=== PATIENT | female | born 1960 | race Caucasian/White ===

== ENCOUNTER → 2019-04-07 09:20 | Outpatient (BNVA) | payer MEDICARE, MEDICAID, SELFPAY | PROVIDERS: Family Provider Internal Medicine; PCP Internal Medicine; Referring Provider Nurse Practitioner Women's Health; Visit Provider Internal Medicine Rheumatology | DX: M81.0 Age-related osteoporosis without current pathological fracture (principal); Z79.899 Other long term (current) drug therapy; M17.0 Bilateral primary osteoarthritis of knee; M47.816 Spondylosis without myelopathy or radiculopathy, lumbar region; Z87.891 Personal history of nicotine dependence | CPT/HCPCS: 99204 ==

== ENCOUNTER → 2019-04-07 10:34 | Outpatient (BNVA) | payer MEDICARE, MEDICAID, SELFPAY | PROVIDERS: Family Provider Internal Medicine; PCP Internal Medicine; Referring Provider Nurse Practitioner Women's Health; Visit Provider Internal Medicine Rheumatology | DX: M81.0 Age-related osteoporosis without current pathological fracture (principal); Z79.899 Other long term (current) drug therapy; M17.0 Bilateral primary osteoarthritis of knee | CPT/HCPCS: 85025 ==

== ENCOUNTER 2019-04-07 11:05 | Outpatient (CLI) | payer MEDICARE, MEDICAID, SELFPAY ==
--- NOTE | 2019-04-07 11:22 | XR_ITS ---
WS: [id number] LUMBAR SPINE TECHNIQUE: 3 views of the lumbar spine CLINICAL INFORMATION: osteoarthritis COMPARISON: None. FINDINGS: Five pic-lev-yncygww lumbar vertebral bodies. Disc space heights are well preserved. No compression f ractures. Aortic calcification. No spondylolisthesis. Visualized sacroiliac joints are normal. Normal visualized soft tissues. Partia lly visualized bowel gas pattern is normal. XR/XR lumbar spine 2-3V* [id number] IMPRESSION: 1. Mild lumbar curve convex right. 2. No acute compression fractures. 3. Disc space size vertebral body heights relatively well-preserved.
--- NOTE | 2019-04-07 11:22 | XR_ITS ---
WS: [id number] KNEE RIGHT TECHNIQUE: 3 views of the right knee CLINICAL INFORMATION: osteoarthritis of both knees COMPARISON: None. FINDINGS: Normal anatomic alignment. No evidence of acute fracture dislocation. Mild medial compartment narrowi ng left knee. Hypertrophic patella. Small suprapatellar effusion. Vascular calcification. XR/XR knee RT 3V* [id number] IMPRESSION: 1. Mild degenerative arthritis. No acute fractures. 2. Hypertrophic patella. Small suprapatellar effusion.
== END 2019-04-07 11:06 | disposition home or self-care (01) ==
LOC: WPI 11:09
PROVIDERS: Family Provider Internal Medicine; PCP Internal Medicine; Visit Provider Internal Medicine Rheumatology
DX: M17.0 Bilateral primary osteoarthritis of knee (principal); M81.0 Age-related osteoporosis without current pathological fracture; M25.462 Effusion, left knee; M25.461 Effusion, right knee; Z79.899 Other long term (current) drug therapy
CPT/HCPCS: 36415; 72100; 73562; 80076; 82306; 82310; 82565; 84100

== ENCOUNTER → 2019-04-10 13:45 | Outpatient (BNVA) | payer MEDICARE, MEDICAID, SELFPAY | PROVIDERS: Family Provider Internal Medicine; PCP Internal Medicine; Visit Provider Anesthesiology | DX: M47.816 Spondylosis without myelopathy or radiculopathy, lumbar region (principal); M17.0 Bilateral primary osteoarthritis of knee; M81.0 Age-related osteoporosis without current pathological fracture; Z79.891 Long term (current) use of opiate analgesic | CPT/HCPCS: 99214 ==

== ENCOUNTER 2019-04-18 08:14 | Outpatient (CLI) | payer MEDICARE, MEDICAID, SELFPAY ==
[2019-04-18 08:43] LABS: Basophils % 0.4 %; Eosinophils # 0.1 10^3/uL (0.0-0.8); Eosinophils % 1.4 %; Hematocrit 39.5 % (37.0-47.0); Lymphocytes # 2.7 10^3/uL (0.8-4.8); Mean Corpuscular HGB Conc 32.9 g/dL (30.0-36.0); Mean Corpuscular Hemoglobin 28.7 pg (28.0-34.0); Mean Corpuscular Volume 87.2 fL (81-99); Monocytes # 0.8 10^3/uL (0.2-0.9); Monocytes % 8.6 %; Neutrophils # 5.3 10^3/uL (1.8-7.7); Neutrophils % 59.4 %; Nucleated Red Blood Cells % 0 %; Platelet Count 259 10^3/cmm (130-400); Red Blood Count 4.53 10^6/uL (4.1-5.3)
[2019-04-18 08:57] LABS: Alanine Aminotransferase 22 U/L (0-33); Albumin Level 4.1 g/dL (3.5-5.2); Alkaline Phosphatase 117 IU/L (35-105); Anion Gap 14.7 (5-19); Aspartate Amino Transferase 25 U/L (0-32); Blood Urea Nitrogen 13 mg/dL (6-20); Calcium 9.9 mg/dL (8.5-10.5); Carbon Dioxide 30 mmol/L (22-29); Chloride 99 mmol/L (98-107); Chol HDL Ratio 3.42 mg/dL (0.0-4.40); Cholesterol 219 mg/dL (0-200); Globulin 3.2 g/dL (1.3-4.6); Glucose 113 mg/dL (65-115); HDL Cholesterol 64 mg/dL (60-100); LDL Cholesterol Calculated 119 mg/dL (50-129); LDL HDL Ratio 1.86 RATIO (0.00-3.22); Potassium 3.7 mmol/L (3.5-5.1); Sodium 140 mmol/L (136-145); Total Bilirubin 0.3 mg/dL (0.15-1.2); Total Protein 7.3 g/dL (6.6-8.7); Triglycerides 178 mg/dL (0-150)
== END 2019-04-18 08:15 | disposition home or self-care (01) ==
LOC: LAB 08:19
PROVIDERS: Family Provider Internal Medicine; PCP Internal Medicine; Visit Provider Internal Medicine
DX: E78.5 Hyperlipidemia, unspecified (principal); I10 Essential (primary) hypertension
CPT/HCPCS: 36415; 80053; 80061; 85025

== ENCOUNTER → 2019-08-13 10:47 | Outpatient (BNVA) | payer MEDICARE, MEDICAID, SELFPAY | PROVIDERS: Family Provider Internal Medicine; PCP Internal Medicine; Visit Provider Anesthesiology | DX: M47.816 Spondylosis without myelopathy or radiculopathy, lumbar region (principal); M54.9 Dorsalgia, unspecified; M50.90 Cervical disc disorder, unspecified, unspecified cervical region; M17.0 Bilateral primary osteoarthritis of knee; Z79.891 Long term (current) use of opiate analgesic | CPT/HCPCS: 99214 ==

== ENCOUNTER → 2019-10-15 14:11 | Outpatient (BNVA) | payer MEDICARE, MEDICAID, SELFPAY | PROVIDERS: Family Provider Internal Medicine; PCP Internal Medicine; Visit Provider Nurse Practitioner | DX: M54.42 Lumbago with sciatica, left side (principal); M54.41 Lumbago with sciatica, right side; M47.816 Spondylosis without myelopathy or radiculopathy, lumbar region; M54.9 Dorsalgia, unspecified; Z79.891 Long term (current) use of opiate analgesic | CPT/HCPCS: 99213; 99214 ==

== ENCOUNTER → 2019-12-12 10:18 | Outpatient (BNVA) | payer MEDICARE, MEDICAID, SELFPAY | PROVIDERS: Family Provider Internal Medicine; PCP Internal Medicine; Visit Provider Nurse Practitioner | DX: M47.816 Spondylosis without myelopathy or radiculopathy, lumbar region (principal); M47.26 Other spondylosis with radiculopathy, lumbar region; M17.0 Bilateral primary osteoarthritis of knee; Z79.891 Long term (current) use of opiate analgesic | CPT/HCPCS: 99214 ==

== ENCOUNTER 2019-12-31 12:49 | Outpatient (CLI) | payer MEDICARE, MEDICAID, SELFPAY ==
--- NOTE | 2019-12-31 13:01 | CT_ITS ---
WS: [id number] LDCT LUNG CANCER SCREENING TECHNIQUE: Noncontrast CT of the chest with coronal and sagittal reformatted images. CLINICAL INFORMATION: NICOTINE DEPENDENCE COMPARISON: CT chest 7 DLP: 54.76 mGy.cm DIvol: 1.[address] scans at [facility] use at least one of these dose optimization techniques: automat ed exposure control; mA and/or kV adjustment per patient size (includes targeted exams where dose is matched to clinical indication); or iterative reconstruction. FINDINGS: Both lungs are well aerated. No acute pulmonary infiltrates. Noncalcified nodule left lower lobe flakita uring 4.3 mm. Additional tiny 2 mm nodule left lower lobe. Additional tiny 2 mm nodule right lower lo be. Bibasilar atelectasis. Aortic calcification. No mediastinal or hilar lymphadenopathy. Small esophageal hiatal hernia. No axillary lymphadenopathy. Mild thoracic kyphosis. CT/CT lung screening [id number] IMPRESSION: LUNG-RADS: 2-Benign Appearance or Behavior FOLLOW UP: 12 Month: Continue annual screening with LDCT
== END 2019-12-31 12:50 | disposition home or self-care (01) ==
LOC: CT 12:52
PROVIDERS: PCP Internal Medicine; Visit Provider Internal Medicine
DX: Z12.2 Encounter for screening for malignant neoplasm of respiratory organs (principal); F17.218 Nicotine dependence, cigarettes, with other nicotine-induced disorders
CPT/HCPCS: G0297

== ENCOUNTER → 2020-02-02 12:17 | Outpatient (BNVA) | payer MEDICARE, MEDICAID, SELFPAY | PROVIDERS: PCP Internal Medicine; Visit Provider Nurse Practitioner Family | DX: Z20.828 Contact with and (suspected) exposure to other viral communicable diseases (principal); R43.0 Anosmia; J06.9 Acute upper respiratory infection, unspecified | CPT/HCPCS: 87635 ==

== ENCOUNTER 2020-02-17 10:34 | Outpatient (CLI) | payer MEDICARE, MEDICAID, SELFPAY ==
--- NOTE | 2020-02-17 10:39 | MM_ITS ---
WS: [id number] BILATERAL DIGITAL SCREENING MAMMOGRAPHY WITH CAD CLINICAL INFORMATION: SCREENING HISTORY: Screening mammogram. No current complaints. COMPARISON: TECHNIQUE: Bilateral CC and MLO views. FINDINGS: Scattered fibroglandular densities bilaterally. Asymmetric density upper outer right breast measuring 8 mm is unchanged. Slightly spiculated asymmetric density right breast measuring 6 mm best seen on the MLO view mid dept h along the posterior nipple line is stable compared to April 11, 2016. No other suspicious abnorma lity. Left breast is unchanged. MM/[place] [id number] IMPRESSION: BI-RADS: 2-Benign FOLLOW UP: 1 Year Follow-up
== END 2020-02-17 10:35 | disposition home or self-care (01) ==
LOC: RADSHAW 10:37
PROVIDERS: PCP Internal Medicine; Visit Provider Internal Medicine
DX: Z12.31 Encounter for screening mammogram for malignant neoplasm of breast (principal)
CPT/HCPCS: 77067

== ENCOUNTER → 2020-02-26 12:38 | Outpatient (BNVA) | payer MEDICARE, MEDICAID, SELFPAY | PROVIDERS: PCP Internal Medicine; Visit Provider Nurse Practitioner | DX: M54.9 Dorsalgia, unspecified (principal); M47.816 Spondylosis without myelopathy or radiculopathy, lumbar region; M47.26 Other spondylosis with radiculopathy, lumbar region; M17.0 Bilateral primary osteoarthritis of knee; M70.61 Trochanteric bursitis, right hip; Y93.9 Activity, unspecified; F17.210 Nicotine dependence, cigarettes, uncomplicated; Z79.1 Long term (current) use of non-steroidal anti-inflammatories (NSAID); Z79.891 Long term (current) use of opiate analgesic | CPT/HCPCS: 99213; 99214 ==

== ENCOUNTER → 2020-03-16 13:04 | Outpatient (BNVA) | payer MEDICARE, MEDICAID, SELFPAY | PROVIDERS: PCP Internal Medicine; Visit Provider Anesthesiology Pain Medicine | DX: M70.61 Trochanteric bursitis, right hip (principal); F17.210 Nicotine dependence, cigarettes, uncomplicated; Z79.891 Long term (current) use of opiate analgesic; Y93.9 Activity, unspecified | CPT/HCPCS: 20610; 77002; 77003; J1030; J3490 ==

== ENCOUNTER → 2020-03-30 10:32 | Outpatient (BNVA) | payer MEDICARE, MEDICAID, SELFPAY | PROVIDERS: PCP Internal Medicine; Visit Provider Anesthesiology Pain Medicine | DX: M25.551 Pain in right hip (principal); M54.9 Dorsalgia, unspecified; F17.210 Nicotine dependence, cigarettes, uncomplicated | CPT/HCPCS: 99213; 99214 ==

== ENCOUNTER 2020-04-05 12:00 | Outpatient (CLI) | payer MEDICARE, MEDICAID, SELFPAY | END 2020-04-05 12:01 | disposition home or self-care (01) | LOC: SLEEP 04-06 12:36 | PROVIDERS: PCP Internal Medicine; Visit Provider Internal Medicine | DX: G47.10 Hypersomnia, unspecified (principal) | CPT/HCPCS: G0399 ==

== ENCOUNTER → 2020-04-12 13:19 | Outpatient (BNVA) | payer MEDICARE, MEDICAID, SELFPAY | PROVIDERS: PCP Internal Medicine; Visit Provider Anesthesiology Pain Medicine | DX: M70.61 Trochanteric bursitis, right hip (principal); Y93.9 Activity, unspecified; Z79.891 Long term (current) use of opiate analgesic | CPT/HCPCS: 20610; J1030; J3490 ==

== ENCOUNTER → 2020-04-30 11:31 | Outpatient (BNVA) | payer MEDICARE, MEDICAID, SELFPAY | PROVIDERS: PCP Internal Medicine; Visit Provider Nurse Practitioner | DX: M47.816 Spondylosis without myelopathy or radiculopathy, lumbar region (principal); M17.0 Bilateral primary osteoarthritis of knee; M47.26 Other spondylosis with radiculopathy, lumbar region; M70.61 Trochanteric bursitis, right hip; M54.9 Dorsalgia, unspecified; F17.210 Nicotine dependence, cigarettes, uncomplicated; Z79.1 Long term (current) use of non-steroidal anti-inflammatories (NSAID); Z79.891 Long term (current) use of opiate analgesic; Y93.9 Activity, unspecified | CPT/HCPCS: 99213 ==

== ENCOUNTER → 2020-06-07 09:43 | Outpatient (BNVA) | payer MEDICARE, MEDICAID, SELFPAY | PROVIDERS: PCP Internal Medicine; Referring Provider Internal Medicine; Visit Provider Podiatrist Foot & Ankle Surgery | DX: M79.671 Pain in right foot (principal) | CPT/HCPCS: 73630 ==

== ENCOUNTER → 2020-06-30 12:59 | Outpatient (BNVA) | payer MEDICARE, MEDICAID, SELFPAY | PROVIDERS: PCP Internal Medicine; Visit Provider Anesthesiology | DX: M47.816 Spondylosis without myelopathy or radiculopathy, lumbar region (principal); M47.26 Other spondylosis with radiculopathy, lumbar region; M17.0 Bilateral primary osteoarthritis of knee; M54.9 Dorsalgia, unspecified; M70.61 Trochanteric bursitis, right hip; Y93.9 Activity, unspecified; Z79.1 Long term (current) use of non-steroidal anti-inflammatories (NSAID); Z79.899 Other long term (current) drug therapy; Z79.891 Long term (current) use of opiate analgesic; F17.210 Nicotine dependence, cigarettes, uncomplicated | CPT/HCPCS: 99213 ==

== ENCOUNTER 2020-07-26 08:49 | Outpatient (CLI) | payer MEDICARE, MEDICAID, SELFPAY ==
--- NOTE | 2020-07-26 09:08 | FL_ITS ---
WS: [id number] ESOPHAGRAM WITH FLUOROSCOPY HISTORY: CHRONIC LARYNGITIS, DYSPHAGIA OROPHARYNGEAL PHASE COMPARISON: None available. FLUOROSCOPY TIME: 2.3 minutes. Esophagus and swallowing function: Patient swallowed the barium mixture without difficulty. No strict ures or mucosal abnormalities are identified. Mild coating of the pharynx after swallowing persists. Mild tertiary contractions throughout the mid to distal esophagus. Small reducible hiatal hernia. Mil d cricopharyngeal spasm at C4-5 level. There is also very small anterior cervical web at the C5 level . Gastroesophageal reflux: With patient supine reflux is noted into the upper thoracic esophagus. Hiatal hernia: Small hiatal hernia. FL/FL barium swallow [id number] IMPRESSION: 1. Large amount of gastroesophageal reflux to the level of the upper thoracic esophagus. With the patient supine there is delayed emptying of the reflux. Eso phagus emptied readily with the patient upright. 2. Small cricopharyngeal spasm and very small anterior cervical esophageal web . 3. Small hiatal hernia.
== END 2020-07-26 08:50 | disposition home or self-care (01) ==
PROVIDERS: PCP Internal Medicine; Visit Provider Specialist
DX: J37.0 Chronic laryngitis (principal); R13.12 Dysphagia, oropharyngeal phase; K21.9 Gastro-esophageal reflux disease without esophagitis; K44.9 Diaphragmatic hernia without obstruction or gangrene
CPT/HCPCS: 74220

== ENCOUNTER 2020-07-28 12:25 | Outpatient (CLI) | payer MEDICARE, MEDICAID, SELFPAY ==
--- NOTE | 2020-07-28 12:32 | USCV_ITS ---
Rosario Villalba Age: 60 Gender: F : 1960 Exam Date: 07/28/2020 12:58 Ordering Phys: Rianna Ruiz MD Technologist: TANIA Exam Location: [facility] [place] Indication: HEART MURMUR BP: / HR: 92 Rhythm: Sinus Technical Quality: Adequate MEASUREMENTS (Male / Female) Normal Values 2D ECHO LV Diastolic Diameter PLAX 2.4 cm 4.2 - 5.9 / 3.9 - 5.3 cm LV Systolic Diameter PLAX 1.6 cm LV Chamber Size 2.1 cm IVS Diastolic Thickness 1.6 cm 0.6 - 1.0 / 0.6 - 0.9 cm IVS Systolic Thickness 1.4 cm LVPW Diastolic Thickness 1.8 cm 0.6 - 1.0 / 0.6 - 0.9 cm LVPW Systolic Thickness 1.8 cm RV Chamber Size 1.9 cm LVOT Diameter 2.0 cm LV Ejection Fraction 2D Teich 62.7 % LV Ejection Fraction MOD 2C 68.5 % LV Ejection Fraction 2C AL 68.5 % LA Diameter 2.5 cm LA Width 3.6 cm LA Height 4.5 cm RA Width 3.0 cm RA Height 3.9 cm Aorta at Sinotubular Diameter 3.0 cm M-MODE LV Diastolic Diameter MM 4.6 cm 4.2 - 5.9 / 3.9 - 5.3 cm LV Systolic Diameter MM 2.8 cm LV Ejection Fraction MM Teich 70.1 % IVS Diastolic Thickness MM 0.7 cm 0.6 - 1.0 / 0.6 - 0.9 cm IVS Systolic Thickness MM 1.2 cm LVPW Diastolic Thickness MM 1.2 cm 0.6 - 1.0 / 0.6 - 0.9 cm LVPW Systolic Thickness MM 1.3 cm Aortic Annulus Diameter 3.5 cm LA Ao Ratio MM 0.6 MV E Point Septal Separation 0.8 cm DOPPLER AV Peak Velocity 139.0 cm/s LVOT Peak Velocity 141.0 cm/s AV Area Cont Eq vti 3.3 cm squared AV Area Cont Eq pk 3.3 cm squared MV Area PHT 5.0 cm squared Mitral E to A Ratio 0.8 MV E' Velocity 38.0 cm/s Mitral E to MV E' Ratio 8.0 Mitral E to LV E' Lateral Ratio 8.5 Mitral E to LV E' Septal Ratio 7.6 TR Peak Velocity 263.0 cm/s TR Peak Gradient 27.7 mmHg TV Peak E Velocity 61.0 cm/s Right Atrial Pressure 3.0 mmHg Pulmonary Artery Systolic Pressu 30.7 mmHg PV Peak Velocity 97.0 cm/s RV Acceleration Time 0.1 s RV Ejection Time 0.4 s RV AcT/ET 0.4 FINDINGS Left Ventricle Normal left ventricular size and , EF 60 %. The basal septum appears to be dyskinetic.Grade I/IV diastolic dysfunction (abnormal relaxation filling pattern), normal to mildly elevated filling pressures. Right Ventricle The right ventricle is normal in size and function. Right Atrium Possibly of normal size Left Atrium The left atrium is normal in size. Mitral Valve Mild mitral annular calcification. Aortic Valve No gross abnormalities noted Tricuspid Valve Trace to mild tricuspid valve regurgitation. Pulmonic Valve Pulmonic valve not well visualized. Pericardium Normal pericardium without effusion. Aorta Normal ascending aorta dimension. CONCLUSIONS Normal left ventricular size and , EF 60 %. Wall motion abnormality as mentioned above Type I diastolic dysfunction. Trace to mild tricuspid valve regurgitation. Mild mitral annular calcification. Technically difficult study because of the poor ultrasonic window. Comparison with the previous study is difficult because of the difference in the technical quality. Dr Wilbert Tam MD [facility] (Electronically Signed) Final Date: 29 Jul 2020 01:21 S
== END 2020-07-28 12:26 | disposition home or self-care (01) ==
PROVIDERS: PCP Internal Medicine; Visit Provider Internal Medicine
DX: R01.1 Cardiac murmur, unspecified (principal); I07.1 Rheumatic tricuspid insufficiency
CPT/HCPCS: 93306

== ENCOUNTER 2020-08-24 12:43 | Outpatient (CLI) | payer MEDICARE, MEDICAID, SELFPAY ==
[2020-08-24 13:23] LABS: Anion Gap 14.5 (5-19); Blood Urea Nitrogen 19 mg/dL (6-20); Calcium 9.9 mg/dL (8.5-10.5); Carbon Dioxide 29 mmol/L (22-29); Chloride 97 mmol/L (98-107); Glomerular Filtration Rate 41.9 mL/min (90-130); Glucose 116 mg/dL (65-115); Osmolality Calculated 287 mOsm/kg (285-295); Potassium 3.5 mmol/L (3.5-5.1); Sodium 137 mmol/L (136-145)
== END 2020-08-24 12:44 | disposition home or self-care (01) ==
PROVIDERS: PCP Internal Medicine; Visit Provider Anesthesiology
DX: Z79.899 Other long term (current) drug therapy (principal); Z79.1 Long term (current) use of non-steroidal anti-inflammatories (NSAID)
CPT/HCPCS: 36415; 80048

== ENCOUNTER → 2020-08-25 12:47 | Outpatient (BNVA) | payer MEDICARE, MEDICAID, SELFPAY | PROVIDERS: PCP Internal Medicine; Visit Provider Anesthesiology | DX: M54.41 Lumbago with sciatica, right side (principal); M47.816 Spondylosis without myelopathy or radiculopathy, lumbar region; M54.9 Dorsalgia, unspecified; M47.26 Other spondylosis with radiculopathy, lumbar region; M17.0 Bilateral primary osteoarthritis of knee; F17.210 Nicotine dependence, cigarettes, uncomplicated; Z79.891 Long term (current) use of opiate analgesic; Z79.899 Other long term (current) drug therapy | CPT/HCPCS: 99213 ==

== ENCOUNTER → 2020-10-20 09:45 | Outpatient (BNVA) | payer MEDICARE, MEDICAID, SELFPAY | PROVIDERS: PCP Internal Medicine; Visit Provider Internal Medicine Cardiovascular Disease | DX: I10 Essential (primary) hypertension (principal); M79.89 Other specified soft tissue disorders; I83.893 Varicose veins of bilateral lower extremities with other complications; E78.00 Pure hypercholesterolemia, unspecified | CPT/HCPCS: 80048; 83735; 83880 ==

== ENCOUNTER 2020-10-22 14:45 | Outpatient (CLI) | payer MEDICARE, MEDICAID, SELFPAY ==
--- NOTE | 2020-10-22 14:49 | MRR_ITS ---
PROCEDURE INFORMATION: Exam: MR Neck Without and With Contrast Exam date and time: 10/22/2020 2:49 PM Age: 60 years old Clinical indication: Other: Throat pain dysphagia; Additional info: Gastro-esophagel reflux disease; Pain in throat; , Dysphagia oropharyngeal phase TECHNIQUE: Imaging protocol: MR images of the neck without and with intravenous contrast. Contrast material: PROHANCE; Contrast volume: 17 ml; Contrast route: INTRAVENOUS (IV); COMPARISON: RF FL barium swallow [id number] 07/26/2020 9:13 AM FINDINGS: Nasopharynx: The nasopharynx is unremarkable. There is no significant pharyngeal tonsillar enlargement. Oropharynx: The oropharynx is unremarkable. There is no significant palatine tonsillar enlargement. Hypopharynx: Lingual tonsils are symmetrically prominent. There is no airway compromise. Larynx: The epiglottis is mildly thickened measuring up to 7 mm in thickness. There is no definite edema or pathologic enhancement of the epiglottis. Submandibular/Parotid glands: The parotid glands are normal. The submandibular glands are normal. Retropharyngeal space: There is no fluid or edema in the retropharyngeal space. Thyroid: The thyroid gland is unremarkable. Trachea: The visible portion of the trachea is normal. Mastoid air cells: Left mastoid effusion. Brain: The visible portion of the brain is normal. Vasculature: Vascular flow voids of the carotid and vertebral arteries are visible on the right. Left vertebral artery flow void is not apparent. Lymph nodes: There is no cervical or supraclavicular lymphadenopathy. Soft tissues: No edema. Bones/joints: There is mild multilevel spinal canal stenosis. There is multilevel moderate cervical degenerative disc disease. MR/MR orbit face neck wo/w* [id number] IMPRESSION: 1. Borderline thickening of the epiglottis. Possible epiglottitis. Findings are not definitive given borderline thickness. There is no visible airway compromise. Correlate with airway symptoms. 2. Lack of left vertebral artery flow void. Possible hypoplasia or occlusion. 3. Prominent lingual tonsils. Possible tonsillitis. No abscess or airway compromise. 4. Left mastoid effusion.
== END 2020-10-22 14:46 | disposition home or self-care (01) ==
LOC: RADSHAW 14:48
PROVIDERS: PCP Internal Medicine; Visit Provider Specialist
DX: K21.9 Gastro-esophageal reflux disease without esophagitis (principal); R07.0 Pain in throat; R13.12 Dysphagia, oropharyngeal phase; J35.8 Other chronic diseases of tonsils and adenoids
CPT/HCPCS: 70543; A9579

== ENCOUNTER → 2020-11-05 13:07 | Outpatient (BNVA) | payer MEDICARE, MEDICAID, SELFPAY | PROVIDERS: PCP Internal Medicine; Visit Provider Anesthesiology | DX: M54.41 Lumbago with sciatica, right side (principal); M47.816 Spondylosis without myelopathy or radiculopathy, lumbar region; M47.26 Other spondylosis with radiculopathy, lumbar region; Z79.891 Long term (current) use of opiate analgesic; Z87.891 Personal history of nicotine dependence | CPT/HCPCS: 99213 ==

== ENCOUNTER 2020-11-11 13:12 | Outpatient (CLI) | payer MEDICARE, MEDICAID, SELFPAY ==
--- NOTE | 2020-11-11 13:27 | ECG_ITS ---
[facility] Test Date: 2020-11-11 Pat Name: Rosario Villalba Department: Room: Gender: Female Patient Manager: : 1960 Requested By: Jaun Vargas Order Number: [id number] Leora MD: Gilma Venegas M.D. Measurements Intervals [place] Rate: 90 P: 43 AR: 139 QRS: -2 QRSD: 91 T: 60 QT: 369 QTc: 452 Interpretive Statements SINUS RHYTHM No previous ECG available for comparison Electronically Signed On 11-12-2020 9:08:21 CDT by Gilma Venegas M.D. [id number]
[2020-11-11 14:39] LABS: Alanine Aminotransferase 25 U/L (0-33); Albumin Level 4.3 g/dL (3.5-5.2); Alkaline Phosphatase 97 IU/L (35-105); Aspartate Amino Transferase 30 U/L (0-32); Blood Urea Nitrogen 16 mg/dL (6-20); Calcium 9.3 mg/dL (8.5-10.5); Carbon Dioxide 27 mmol/L (22-29); Chloride 96 mmol/L (98-107); Globulin 3.3 g/dL (1.3-4.6); Glomerular Filtration Rate 56.7 mL/min (90-130); Glucose 112 mg/dL (65-115); Osmolality Calculated 286 mOsm/kg (285-295); Sodium 137 mmol/L (136-145); Total Bilirubin 0.3 mg/dL (0.15-1.2); Total Protein 7.6 g/dL (6.6-8.7)
== END 2020-11-11 13:13 | disposition home or self-care (01) ==
LOC: RT 13:19
PROVIDERS: PCP Internal Medicine; Visit Provider Specialist
DX: Z01.810 Encounter for preprocedural cardiovascular examination (principal)
CPT/HCPCS: 80053; 93005

== ENCOUNTER 2020-11-23 13:22 | Outpatient (CLI) | payer MEDICARE, MEDICAID, SELFPAY ==
--- NOTE | 2020-11-23 13:34 | XR_ITS ---
WS: [id number] LUMBAR SPINE TECHNIQUE: 3 views of the lumbar spine CLINICAL INFORMATION: PAIN IN LUMBAR SPINE, DEGENERATIVE DISC DISEASE COMPARISON: None. FINDINGS: Osteopenia. Mild lumbar curve convex right. No acute compression fractures. Disc space heights verteb ral body heights relatively well-preserved. Mild disc space narrowing L3-L4 L4-L5. Trace anterolisthe sis L4 on L5. Moderate facet arthropathy L4-L5 and L5-S1. Aortic calcification. XR/XR lumbar spine 2-3V* [id number] IMPRESSION: 1. Osteopenia. Mild lumbar curve convex right. 2. Trace anterolisthesis L4 on L5. 3. Mild disc space narrowing L3-4 L4-5. 4. No acute compression fractures. 5. Moderate facet arthropathy L4-L5 and L5-S1.
== END 2020-11-23 13:23 | disposition home or self-care (01) ==
PROVIDERS: PCP Internal Medicine; Visit Provider Internal Medicine
DX: M51.36 Other intervertebral disc degeneration, lumbar region (principal); M85.80 Other specified disorders of bone density and structure, unspecified site; M47.816 Spondylosis without myelopathy or radiculopathy, lumbar region; M47.817 Spondylosis without myelopathy or radiculopathy, lumbosacral region
CPT/HCPCS: 72100

== ENCOUNTER 2020-12-09 14:23 | Outpatient (CLI) | payer MEDICARE, MEDICAID, SELFPAY ==
--- NOTE | 2020-12-09 14:41 | XR_ITS ---
WS: [id number] SCREENING DEXA SCAN [employer] CLINICAL INFORMATION: OSTEOPOROSIS COMPARISON: FINDINGS: The L1-L4 bone mineral density measures 0.894 g/cm2. This corresponds to a T score score of -2.4 and Z score of -2.0. Left femoral neck bone mineral density measures 0.907 g/cm2. This corresponds to a T score of -0.8 an d Z score of -0.4. Right femoral neck bone mineral density measures 0.851 g/cm2. This corresponds to a T score -1.2of an d Z score of -0.9. Mean femoral neck bone mineral density measures 0.879 g/cm2. This corresponds to a T score of -1.0 an d Z score of -0.7. XR/XR DEXA axial skeleton* [id number] IMPRESSION: Osteopenia lumbar spine at the upper end of the range. Osteopenia in the femora l necks at the lower end of the range. Patient's FRAX calculated 10 year probability for major osteoporotic fracture is 13.9 % and osteoporotic hip fracture is 1.4%.
== END 2020-12-09 14:24 | disposition home or self-care (01) ==
PROVIDERS: PCP Internal Medicine; Visit Provider Internal Medicine
DX: M81.0 Age-related osteoporosis without current pathological fracture (principal); M85.88 Other specified disorders of bone density and structure, other site
CPT/HCPCS: 77080

== ENCOUNTER → 2021-01-04 13:56 | Outpatient (BNVA) | payer MEDICARE, MEDICAID, SELFPAY | PROVIDERS: PCP Internal Medicine; Visit Provider Anesthesiology | DX: M47.816 Spondylosis without myelopathy or radiculopathy, lumbar region (principal); M47.26 Other spondylosis with radiculopathy, lumbar region; Z79.899 Other long term (current) drug therapy; Z79.891 Long term (current) use of opiate analgesic; Z87.891 Personal history of nicotine dependence | CPT/HCPCS: 99213 ==

== ENCOUNTER → 2021-02-02 12:24 | Outpatient (BNVA) | payer MEDICARE, MEDICAID, SELFPAY | PROVIDERS: PCP Internal Medicine; Visit Provider Anesthesiology | DX: G89.29 Other chronic pain (principal); M47.816 Spondylosis without myelopathy or radiculopathy, lumbar region; M47.26 Other spondylosis with radiculopathy, lumbar region; M70.61 Trochanteric bursitis, right hip; Y93.9 Activity, unspecified; F17.200 Nicotine dependence, unspecified, uncomplicated; Z79.891 Long term (current) use of opiate analgesic; Z79.899 Other long term (current) drug therapy; Z71.6 Tobacco abuse counseling | CPT/HCPCS: 99214 ==

== ENCOUNTER → 2021-03-31 13:26 | Outpatient (BNVA) | payer MEDICARE, MEDICAID, SELFPAY | PROVIDERS: PCP Internal Medicine; Visit Provider Anesthesiology | DX: G89.29 Other chronic pain (principal); M47.816 Spondylosis without myelopathy or radiculopathy, lumbar region; M17.0 Bilateral primary osteoarthritis of knee; M47.26 Other spondylosis with radiculopathy, lumbar region; M25.559 Pain in unspecified hip; Z79.891 Long term (current) use of opiate analgesic; Z79.899 Other long term (current) drug therapy; Z87.891 Personal history of nicotine dependence | CPT/HCPCS: 99214 ==

== ENCOUNTER 2021-05-10 13:10 | Outpatient (RCR) | payer MEDICARE, MEDICAID, SELFPAY | END 2021-06-09 23:59 | disposition home or self-care (01) | LOC: SPT 13:10 | PROVIDERS: PCP Internal Medicine; Referring Provider General Practice; Visit Provider General Practice | DX: G89.4 Chronic pain syndrome (principal); R26.9 Unspecified abnormalities of gait and mobility; M51.36 Other intervertebral disc degeneration, lumbar region; Z79.891 Long term (current) use of opiate analgesic; E66.9 Obesity, unspecified; M47.817 Spondylosis without myelopathy or radiculopathy, lumbosacral region; Z72.0 Tobacco use | CPT/HCPCS: 97110; 97161 ==

== ENCOUNTER 2021-05-16 14:59 | Outpatient (CLI) | payer MEDICARE, MEDICAID, SELFPAY ==
--- NOTE | 2021-05-16 15:17 | USCV_ITS ---
Rosario Villalba Age: 61 Gender: F : 1960 Exam Date: 05/16/2021 15:32 Ordering Phys: Rianna Ruiz MD Technologist: Flaco Washburn [place] Location[place] [facility] [place] Indication: carotid bruit Risk Factors: Previous Vascular Surgery: Right Brachial BP: / Left Brachial BP: / Right Left Velocity (cm/s) Spectral Plaque Velocity (cm/s) Spectral Plaque Syst/Diast Broadening Syst/Diast Broadening 172.10/29.60 Prox CCA 82.80 / 6.10 190.90/32.30 Mid CCA 104.90/ 9.30 150.60/34.90 Distal CCA 116.90/ 17.60 241.80/68.10 Prox ICA / 182.20/54.50 Mid ICA / 110.70/42.60 Distal ICA / 133.10 ECA 232.10 0.95 ICA/CCA Antegrade Vertebral Antegrade 63.90/ 17.60 cm/s 32.90/ 5.60 cm/s Tri Subclavian Tri 145.5 77.55 0 FINDINGS Comparison: none available. Complete occlusion of the Left ICA. Mild elevation left subclavian velocity. Moderate elevation of velocity in the right CCA and ICA. Likely secondary to occluded left ICA. Mild plaque left bifurcation. Antegrade vertebral arteries. CONCLUSIONS Complete occlusion left ICA. Right ICA stenosis 50-69%. Increased velocity in part due to occluded left ICA. Recommend carotid CTA. Dr. Ashley Fisher DO (Electronically Signed) Final Date: 16 May 2021 16:31 S
== END 2021-05-16 15:00 | disposition home or self-care (01) ==
PROVIDERS: PCP Internal Medicine; Visit Provider Internal Medicine
DX: I65.23 Occlusion and stenosis of bilateral carotid arteries (principal); R09.89 Other specified symptoms and signs involving the circulatory and respiratory systems
CPT/HCPCS: 93880

== ENCOUNTER → 2021-06-07 14:28 | Outpatient (BNVA) | payer MEDICARE, MEDICAID, SELFPAY | PROVIDERS: PCP Internal Medicine; Visit Provider Internal Medicine Cardiovascular Disease | DX: I65.29 Occlusion and stenosis of unspecified carotid artery (principal); I10 Essential (primary) hypertension; E78.00 Pure hypercholesterolemia, unspecified; Z87.891 Personal history of nicotine dependence | CPT/HCPCS: 99214 ==

== ENCOUNTER 2021-06-13 15:06 | Outpatient (CLI) | payer MEDICARE, MEDICAID, SELFPAY ==
--- NOTE | 2021-06-13 15:12 | CT_ITS ---
WS: [id number] CT ANGIOGRAM CAROTID ARTERIES HISTORY: L CAROTID ARTERY OCCLUSION TECHNIQUE: CT angiogram is performed of the carotid arteries. During arterial injection imaging is ob tained from the skull base to the aortic arch in 1.25 mm imaging. Coronal and sagittal reformats are submitted, MIP imaging also reviewed. Additional multiplanar reformats of the carotid arteries are chen bmitted. NASCET criteria utilized. All CT scans at [facility] use at least one of these dose optimization techniques: automated exposure control; mA and/or kV adjustment per patient size (includ es targeted exams where dose is matched to clinical indication); or iterative reconstruction. CONTRAST: Omnipaque 350; 95 mL IV. DLP: 376.08 mGy.cm COMPARISON: None available. Right carotid: Common carotid artery: Arises normally from the innominate artery. No significant plaque or stenosis. Internal carotid artery: Small amount of calcification. Very minimal intimal thickening at the bifurc ation. External carotid artery: Patent. Left carotid: Common carotid artery: Arises normally from the arch. Mild intimal thickening and atherosclerotic mildred que. There is very mild narrowing in the mid common carotid artery. No high-grade stenosis. More foca l calcified plaque without stenosis at the bifurcation. Internal carotid artery: Occluded at the bifurcation. No opacification distal to the bifurcation. External carotid artery: Patent. Focal calcified plaque and intimal thickening in the distal external carotid artery at the skull base. Right vertebral artery: Unremarkable. Left vertebral artery: Arises normally from the subclavian. Very small caliber LEFT vertebral artery. The artery is patent and diffusely small throughout its course. Distally at the skull base nonvisual ization of the artery. May be completely occluded at the skull base. Subclavian arteries: Small amount of calcified plaque proximal RIGHT subclavian artery. The mid to di stal RIGHT subclavian is being obscured by contrast injection. Mild plaque and irregularity involving the proximal LEFT subclavian artery. Just less than 50% stenosis involving the proximal LEFT subclav nella artery. Upper thorax: mild chronic emphysema. Focal area of pleural thickening in the posterior LEFT apex. Thyroid gland: 10 mm inferior LEFT thyroid nodule. There is a focal calcification in the mid gland on the RIGHT. Osseous structures: Unremarkable. Skull base: Unremarkable. CT/CT angio neck [id number] IMPRESSION: 1. 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 2. Mild atherosclerosis RIGHT cervical ICA. No high-grade stenosis. 3. Small caliber LEFT vertebral artery. This may be congenital. Diffusely hypo plastic and may be occluded distally near the skull base. 4. Just less than 50% stenosis proximal LEFT subclavian artery. Irregular plaq ue in the proximal LEFT subclavian artery.
== END 2021-06-13 15:07 | disposition home or self-care (01) ==
LOC: RAD 15:08
PROVIDERS: PCP Internal Medicine; Visit Provider Internal Medicine
DX: I65.23 Occlusion and stenosis of bilateral carotid arteries (principal); I70.8 Atherosclerosis of other arteries
CPT/HCPCS: 70498; Q9967

== ENCOUNTER → 2021-07-01 09:35 | Outpatient (BNVA) | payer MEDICARE, MEDICAID, SELFPAY | PROVIDERS: PCP Internal Medicine; Visit Provider Thoracic Surgery (Cardiothoracic Vascular Surgery) | DX: I65.23 Occlusion and stenosis of bilateral carotid arteries (principal); F17.210 Nicotine dependence, cigarettes, uncomplicated; Z79.82 Long term (current) use of aspirin | CPT/HCPCS: 99203 ==

== ENCOUNTER 2021-07-04 09:56 | Outpatient (CLI) | payer MEDICARE, MEDICAID, SELFPAY ==
--- NOTE | 2021-07-04 10:05 | MR_ITS ---
WS: [id number] MRI LUMBAR SPINE NONCONTRAST TECHNIQUE: Sagittal T1, T2 and STIR imaging. Axial T1 and T2 imaging. CLINICAL INFORMATION: DDD, LUMBAR COMPARISON: February 11, 2018 FINDINGS: Mild lumbar curve. No acute compression. Mild annular bulging L3-L4 and L4-L5. No high-grade central canal stenosis. L1-L2: Normal. L2-L3: Normal. L3-L4: Mild annular bulging with slight effacement of ventral thecal sac. Slight narrowing of the LEF T subarticular recess. Spinal canal and foramen are patent. Mild facet arthropathy. L4-L5: Mild annular bulging with slight impingement traversing L5 nerve roots bilaterally. Mild RIGHT foraminal narrowing. Moderate facet arthropathy. This is unchanged from previous. L5-S1: No significant disc bulging. Moderate facet arthropathy. Spinal canal and foramen are patent. Small disc protrusions in the cervical spine and mid thoracic spine most prominent at T7-T8 eccentric to the LEFT. Visualized pelvic bony structures: Normal. Paravertebral soft tissues: Normal. MR/MR lumbar spine wo con* [id number] IMPRESSION: 1. Mild lumbar curve. No acute compression. No high-grade central canal stenos is. 2. Mild annular bulging L4-L5 slightly impinges the traversing L5 nerve roots bilaterally. This is unchanged from previous. 3. Mild RIGHT L4-L5 foraminal narrowing is unchanged. 4. Mild to moderate facet arthropathy L3-L5. 5. Overall no significant changes compared to previous.
== END 2021-07-04 09:57 | disposition home or self-care (01) ==
LOC: RAD 09:58
PROVIDERS: PCP Internal Medicine; Visit Provider General Practice
DX: M54.17 Radiculopathy, lumbosacral region (principal)
CPT/HCPCS: 72148

== ENCOUNTER 2021-07-25 13:58 | Outpatient (CLI) | payer MEDICARE, MEDICAID, SELFPAY ==
--- NOTE | 2021-07-25 14:08 | MM_ITS ---
WS: [id number] BILATERAL 3D TOMOSYNTHESIS DIGITAL SCREENING MAMMOGRAPHY WITH CAD CLINICAL INFORMATION: SCREENING HISTORY: Screening mammogram. No current complaints. COMPARISON: February 17, 2020 TECHNIQUE: Bilateral CC and MLO views. FINDINGS: Scattered fibroglandular densities bilaterally. A few incidental punctate calcifications. Stable nodu lar asymmetric densities RIGHT breast. No suspicious focal mass, asymmetry, calcifications, or antonio ectural distortion. No evidence of malignancy. MM/[place] [id number] IMPRESSION: BI-RADS: 2-Benign FOLLOW UP: 1 Year Follow-up Recommend return to annual screening mammography.
== END 2021-07-25 13:59 | disposition home or self-care (01) ==
LOC: RAD 13:59
PROVIDERS: PCP Internal Medicine; Visit Provider Internal Medicine
DX: Z12.31 Encounter for screening mammogram for malignant neoplasm of breast (principal)
CPT/HCPCS: 77063; 77067

== ENCOUNTER 2021-09-06 12:04 | Outpatient (CLI) | payer MEDICARE, MEDICAID, SELFPAY ==
--- NOTE | 2021-09-06 12:12 | CT_ITS ---
WS: [id number] LDCT LUNG CANCER SCREENING HISTORY: NICOTINE DEPENDENCE, CIGARETTES TECHNIQUE: Axial imaging performed from the apices to 1 cm below the costophrenic angles. Coronal and sagittal reformats are submitted with axial MIP series. All CT scans at [facility] use at least one of these dose optimization techniques: automated exposure control; mA and/or kV adjustment per patient size (includes targeted exams where dose is matched to clinical indication); or iterativ e reconstruction. DLP: 63.41 mGy.cm DIvol: Mean CTDIvol: 1.60 (mGy) COMPARISON: 12/31/2019 Diagnostic quality: Satisfactory Lung Nodules: Long-term stability 4 mm nodule LEFT lower lobe. This nodule is stable since 2013. Ther e are a few scattered additional micronodules which are less than 3 mm at the lung bases which are st able. No new nodules or increasing size of any nodules. No endobronchial lesions. Long-term stability focal atelectasis at the RIGHT lung base. Best seen on image 217 of series 5. Lungs: Chronic emphysema. Heart: Normal size. No pericardial effusion. Other findings: Mild atherosclerosis aorta. Normal size pulmonary artery. No adenopathy identified. S mall hiatal hernia. CT/CT lung screening [id number] IMPRESSION: LUNG-RADS: 2-Benign Appearance or Behavior FOLLOW UP: 12 Month: Continue annual screening with LDCT OTHER FINDINGS (S MODIFIER): None.
== END 2021-09-06 12:05 | disposition home or self-care (01) ==
LOC: RAD 12:04
PROVIDERS: PCP Internal Medicine; Visit Provider Internal Medicine
DX: F17.218 Nicotine dependence, cigarettes, with other nicotine-induced disorders (principal); J43.9 Emphysema, unspecified
CPT/HCPCS: 71271

== ENCOUNTER 2021-09-13 08:02 | Outpatient (CLI) | payer MEDICARE, MEDICAID, SELFPAY ==
[2021-09-13 08:30] VITALS: BMI 29.0
--- NOTE | 2021-09-13 08:36 | ECG_ITS ---
[facility] Test Date: 2021-09-13 Pat Name: Rosario Villalba Department: Room: Gender: Female Health Science Specialist: Trudy Garces : 1960 Requested By: Rianna Thornton Order Number: [id number] Leora MD: Gilma Venegas M.D. Interpretive Statements NAME OF STUDY: LEXISCAN SESTAMIBI STRESS TEST INDICATION: Chest Pain PROCEDURE: At the baseline, the blood pressure was 143/82 mm Hg with a heart rate of 80 bpm and oxygen saturation of 95%. The electrocardiogram showed normal sinus rhythm, normal axis and non specific T wave changes. ??? The Lexiscan was infused over a period of 20 seconds. A total of 0.4 milligrams of Lexiscan was infused. The stress phase was continued for a total of 5 minutes. Heart rate at the end of the stress phase was 98 bpm, oxygen saturation of 96% with a blood pressure of 111/73 mm Hg . The EKG at the peak infusion revealed no significant ST-T wave changes. ??? Sestamibi was injected 20 seconds after the Lexiscan infusion. ??? Blood pressure at the end of the recovery phase was 117/70 mm Hg with a heart rate of 92 beats per minute and oxygen saturation of 95%. ??? CONCLUSION: 1. No significant EKG changes with the LexiScan infusion. 2. No LexiScan induced chest pain or cardiac arrhythmia. 3. Normal blood pressure and heart rate response. 4. Sestamibi/sestamibi perfusion scan pending; see separate report. Electronically Signed On 09-18-2021 18:26:25 CDT by Gilma Venegas M.D. [id number]
--- NOTE | 2021-09-13 08:37 | NMCV_ITS ---
NM macey perf SPECT r/s* [id number] Rosario Villalba Age: 61 Gender: F : 1960 Exam Date: 09/13/2021 08:37 Ordering Phys: Rianna Ruiz MD Technologist: KESHIA Nevarez Exam Location: [facility] Indications: CHEST PAIN STRESS TEST Please [facility] IMAGE PROTOCOL Rest/Stress 1 Lexiscan Day Radiopharmaceutical Dose (mCi) Administration Site Administered by Rest: Tc-99m 10.8 IV KESHIA Nevarez Sestamibi Stress:Tc-99m 32.8 IV KESHIA Brunner Sestamibi Rest: 13-Sep-2021 60 Discovery 630 Stress: 13-Sep-2021 30 Discovery 630 0.4mg Lexiscan. Supine position only as patient was unable to lay prone. SPECT RESULTS Technical Quality: Excellent Raw Data Analysis: Normal Image Corrections: No attenuation or motion correction applied Summed Stress Score: 0 Summed Rest Score: 0 Summed Difference Score: 0 PERFUSION FINDINGS SPECT images demonstrate homogeneous tracer distribution throughout the myocardium. FUNCTIONAL RESULTS (calculated via Gated SPECT) Stress Image LV EF (%): 86 Stress EDV (mL):50 TID: 0.71 Stress ESV (mL):7 FUNCTIONAL FINDINGS: There is normal left ventricular systolic function. IMPRESSIONS 1. Normal myocardial perfusion imaging with no evidence of ischemia 2. LV systolic function is normal Tye Eden MD (Electronically Signed) Final Date: 13 September 2021 12:13 S
[2021-09-13 10:38] VITALS: BP 117/70; PULSE 89
[2021-09-13] MEDS: regadenoson 0.4 Mg/5 ml Syringe IVP (10:39)
== END 2021-09-13 08:03 | disposition home or self-care (01) ==
LOC: CDL 08:05
PROVIDERS: PCP Internal Medicine; Visit Provider Internal Medicine
DX: R07.9 Chest pain, unspecified (principal)
CPT/HCPCS: 78452; 93017; A9500; J2785

== ENCOUNTER 2021-11-20 14:52 | Inpatient (IN) | payer MEDICARE, MEDICAID, SELFPAY ==
[2021-11-20] VITALS (9 sets, daily range): BP systolic 80–111; BP diastolic 51–64; PULSE 91–110; RESP 16–21; TEMP 36.9–39.1; O2SAT 91–94; BMI 29.8
--- NOTE | 2021-11-20 15:04 | ECG_ITS ---
[facility] Test Date: 2021-11-20 Pat Name: Rosario Villalba Department: Room: Gender: Female Education Sales Consultant: : 1960 Requested By: Cleveland Estrada Order Number: [id number] Leora MD: Tye Eden M.D. Measurements Intervals [place] Rate: 111 P: 48 ID: [id number] QRS: 35 QRSD: 81 T: 66 QT: 332 QTc: 452 Interpretive Statements SINUS TACHYCARDIA WITH SHORT ID INTERVAL POSSIBLE LEFT ATRIAL ENLARGEMENT [-0.1mV P-WAVE IN V1/V2] Compared to ECG 11/11/2020 13:29:58 Short ID interval now present Sinus rhythm no longer present Electronically Signed On 11-20-2021 18:26:32 CDT by Tye Eden M.D. [email or web address] Cay[employer] Holdingsking's daughters medical centerBLADE Network Technologiesadena [facility].[employer]/store/NU/[id number] f
--- NOTE | 2021-11-20 15:13 | XRR_ITS ---
PROCEDURE INFORMATION: Exam: XR Chest Exam date and time: 11/20/2021 3:46 PM Age: 61 years old Clinical indication: Dyspnea TECHNIQUE: Imaging protocol: Radiologic exam of the chest. Views: 1 view. COMPARISON: CR XR chest 2V* [id number] 12/18/2017 2:30 PM FINDINGS: Lungs: The patient is mildly rotated to the right. The lungs are clear. Pleural spaces: Unremarkable. No pleural effusion. No pneumothorax. Heart/Mediastinum: Unremarkable. No cardiomegaly. Bones/joints: Unremarkable. XR/XR chest 1V portable [id number] IMPRESSION: No acute cardiopulmonary abnormality.
--- NOTE | 2021-11-20 15:21 | CTR_ITS ---
PROCEDURE INFORMATION: Exam: CT Head Without Contrast Exam date and time: 11/20/2021 3:49 PM Age: 61 years old Clinical indication: Dizziness; Additional info: Light-headedness TECHNIQUE: Imaging protocol: Computed tomography of the head without contrast. Radiation optimization: All CT scans at this facility use at least one of these dose optimization techniques: automated exposure control; mA and/or kV adjustment per patient size (includes targeted exams where dose is matched to clinical indication); or iterative reconstruction. COMPARISON: MR orbit face neck wo/w* [id number] 10/22/2020 3:17 PM RADIATION DOSE METRICS: Total DLP (mGy-cm): 1065.08 FINDINGS: Brain: Mild atrophy and mild white matter chronic microvascular changes are noted. No hemorrhage or evidence of acute infarction. Cerebral ventricles: No ventriculomegaly. Paranasal sinuses: Visualized sinuses are unremarkable. No fluid levels. Mastoid air cells: Visualized mastoid air cells are well aerated. Bones/joints: Unremarkable. No acute fracture. Soft tissues: Unremarkable. CT/CT head wo con* [id number] IMPRESSION: No acute intracranial abnormality.
--- NOTE | 2021-11-20 15:21 | PC.NURSE ---
Pt resting in bed with continuous CM and sp02. Pt skin is warm and sweaty. HR 103 BP 105/62 sp02 97%. Equal chest rise with non-labored breathing and clear breath sounds. Pt was getting out of bed this morning and felt dizzy, it gets worse when she stands up and improves when she lays still. Call light within reach. No needs at this time.
--- NOTE | 2021-11-20 15:25 | W.ED.GENADLT ---
HPI - General Adult General: Chief complaint: Dizziness Stated complaint: Chest pain, SOB Time Seen by Provider: 11/20/21 15:10 History of Present Illness: Patient is a 61-year-old female with history of hypertension, carotid stenosis presented to the emergency room with complaints of intermittent lightheadedness with standing. Patient tells me that she has had chills and cough since earlier this morning. Every time she tries to get stand up, she feels lightheaded. Patient complains of mild vertigo upon standing as well. Patient denies any nausea/vomiting, chest pain, shortness breath or palpitation. Patient denies any diarrhea/melena/hematochezia. No focal weakness in the arms or legs, facial droop, slurring of speech or diplopia or language or speech difficulty. Onset: earlier today Duration:ongoing Location:home Severity:moderate Associated symptoms: Deny chest pain, dyspnea, nausea, rash, palpitations or vomiting Review of Systems Const: Denies: fever(s) or chills Eyes: Denies: change in vision ENMT: Denies: mouth pain Card: Denies: chest pain or palpitations Resp: Denies: dyspnea or non-productive cough GI: Denies: abdominal pain, nausea, vomiting or diarrhea : Denies: dysuria Musc: Denies: extremity pain Skin/Breast: Denies: rash or new lesions Neuro: Reports: other (+intermittent light-headedness on standing); Denies: weakness in extremities Psych: Reports: other (Normal mood) Luis Alberto/Lymph: Denies: easy bruising PFSH ED PFSH: Medical History Age related osteoporosis Carotid stenosis 100% left carotid stenosis Cervical disc disease Degenerative joint disease (DJD) of lumbar spine Encounter for long-term (current) use of NSAIDs Encounter for long-term opiate analgesic use High risk medication use HTN (hypertension) Hypercholesterolemia Immunization counseling Opioid contract exists Osteoarthritis of both knees Smoker unmotivated to quit Surgical History H/O: hysterectomy Family History Sister Cancer breast Diabetes Stroke Brother Cancer lung Diabetes Stroke CAD (coronary artery disease) Brother has AICD Mother Diabetes Father Heart disease Heart attack CAD (coronary artery disease) Father at age 51 secondary to heart attack Social History Smoking and tobacco status: current every day smoker cigarettes Packs smoked per day: 0.75 Years cigarettes smoked: 50 Alcohol intake: never Marital status: History of recent travel: No Physical Exam Const: COMMON NORMALS: alert HENMT: COMMON NORMALS: atraumatic HEAD & SCALP: atraumatic MOUTH: moist mucous membranes not abnormal Eye: COMMON NORMALS: EOMs intact bilaterally and conjunctivae normal CONJUNCTIVA: Yes conjunctivae normal Neck/C-Spine: COMMON NORMALS: full ROM and supple Resp: COMMON NORMALS: normal respiratory effort and clear to auscultation bilaterally AUSCULTATION: clear to auscultation bilaterally Cardio: COMMON NORMALS: regular rate RATE: regular rate GI: COMMON NORMALS: Soft to palpation and non-tender PALPATION: Yes Soft to palpation OTHER: No focal TTP. NO guarding rebound, guarding, rigidity. No CVA tenderness to percussion. Neg Mejia/Neg McBurney's point tenderness, no suprabupic tenderness to palpation. Extremity: COMMON NORMALS: full ROM Neuro: SENSORIUM/ORIENTATION: Yes alert MOTOR EXAM: No Abnormal motor strength present and Other motor observations present (no focal motor deficits) OTHER: Mental status? Awake, alert, and oriented to self, year, month, location, and situation.? Following simple axial and appendicular commands.? Has appropriate fund of knowledge, comprehension, and insight.? Able to recall and understands pertinent aspects of medical history and current treatment status.? ? Language? Speech is fluent without word-finding difficulties.? Intact naming, expression, medical receptionist, and repetition.? ? Cranial nerves? 2,3,4,6: PERRL, EOMI with no nystagmus. 5: Intact sensation to light touch, symmetric? 7: Smile symmetrical, no facial droop.? 8: Hearing grossly intact.? 9,10: Normal palate movement.? 11: Normal strength in trapezius bilaterally 12: Tongue protrudes midline.? ? Motor examination? Normal bulk & tone. Strength as follows (R/L): Delts (5/5), Biceps (5/5), Triceps (5/5), Wrist ext (5/5), hip flexors (5/5), plantarflexors (5/5), dorsiflexors (5/5). Sensation? Light Touch: Grossly intact and equal in upper and lower extremities bilaterally? Romberg: Negative.? Distal joint position sense intact ? Coordination? Iilivo-mj-kswl-finger movements intact without dysmetria or past-pointing.? Rapid fingertaps: preserved amplitude without decriment.? No tremor, myoclonus or truncal ataxia.? ? Gait/stance? Steady, normal narrow base gait with appropriate arm swing and turning.? Tandem gait without hesitation or loss of balance. Psych: COMMON NORMALS: speech normal SPEECH: Yes normal speech MOOD & AFFECT: Yes euthymic mood Course Vital Signs: Vital signs: Vital Signs Temperature 98.1 F 11/24/21 13:22 Pulse Rate 73 11/24/21 13:22 Respiratory Rate 20 H 11/24/21 13:22 Blood Pressure 148/66 11/24/21 13:22 Pulse Oximetry 95 11/24/21 13:22 Oxygen Delivery Me thod 11/24/21 11:25 Oxygen Flow Rate 1.5 11/22/21 21:15 [facility] - General Adult Medical Decision Making Patient is a 61-year-old female with history of hypertension, carotid stenosis presented to the emergency room with complaints of intermittent lightheadedness with standing. On exam, patient had steady gait. No other focal findings. CT head negative for any acute pathology. Creatinine 1.7 above baseline. Patient received 1 L fluid reports feeling symptomatically proved. Initial Troponin 61. Repeat troponin 259. EKG is nonischemic. Patient has no complaints of chest pain. Received aspirin and Lovenox in the ER. Disposition: admission Lab Data : 11/23/21 02:47 11/24/21 02:07 Radiology Impressions Chest X-Ray 11/20/21 15:13 IMPRESSION: No acute cardiopulmonary abnormality. Head CT 11/20/21 15:21 IMPRESSION: No acute intracranial abnormality. Laboratory Results WBC 13.1 10^3/uL (4.0-10.0) H 11/20/21 15:27 RBC 4.84 10^6/uL (4.1-5.3) 11/20/21 15:27 Hgb 12.7 g/dL (11.5-15.3) 11/20/21 15:27 Hct 39.7 % (37.0-47.0) 11/20/21 15: MCV 82.0 fl (81-99) 11/20/21: MCH 26.2 pg (28.0-34.0) L 11/20/21 15: MCHC 32.0 g/dL (30.0-36.0) 11/20/21 15: RDW 15.7 % (12.1-15.1) H 11/20/21: Plt Count 257 10^3/cmm (130-400) 11/20/21 15: MPV 11.7 fL (7.4-10.4) H 11/20/21: Neut % (Auto) 84.1 % 11/20/21: Lymph % (Auto) 3.9 % 11/20/21: Randolph % (Auto) 10.5 % 11/20/21: Eos % (Auto) 0.6 % 11/20/21: Baso % (Auto) 0.5 % 11/20/21: Neut # (Auto) 11.01 10^3/uL (1.8-7.7) H 11/20/21: Lymph # (Auto) 0.5 10^3/uL (0.8-4.8) L 11/20/21: Randolph # (Auto) 1.4 10^3/uL (0.2-0.9) H 11/20/21: Eos # (Auto) 0.1 10^3/uL (0.0-0.8) 11/20/21: Baso # (Auto) 0.1 10^3/uL (0.0-0.1) 11/20/21: Nucleated RBC % (auto) 0 % 11/20/21: Nucleated RBCs # 0.0 /100WBC 11/20/21 15: Sodium 138 mmol/L (136-145) 11/20/21 15: Potassium 3.6 mmol/L (3.5-5.1) 11/20/21: Chloride 100 mmol/L (98-107) 11/20/21: Carbon Dioxide 23 mmol/L (22-29) 09/11/22 15:27 Anion Gap 18.6 (5-19) 11/20/21 15:27 BUN 13 mg/dL (8-23) 11/20/21 15: Creatinine 1.6 mg/dL (0.5-0.9) H 11/20/21 15:27 GFR Calculation 32.9 mL/min (90-130) L 11/20/21 15: Glucose 111 mg/dL (65-115) 11/20/21 15: Estimat Average Glucose 146 11/20/21 15: Hemoglobin A1c 6.7 % (4.0-6.0) H 11/20/21 15: Calculated Osmolality 287 mOsm/kg (285-295) 11/20/21: Calcium 9.5 mg/dL (8.5-10.5) 11/20/21 15: Total Bilirubin 0.2 mg/dL (0.15-1.2) 11/20/21 15: AST 33 U/L (0-32) H 11/20/21: ALT 23 U/L (0-33) 11/20/21 15: Alkaline Phosphatase 115 U/L (35-105) H 11/20/21 15:27 Troponin T Baseline 61 ng/L (0-10) H 11/20/21 15: Troponin T 120 Minute 259.5 ng/L (0-10) H 11/20/21 18:27 Delta Troponin T 198.5 ABS# (0-10) H* 11/20/21 18:27 Total Protein 7.9 g/dL (6.6-8.7) 11/20/21 15: Albumin 4.1 g/dL (3.5-5.2) 11/20/21 15: Globulin 3.8 g/dL (1.3-4.6) 11/20/21 15: Triglycerides 172 mg/dL (0-150) H 11/20/21: Lipase 22 U/L (13-60) 11/20/21 15: Vitamin B12 1016 pg/mL (232-1245) 11/20/21 15: TSH 1.12 uIU/mL (0.27-4.20) 11/20/21: Urine Color Yellow (Yellow) 11/20/21 19:50 Urine Appearance Clear (CLEAR) 11/20/21 19:50 Urine pH 6.5 (5-7) 11/20/21 19:50 Ur Specific [place] 1.005 (1.005-1.030) 11/20/21 19:50 Urine Protein Neg (Negative) 11/20/21 19:50 Urine Glucose (UA) Norm (Normal) 11/20/21 19:50 Urine Ketones Negative (Negative) 11/20/21 19:50 Urine Blood Neg (Negative) 11/20/21 19:50 Urine Nitrate Negative (Negative) 11/20/21 19:50 Urine Bilirubin Neg (Negative) 11/20/21 19:50 Urine Urobilinogen Neg mg/dL (Negative) 11/20/21 19:50 Ur Leukocyte Esterase Negative (Negative) 11/20/21 19:50 Imaging Data Other Imaging: Radiologist's impression: [place] [address] CT Scan Report Signed Patient: Rosario Villalba Unit #: [id number] : 1960 Age/Sex: 61 / F ADM Date: 11/20/21 Loc: ER Room/Bed: Attending Dr: Ordering Provider/Ordering MD: Cleveland Estrada MD Date of Service: 11/20/21 Procedure(s): CT head wo con* [id number] Accession Number(s): [id number] Report Number: [id number] PROCEDURE INFORMATION: Exam: CT Head Without Contrast Exam date and time: 11/20/2021 3:49 PM Age: 61 years old Clinical indication: Dizziness; Additional info: Light-headedness TECHNIQUE: Imaging protocol: Computed tomography of the head without contrast. Radiation optimization: All CT scans at this facility use at least one of these dose optimization techniques: automated exposure control; mA and/or kV adjustment per patient size (includes targeted exams where dose is matched to clinical indication); or iterative reconstruction. COMPARISON: MR orbit face neck wo/w* [id number] 10/22/2020 3:17 PM RADIATION DOSE METRICS: Total DLP (mGy-cm): 1065.08 FINDINGS: Brain: Mild atrophy and mild white matter chronic microvascular changes are noted. No hemorrhage or evidence of acute infarction. Cerebral ventricles: No ventriculomegaly. Paranasal sinuses: Visualized sinuses are unremarkable. No fluid levels. Mastoid air cells: Visualized mastoid air cells are well aerated. Bones/joints: Unremarkable. No acute fracture. Soft tissues: Unremarkable. CT/CT head wo con* [id number] IMPRESSION:? No acute intracranial abnormality. ? Dictated By: Tristian Yuan MD Signed By: Tristian Yuan MD Signed Date/Time: 11/20/21 1618 DD/ [address] (Signed) Tristian Yuan - 11/20/21 Chest X-Ray (Signed) Tristian Yuan - 11/20/21 Myocardial Perfusion Scan Nuc Med (Signed) Tye Eden - 09/13/21 CT Lung (Signed) Ashley Fisher - 09/06/21 Mammogram Screening (Signed) Anil Brownlee - 07/25/21 Lumbar Spine MRI (Signed) Anil Brownlee - 07/04/21 Neck CTA (Signed) Ashley Fisher - 06/13/21 Carotid Doppler Study (Signed) Ashley Fisher - 05/16/21 Bone Densitometry (Signed) Anil Brownlee - 12/09/20 Lumbar Spine X-Ray (Signed) Anil Brownlee - 11/23/20 Orbits/Face/Neck MRI (Signed) Giles Rodriguez - 10/22/20 Echocardiogram Ultrasound (Signed) Wilbert Tam - 07/28/20 Barium Swallow X-Ray (Signed) Ashley Fisher - 07/26/20 Foot X-Ray (Signed) Munir Saldana - 06/07/20 Mammogram Screening (Signed) Anil Brownlee - 02/17/20 CT Lung (Signed) Anil Brownlee - 12/31/19 Lumbar Spine X-Ray (Signed) Anil Brownlee - 04/07/19 Knee X-Ray (Signed) Anil Brownlee - 04/07/19 Launch?[facility] [address] [place] [address] XRay Report Signed Patient: Rosario Villalba Unit #: [id number] : 1960 Age/Sex: 61 / F ADM Date: 11/20/21 Loc: ER Room/Bed: Attending Dr: Ordering Provider/Ordering MD: Cleveland Estrada MD Date of Service: 11/20/21 Procedure(s): XR chest 1V portable [id number] Accession Number(s): [id number] Report Number: [id number] PROCEDURE INFORMATION: Exam: XR Chest Exam date and time: 11/20/2021 3:46 PM Age: 61 years old Clinical indication: Dyspnea TECHNIQUE: Imaging protocol: Radiologic exam of the chest. Views: 1 view. COMPARISON: CR XR chest 2V* [id number] 12/18/2017 2:30 PM FINDINGS: Lungs: The patient is mildly rotated to the right. The lungs are clear. Pleural spaces: Unremarkable. No pleural effusion. No pneumothorax. Heart/Mediastinum: Unremarkable. No cardiomegaly. Bones/joints: Unremarkable. XR/XR chest 1V portable [id number] IMPRESSION:? No acute cardiopulmonary abnormality. ? Dictated By: Tristian Yuan MD Signed By: Tristian Yuan MD Signed Date/Time: 11/20/21 1622 DD/ 1546 Discharge Plan Discharge Patient Disposition: Admitted As Inpatient Admit Provider: Ernesto Moreno Clinical Impression: Non-ST elevation [place] (NSTEMI), LORENA (acute kidney injury), Acute dehydration Condition: Stable Coding Level of Care Code ED Cover Marker for Chg Fwd Exam Comprehensive
[2021-11-20 15:36] LABS: Basophils # 0.1 10^3/uL (0.0-0.1); Basophils % 0.5 %; Eosinophils # 0.1 10^3/uL (0.0-0.8); Eosinophils % 0.6 %; Hematocrit 39.7 % (37.0-47.0); Hemoglobin 12.7 g/dL (11.5-15.3); Lymphocytes # 0.5 10^3/uL (0.8-4.8); Lymphocytes % 3.9 %; Mean Corpuscular Hemoglobin 26.2 pg (28.0-34.0); Mean Platelet Volume 11.7 fL (7.4-10.4); Monocytes # 1.4 10^3/uL (0.2-0.9); Monocytes % 10.5 %; Neutrophils # 11.01 10^3/uL (1.8-7.7); Neutrophils % 84.1 %; Nucleated Red Blood Cells % 0 %; Platelet Count 257 10^3/cmm (130-400); Red Blood Count 4.84 10^6/uL (4.1-5.3); Red Cell Distribution Width 15.7 % (12.1-15.1); White Blood Count 13.1 10^3/uL (4.0-10.0)
[2021-11-20 15:57] LABS: Alanine Aminotransferase 23 U/L (0-33); Albumin Level 4.1 g/dL (3.5-5.2); Alkaline Phosphatase 115 U/L (35-105); Anion Gap 18.6 (5-19); Aspartate Amino Transferase 33 U/L (0-32); Blood Urea Nitrogen 13 mg/dL (8-23); Calcium 9.5 mg/dL (8.5-10.5); Carbon Dioxide 23 mmol/L (22-29); Chloride 100 mmol/L (98-107); Globulin 3.8 g/dL (1.3-4.6); Glomerular Filtration Rate 32.9 mL/min (90-130); Glucose 111 mg/dL (65-115); Lipase 22 U/L (13-60); Osmolality Calculated 287 mOsm/kg (285-295); Potassium 3.6 mmol/L (3.5-5.1); Sodium 138 mmol/L (136-145); Total Bilirubin 0.2 mg/dL (0.15-1.2); Total Protein 7.9 g/dL (6.6-8.7)
[2021-11-20] MEDS: sodium chloride 0.9% 1,000 ML 999 ML IV ×2 (16:07→17:26)
--- NOTE | 2021-11-20 16:10 | ECG_ITS ---
[facility] Test Date: 2021-11-20 Pat Name: Rosario Villalba Department: Room: Gender: Female [employer] Worker: : 1960 Requested By: Cleveland Estrada Order Number: [id number] Leora MD: Tye Eden M.D. Measurements Intervals [place] Rate: 94 P: 47 NC: 138 QRS: 50 QRSD: 87 T: 69 QT: 382 QTc: 479 Interpretive Statements SINUS RHYTHM POSSIBLE LEFT ATRIAL ENLARGEMENT [-0.1mV P-WAVE IN V1/V2] Compared to ECG 11/20/2021 15:04:59 Sinus tachycardia no longer present Short NC interval no longer present Electronically Signed On 11-20-2021 18:26:23 CDT by Tye Eden M.D. [id number]
--- NOTE | 2021-11-20 17:55 | ECG_ITS ---
[facility] Test Date: 2021-11-20 Pat Name: Rosario Villalba Department: Room: Gender: Female Telephoner: : 1960 Requested By: Cleveland Estrada Order Number: [id number] Leora MD: Tye Eden M.D. Measurements Intervals [place] Rate: 90 P: 61 MN: 142 QRS: 62 QRSD: 82 T: 78 QT: 354 QTc: 434 Interpretive Statements SINUS RHYTHM LOW QRS VOLTAGE IN PRECORDIAL LEADS [QRS DEFLECTION < 1.0 mV IN CHEST LEADS] MINIMAL ST DEPRESSION [0.025+ mV ST DEPRESSION] Compared to ECG 11/20/2021 16:10:28 Low QRS voltage now present ST (T wave) deviation now present Electronically Signed On 11-20-2021 18:28:52 CDT by Tye Eden M.D. [id number]
[2021-11-20 18:36] LABS: Troponin(5th) Baseline 61 ng/L (0-10)
[2021-11-20] MEDS: morphine 4 mg/mL SDV 1 mL IVP (18:49)
[2021-11-20] MEDS: acetaminophen 500 mg Tablet PO ×2 (18:49→23:28)
[2021-11-20] MEDS: lidocaine 5% Patch 1 PATCH TOPICAL (18:50)
[2021-11-20 19:13] LABS: Troponin 5 2HR 259.5 ng/L (0-10); Troponin 5 2HR Delta 198.5 ABS# (0-10)
--- NOTE | 2021-11-20 19:20 | P.HP_ITS ---
Providers/Chief Complaint Primary Care Provider: Rianna Ruiz MD Chief Complaint: Chest pain, SOB History of Present Illness Rosario Villalba is a 61 year old female who is an active smoker, has strong family history of coronary disease presents with chief complaint of presyncope and fatigue. Patient is stating that today when she woke up around 8:00 she felt extremely dizzy which she describing as lightheadedness, she rested for a while and then tried to make a cup of coffee, she wanted to smoke but did not have enough energy to get up go outside to smoke. Patient is stating that his father at age 51 secondary to heart attack, his other siblings are suffering from cardiomyopathy, 1 sibling has an AICD. She smokes 1 pack/day. She has not noticed chest pain, fever, nausea, vomiting, diaphoresis. She is endorsing chronic shortness of breath on exertion. In the ER she has been diagnosed with NSTEMI, chest pain-free, hemodynamically stable ACS protocol initiated Patient is asking for nicotine patch Creatinine 1.6, when I asked her about chronic kidney disease patient said no one has ever mentioned about her kidney insufficiency in the past, she is endorsing problems with her urination, sometimes she struggles to pass urine, no previous history of diabetes, he takes hydrochlorothiazide for blood pressure Requested D-dimer which came back high at 1.05 BNP 1133 Significant delta troponin, EKG without ischemic or infarctive changes Review of Systems Const: Reports: body aches and fatigue; Denies: fever(s) Eyes: Denies: change in vision ENMT: Denies: throat pain Card: Denies: chest pain Resp: Reports: dyspnea GI: Denies: abdominal pain : Denies: flank pain Musc: Denies: neck pain Skin/Breast: Denies: rash Neuro: Reports: headache(s) and dizziness Psych: Reports: anxiety Endo: Denies: polyuria Luis Alberto/Lymph: Denies: easy bruising All/Imm: Denies: urticaria Medications/Allergies Home Medications Medication Instructions Recorded Confirmed Last Taken Type aspirin 81 mg tablet,delayed 81 mg PO DAILY 04/04/19 11/20/21 11/20/21 History release (Adult Low Dose Aspirin) cholecalciferol (vitamin D3) 50 50 mcg PO DAILY 10/15/19 11/20/21 11/20/21 Histo ry mcg (2,000 unit) capsule biotin 10,000 mcg capsule 10,000 mcg PO DAILY 04/15/20 11/20/21 11/20/21 History hydrochlorothiazide 25 mg tablet 25 mg PO DAILY 01/04/21 11/20/21 11/20/21 History potassium chloride 10 mEq 20 meq PO DAILY 01/04/21 11/20/21 11/20/21 History tablet,extended release hydrocodone 10 mg-acetaminophen 1 tab PO TID PRN pain 30 days #90 03/31/21 11/20/21 11/20/21 Rx 325 mg tablet tabs pantoprazole 20 mg tablet,delayed 20 mg PO DAILY 03/31/21 11/20/21 11/20/21 History release (Protonix) bupropion HCl 150 mg 24 hr tablet, 150 mg PO QAM 06/07/21 11/20/21 11/20/21 History extended release (Wellbutrin XL) hydroxyzine HCl 25 mg tablet 25 mg PO Q8H PRN Anxiety 06/07/21 11/20/21 Unknown History amlodipine 2.5 mg tablet 2.5 mg PO DAILY 11/20/21 11/20/21 11/20/21 History multivitamin 1 tab PO DAILY 11/20/21 11/20/21 11/20/21 History rosuvastatin 10 mg tablet 10 mg PO DAILY 11/20/21 11/20/21 11/19/21 History Allergies Allergy/AdvReac Type Severity Reaction Status Date / Time sulfamethoxazole Allergy abdominal Verified 07/01/21 09:48 [From Bactrim] pain trimethoprim [From Bactrim] Allergy abdominal Verified 07/01/21 09:48 pain Sulfa (Sulfonamide AdvReac Mild rash and Verified 07/01/21 09:48 Antibiotics) itch tiagabine [From Gabitril] AdvReac Mild headache, Verified 07/01/21 09:48 upset GI PFSH Acute PFSH: Medical History Age related osteoporosis Carotid stenosis 100% left carotid stenosis Cervical disc disease Degenerative joint disease (DJD) of lumbar spine Encounter for long-term (current) use of NSAIDs Encounter for long-term opiate analgesic use High risk medication use HTN (hypertension) Hypercholesterolemia Opioid contract exists Osteoarthritis of both knees Smoker unmotivated to quit Surgical History H/O: hysterectomy Family History (Updated 11/20/21 @ 20:25 by Ernesto Moreno MD) Sister Cancer breast Diabetes Stroke Brother Cancer lung Diabetes Stroke CAD (coronary artery disease) Brother has AICD Mother Diabetes Father Heart disease Heart attack CAD (coronary artery disease) Father at age 51 secondary to heart attack Social History Smoking and tobacco status: current every day smoker cigarettes Packs smoked per day: 0.75 Years cigarettes smoked: 50 Alcohol intake: never Marital status: History of recent travel: No Vitals/I&O/Wt Last Vital Signs Temp 98.4 F 11/20/21 14:55 Pulse 91 11/20/21 16:09 Resp 18 11/20/21 18:49 BP 80/52 11/20/21 16:32 O2 Del Method 11/20/21 15:15 11/20/21 11/20/21 11/20/21 06:59 14:59 22:59 Intake Total 1999 Balance 1999 Weight last 48 hrs Weight 83.915 kg Physical Exam Narrative: Pleasant cooperative female No active chest pain No active symptoms at all EOMI, PERRLA Saturating well on room air Asking for nicotine patch Abdomen soft S1, S2 with systolic murmur right second intercostal space 2/6 No signs of edema of legs EOMI, PERRLA Nonfocal neuro exam No audible stridor or wheezing Doing well on room air Appropriate mood and affect Data : 11/20/21 15:27 11/20/21 15:27 A&P Assessment and plan (1) Non-ST elevation [place] (NSTEMI): Status: Acute (2) LORENA (acute kidney injury): Status: Acute (3) Carotid stenosis: Status: Acute (4) Smoker unmotivated to quit: Status: Acute (5) Varicose veins of leg with swelling: Status: Acute Qualifiers: Laterality: bilateral Qualified Code(s): I83.893 - Varicose veins of bilateral lower extremities with other complications (6) Hypercholesterolemia: Status: Acute (7) HTN (hypertension): Status: Acute Qualifiers: Hypertension type: essential hypertension Qualified Code(s): I10 - Essential (primary) hypertension Plan NSTEMI Start ACS protocol Aspirin, Plavix, Start low-dose metoprolol succinate Hold lisinopril because of creatinine 1.6 Echo in the morning Patient will need coronary angiogram because of strong family history, Please consult cardiology in the morning No active chest pain Check D-dimer and BNP Clinically patient does not look fluid overloaded Check A1c level and lipid panel Active smoker, smokes 1 pack/day, will start nicotine patch 21 mg daily Hypertension: Currently normotensive hold hydrochlorothiazide Continue amlodipine, I have added metoprolol succinate as well Hypokalemia likely related to hydrochlorothiazide Potassium repleted Full code Cardiac diet Patient will need an angiogram DVT prophylaxis covered with therapeutic Lovenox in case of worsening of creatinine Lovenox dose needs to be readjusted Headache, will give her Tylenol Patient has 100% occlusion of left carotid Attestations Medical Necessity Statement*: More than 2 midnights anticipated will need angiogram NSTEMI Time Spent in Patient Care: 45 Coding Level of Care Code Acute Design Maintenance Engineer for [facility] Fwcinthya Diagnoses Non-ST elevation [place] (NSTEMI) I21.4 LORENA (acute kidney injury) N17.9 Carotid stenosis I65.29 Smoker unmotivated to quit F17.200 Varicose veins of leg with swelling I83.893 Laterality: bilateral Hypercholesterolemia E78.00 HTN (hypertension) I10 Hypertension type: essential hypertension
[2021-11-20] MEDS: enoxaparin 80 mg/0.8 mL Syringe SUBCUT (19:40)
[2021-11-20] MEDS: aspirin 325 mg Tablet PO (19:40)
[2021-11-20 19:55] LABS: D Dimer 1.05 ug/mIFEU (0-0.59)
[2021-11-20 19:56] LABS: Add Urine Microscopic? NO; Charge for UA Resulting for Rev
[2021-11-20 20:11] LABS: Bilirubin Urine Neg (Negative); Blood Urine Neg (Negative); Glucose Urine UA Norm (Normal); Ketones Urine Negative (Negative); Leukocyte Esterase Urine Negative (Negative); Nitrate Urine Negative (Negative); Protein Urine Neg (Negative); Specific Gravity, Urine 1.005 (1.005-1.030); Urine Appearance Clear (CLEAR); Urine Color Yellow (Yellow); Urobilinogen Urine Neg (Negative); pH Urine 6.5 (5-7)
[2021-11-20 20:12] LABS: NT Pro B Type Natriuretic Pept 1133 pg/mL (0-125)
[2021-11-20] MEDS: nicotine 21 mg Patch 1 PATCH TRANSDERMA (21:01)
[2021-11-20] MEDS: morphine IR 15 mg Tablet PO (22:06)
[2021-11-20] MEDS: potassium chloride ER 10 mEq Tablet 40 MEQ PO (22:06)
[2021-11-20] MEDS: clopidogrel 300 mg Tablet PO (22:07)
[2021-11-20 23:36] LABS: Estmated Average Glucose 146; Hemoglobin A1C 6.7 % (4.0-6.0)
[2021-11-21] VITALS (16 sets, daily range): BP systolic 85–127; BP diastolic 59–77; PULSE 75–95; RESP 16–20; TEMP 36.7–38.4; O2SAT 80–96
[2021-11-21 00:58] LABS: Thyroid Stimulating Hormone 1.12 uIU/mL (0.27-4.20); Triglycerides 172 mg/dL (0-150); Vitamin B12 1016 pg/mL (232-1245)
[2021-11-21 01:23] LABS: Basophils % 0.3 %; Eosinophils % 0.5 %; Hematocrit 36.7 % (37.0-47.0); Hemoglobin 11.1 g/dL (11.5-15.3); Lymphocytes # 0.7 10^3/uL (0.8-4.8); Mean Corpuscular HGB Conc 30.2 g/dL (30.0-36.0); Mean Corpuscular Hemoglobin 26.5 pg (28.0-34.0); Mean Corpuscular Volume 87.6 fl (81-99); Monocytes # 0.9 10^3/uL (0.2-0.9); Monocytes % 14.1 %; Neutrophils # 4.75 10^3/uL (1.8-7.7); Neutrophils % 73.8 %; Nucleated Red Blood Cells % 0 %; Platelet Count 193 10^3/cmm (130-400); Red Blood Count 4.19 10^6/uL (4.1-5.3); Red Cell Distribution Width 16.3 % (12.1-15.1); White Blood Count 6.4 10^3/uL (4.0-10.0)
[2021-11-21 01:33] LABS: Adenovirus Not Detected (NOT DETECT); Chlamydia Pneumoniae Not Detected (NOT DETECT); Coronavirus 229E,HKU1,NL63,OC4 Not Detected (NOT DETECT); Human Metapneumovirus Not Detected (NOT DETECT); Human Rhinovirus/Enterovirus Not Detected (NOT DETECT); Influenza A Not Detected (NOT DETECT); Influenza A H1 Not Detected (NOT DETECT); Influenza A H1-2009 Not Detected (NOT DETECT); Influenza A H3 Not Detected (NOT DETECT); Influenza B Not Detected (NOT DETECT); Mycoplasma Pneumoniae Not Detected (NOT DETECT); Parainfluenza Virus Type 1 Not Detected (NOT DETECT); Parainfluenza Virus Type 2 Not Detected (NOT DETECT); Parainfluenza Virus Type 3 Not Detected (NOT DETECT); Parainfluenza Virus Type 4 Not Detected (NOT DETECT); Respiratory Syncytial Virus A Not Detected (NOT DETECT); Respiratory Syncytial Virus B Not Detected (NOT DETECT); SARS-COV-2 Detected (NOT DETECT)
[2021-11-21 01:55] LABS: Alanine Aminotransferase 24 U/L (0-33); Albumin Level 3.9 g/dL (3.5-5.2); Alkaline Phosphatase 119 U/L (35-105); Anion Gap 13.3 (5-19); Aspartate Amino Transferase 48 U/L (0-32); Blood Urea Nitrogen 16 mg/dL (8-23); C Reactive Protein 36.7 mg/L (0.0-4.9); Calcium 8.5 mg/dL (8.5-10.5); Carbon Dioxide 26 mmol/L (22-29); Chloride 103 mmol/L (98-107); Globulin 2.8 g/dL (1.3-4.6); Glomerular Filtration Rate 41.8 mL/min (90-130); Glucose 117 mg/dL (65-115); Magnesium 1.7 mg/dL (1.7-2.3); Osmolality Calculated 290 mOsm/kg (285-295); Phosphorus 2.3 mg/dL (2.5-4.5); Potassium 3.3 mmol/L (3.5-5.1); Sodium 139 mmol/L (136-145); Total Bilirubin 0.2 mg/dL (0.15-1.2); Total Protein 6.7 g/dL (6.6-8.7)
[2021-11-21 02:00] LABS: Procalcitonin 0.18 ng/mL (0-0.5)
[2021-11-21] MEDS: acetaminophen 500 mg Tablet PO (04:40)
[2021-11-21] MEDS: sodium chloride 0.9% 1,000 ML 75 ML IV ×2 (06:43→22:29)
[2021-11-21] MEDS: budesonide 0.5 mg/2 mL Neb INHALATION ×2 (08:28→20:16)
[2021-11-21] MEDS: ipratropium-albuterol 3 mL Neb INHALATION ×3 (08:29→20:16)
[2021-11-21] MEDS: atorvastatin 40 mg Tablet 80 MG PO (09:31)
[2021-11-21] MEDS: pantoprazole DR 40 mg Tablet 20 MG PO (09:31)
[2021-11-21] MEDS: aspirin 81 mg EC Tablet PO (09:31)
[2021-11-21] MEDS: sennosides-docusate Tablet 1 TAB PO (09:31)
[2021-11-21] MEDS: metoprolol succinate ER (24 HR) 25 mg Tablet 12.5 MG PO (09:31)
[2021-11-21] MEDS: clopidogrel 75 mg Tablet PO (09:31)
[2021-11-21] MEDS: enoxaparin 80 mg/0.8 mL Syringe SUBCUT ×2 (09:32→21:29)
[2021-11-21] MEDS: morphine IR 15 mg Tablet PO ×3 (09:37→22:29)
[2021-11-21] MEDS: perflutren protein-a microsphr 0.22 mg/mL SDV 3 mL IV (11:19)
--- NOTE | 2021-11-21 19:01 | PC.NURSE ---
I have reviewed and agree with Documentation by Celsa alexis Student Nurse
--- NOTE | 2021-11-21 21:45 | USCV_ITS ---
Deejay Rosario Age: 61 Gender: F : 1960 Exam Date: 11/21/2021 09:53 Ordering Phys: Ernesto Moreno MD Technologist: Adrian Mojica Exam Location: [facility] – [place] Indication: Nstemi BP: 88 / 59 HR: 92 Rhythm: Sinus Technical Quality: Adequate MEASUREMENTS (Male / Female) Normal Values 2D ECHO LV Diastolic Diameter PLAX 3.5 cm 4.2 - 5.9 / 3.9 - 5.3 cm LV Systolic Diameter PLAX 2.2 cm IVS Diastolic Thickness 1.3 cm 0.6 - 1.0 / 0.6 - 0.9 cm IVS Systolic Thickness 1.3 cm LVPW Diastolic Thickness 1.3 cm 0.6 - 1.0 / 0.6 - 0.9 cm LVPW Systolic Thickness 1.5 cm LVOT Diameter 2.1 cm LV Ejection Fraction 2D Teich 68.1 % LV Ejection Fraction MOD 2C 71.6 % LV Ejection Fraction 2C AL 71.4 % LA Diameter 3.1 cm IVC Diameter 1.0 cm M-MODE Aortic Annulus Diameter 3.4 cm LA Ao Ratio MM 0.9 MV E Point Septal Separation 0.8 cm DOPPLER AV Peak Velocity 104.0 cm/s LVOT Peak Velocity 113.0 cm/s AV Area Cont Eq vti 3.9 cm squared AV Area Cont Eq pk 3.7 cm squared MV Area PHT 5.0 cm squared Mitral E to A Ratio 1.3 MV E' Velocity 140.0 cm/s TR Peak Velocity 293.7 cm/s TR Peak Gradient 34.5 mmHg TV Peak E Velocity 128.0 cm/s Right Atrial Pressure 3.0 mmHg Pulmonary Artery Systolic Pressu 37.5 mmHg PV Peak Velocity 135.0 cm/s RV Acceleration Time 0.1 s FINDINGS Left Ventricle Normal left ventricular cavity size. Normal left ventricular systolic function. Left ventricular ejection fraction is estimated at 70 %. No regional wall motion abnormalities. Right Ventricle Normal right ventricular size and systolic function. Right ventricular systolic pressure 40 mmHg. Right Atrium Right atrium not well visualized. Left Atrium Left atrium not well visualized. Mitral Valve Thickened mitral valve. No mitral valve stenosis. Trace mitral valve regurgitation. Aortic Valve Aortic valve not well visualized. No aortic valve stenosis. Tricuspid Valve Structurally normal tricuspid valve. Trace tricuspid valve regurgitation. Pulmonic Valve Pulmonic valve not well visualized. No pulmonary valve stenosis. No pulmonary valve regurgitation. Pericardium No pericardial effusion. Aorta Normal size aortic root. IVC Inferior vena cava not visualized. CONCLUSIONS 1. This is a technically difficult study. Optison was used per protocol. 2. Normal left ventricular cavity size and systolic function. Left ventricular ejection fraction is estimated at 70 %. No regional wall motion abnormalities. 3. Normal right ventricular size and systolic function. 4. No significant valvular abnormality. 5. When compared to echocardiogram dated 07/28/2020, there may not have been any significant change. Gilma Venegas MD (Electronically Signed) Final Date: 21 November 2021 15:19 S
[2021-11-21] MEDS: ondansetron 2 mg/ML SDV 2 mL 4 MG IVP (22:32)
[2021-11-22] VITALS (15 sets, daily range): BP systolic 91–162; BP diastolic 59–83; PULSE 60–116; RESP 16–20; TEMP 36.4–37.3; O2SAT 82–97
[2021-11-22] MEDS: morphine IR 15 mg Tablet PO (03:15)
[2021-11-22] MEDS: ipratropium-albuterol 3 mL Neb INHALATION (10:00)
[2021-11-22] MEDS: budesonide 0.5 mg/2 mL Neb INHALATION (10:00)
--- NOTE | 2021-11-22 10:20 | ECG_ITS ---
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 Measurements Intervals [place] Rate: 143 P: [place]: QRS: 46 QRSD: 136 T: -6 QT: 280 QTc: 432 Interpretive Statements ATRIAL FLUTTER/TACHYCARDIA WITH RAPID VENTRICULAR RESPONSE INTRAVENTRICULAR CONDUCTION DELAY [130+ ms QRS DURATION] Compared to ECG 11/20/2021 17:55:17 Intraventricular conduction delay now present Sinus rhythm no longer present ST (T wave) deviation no longer present Electronically Signed On 11-22-2021 18:04:06 CDT by Gilma Venegas M.D. [id number]
[2021-11-22] MEDS: metoprolol tartrate 1 mg/1 mL SDV 5 mL 5 MG IVP (10:33)
[2021-11-22] MEDS: atorvastatin 40 mg Tablet 80 MG PO (10:50)
[2021-11-22] MEDS: sennosides-docusate Tablet 1 TAB PO (10:51)
[2021-11-22] MEDS: enoxaparin 80 mg/0.8 mL Syringe SUBCUT ×2 (10:51→20:46)
[2021-11-22] MEDS: aspirin 81 mg EC Tablet PO (10:52)
[2021-11-22] MEDS: clopidogrel 75 mg Tablet PO (10:52)
[2021-11-22] MEDS: pantoprazole DR 40 mg Tablet 20 MG PO (11:08)
[2021-11-22] MEDS: sodium chloride 0.9% 1,000 ML 75 ML IV ×2 (11:10→20:46)
--- NOTE | 2021-11-22 12:23 | P.PN_ITS ---
Subjective Subjective: Admitted on 11/20. Somehow patient could not be seen yesterday. Review of chart and history and physical examination patient has remained hemodynamically stable other than today morning when she developed atrial fibrillation. Patient had remained on room air. Patient states since admission she was feeling better until today morning when she had episodes of palpitation. States she has multiple episodes of palpitation even at home and she is actually feeling better than when she felt at home with these episodes. On examination patient's heart rate was running in 130s, saturating 99% on 2 L was placed for comfort, laying comfortably in bed with 10 degrees elevation of head. No documented urine output. Has remained afebrile. Vitals/I&O/Wt Last Vital Signs Temp 98.9 F 11/22/21 11:43 Pulse 105 H 11/22/21 11:43 Resp 18 11/22/21 11:43 BP 91/63 11/22/21 11:43 Pulse Ox 97 11/22/21 11:43 O2 Del Method 11/22/21 11:41 O2 Flow Rate 1.5 11/22/21 11:41 11/21/21 11/22/21 11/22/21 22:59 06:59 14:59 Intake Total 1360 / 1836 240 / 2076 951.25 / 951.25 Balance 1360 / 1836 240 / 2076 951.25 / 951.25 Weight last 48 hrs Weight 83.915 kg Physical Exam Narrative: General: No acute distress, AO x3, NC oxygen supplementation HEENT: PERRLA, pupils bilaterally equal and reactive Chest: Bilateral normal respiratory breath sounds, equal air entry bilaterally with occasional rhonchi CVS: S1-S2 irregularly irregular, tachycardia, ejection systolic murmur at aortic area radiating to right 3 to right carotids, no gallops, no rubs Abdomen: Soft, nontender, no organomegaly, bowel sounds present, morbidly obese Neuro: No focal deficits, no facial deformity, AO x3, power 5/5 in all limbs Data : 11/21/21 00:55 11/21/21 00:55 Micro: Microbiology 11/21/21 00:55 Blood Culture - Preliminary Blood NEGATIVE TO DATE 11/21/21 00:55 Blood Culture - Preliminary Blood NEGATIVE TO DATE A&P Assessment and plan (1) COVID-19: Mildly disease. At baseline not requiring any oxygen. Oxygen supplementation keeping saturation over 88%. For now start on IV remdesivir to finish a 3 to 5-day course depending on oxygen requirement. Dexamethasone 6 mg IV daily. Advair, Spiriva Incentive spirometry, flutter valve. Status: Acute (2) Non-ST elevation NC (NSTEMI): Strong family history. Positive delta troponin. Lexiscan stress test done on September 2021 negative for any acute ischemia. Echocardiogram done shows no regional wall motion normality with normal EF. Continue aspirin, Plavix, statin. Check A1c, lipid panel. Repeat troponin to be added to morning labs. No active chest pain currently. Given negative stress test recently with a strong family history and positive delta troponin will consult cardiology for possible need of angiogram once creatinine back to baseline for further evaluation and management. Status: Acute (3) Atrial fibrillation and flutter: New diagnosis. Though patient states she does have episodes of palpitations and flutter at home as well for a long time. Given borderline blood pressures for now start on amiodarone drip followed by bolus. Olvin Vas score?3 for history of diabetes, hypertension, female sex. Patient will need anticoagulation as an outpatient. For now continue with full dose Lovenox 1 mg/kg body weight every 12 hourly. Status: Acute (4) LORENA (acute kidney injury): Baseline creatinine 0.9-1.3. Most likely secondary dehydration on admission. Trending down almost near to baseline. Continue with gentle IV hydration at 75 cc/h for now. Medical reconciliation done for nephrotoxic drugs. Status: Acute (5) HTN (hypertension): Goal blood pressure less than 140/90 mmHg. Keep neuro pressure over 65 Continue to monitor. Status: Acute Qualifiers: Hypertension type: essential hypertension Qualified Code(s): I10 - Essential (primary) hypertension (6) Carotid stenosis: History of carotid artery stenosis as an outpatient. Continue with aspirin, statin as above. Status: Acute (7) Smoker unmotivated to quit: Status: Acute Plan Continue other chronic medications including bupropion. Full code. Carb consistent diet. Full dose Lovenox will suffice as DVT prophylaxis. Protonix for PUD prophylaxis Transfer to [facility]. Attestations Medical Necessity Statement*: Requires further hospitalization for management of atrial fibrillation, flutter, non-ST elevation NC in a patient with strong family history, COVID-19, LORENA Time Spent in Patient Care: Greater than 35 minutes Coding Level of Care Code Acute Lime Hide Inspector for Chg Fwd Diagnoses COVID-19 U07.1 Non-ST elevation NC (NSTEMI) I21.4 Atrial fibrillation and flutter I48.91; I48.92 LORENA (acute kidney injury) N17.9 HTN (hypertension) I10 Hypertension type: essential hypertension Carotid stenosis I65.29 Smoker unmotivated to quit F17.200
[2021-11-22] MEDS: nicotine 14 mg Patch 1 PATCH TRANSDERMA (12:59)
[2021-11-22] MEDS: dexamethasone 10 mg/mL INJ 6 MG IVP (12:59)
[2021-11-22] MEDS: buPROPion XL (24 HR) 150 mg Tablet PO (13:00)
[2021-11-22 13:22] LABS: Troponin T (5th) Once 494 ng/L (0-10)
[2021-11-22 13:25] LABS: Chol HDL Ratio 4.12 mg/dL (0.0-4.40); Cholesterol 173 mg/dL (0-200); HDL Cholesterol 42 mg/dL (60-100); Iron 26 ug/dL (37-145); LDL Cholesterol Calculated 107 mg/dL (50-129); LDL HDL Ratio 2.55 RATIO (0.00-3.22); Percent Saturation 7.2 % (20-50); Total Iron Binding Capacity 359 mcg/dl; Triglycerides 122 mg/dL (0-150); Unsaturated Iron Binding 333 ug/dL (112-347)
--- NOTE | 2021-11-22 14:31 | P.CONIM_ITS ---
Providers/Reason For Consult Consulting Physician/Specialty*: Tye Eden MD/ Cardiology Reason for Consult*: Troponin elevation Requesting Physician: Dr Salgado Attending Physician: Ernesto Moreno MD Primary Care Provider: Rianna Ruiz MD History of Present Illness History of Present Illness Rosario Villalba is a 61 year old female with past medical history of hypertension has presented to the hospital with dizziness and presyncope. Was found to be COVID-positive. Her troponins trended up significantly. EKG showed sinus rhythm initially. Went into A. fib with RVR today. Blood pressure is controlled. Echocardiogram shows normal LV systolic function. Recent stress test was negative for ischemia. Review of Systems Const: Reports: body aches and fatigue; Denies: fever(s) Eyes: Denies: change in vision ENMT: Denies: throat pain Card: Denies: chest pain Resp: Reports: dyspnea GI: Denies: abdominal pain : Denies: flank pain Musc: Denies: neck pain Skin/Breast: Denies: rash Neuro: Reports: headache(s) and dizziness Psych: Reports: anxiety Endo: Denies: polyuria Luis Alberto/Lymph: Denies: easy bruising All/Imm: Denies: urticaria Medications/Allergies Home Medications Medication Instructions Recorded Confirmed Last Taken Type aspirin 81 mg tablet,delayed 81 mg PO DAILY 04/04/19 11/20/21 11/20/21 History release (Adult Low Dose Aspirin) cholecalciferol (vitamin D3) 50 50 mcg PO DAILY 10/15/19 11/20/21 11/20/21 History mcg (2,000 unit) capsule biotin 10,000 mcg capsule 10,000 mcg PO DAILY 04/15/20 11/20/21 11/20/21 History hydrochlorothiazide 25 mg tablet 25 mg PO DAILY 01/04/21 11/20/21 11/20/21 History potassium chloride 10 mEq 20 meq PO DAILY 01/04/21 11/20/21 11/20/21 History tablet,extended release hydrocodone 10 mg-acetaminophen 1 tab PO TID PRN pain 30 days #90 03/31/21 11/20/21 11/20/21 Rx 325 mg tablet tabs pantoprazole 20 mg tablet,delayed 20 mg PO DAILY 03/31/21 11/20/21 11/20/21 History release (Protonix) bupropion HCl 150 mg 24 hr tablet, 150 mg PO QAM 06/07/21 11/20/21 11/20/21 History extended release (Wellbutrin XL) hydroxyzine HCl 25 mg tablet 25 mg PO Q8H PRN Anxiety 06/07/21 11/20/21 Unknown History amlodipine 2.5 mg tablet 2.5 mg PO DAILY 11/20/21 11/20/21 11/20/21 History multivitamin 1 tab PO DAILY 11/20/21 11/20/21 11/20/21 History rosuvastatin 10 mg tablet 10 mg PO DAILY 11/20/21 11/20/21 11/19/21 History Allergies Allergy/AdvReac Type Severity Reaction Status Date / Time sulfamethoxazole Allergy abdominal Verified 07/01/21 09:48 [From Bactrim] pain trimethoprim [From Bactrim] Allergy abdominal Verified 07/01/21 09:48 pain Sulfa (Sulfonamide AdvReac Mild rash and Verified 07/01/21 09:48 Antibiotics) itch tiagabine [From Gabitril] AdvReac Mild headache, Verified 07/01/21 09:48 upset GI Current Medications Generic Name Dose Route Start Last Admin Trade Name Freq PRN Reason Stop Dose Admin Acetaminophen 500 mg 11/20/21 21:45 11/21/21 04:40 Acetaminophen 500 Mg Tablet PO 500 mg Q4H PRN Administration fever Albuterol/Ipratropium 3 ml 11/20/21 21:45 11/22/21 10:00 Ipratropium-Albuterol 3 Ml Neb INHALATION 3 ml Q6H PRN Administration SHORTNESS OF BREATH Aspirin 81 mg 11/21/21 09:00 11/22/21 10:52 Aspirin 81 Mg Ec Tablet PO 81 mg DAILY JONY Administration Atorvastatin Calcium 80 mg 11/21/21 09:00 11/22/21 10:50 Atorvastatin 40 Mg Tablet PO 80 mg DAILY JONY Administration Bupropion HCl 150 mg 11/22/21 10:50 11/22/21 13:00 Bupropion Xl (24 Hr) 150 Mg Tablet PO 150 mg QAM JONY Administration Clopidogrel Bisulfate 75 mg 11/21/21 09:00 11/22/21 10:52 Clopidogrel 75 Mg Tablet PO 75 mg DAILY JONY Administration Dexamethasone 6 mg 11/22/21 13:00 11/22/21 12:59 Dexamethasone 10 Mg/Ml Inj IVP 6 mg Q24H JONY Administration Enoxaparin Sodium 80 mg 11/21/21 08:00 11/22/21 10:51 Enoxaparin 80 Mg/0.8 Ml Syringe SUBCUT 80 mg Q12H JONY Administration Sodium Chloride 1,000 mls @ 75 mls/hr 11/21/21 06:30 11/22/21 11:10 Sodium Chloride 0.9% IV 75 mls/hr .[id number] JONY Administration Amiodarone HCl 900 mg/ 518 mls @ 0 mls/hr 11/22/21 12:00 11/22/21 12:26 Dextrose/ IV Miscellaneous IV 0.96 mg/min Supplies .Q0M JONY 33.3 mls/hr Administration Protocol Per Protocol Nicotine 1 patch 11/22/21 12:45 11/22/21 12:59 Nicotine 14 Mg Patch TRANSDERMA 1 patch DAILY JONY Administration Ondansetron HCl 4 mg 11/20/21 21:45 11/21/21 22:32 Ondansetron 2 Mg/Ml Sdv 2 Ml IVP 4 mg Q6H PRN Administration NAUSEA AND VOMITING Senna/Docusate Sodium 1 tab 11/21/21 09:00 11/22/21 10:51 Sennosides-Docusate Tablet PO 1 tab DAILY JONY Administration PFSH Acute PFSH: Medical History Age related osteoporosis Carotid stenosis 100% left carotid stenosis Cervical disc disease Degenerative joint disease (DJD) of lumbar spine Encounter for long-term (current) use of NSAIDs Encounter for long-term opiate analgesic use High risk medication use HTN (hypertension) Hypercholesterolemia Immunization counseling Opioid contract exists Osteoarthritis of both knees Smoker unmotivated to quit Surgical History H/O: hysterectomy Family History Sister Cancer breast Diabetes Stroke Brother Cancer lung Diabetes Stroke CAD (coronary artery disease) Brother has AICD Mother Diabetes Father Heart disease Heart attack CAD (coronary artery disease) Father at age 51 secondary to heart attack Social History Smoking and tobacco status: current every day smoker cigarettes Packs smoked per day: 0.75 Years cigarettes smoked: 50 Alcohol intake: never Marital status: History of recent travel: No Vitals/I&O/Wt Last Vital Signs Temp 98.9 F 11/22/21 12:00 Pulse 105 H 11/22/21 12:00 Resp 18 11/22/21 12:00 BP 91/63 11/22/21 12:00 Pulse Ox 97 11/22/21 12:00 O2 Del Method 11/22/21 12:00 O2 Flow Rate 1.5 11/22/21 11:41 11/21/21 11/22/21 11/22/21 22:59 06:59 14:59 Intake Total 1360 / 1836 240 / 6 951.25 / 951.25 Output Total 300 / 300 Balance 1360 / 1836 240 / 6 651.25 / 651.25 Weight last 48 hrs Weight 185 lb Physical Exam Narrative: GENERAL: Patient is alert, awake and oriented x3. [] NECK: No jugular vein distension. [] HEENT: No cyanosis. No icterus. No pallor. [] HEART: Regular S1 and S2. No murmur, rub or gallop. [] LUNGS: Clear to auscultate bilaterally. [] ABDOMEN: Soft, nontender and nondistended. Positive bowel sounds. No guarding, rebound or tenderness. [] CENTRAL NERVOUS SYSTEM: Grossly nonfocal. [] EXTREMITIES: Lower extremities with 1+ edema bilaterally. Pulses palpable in the lower extremities, both dorsalis pedis and posterior tibial. [] Urinary Catheter Management: Aguilar: Cath Placed During This Visit: yes Urinary Catheter Date of Insertion: 11/22/21 Urinary Catheter Time of Insertion: 13:10 Data : 11/23/21 02:47 11/24/21 02:07 Micro: Microbiology 11/21/21 00:55 Blood Culture - Preliminary Blood NEGATIVE TO DATE 11/21/21 00:55 Blood Culture - Preliminary Blood NEGATIVE TO DATE A&P Assessment and plan (1) Atrial fibrillation and flutter: Status: Acute (2) HTN (hypertension): Status: Acute Qualifiers: Hypertension type: essential hypertension Qualified Code(s): I10 - Ess ential (primary) hypertension (3) Elevated troponin: Status: Acute Plan Troponin elevation is likely secondary to demand ischemia. No chest pain at this time. EF is normal and recent stress test was negative for ischemia. Plan for medical therapy. For atrial fibrillation she would benefit from anticoagulation. Currently started on Eliquis. Can be started on low-dose beta-pearl. Outpatient cardiology follow-up. Thank you for involving us with care of this patient. We will continue to follow. Please call with questions Consult Attestations Medical Necessity Statement: Care expected to cross 2 midnights. Coding Level of Care Code Acute Mechanical Design Engineer Products for Gina Morales Diagnoses Atrial fibrillation and flutter I48.91; I48.92 HTN (hypertension) I10 Hypertension type: essential hypertension Elevated troponin R77.8
[2021-11-22] MEDS: remdesivir 200 MG in sodium chloride 0.9% (100 ml) 60 ML 100 MG IV (14:57)
[2021-11-22 16:44] LABS: Glucose Point of Care 244 mg/dL (70-110)
[2021-11-22] MEDS: ferrous gluconate 324 mg Tablet PO (18:06)
[2021-11-22 18:34] LABS: Basophils % 0.2 %; Hematocrit 37.4 % (37.0-47.0); Hemoglobin 11.7 g/dL (11.5-15.3); Lymphocytes # 1.3 10^3/uL (0.8-4.8); Lymphocytes % 30.5 %; Mean Corpuscular HGB Conc 31.3 g/dL (30.0-36.0); Mean Corpuscular Hemoglobin 26.4 pg (28.0-34.0); Mean Corpuscular Volume 84.2 fl (81-99); Mean Platelet Volume 12.1 fL (7.4-10.4); Monocytes # 0.2 10^3/uL (0.2-0.9); Monocytes % 5.6 %; Neutrophils % 63.5 %; Nucleated Red Blood Cells % 0 %; Platelet Count 159 10^3/cmm (130-400); Red Blood Count 4.44 10^6/uL (4.1-5.3); Red Cell Distribution Width 16.7 % (12.1-15.1); White Blood Count 4.1 10^3/uL (4.0-10.0)
[2021-11-22 18:54] LABS: Alanine Aminotransferase 44 U/L (0-33); Albumin Level 3.4 g/dL (3.5-5.2); Alkaline Phosphatase 215 U/L (35-105); Anion Gap 14.7 (5-19); Aspartate Amino Transferase 81 U/L (0-32); Blood Urea Nitrogen 11 mg/dL (8-23); Calcium 8.1 mg/dL (8.5-10.5); Carbon Dioxide 22 mmol/L (22-29); Chloride 103 mmol/L (98-107); Globulin 3.2 g/dL (1.3-4.6); Glomerular Filtration Rate 73.2 mL/min (90-130); Glucose 217 mg/dL (65-115); Osmolality Calculated 288 mOsm/kg (285-295); Potassium 3.7 mmol/L (3.5-5.1); Sodium 136 mmol/L (136-145); Total Bilirubin 0.2 mg/dL (0.15-1.2); Total Protein 6.6 g/dL (6.6-8.7)
[2021-11-22 20:40] LABS: Glucose Point of Care 223 mg/dL (70-110)
[2021-11-22] MEDS: insulin lispro 100 unit/1 mL SUBCUT (21:02)
[2021-11-22] MEDS: morphine 4 mg/mL SDV 1 mL 2 MG IVP (21:02)
[2021-11-23] VITALS (10 sets, daily range): BP systolic 110–138; BP diastolic 53–81; PULSE 64–82; RESP 17–20; TEMP 36.4–36.7; O2SAT 80–96
[2021-11-23] MEDS: hyDROXYzine 25 mg Capsule PO (00:16)
[2021-11-23 03:24] LABS: Basophils % 0.2 %; Hematocrit 36.1 % (37.0-47.0); Hemoglobin 11.3 g/dL (11.5-15.3); Lymphocytes # 1.4 10^3/uL (0.8-4.8); Lymphocytes % 29.5 %; Mean Corpuscular HGB Conc 31.3 g/dL (30.0-36.0); Mean Corpuscular Volume 83.2 fl (81-99); Mean Platelet Volume 12.5 fL (7.4-10.4); Monocytes # 0.6 10^3/uL (0.2-0.9); Neutrophils # 2.77 10^3/uL (1.8-7.7); Neutrophils % 57.1 %; Nucleated Red Blood Cells % 0 %; Platelet Count 142 10^3/cmm (130-400); Red Blood Count 4.34 10^6/uL (4.1-5.3); Red Cell Distribution Width 16.5 % (12.1-15.1); White Blood Count 4.9 10^3/uL (4.0-10.0)
[2021-11-23 03:39] LABS: D Dimer 1.48 ug/mIFEU (0-0.59)
[2021-11-23 03:47] LABS: Alanine Aminotransferase 38 U/L (0-33); Albumin Level 3.4 g/dL (3.5-5.2); Alkaline Phosphatase 190 U/L (35-105); Anion Gap 14.6 (5-19); Aspartate Amino Transferase 70 U/L (0-32); Blood Urea Nitrogen 11 mg/dL (8-23); C Reactive Protein 10.8 mg/L (0.0-4.9); Calcium 8.6 mg/dL (8.5-10.5); Carbon Dioxide 25 mmol/L (22-29); Chloride 103 mmol/L (98-107); Creatinine Clr Calc Pharmacy 72.5606; Globulin 2.8 g/dL (1.3-4.6); Glomerular Filtration Rate 63.9 mL/min (90-130); Glucose 116 mg/dL (65-115); Magnesium 1.6 mg/dL (1.7-2.3); Osmolality Calculated 288 mOsm/kg (285-295); Phosphorus 2.2 mg/dL (2.5-4.5); Potassium 3.6 mmol/L (3.5-5.1); Sodium 139 mmol/L (136-145); Total Bilirubin 0.2 mg/dL (0.15-1.2); Total Protein 6.2 g/dL (6.6-8.7)
[2021-11-23 06:26] LABS: Glucose Point of Care 123 mg/dL (70-110)
[2021-11-23] MEDS: buPROPion XL (24 HR) 150 mg Tablet PO (06:30)
[2021-11-23] MEDS: nicotine 14 mg Patch 1 PATCH TRANSDERMA (08:14)
[2021-11-23] MEDS: clopidogrel 75 mg Tablet PO (08:16)
[2021-11-23] MEDS: atorvastatin 40 mg Tablet 80 MG PO (08:17)
[2021-11-23] MEDS: aspirin 81 mg EC Tablet PO (08:17)
[2021-11-23] MEDS: sennosides-docusate Tablet 1 TAB PO (08:18)
[2021-11-23] MEDS: pantoprazole DR 40 mg Tablet PO (08:18)
[2021-11-23] MEDS: ferrous gluconate 324 mg Tablet PO ×2 (08:19→18:38)
[2021-11-23] MEDS: enoxaparin 80 mg/0.8 mL Syringe SUBCUT (08:20)
--- NOTE | 2021-11-23 11:32 | PC.SOCIAL ---
IMM update IMM updated with patient. Verbalized an understanding. Initialled, dated, timed, and placed in chart.
--- NOTE | 2021-11-23 11:47 | PC.NURSE ---
Spoke with Provider with concerns of patients having pain in legs and hips 10/19 patient reports she take hydrocodone at home for this chronic pain instructions received from provider to start Hydrocodone 5-325mg PO PRN TID
[2021-11-23 12:20] LABS: Glucose Point of Care 143 mg/dL (70-110)
[2021-11-23] MEDS: HYDROcodone-acetaminophen 5-325 mg Tablet 1 TAB PO ×2 (12:31→22:52)
[2021-11-23] MEDS: dexamethasone 10 mg/mL INJ 6 MG IVP (13:53)
[2021-11-23] MEDS: amiodarone 200 mg Tablet 400 MG PO (13:53)
--- NOTE | 2021-11-23 14:45 | PM.PN ---
Subjective Subjective: Seen this morning. No acute events overnight. Patient is on amiodarone drip this morning. She had a session of atrial fibrillation yesterday and was given metoprolol 5 IV. After amnio bolus she converted to sinus rhythm. Patient was seen by cardiology who have recommended anticoagulation and low-dose beta-pearl. Patient states that she feels well today better than admission. She is improving. She would like to have the Aguilar catheter removed and would like to walk around. Currently 92% saturation on room air. Heart rate is stable. Vitals/I&O/Wt Last Vital Signs Temp 97.5 F L 11/23/21 04:00 Pulse 67 11/23/21 13:56 Resp 20 H 11/23/21 13:56 BP 110/60 11/23/21 13:56 Pulse Ox 92 11/23/21 13:56 O2 Del Method 11/23/21 13:56 O2 Flow Rate 1.5 11/22/21 21:15 11/22/21 11/23/21 11/23/21 22:59 06:59 14:59 Intake Total 1521.445 / 2575.695 240 / 2815.695 1416.555 / 1416.555 Output Total 975 / 1275 950 / 2225 Balance 546.445 / 1300.695 -710 / 845.078 9222.555 / 1416.555 Weight last 48 hrs Weight 103.056 kg Physical Exam Narrative: General: No acute distress, AO x3, on room air at this time. HEENT: PERRLA, pupils bilaterally equal and reactive Chest: Bilateral normal respiratory breath sounds, equal air entry bilaterally with occasional rhonchi CVS: S1-S2 regular rate rhythm, ejection systolic murmur at aortic area Abdomen: Soft, nontender, no organomegaly, bowel sounds present, morbidly obese Extremities: No lower extremity edema. Urinary Catheter Management: Aguilar: Cath Placed During This Visit: yes Reason for Continuing Indwelling Catheter: Acute Urinary Retention or Obstruction Urinary Catheter Date of Insertion: 11/22/21 Urinary Catheter Time of Insertion: 13:10 Data : 11/23/21 02:47 11/23/21 02:47 A&P Assessment and plan (1) Elevated troponin: Status: Acute (2) Atrial fibrillation and flutter: Status: Acute (3) COVID-19: Status: Acute (4) LORENA (acute kidney injury): Status: Acute (5) Non-ST elevation [place] (NSTEMI): Status: Acute (6) Carotid stenosis: Status: Acute (7) Hypercholesterolemia: Status: Acute (8) HTN (hypertension): Status: Acute Qualifiers: Hypertension type: essential hypertension Qualified Code(s): I10 - Essential (primary) hypertension Plan #COVID-19 #NSTEMI #Atrial fibrillation with RVR?resolved #LORENA #Hypertension #Carotid stenosis #Nicotine dependence #Hypomagnesemia ? At baseline patient not requiring any oxygen. She has been started on remdesivir to complete 3 to 5-day course depending on oxygen requirement. Dexamethasone 6 mg IV daily. Advair Spiriva added. Incentive spirometry, flutter valve. ? Strong family history, positive delta troponin. Stress test September 2021 negative for acute ischemia. Echo did not show regional wall motion abnormality with normal EF. ? Continue aspirin, Plavix, statin. ? Seen by cardiology. Recommend to start low-dose beta-pearl once blood pressure permits. Add anticoagulation for atrial fibrillation. Also likely due demand ischemia. Recommendations appreciated. Will stop amiodarone drip. Will start lopressor 12.5 bid ? Keep potassium above 4 and magnesium above 2. ? Baseline creatinine 0.9-1.3. Most likely secondary to dehydration the creatinine was elevated. It is normalized now 2.9. ? Follow-up with outpatient cardiology for coronary artery stenosis ? Patient does not want to quit smoking at this time. Full code Therapeutic Lovenox for now. Will transition to Eliquis. Physical therapy consult Home oxygen evaluation Attestations Medical Necessity Statement*: Plan to keep in hospital 24 to 48 hours to ensure stabilization of heart rate with addition of beta-pearl. PT consult pending. Coding Level of Care Code Acute Adolescent Medicine Specialist for g Fwd Diagnoses Elevated troponin R77.8 Atrial fibrillation and flutter I48.91; I48.92 COVID-19 U07.1 LORENA (acute kidney injury) N17.9 Non-ST elevation NJ (NSTEMI) I21.4 Carotid stenosis I65.29 Hypercholesterolemia E78.00 HTN (hypertension) I10 Hypertension type: essential hypertension
[2021-11-23] MEDS: remdesivir 100 MG in sodium chloride 0.9% (100 ml) 80 ML IV (16:57)
[2021-11-23 16:58] LABS: Glucose Point of Care 203 mg/dL (70-110)
[2021-11-23] MEDS: insulin lispro 100 unit/1 mL SUBCUT ×2 (18:38→22:01)
[2021-11-23] MEDS: enoxaparin 100 mg/mL Syringe SUBCUT (20:58)
[2021-11-23 21:55] LABS: Glucose Point of Care 240 mg/dL (70-110)
[2021-11-24] VITALS (7 sets, daily range): BP systolic 148–152; BP diastolic 66–82; PULSE 64–78; RESP 16–22; TEMP 36.5–36.7; O2SAT 95–97
[2021-11-24 02:44] LABS: Anion Gap 15.7 (5-19); Blood Urea Nitrogen 13 mg/dL (8-23); Calcium 8.6 mg/dL (8.5-10.5); Carbon Dioxide 25 mmol/L (22-29); Chloride 106 mmol/L (98-107); Glomerular Filtration Rate 73.2 mL/min (90-130); Glucose 98 mg/dL (65-115); Magnesium 1.8 mg/dL (1.7-2.3); Osmolality Calculated 296 mOsm/kg (285-295); Potassium 3.7 mmol/L (3.5-5.1); Sodium 143 mmol/L (136-145)
--- NOTE | 2021-11-24 04:23 | PC.NURSE ---
Spoke with regarding patients complaint of pain but is not due for her PRN norco for another 2 hours. ordered that the dose can be given early at this time.
[2021-11-24] MEDS: HYDROcodone-acetaminophen 5-325 mg Tablet 1 TAB PO (04:28)
[2021-11-24] MEDS: buPROPion XL (24 HR) 150 mg Tablet PO (04:29)
[2021-11-24 06:34] LABS: Glucose Point of Care 123 mg/dL (70-110)
[2021-11-24] MEDS: ipratropium-albuterol 3 mL Neb INHALATION (08:31)
[2021-11-24] MEDS: sennosides-docusate Tablet 1 TAB PO (08:41)
[2021-11-24] MEDS: aspirin 81 mg EC Tablet PO (08:41)
[2021-11-24] MEDS: pantoprazole DR 40 mg Tablet PO (08:41)
[2021-11-24] MEDS: atorvastatin 40 mg Tablet 80 MG PO (08:41)
[2021-11-24] MEDS: enoxaparin 100 mg/mL Syringe SUBCUT (08:41)
[2021-11-24] MEDS: clopidogrel 75 mg Tablet PO (08:42)
[2021-11-24] MEDS: nicotine 14 mg Patch 1 PATCH TRANSDERMA (08:42)
[2021-11-24] MEDS: ferrous gluconate 324 mg Tablet PO (10:10)
--- NOTE | 2021-11-24 10:21 | PM.DCS ---
Discharge Providers Date of Admission: 11/20/21 21:45 Date of Discharge: November 24, 2021 Attending Provider at Admission: Ernesto Moreno MD Attending Provider at Discharge: Cheri Tyler MD Primary Care Provider: Rianna Ruiz MD Diagnoses at Discharge Discharge Diagnosis (1) Atrial fibrillation and flutter: Status: Resolved (2) HTN (hypertension): Status: Acute Qualifiers: Hypertension type: essential hypertension Qualified Code(s): I10 - Essential (primary) hypertension (3) Elevated troponin: Status: Resolved Reason for Visit Reason for Visit: Chest pain, SOB Brief History: Rosario Villalba is a 61 year old female who is an active smoker, has strong family history of coronary disease presents with chief complaint of presyncope and fatigue.? Patient is stating that today when she woke up around 8:00 she felt extremely dizzy which she describing as lightheadedness, she rested for a while and then tried to make a cup of coffee, she wanted to smoke but did not have enough energy to get up go outside to smoke.? Patient is stating that his father at age 51 secondary to heart attack, his other siblings are suffering from cardiomyopathy, 1 sibling has an AICD.? She smokes 1 pack/day.? She has not noticed chest pain, fever, nausea, vomiting, diaphoresis.? She is endorsing chronic shortness of breath on exertion. In the ER she has been diagnosed with NSTEMI, chest pain-free, hemodynamically stable ACS protocol initiated Patient is asking for nicotine patch Creatinine 1.6, when I asked her about chronic kidney disease patient said no one has ever mentioned about her kidney insufficiency in the past, she is endorsing problems with her urination, sometimes she struggles to pass urine, no previous history of diabetes, he takes hydrochlorothiazide for blood pressure Requested D-dimer which came back high at 1.05 BNP 1133 Significant delta troponin, EKG without ischemic or infarctive changes Hospital Course Hospital Course Patient was admitted for presyncope and fatigue. She was found to be positive for COVID-19. Delta troponin was positive. She did have a stress test that was negative for ischemia in September 2021. Cardiology was consulted. Patient also went into A. fib with RVR. She was placed on amiodarone drip due to hypotension. However she converted to sinus rhythm after the bolus. Drip was completed for 24 hours. Cardiology recommended to start patient on low-dose beta-pearl. She was also dehydrated and had slightly elevated creatinine. Creatinine was normal on day of discharge. Patient felt better. Aguilar catheter was removed. She was now back to room air. Initially however rise requiring 2 to 3 L nasal cannula. She was treated with dexamethasone and 5-day course of remdesivir. Patient was started on albuterol inhaler and given Advair at discharge. Dr. Hernandez advised her to follow-up with Dr. Venegas as an outpatient after discharge. Patient's amlodipine 2.5 mg daily was discontinued. Hydrochlorothiazide 25 daily was continued. The HCTZ was held during hospital stay due to slightly lower blood pressures. Home O2 evaluation was done and patient did not qualify for oxygen. Patient was counseled to stop smoking but she was not interested at this time. Patient was also supposed to be started on Eliquis at time of discharge however it could not get ordered. It was ordered the next day on 11/25. commercial credit portfolio manager will be calling patient to notify to picker machine operator her medication. Up until 11/24 patient was covered with full dose Lovenox. Patient to follow-up with primary care doctor and Dr. Venegas as an outpatient after discharge. Physical Exam Narrative: General: No acute distress, AO x3, on room air at this time. HEENT: PERRLA, pupils bilaterally equal and reactive Chest: Bilateral normal respiratory breath sounds, equal air entry bilaterally with occasional rhonchi CVS: S1-S2 regular rate rhythm, ejection systolic murmur at aortic area Abdomen: Soft, nontender, no organomegaly, bowel sounds present, morbidly obese Extremities: No lower extremity edema. Urinary Catheter Management: Aguilar: Cath Placed During This Visit: yes, but has since been removed by the nurse Reason for Continuing Indwelling Catheter: Decision to DC Catheter Urinary Catheter Date of Insertion: 11/22/21 Urinary Catheter Time of Insertion: 13:10 Date Urinary Catheter Removed: 11/24/21 Time Urinary Catheter Discontinued: 18:00 Discharge Data Studies Completed and Pending Completed Studies During Hospitalization Category Date Time Status CT head wo con* [id number] Stat Cat Scan 11/20/21 15:21 Completed XR chest 1V portable [id number] Stat Exams 11/20/21 15:13 Completed CV. echo wo/w contrast [id number] Routine Ultrasound 11/21/21 21:45 Completed Pending at discharge Category Date Time Status Blood Culture Stat Lab 11/20/21 23:26 Results C Reactive Protein Q48H Lab 11/25/21 04:00 Ordered D Dimer Q48H Lab 11/25/21 04:00 Ordered Radiology Impressions Chest X-Ray 11/20/21 15:13 IMPRESSION: No acute cardiopulmonary abnormality. Head CT 11/20/21 15:21 IMPRESSION: No acute intracranial abnormality. Laboratory Results WBC 4.9 10^3/uL (4.0-10.0) 11/23/21 02:47 RBC 4.34 10^6/uL (4.1-5.3) 11/23/21 02:47 Hgb 11.3 g/dL (11.5-15.3) L 11/23/21 02:47 Hct 36.1 % (37.0-47.0) L 11/23/21 02:47 MCV 83.2 fl (81-99) 11/23/21 02:47 MCH 26.0 pg (28.0-34.0) L 11/23/21 02:47 MCHC 31.3 g/dL (30.0-36.0) 11/23/21 02:47 RDW 16.5 % (12.1-15.1) H 11/23/21 02:47 Plt Count 142 10^3/cmm (130-400) 11/23/21 02:47 MPV 12.5 fL (7.4-10.4) H 11/23/21 02:47 Neut % (Auto) 57.1 % 11/23/21 02:47 Lymph % (Auto) 29.5 % 11/23/21 02:47 Ellis % (Auto) 13.0 % 11/23/21 02:47 Eos % (Auto) 0.0 % 11/23/21 02:47 Baso % (Auto) 0.2 % 11/23/21 02:47 Neut # (Auto) 2.77 10^3/uL (1.8-7.7) 11/23/21 02:47 Lymph # (Auto) 1.4 10^3/uL (0.8-4.8) 11/23/21 02:47 Ellis # (Auto) 0.6 10^3/uL (0.2-0.9) 11/23/21 02:47 Eos # (Auto) 0.0 10^3/uL (0.0-0.8) 11/23/21 02:47 Baso # (Auto) 0.0 10^3/uL (0.0-0.1) 11/23/21 02:47 Nucleated RBC % (auto) 0 % 11/23/21 02:47 Nucleated RBCs # 0.0 /100WBC 11/23/21 02:47 D-Dimer 1.48 ug/mIFEU (0-0.59) H 11/23/21 02:47 Sodium 143 mmol/L (136-145) 11/24/21 02:07 Potassium 3.7 mmol/L (3.5-5.1) 11/24/21 02:07 Chloride 106 mmol/L (98-107) 11/24/21 02:07 Carbon Dioxide 25 mmol/L (22-29) 11/24/21 02:07 Anion Gap 15.7 (5-19) 11/24/21 02:07 BUN 13 mg/dL (8-23) 11/24/21 02:07 Creatinine 0.8 mg/dL (0.5-0.9) 11/24/21 02:07 GFR Calculation 73.2 mL/min (90-130) L 11/24/21 02:07 Glucose 98 mg/dL (65-115) 11/24/21 02:07 POC Glucose 123 mg/dL (70-110) H 11/24/21 06:29 Estimat Average Glucose 146 11/20/21 15:27 Hemoglobin A1c 6.7 % (4.0-6.0) H 11/20/21 15:27 Calculated Osmolality 296 mOsm/kg (285-295) H 11/24/21 02:07 Calcium 8.6 mg/dL (8.5-10.5) 11/24/21 02:07 Phosphorus 2.2 mg/dL (2.5-4.5) L 11/23/21 02:47 Magnesium 1.8 mg/dL (1.7-2.3) 11/24/21 02:07 Iron 26 ug/dL (37-145) L 11/22/21 00:55 TIBC 359 mcg/dl 11/22/21 00:55 % Saturation 7.2 % (20-50) L 11/22/21 00:55 Unsat Iron Binding 333 ug/dL (112-347) 11/22/21 00:55 Total Bilirubin 0.2 mg/dL (0.15-1.2) 11/23/21 02:47 AST 70 U/L (0-32) H 11/23/21 02:47 ALT 38 U/L (0-33) H 11/23/21 02:47 Alkaline Phosphatase 190 U/L (35-105) H 11/23/21 02:47 Troponin T Gen 5 ng/L 494 ng/L (0-10) H* 11/22/21 00:55 Troponin T Baseline 61 ng/L (0-10) H 11/20/21 15:27 Troponin T 120 Minute 259.5 ng/L (0-10) H 11/20/21 18:27 Delta Troponin T 198.5 ABS# (0-10) H* 11/20/21 18:27 C-Reactive Protein 10.8 mg/L (0.0-4.9) H 11/23/21 02:47 NT-Pro-B Natriuret Pep 1133 pg/mL (0-125) H 11/20/21 Unknown Total Protein 6.2 g/dL (6.6-8.7) L 11/23/21 02:47 Albumin 3.4 g/dL (3.5-5.2) L 11/23/21 02:47 Globulin 2.8 g/dL (1.3-4.6) 11/23/21 02:47 Triglycerides 122 mg/dL (0-150) 11/22/21 00:55 Cholesterol 173 mg/dL (0-200) 11/22/21 00:55 LDL Cholesterol, Calc 107 mg/dL (50-129) 11/22/21 00:55 HDL Cholesterol 42 mg/dL (60-100) L 11/22/21 00:55 LDL/HDL Ratio 2.55 RATIO (0.00-3.22) 11/22/21 00:55 Cholesterol/HDL Ratio 4.12 mg/dL (0.0-4.40) 11/22/21 00:55 Lipase 22 U/L (13-60) 11/20/21 15:27 Vitamin B12 1016 pg/mL (232-1245) 11/20/21 15:27 Procalcitonin 0.18 ng/mL (0-0.5) 11/21/21 00:55 TSH 1.12 uIU/mL (0.27-4.20) 11/20/21 15:27 Urine Color Yellow (Yellow) 11/20/21 19:50 Urine Appearance Clear (CLEAR) 11/20/21 19:50 Urine pH 6.5 (5-7) 11/20/21 19:50 Ur Specific [place] 1.005 (1.005-1.030) 11/20/21 19:50 Urine Protein Neg (Negative) 11/20/21 19:50 Urine Glucose (UA) Norm (Normal) 11/20/21 19:50 Urine Ketones Negative (Negative) 11/20/21 19:50 Urine Blood Neg (Negative) 11/20/21 19:50 Urine Nitrate Negative (Negative) 11/20/21 19:50 Urine Bilirubin Neg (Negative) 11/20/21 19:50 Urine Urobilinogen Neg mg/dL (Negative) 11/20/21 19:50 Ur Leukocyte Esterase Negative (Negative) 11/20/21 19:50 Coronavirus 229E (PCR) Not detected (NOT DETECT) 11/20/21 23:35 SARS-CoV-2 (PCR) Detected (NOT DETECT) A 11/20/21 23:35 Vitals Last Vital Signs Temp 98.0 F 11/24/21 07:29 Pulse 77 11/24/21 08:37 Resp 16 11/24/21 08:37 BP 152/82 11/24/21 07:29 Pulse Ox 97 11/24/21 08:37 O2 Del Method 11/24/21 08:37 O2 Flow Rate 1.5 11/22/21 21:15 Discharge Plan Discharge Patient Disposition: Home Condition: Stable Prescriptions: New Advair Diskus 250-50 mcg/dose Blister With Device 1 ea inhalation BID.RESPIRATORY 30 Days Qty: 60 0RF albuterol sulfate 90 mcg/actuation HFA aerosol inhaler 2 inh inhalation Q4H PRN (Reason: shortness of breath or wheezing) 30 Days Qty: 8.5 0RF Toprol XL 25 mg tablet extended release 24 hr 12.5 mg PO DAILY 30 Days Qty: 30 0RF hydrochlorothiazide 25 mg tablet 25 mg PO DAILY 30 Days Qty: 30 0RF potassium chloride 10 mEq tablet,ER particles/crystals 10 meq PO DAILY 30 Days Qty: 30 0RF Eliquis 5 mg tablet 5 mg PO BID 30 Days Qty: 60 0RF Continued hydroxyzine HCl 25 mg tablet 25 mg PO Q8H PRN (Reason: Anxiety) biotin 10,000 mcg capsule 10,000 mcg PO DAILY pantoprazole [Protonix] 20 mg tablet,delayed release (DR/EC) 20 mg PO DAILY hydrocodone-acetaminophen 10-325 mg tablet 1 tab PO TID PRN (Reason: pain) 30 Days Qty: 90 0RF aspirin [Adult Low Dose Aspirin] 81 mg tablet,delayed release (DR/EC) 81 mg PO DAILY cholecalciferol (vitamin D3) 50 mcg (2,000 unit) capsule 50 mcg PO DAILY bupropion HCl [Wellbutrin XL] 150 mg tablet extended release 24 hr 150 mg PO QAM multivitamin Tablet 1 tab PO DAILY rosuvastatin 10 mg Tablet 10 mg PO DAILY Discontinued potassium chloride 10 mEq tablet extended release 20 meq PO DAILY hydrochlorothiazide 25 mg tablet 25 mg PO DAILY amlodipine 2.5 mg tablet 2.5 mg PO DAILY Discharge Orders: Discharge Order (Routine); Ordered 11/24/21 Ordered By: Cheri Tyler Referrals: Rianna Ruiz MD [Primary Care Provider] - 4-7 days (Dr. Ruiz's office will call you with follow up date and time. If you have any questions or concerns please call [phone]. ) Gilma Venegas MD [Physician] - 12/01/21 1:45 pm Patient Instructions: Atrial Fibrillation, Metoprolol (By mouth) (Lopressor, Toprol XL), Hydrochlorothiazide (By mouth), Albuterol (By breathing) (ProAir, AccuNeb, Proventil, Proventil..., Potassium Chloride (By mouth), Fluticasone/Salmeterol (By breathing), COVID-19 (Coronavirus Disease 2019) (ED), Opioid Safety Discharge Attestations Time Spent in Discharge Care*: greater than 30 min Quality Metrics Clinical Quality Measures [ No reported AMI, CVA or VTE this stay] Coding Level of Care Code Acute Chg FW DC note Diagnoses Atrial fibrillation and flutter I48.91; I48.92 HTN (hypertension) I10 Hypertension type: essential hypertension Elevated troponin R77.8
[2021-11-24 11:53] LABS: Glucose Point of Care 189 mg/dL (70-110)
== END 2021-11-24 13:23 | disposition home or self-care (01) | DRG 177 ==
LOC: ER 19:23 → MEDSURG 22:21
PROVIDERS: Student in an Organized Health Care Education/Training Program; Admitting Provider Internal Medicine; Emergency Provider Emergency Medicine; PCP Internal Medicine; Visit Provider Internal Medicine
DX: U07.1 COVID-19 (principal); I21.A1 Myocardial infarction type 2; I48.92 Unspecified atrial flutter; N17.9 Acute kidney failure, unspecified; I48.91 Unspecified atrial fibrillation; R77.8 Other specified abnormalities of plasma proteins; R79.1 Abnormal coagulation profile; E86.0 Dehydration; E83.42 Hypomagnesemia; E87.6 Hypokalemia; I10 Essential (primary) hypertension; I65.23 Occlusion and stenosis of bilateral carotid arteries; E78.00 Pure hypercholesterolemia, unspecified; I95.9 Hypotension, unspecified; R55 Syncope and collapse; R51.9 Headache, unspecified; M81.0 Age-related osteoporosis without current pathological fracture; F17.210 Nicotine dependence, cigarettes, uncomplicated; Z82.49 Family history of ischemic heart disease and other diseases of the circulatory system; Z79.82 Long term (current) use of aspirin
CPT/HCPCS: 36415; 36416; 51702; 70450; 71045; 80048; 80053; 80061; 81003; 82607; 82962; 83036; 83540; 83550; 83690; 83735; 83880; 84100; 84145; 84443; 84478; 84484; 85025; 85378; 86140; 87040; 87635; 93005; 94640; 94760; 96361; 96372; 96374; 99285; C8929; J0282; J1100; J1650; J1815; J2270; J2405; J3475; J3490; J7030; J7060; J7626; Q9956

== ENCOUNTER → 2021-12-01 13:34 | Outpatient (BNVA) | payer MEDICARE, MEDICAID, SELFPAY | PROVIDERS: PCP Internal Medicine; Visit Provider Nurse Practitioner Family | DX: I48.91 Unspecified atrial fibrillation (principal); Z79.01 Long term (current) use of anticoagulants; I10 Essential (primary) hypertension; F17.210 Nicotine dependence, cigarettes, uncomplicated; Z86.16 Personal history of COVID-19 | CPT/HCPCS: 99213; 99214 ==

== ENCOUNTER 2021-12-27 08:32 | Outpatient (CLI) | payer MEDICARE, MEDICAID, SELFPAY | END 2021-12-27 08:33 | disposition home or self-care (01) | PROVIDERS: PCP Internal Medicine; Visit Provider Internal Medicine | DX: J44.9 Chronic obstructive pulmonary disease, unspecified (principal) | CPT/HCPCS: 94060; 94726; 94729; J7611 ==

== ENCOUNTER 2021-12-27 12:00 | Outpatient (CLI) | payer MEDICARE, MEDICAID, SELFPAY | END 2021-12-27 12:01 | disposition home or self-care (01) | LOC: SLEEP 12-28 11:57 | PROVIDERS: PCP Internal Medicine; Visit Provider Internal Medicine | DX: G47.33 Obstructive sleep apnea (adult) (pediatric) (principal) | CPT/HCPCS: 95810; G0399 ==

== ENCOUNTER 2022-01-18 06:00 | Outpatient (RCR) | payer MEDICARE, MEDICAID, SELFPAY | END 2022-02-08 23:59 | disposition home or self-care (01) | LOC: SPT 06:00 | PROVIDERS: PCP Internal Medicine; Visit Provider Internal Medicine | DX: M51.36 Other intervertebral disc degeneration, lumbar region (principal) | CPT/HCPCS: 97110; 97161 ==

== ENCOUNTER 2022-02-09 11:51 | Outpatient (CLI) | payer MEDICARE, MEDICAID, SELFPAY ==
--- NOTE | 2022-02-09 12:00 | USCV_ITS ---
Rosario Villalba Age: 61 Gender: F : 1960 Exam Date: 02/09/2022 12:26 Ordering Phys: Harish Oneil MD (Andy[email or web address] [place] Technologist: Flaco Washburn [place] [facility] [place] Indication: carotid stenosis Risk Factors: Previous Vascular Surgery: Right Brachial BP: / Left Brachial BP: / Right Left Velocity (cm/s) Spectral Plaque Velocity (cm/s) Spectral Plaque Syst/Diast Broadening Syst/Diast Broadening 101.50/13.00 Prox CCA 63.30 / 5.00 147.50/30.60 Mid CCA 92.60 / 11.00 232.10/57.60 Distal CCA 105.80/ 11.00 231.43/49.97 Prox ICA / 190.70/30.60 Mid ICA / 96.20/ 27.50 Distal ICA / 181.70 ECA 322.30 1.29 ICA/CCA Antegrade Vertebral Antegrade 71.70/ 20.90 cm/s 36.70/ 7.70 cm/s Bi Subclavian Tri 130.1 69.70 0 FINDINGS comp 05/16/21 CONCLUSIONS Right ICA stenosis 70-99%. Recommend CTA Chronic occlusion left ICA unchanged from previous normal antegrade Doppler flow noted in the left vertebral artery. Normal antegrade Doppler flow noted in the right vertebral artery. Anil Brownlee MD (Electronically Signed) Final Date: 09 February 2022 14:38 S
== END 2022-02-09 11:52 | disposition home or self-care (01) ==
LOC: RAD 11:52
PROVIDERS: PCP Internal Medicine; Visit Provider Thoracic Surgery (Cardiothoracic Vascular Surgery)
DX: I65.23 Occlusion and stenosis of bilateral carotid arteries (principal)
CPT/HCPCS: 93880

== ENCOUNTER 2022-02-21 20:00 | Outpatient (CLI) | payer MEDICARE, MEDICAID, SELFPAY | END 2022-02-21 20:01 | disposition home or self-care (01) | LOC: SLEEP 02-22 06:57 | PROVIDERS: PCP Internal Medicine; Visit Provider Internal Medicine | DX: G47.33 Obstructive sleep apnea (adult) (pediatric) (principal) | CPT/HCPCS: 95810 ==

== ENCOUNTER 2022-03-28 07:55 | Outpatient (CLI) | payer MEDICARE, MEDICAID, SELFPAY ==
--- NOTE | 2022-03-28 08:30 | CT_ITS ---
WS: [id number] CT ANGIOGRAM CAROTID ARTERIES HISTORY: carotid stenosis TECHNIQUE: CT angiogram is performed of the carotid arteries. During arterial injection imaging is ob tained from the skull base to the aortic arch in 1.25 mm imaging. Coronal and sagittal reformats are submitted, MIP imaging also reviewed. Additional multiplanar reformats of the carotid arteries are chen bmitted. NASCET criteria utilized. All CT scans at [facility] use at least one of these dose optimization techniques: automated exposure control; mA and/or kV adjustment per patient size (includ es targeted exams where dose is matched to clinical indication); or iterative reconstruction. CONTRAST: Omnipaque 350; 95 mL IV. DLP: 316.84 mGy.cm COMPARISON: Carotid ultrasound 02/09/2022. Prior neck CT angiogram 06/13/2021 Right carotid: Common carotid artery: Arises normally from the innominate artery. No significant plaque or stenosis. Internal carotid artery: Mild narrowing of the proximal RIGHT ICA. No high-grade stenosis. No signifi cant plaque. External carotid artery: Patent. Left carotid: Common carotid artery: Arises normally from the aortic arch. No significant stenosis. Internal carotid artery: Complete, known occlusion of the proximal LEFT ICA. External carotid artery: Patent. Right vertebral artery: Unremarkable. Left vertebral artery: Very small caliber throughout its course and only intermittently visualized. S imilar to the prior exam. Subclavian arteries: Mild stenosis proximal LEFT subclavian artery. Similar to the prior study. RIGHT subclavian artery is normal. Upper thorax: Paraseptal emphysema. Hilar lymph nodes measure up to 14 mm. Prominent lymph nodes were also noted on prior CT evaluations. These may be reactive. Thyroid gland: Normal. Osseous structures: Unremarkable. Skull base: Negative. CT/CT angio neck [id number] IMPRESSION: 1. Known occluded LEFT cervical ICA. 2. Approximately 50% stenosis proximal RIGHT ICA. Stenosis is not as significa nt as visualized on the recent carotid ultrasound. 3. 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 4. Mild stenosis proximal LEFT subclavian artery is unchanged.
[2022-03-28] MEDS: iohexol 350 mg/mL 500 mL Btl (per mL) IV (08:53)
== END 2022-03-28 07:56 | disposition home or self-care (01) ==
LOC: RAD 07:56
PROVIDERS: PCP Internal Medicine; Visit Provider Thoracic Surgery (Cardiothoracic Vascular Surgery)
DX: I65.23 Occlusion and stenosis of bilateral carotid arteries (principal); I70.8 Atherosclerosis of other arteries
CPT/HCPCS: 70498; Q9967

== ENCOUNTER → 2022-07-13 10:53 | Outpatient (BNVA) | payer MEDICARE, MEDICAID, SELFPAY | PROVIDERS: PCP Internal Medicine; Visit Provider Internal Medicine Cardiovascular Disease | DX: Z86.79 Personal history of other diseases of the circulatory system (principal); I65.29 Occlusion and stenosis of unspecified carotid artery; E78.00 Pure hypercholesterolemia, unspecified; I10 Essential (primary) hypertension; F17.210 Nicotine dependence, cigarettes, uncomplicated; Z79.01 Long term (current) use of anticoagulants | CPT/HCPCS: 99213 ==

== ENCOUNTER 2022-07-15 11:56 | Outpatient (CLI) | payer MEDICARE, MEDICAID, SELFPAY ==
--- NOTE | 2022-07-15 12:30 | USCV_ITS ---
Rosario Villalba Age: 62 Gender: F : 1960 Exam Date: 07/15/2022 12:13 Ordering Phys: Tal Dean MD ([email or web address]) Technologist: QUINCY Exam Location: [facility] – [place] Indication: Lt sided Occlusion Risk Factors: Previous Vascular Surgery: Right Brachial BP: / Left Brachial BP: / Right Left Velocity (cm/s) Spectral Plaque Velocity (cm/s) Spectral Plaque Syst/Diast Broadening Syst/Diast Broadening 143.30/21.00 Prox CCA 119.60/ 11.80 123.80/35.20 Mid CCA 92.00 / 10.50 129.20/27.80 Distal CCA 75.20 / 11.50 175.80/37.00 Prox ICA / 122.30/36.00 Mid ICA / 112.10/38.90 Distal ICA / 128.70 ECA 199.10 1.23 ICA/CCA Antegrade Vertebral Occluded 92.80/ 25.10 cm/s / cm/s Tri Subclavian Bi 203.1 95.90 0 FINDINGS comp 02/09/22 CONCLUSIONS Chronic left ICA occlusion Right ICA stenosis 50-69%. Moderate calcified atheromatous plaque R CCA and ICA. Right side velocities decreased from previous Normal antegrade Doppler flow noted in the right vertebral artery. Left vertebral artery occluded. This is new from previous Anil Brownlee MD (Electronically Signed) Final Date: 16 Jul 2022 10:45 S
== END 2022-07-15 11:57 | disposition home or self-care (01) ==
LOC: RAD 12:01
PROVIDERS: PCP Internal Medicine; Visit Provider Internal Medicine Cardiovascular Disease
DX: I65.22 Occlusion and stenosis of left carotid artery (principal)
CPT/HCPCS: 93880

== ENCOUNTER → 2022-11-08 10:37 | Outpatient (BNVA) | payer MEDICARE, MEDICAID, SELFPAY | PROVIDERS: PCP Internal Medicine; Visit Provider Podiatrist Foot & Ankle Surgery | DX: Q82.8 Other specified congenital malformations of skin (principal) | CPT/HCPCS: 17110 ==

== ENCOUNTER → 2022-11-14 09:23 | Outpatient (BNVA) | payer MEDICARE, MEDICAID, SELFPAY | PROVIDERS: PCP Internal Medicine; Visit Provider Otolaryngology | DX: R13.10 Dysphagia, unspecified (principal); K21.9 Gastro-esophageal reflux disease without esophagitis; J38.7 Other diseases of larynx; F17.210 Nicotine dependence, cigarettes, uncomplicated | CPT/HCPCS: 31575; 99205 ==

== ENCOUNTER 2022-11-21 10:31 | Day surgery (SDC) | payer MEDICARE, MEDICAID, SELFPAY ==
[2022-11-20 12:19] VITALS: BMI 30.4
[2022-11-21] VITALS (9 sets, daily range): BP systolic 100–174; BP diastolic 61–105; PULSE 72–80; RESP 16–18; TEMP 36.1–36.7; O2SAT 97–99
--- NOTE | 2022-11-21 11:28 | ECG_ITS ---
[facility] Test Date: 2022-11-21 Pat Name: Rosario Villalba Department: Room: Gender: Female Police Clerk: : 1960 Requested By: Robb Nobles Order Number: [id number] Leora MD: Tye Eden M.D. Measurements Intervals [place] Rate: 73 P: 257 ID: [id number] QRS: 60 QRSD: 82 T: 72 QT: 386 QTc: 427 Interpretive Statements ELECTRONIC ATRIAL PACEMAKER ELECTRONIC VENTRICULAR PACEMAKER Compared to ECG 11/22/2021 10:20:25 Atrial flutter no longer present Intraventricular conduction delay no longer present Electronically Signed On 11-21-2022 17:58:20 CDT by Tye Eden M.D. [id number]
--- NOTE | 2022-11-21 11:47 | W.PM.OPSUD ---
Surgery/Procedure H&P Update DATE OF PROCEDURE: November 21, 2022 DATE H&P PERFORMED: 11/14/22 H&P UPDATE INFORMATION: I have reviewed H&P completed within last 30 days, I have examined patient prior to procedure and No changes to prior documentation CHANGES TO PREVIOUS DOCUMENTATION: No changes PREOP DIAGNOSIS: Epiglottic lesion PRIMARY INDICATION FOR PROCEDURE: Epiglottic lesion PLANNED PROCEDURE: Operation Date: 11/21/22 12:00 Proposed Procedures p Laryngoscopy direct w?biopsy-45018,J38.7(Not Applicable) - James Dyer MD
[2022-11-21 11:53] LABS: Basophils # 0.1 10^3/uL (0.0-0.1); Basophils % 0.4 %; Eosinophils # 0.1 10^3/uL (0.0-0.8); Hematocrit 40.1 % (36-47); Lymphocytes # 3.2 10^3/uL (0.8-4.8); Lymphocytes % 25.3 %; Mean Corpuscular HGB Conc 32.4 g/dL (30-55); Mean Corpuscular Hemoglobin 26.7 pg (27-33); Mean Corpuscular Volume 82.3 fl (85-98); Monocytes # 1.1 10^3/uL (0.2-0.9); Monocytes % 8.2 %; Neutrophils # 8.23 10^3/uL (1.8-7.7); Neutrophils % 64.7 %; Nucleated Red Blood Cells % 0 %; Platelet Count 275 10^3/cmm (157-399); Red Blood Count 4.87 10^6/uL (3.85-5.65); Red Cell Distribution Width 15.4 % (12.1-15.1); White Blood Count 12.73 10^3/uL (3.29-11.43)
--- NOTE | 2022-11-21 12:06 | ANES.PREANE2 ---
Pre-Anesthetic Assessment Height/Weight: Height 1.68 m Weight 85.729 kg Temp Pulse Resp BP Pulse Ox O2 Del Method 972 F H 77 16 167/105 98 Room Air 11/21/22 10:58 11/21/22 10:58 11/21/22 10:58 11/21/22 10:58 11/21/22 10:58 11/21/22 11:07 Preop Diagnosis: Epiglottic lesion Operation Date: 11/21/22 12:00 Proposed Procedures p Laryngoscopy direct w?biopsy-40490,J38.7(Not Applicable) - James Dyer MD Familial anesthetic complications: none Was Beta Steff taken within 24 hours: Yes Was Clonidine taken within 24 hours: N/A Last intake: Intake Last Liquid Date 11/20/22 Last Liquid Time 22:30 Last Solid Date 11/20/22 Last Solid Time 18:00 Last Intake: 22:30 Social Tobacco 1 pack(s) per day 40 pack years Exam alert, oriented x 3, clear to auscultation bilaterally and regular rate & rhythm Airway Submandibular: within normal limits Cervical ROM: within normal limits Mallampati: Class II Dentition: partials (upper) Pulmonary Chronic Obstructive Pulmonary Disease and Sleep Apnea CV/HEM Atrial Fibrillation and Hypertension None reported Hepatic None reported GI Gastroesophageal Reflux Disease Metabolic None reported Musc/skel Lower Back Pain Neuropsych Anxiety and Depression Anesthetic Plan ASA status: 3 Anesthesia: General Risk of > 500 ml blood loss (7ml/kg in children): No Medications/Allergies Home Medications Medication Instructions Recorded Confirmed Last Taken Type aspirin 81 mg tablet,delayed 81 mg PO DAILY 04/04/19 11/20/22 11/14/22 History release (Adult Low Dose Aspirin) cholecalciferol (vitamin D3) 50 50 mcg PO DAILY 10/15/19 11/20/22 11/20/22 History mcg (2,000 unit) capsule hydrocodone 10 mg-acetaminophen 1 tab PO TID PRN pain 30 days #90 03/31/21 11/20/22 11/20/22 Rx 325 mg tablet tabs pantoprazole 20 mg tablet,delayed 20 mg PO DAILY 03/31/21 11/20/22 11/20/22 History release (Protonix) bupropion HCl 150 mg 24 hr tablet, 150 mg PO QAM 06/07/21 11/20/22 11/21/22 History extended release (Wellbutrin XL) hydroxyzine HCl 25 mg tablet 25 mg PO Q8H PRN Anxiety 06/07/21 11/20/22 11/21/22 06:00 History multivitamin 1 tab PO DAILY 11/20/21 11/20/22 11/20/22 History rosuvastatin 10 mg tablet 10 mg PO DAILY 11/20/21 11/20/22 11/20/22 History apixaban 5 mg tablet (Eliquis) 5 mg PO BID 07/13/22 11/20/22 11/20/22 08:00 History fluticasone 250 mcg-salmeterol 50 1 inh inhalation BID 07/13/22 11/20/22 11/20/22 History mcg/dose blistr powdr for inhalation (Advair Diskus) metoprolol succinate 25 mg 12.5 mg PO DAILY 07/13/22 11/20/22 11/21/22 06:00 History tablet,extended release 24 hr potassium chloride 10 mEq 10 meq PO DAILY 07/13/22 11/20/22 11/20/22 History tablet,extended release semaglutide 0.25 mg or 0.5 mg (2 0.25 mg SUBCUT .Weekly 07/13/22 11/20/22 11/14/22 12:15 History mg/3 mL) subcutaneous pen injector ([facility]) fluorouracil 5 % topical cream 1 applic topical DAILY #40 grams 11/08/22 11/20/22 11/20/22 Rx (Efudex) Allergies Allergy/AdvReac Type Severity Reaction Status Date / Time sulfamethoxazole Allergy abdominal Verified 11/14/22 10:11 [From Bactrim] pain trimethoprim [From Bactrim] Allergy abdominal Verified 11/14/22 10:11 pain Sulfa (Sulfonamide AdvReac Mild rash and Verified 11/14/22 10:11 Antibiotics) itch tiagabine [From Gabitril] AdvReac Mild headache, Verified 11/14/22 10:11 upset GI PFSH Anesthesia Medical History Age related osteoporosis Atrial fibrillation, currently in sinus rhythm Carotid stenosis 100% left carotid stenosis Cervical disc disease Degenerative joint disease (DJD) of lumbar spine Encounter for long-term (current) use of NSAIDs Encounter for long-term opiate analgesic use High risk medication use HTN (hypertension) Hypercholesterolemia Immunization counseling Opioid contract exists Osteoarthritis of both knees Smoker unmotivated to quit Surgical History H/O: hysterectomy Family History Sister Cancer breast Diabetes Stroke Brother Cancer lung Diabetes Stroke CAD (coronary artery disease) Brother has AICD Mother Diabetes Father Heart disease Heart attack CAD (coronary artery disease) Father at age 51 secondary to heart attack Social History Smoking and tobacco status: current every day smoker cigarettes Packs smoked per day: 0.75 Years cigarettes smoked: 50 Alcohol intake: never Substance/Drug Use: former Date of last use: 2014 Marital status: Data Anesthesia 11/21/22 11:40 11/21/22 11:40 Short CBC 11/21/22 Range/Units 11:40 WBC 12.73 H (3.29-11.43) 10^3/uL Hgb 13.00 (11.27-16.99) g/dL Hct 40.1 (36-47) % MCV 82.3 L (85-98) fl Plt Count 275 (157-399) 10^3/cmm Neut % (Auto) 64.7 % Neut # (Auto) 8.23 H (1.8-7.7) 10^3/uL Cardiac Studies: Echocardiogram 11/21/21 Echocardiogram Ultrasound 07/28/20 Sestamibi Stress Test (Cardiology) 09/13/21
[2022-11-21] MEDS: sodium chloride 0.9% 1,000 ML 30 ML IV (12:15)
[2022-11-21 12:18] LABS: Blood Urea Nitrogen 9 mg/dL (8-23); Calcium 9.6 mg/dL (8.5-10.5); Carbon Dioxide 26 mmol/L (22-29); Chloride 103 mmol/L (98-107); Glomerular Filtration Rate 72.9 mL/min (90-130); Glucose 107 mg/dL (65-115); Osmolality Calculated 287 mOsm/kg (285-295); Sodium 139 mmol/L (136-145)
[2022-11-21] MEDS: ceFAZolin 2,000 MG in sodium chloride 0.9% (plus) 50 ML 100 MG IV (12:28)
[2022-11-21] MEDS: EPINEPHrine 1 mg/mL INJ XX (12:52)
--- NOTE | 2022-11-21 12:54 | P.OP_ITS ---
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 Post-op diagnosis: Same Post-op findings: Exophytic irregular reddish-healy growth on the laryngeal surface of epiglottis more to the left of midline does not extend to cords Procedure done: Direct suspension microscopic laryngoscopy with multiple biopsies of laryngeal surface of the epiglottis lesion Implants: No implants Specimens removed/disposition: Multiple biopsies of the laryngeal surface of the epiglottis to the left of midline Pathology: Same Surgeon: James Dyer MD Anesthesia: General Estimated blood loss: 5 mL Complications: No complications encountered Findings: Patient found on flexible laryngoscopy to have an exophytic growth on the laryngeal surface of her epiglottis to the left of midline but not extending down to the cords. Brief History: 62-year-old female patient found to have a laryngeal surface of the epiglottis lesion extending from just inferior to the tip of the epiglottis. It was more to the left of midline but did go to the midline. It extended down inferiorly for approximately 1.5 cm but did not touch the true vocal cords. Did not touch the false cords. Procedure: Description of procedure: The patient was placed on the operating table in the supine position. Adequate general endotracheal tube anesthesia was obtained. A timeout was accomplished identifying the patient date of plan procedure allergies fire risk and medications given. With all in agreement the procedure continued. The table was rotated 90 degrees. The patient's eyes were taped shut. Her head was dropped 15 degrees to the horizontal. A tooth guard was placed over her remaining dentition. Then an anterior commissure laryngoscope was inserted and positioned to visualize the laryngeal surface of the epiglottis lesion. This was suspended from a Farias stand. The microscope was then brought in and visualization with a microscope was accomplished. This revealed clearly the exophytic mass growing from just inferior to the tip of the epiglottis and extended down for about 1.5 cm more on the left side than the right side. Multiple biopsies were taken from this lesion. It appeared to extend into the c artilage of the epiglottis. After sufficient biopsies were taken the area was suctioned clean and a cottonoid with 1-1000 epinephrine on it was applied. This controlled the bleeding. The area was then suctioned clean. The scope was released from its suspension and further suctioning was accomplished on the way out. The tooth guard was removed. The patient's head was returned to the upright position. Tape was removed. Patient was then returned to anesthesia for wake-up and extubation. The patient tolerated the procedure well had an estimated blood loss of 5 mL and arrived in recovery in stable condition.
--- NOTE | 2022-11-21 14:26 | ANE.PACU2 ---
Inpatient post-anesthesia follow up: Airway intact: Yes Vital signs: Temperature 97.8 F Pulse Rate 77 Respiratory Rate 18 Blood Pressure 137/61 Pulse Oximetry 98 Oxygen Delivery Me thod Room Air Oxygen Flow Rate 6 Fraction of Inspir ed Oxygen Hydration adequate: Yes Nausea and vomiting: No Pain level: 2 Mental status: Baseline
[2022-11-21] MEDS: acetaminophen-codeine 300-30mg Tablet 1 TAB PO (14:45)
== END 2022-11-21 15:00 | disposition home or self-care (01) ==
PROVIDERS: Anesthesiology; PCP Internal Medicine; Visit Provider Otolaryngology
PROC: 0CJS8ZZ Inspection of Larynx, Via Natural or Artificial Opening Endoscopic (ICD-10-PCS; CPT 31536; principal; 2022-11-21 12:00)
DX: C32.1 Malignant neoplasm of supraglottis (principal); J44.9 Chronic obstructive pulmonary disease, unspecified; G47.30 Sleep apnea, unspecified; I48.91 Unspecified atrial fibrillation; I10 Essential (primary) hypertension; K21.9 Gastro-esophageal reflux disease without esophagitis; Z79.82 Long term (current) use of aspirin; F17.210 Nicotine dependence, cigarettes, uncomplicated
CPT/HCPCS: 31536; 36415; 80048; 85025; 88307; 88342; 93005; J0171; J0330; J0690; J2704; J3490; J7030

== ENCOUNTER → 2022-11-28 10:10 | Outpatient (BNVA) | payer MEDICARE, MEDICAID, SELFPAY | PROVIDERS: PCP Internal Medicine; Visit Provider Otolaryngology | DX: C32.1 Malignant neoplasm of supraglottis (principal); Z48.89 Encounter for other specified surgical aftercare; D02.0 Carcinoma in situ of larynx | CPT/HCPCS: 99024; 99213 ==

== ENCOUNTER 2022-12-08 07:03 | Outpatient (CLI) | payer MEDICARE, MEDICAID, SELFPAY ==
--- NOTE | 2022-12-08 07:05 | CT_ITS ---
WS: [id number] CT chest w con* [id number] HISTORY: COPD, NICOTINE DEPENDENCE, CIGARETTES TECHNIQUE: Axial imaging performed through the thorax. Coronal and sagittal reformats are submitted. All CT scans at [facility] use at least one of these dose optimization techniques: automated exposure control; mA and/or kV adjustment per patient size (includes targeted exams where dose is mat ched to clinical indication); or iterative reconstruction. CONTRAST: Omnipaque 350; 100 mL IV. DLP: 704.84 mGy.cm COMPARISON: 09/06/2021, 06/17/2012 Lungs and central airway: Mild pulmonary hyperexpansion and chronic emphysema. No pulmonary mass or n odule. No pneumonia. Mild dependent changes at the lung bases. Long-term stability of a small soft ti ssue nodule at the RIGHT lung base. No change since 06/17/2012. Pleura: Normal. No pleural effusion. Heart and pericardium: Normal size heart with no pericardial effusion. Mediastinum and daksha: No axillary adenopathy. No paratracheal enlarged lymph nodes. Bilateral hilar i ndeterminate lymph nodes. The largest lymph node is 14 mm at the RIGHT hilum. Mild bilateral prominen t lymphoid tissue. Very similar to the study from 2012. Vessels: Mild atherosclerosis aorta. No aneurysm. Normal size pulmonary artery. Chest wall and lower neck: No soft tissue masses. Upper abdomen: Moderate size hiatal hernia. Moderate atherosclerotic changes within the suprarenal ao rta. No adrenal mass. Osseous structures: Dorsal column stimulator projected over the mid thoracic spine. Very minimal ante rior wedging of T4 is stable. IMPRESSION: 1. Chronic emphysema. 2. No pulmonary mass or nodules. 3. Mildly prominent bilateral hilar lymph nodes. Stable since 2012 are probably reactive. 4. Atherosclerotic changes within the thoracic and suprarenal aorta.
--- NOTE | 2022-12-08 07:05 | CT_ITS ---
WS: [id number] CT NECK WITH CONTRAST HISTORY: SQUAMOUS CELL CARCINOMA OF EPIGLOTTIS TECHNIQUE: Contiguous 2 mm axial images are performed through the neck with intravenous contrast. Sag ittal and coronal reformats are also submitted. All CT scans at [facility] use at least one o f these dose optimization techniques: automated exposure control; mA and/or kV adjustment per patient size (includes targeted exams where dose is matched to clinical indication); or iterative reconstruc tion. CONTRAST: CONTRAST: Omnipaque 350; 100 mL IV. DLP: 704.84 mGy.cm COMPARISON: None available. There is mild asymmetric soft tissue thickening of the epiglottis. Slightly greater thickening involv ing the LEFT lateral epiglottis extending into the area epiglottic fold. There are several small none nhancing nodules in the epiglottis. These measure approximately 3 mm. 1 of these nodules is centrally and one is to the LEFT of midline. No tonsillar mass. The parapharyngeal fat is normal. Larynx is negative. No vocal cord abnormality. Torus tubarius and fossa of Rosenmuller and parapharyngeal fat are normal. There are several small lymph nodes along the cervical chains but these are not enlarged. No loss of the fatty hilum and no hypervascularity. Subcentimeter RIGHT thyroid nodule. Mild atherosclerotic changes at the aortic arch extending into the proximal great vessels. There is i ntimal thickening and few scattered calcifications. No osseous abnormalities. Visualized portions of the skull base demonstrate no abnormalities. Orbits and globes are within norm al limits. No soft tissue masses. Visualized paranasal sinuses and mastoid air cells are normal. Lung apices are clear. IMPRESSION: 1. Asymmetric thickening of the epiglottis with 2 low-attenuation nodules. Slightly greater asymmetri c thickening involving the LEFT epiglottis and aryepiglottic fold. There are 2 nodules each measuring approximately 3 mm in the epiglottis. Epiglottis can be further evaluated by endoscopy. 2. No cervical chain lymphadenopathy. 3. Mild atherosclerotic changes within the aortic arch and the proximal great vessels.
[2022-12-08] MEDS: iohexol 350 mg/mL 500 mL Btl (per mL) IV (07:25)
== END 2022-12-08 07:04 | disposition home or self-care (01) ==
PROVIDERS: PCP Internal Medicine; Visit Provider Internal Medicine
DX: C32.1 Malignant neoplasm of supraglottis (principal); J44.9 Chronic obstructive pulmonary disease, unspecified; F17.218 Nicotine dependence, cigarettes, with other nicotine-induced disorders
CPT/HCPCS: 70491; 71260; Q9967

== ENCOUNTER → 2022-12-27 14:26 | Outpatient (BNVA) | payer MEDICARE, MEDICAID, SELFPAY | PROVIDERS: PCP Internal Medicine; Visit Provider Otolaryngology | DX: C32.1 Malignant neoplasm of supraglottis (principal) | CPT/HCPCS: 99212 ==

== ENCOUNTER 2023-01-01 10:35 | Oncology outpatient (recurring) (ONCR) | payer MEDICARE, MEDICAID, SELFPAY ==
--- NOTE | 2023-01-01 15:03 | N.ONRAD NP_ITS ---
Radiation Oncology New Patient Visit Patient: Rosario Villalba MR#: [id number] : 1960> Age: 62> Sex: Female> Dictated by: Breezy Ruiz Date of Service: 01/01/2023 Referring Physician(s) : Dr. James Dyer, Dr. 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 Radiotherapy to date: Summary > No prior radiation therapy. 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 She was referred by her own request up to [facility] in [place]. However she changed her mind and has decided to have her oncology treatment done here. She is set to see the oncologist on Sunday, 01 January. Has not started any treatment yet. Not complaining of any pain. Not having any hemoptysis or hematemesis. No change in voice. Eating and drinking well. She is on Chantix for trying to quit smoking. Weight stable. She reports a roughly 3-year history of difficulty swallowing and pain on eating and drinking. She was referred to Dr. Dyer by her primary care physician Dr. Rianna Cordero. On laryngoscopy November 21, 2022 Dr. Smith described an exophytic lesion of the left laryngeal surface of the epiglottis. The lesion was just inferior to the tip of the epiglottis, more to the left but did go to midline but did not touch the false vocal cords. No vocal cord weakness or paralysis was noted. Biopsy revealed a moderately well differentiated invasive squamous cell carcinoma, p16 positive. CT of the neck December 02, 2022 revealed mild asymmetric soft tissue thickening of the epiglottis. Slightly greater thickening involving the left lateral epiglottis extending into the epiglottic fold. Several nonenhancing nodules were noted in the epiglottis. These measure approximately 3 mm. 1 of these nodules was located 6 centrally and 1 is to the left of midline. Patient indicates she was given a medication to assist with her smoking cessation however she experienced nausea and discontinued the medication. She has cut back to 6 or 7 cigarettes/day and states that she is hoping to quit smoking at the start of her radiation therapy. She has a history of atrial fibrillation and is on Eliquis and aspirin. They have been temporarily discontinued as she is scheduled for dental extractions later this month. She has a history of carotid stenosis with 100% occlusion of the left internal carotid artery and 50% occlusion of the right carotid. She has a history of cervical spine disc disease and degenerative joint disease of the lumbar spine. She has a spinal stimulator however she states it is not effective in relieving her pain. Current Medications: Allergies: sulfamethoxazole [From Bactrim] Allergy (Verified 12/27/22 14:31)abdominal pain trimethoprim [From Bactrim] Allergy (Verified 12/27/22 14:31)abdominal pain Sulfa (Sulfonamide Antibiotics) Adverse Reaction (Mild, Verified 12/27/22 14:31)rash and itch tiagabine [From Gabitril] Adverse Reaction (Mild, Verified 12/27/22 14:31)headache, upset GI Medical History: No history of collagen vascular disease. No previous radiation therapy. Age related osteoporosis Atrial fibrillation, currently in sinus rhythm Carotid stenosis 100% left carotid stenosis Cervical disc disease Degenerative joint disease (DJD) of lumbar spine Encounter for long-term (current) use of NSAIDs Encounter for long-term opiate analgesic use High risk medication use HTN (hypertension) Hypercholesterolemia Immunization counseling Opioid contract exists Osteoarthritis of both knees Smoker unmotivated to quit Family History Sister Cancer breast Diabetes Stroke Brother Cancer lung Diabetes Stroke CAD (coronary artery disease) Brother has AICD Mother Diabetes Father Heart disease Heart attack CAD (coronary artery disease) Father at age 51 secondary to heart attack Social History Smoking and tobacco/nicotine status: current every day tobacco/nicotine user cigarettes Packs smoked per day: 0.75 Years cigarettes smoked: 50 Alcohol intake: never Substance/Drug Use: former Date of last use: 2014 Marital status: Current Complaints / Review of Systems: . She has no complaints of headaches, visual changes, focal weakness or numbness. She continues to complain of the difficulty swallowing but denies difficulty with speech. She has no complaints of cough, hemoptysis, or severe shortness of breath. She denies chest pain. She reports that she feels her heart pounds more since she has been off the Eliquis and aspirin. She has no complaints of nausea or vomiting. She denies any constipation or diarrhea. She denies dysuria, urgency, or frequency. She has no complaints of difficulty with balance or coordination. She denies any upper or lower extremity edema. Vital Signs: Performed on 01/01/2023 11:00 AM BMI - 31.732 kg/m2 (high), Height - 66 in, Weight - 196.6 lbs, Temperature - 95 f, Pulse - 95 /min, Respiration - 18 /min, O2 Sat - 99 %, Pain - 10, Fatigue - 0 and BP - 147/ 88 mm(hg)(high/). 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 She is a candidate for definitive radiation therapy in the hope of achieving local control. The potential risks, benefits and side effects of external beam radiation therapy were reviewed with the patient. Acute effects including dry mouth, decreased taste, and of the potential for osteoradionecrosis of the jaw were discussed. Also discussed was the possibility of decreasing her risk of recurrence by smoking cessation. The patient indicates her understanding and willingness to proceed with treatment planning and radiation therapy. Plan: Dental extractions are scheduled for later this month. Once she has healed from the dental extractions a treatment planning CT scan will be obtained and Aquaplast mask created for patient immobilization. A PET/CT has been ordered for staging and for treatment planning purposes. Plan is to deliver 70 Richard intensity-modulated radiation therapy to the epiglottis and at risk lymph nodes at 200 cGy per fraction over 35 fractions. The patient has been encouraged to quit smoking in order to decrease her chances of local recurrence. Additionally she also has a significant family history and risk for heart disease and stroke that are influenced by smoking. Signed by: 01/01/2023 3:00:44 PM <<Signature on File>> Time spent with patient: 60 minutes. CPT Code: CPT Code:
== END 2023-01-09 23:59 | disposition home or self-care (01) ==
PROVIDERS: PCP Internal Medicine; Visit Provider Radiology Radiation Oncology
DX: C32.1 Malignant neoplasm of supraglottis (principal); F17.210 Nicotine dependence, cigarettes, uncomplicated
CPT/HCPCS: 99205

== ENCOUNTER 2023-01-03 21:24 | Observation (INO) | payer MEDICARE, MEDICAID, SELFPAY ==
[2023-01-03] VITALS (13 sets, daily range): BP systolic 104–162; BP diastolic 66–126; PULSE 106–186; RESP 10–25; TEMP 37.1; O2SAT 95–98
--- NOTE | 2023-01-03 21:28 | ECG_ITS ---
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 Measurements Intervals [place] Rate: 163 P: 0 IN: 0 QRS: 27 QRSD: 85 T: 46 QT: 254 QTc: 419 Interpretive Statements ATRIAL FLUTTER WITH RAPID VENTRICULAR RESPONSE WITH ABERRANT CONDUCTION OR VENTRICULAR PREMATURE COMPLEXES MODERATE ST DEPRESSION [0.05+ mV ST DEPRESSION] Compared to ECG 11/21/2022 12:00:45 Ventricular premature complex(es) now present ST (T wave) deviation now present Atrial-paced complex(es) or rhythm no longer present Ventricular-paced complex(es) or rhythm no longer present Electronically Signed On 01-03-2023 23:38:00 CDT by Tye Eden M.D. [id number]
--- NOTE | 2023-01-03 21:32 | XRR_ITS ---
PROCEDURE INFORMATION: Exam: XR Chest Exam date and time: 01/03/2023 9:51 PM Age: 62 years old Clinical indication: Other: Tachycardia TECHNIQUE: Imaging protocol: Radiologic exam of the chest. Views: 1 view. COMPARISON: CT chest w con* [id number] 12/08/2022 7:19 AM FINDINGS: Tubes, catheters and devices: Spinal stimulator. Lungs: Unremarkable. No consolidation. Pleural spaces: Unremarkable. No pleural effusion. No pneumothorax. Heart/Mediastinum: Unremarkable. No cardiomegaly. Bones/joints: Unremarkable. XR/XR chest 1V portable [id number] IMPRESSION: Negative for infiltrate.
[2023-01-03] MEDS: dilTIAZem 5 mg/mL SDV 5 mL 20 MG IVP (21:41)
--- NOTE | 2023-01-03 21:58 | W.ED.ARRPALP ---
HPI - Arrhythmia/Palpitations General: Chief Complaint: Arrhythmia/Palpitations Stated Complaint: afib with rvr Time Seen by Provider: 01/03/23 21:26 History of Present Illness: Patient presents to the ER with her complains of her heart racing. Patient was brought in by EMS with a heart rate of about 186 beats a minute irregularly irregular. Patient is on Eliquis and metoprolol for A-fib. Patient has been off Eliquis for roughly a week due to some dental procedures upcoming tomorrow. Patient states about 3 days after she stopped her Eliquis her heart started intermittently racing but never quite this bad. Patient stated this time it just would not stop so she called EMS when she got diaphoretic. Review of Systems General: Reports: 10 or more systems reviewed and unremarkable except in HPI and below PFSH ED PFSH: Medical History Age related osteoporosis Atrial fibrillation, currently in sinus rhythm Carotid stenosis 100% left carotid stenosis Cervical disc disease Degenerative joint disease (DJD) of lumbar spine Encounter for long-term (current) use of NSAIDs Encounter for long-term opiate analgesic use High risk medication use HTN (hypertension) Hypercholesterolemia Immunization counseling Opioid contract exists Osteoarthritis of both knees Smoker unmotivated to quit Surgical History H/O: hysterectomy Family History Sister Cancer breast Diabetes Stroke Brother Cancer lung Diabetes Stroke CAD (coronary artery disease) Brother has AICD Mother Diabetes Father Heart disease Heart attack CAD (coronary artery disease) Father at age 51 secondary to heart attack Social History Smoking and tobacco/nicotine status: current every day tobacco/nicotine user cigarettes Packs smoked per day: 0.75 Years cigarettes smoked: 50 Alcohol intake: never Substance/Drug Use: former Date of last use: 2014 Marital status: Physical Exam Const: COMMON NORMALS: no acute distress, average body habitus, patient oriented x3, no limitations, healthy appearing, alert and well nourished HENMT: COMMON NORMALS: normocephalic, atraumatic, hearing grossly normal bilaterally, external ears normal, Normal external nose present, moist oral mucous membranes and oropharynx normal HEAD & SCALP: normocephalic and atraumatic NOSE: Normal external nose present EXTERNAL EAR: Yes external ears normal Eye: COMMON NORMALS: Equal, round and reactive pupils present, EOMs intact bilaterally, conjunctivae normal and no scleral icterus CONJUNCTIVA: Yes conjunctivae normal PUPIL: Yes Equal, round and reactive pupils present Neck/C-Spine: COMMON NORMALS: full ROM, no lymphadenopathy, supple, no meningeal signs, no JVD and Thyroid normal THYROID: Thyroid normal Chest: COMMONS NORMALS: normal inspection of the chest and normal palpation of entire chest wall Resp: COMMON NORMALS: normal respiratory effort, No retractions, No use of accessory muscles and clear to auscultation bilaterally AUSCULTATION: clear to auscultation bilaterally Cardio: COMMON NORMALS: no JVD; negative for regular rate (Irregularly irregular rhythm at about 186 bpm) and negative for regular rhythm RATE: abnormal rate (Irregularly irregular rhythm at about 186 bpm) RHYTHM: abnormal rhythm GI: COMMON NORMALS: Normal to inspection, nondistended, normoactive bowel sounds present, Soft to palpation, non-tender, No hepatosplenomegaly present and no masses PALPATION: Yes Soft to palpation and Yes No hepatosplenomegaly present : COMMON NORMALS: Yes no CVA tenderness BLADDER/KIDNEY EXAM: Yes no CVA tenderness Back/Pelvis: COMMON NORMALS: no CVA tenderness Neuro: COMMON NORMALS: patient oriented x3 SENSORIUM/ORIENTATION: Yes alert MENINGEAL SIGNS: Yes no meningeal signs Course Vital Signs: Vital signs: Vital Signs Temperature 98.7 F 01/03/23 21:26 Pulse Rate 186 H 01/03/23 21:26 MDM - Arrhythmia/Palpitations Medical Decision Making Patient presents to the ER with an A-fib with RVR at a rate about 186 beats a minute. Patient was given IV Cardizem 20 mg push which helped somewhat and then she was started on a Cardizem drip and given 60 mg Cardizem orally. These helped her get her rate down consistently in the 120s. Since patient is on a Cardizem drip patient will be placed in CSU. Dr. Hua was consulted who agreed for inpatient treatment for further evaluation and treatment. Differential Diagnosis Likely artial fibrillation; Unlikely palpitations, anxiety, sinus tachycardia, artial flutter, ventricular premature beats, supraventricular tachycardia, ventricular tachycardia or WPW Medical Records I reviewed the patient's medical records. Lab Data I reviewed the patient's lab results. 01/03/23 21:59 01/03/23 21:40 Radiology Impressions Chest X-Ray 01/03/23 21:32 IMPRESSION: Negative for infiltrate. Laboratory Results WBC 14.35 10^3/uL (3.29-11.43) H 01/03/23 21:59 Corrected WBC Cancelled 01/03/23 21:40 RBC 5.04 10^6/uL (3.85-5.65) 01/03/23 21:59 Hgb 13.80 g/dL (11.27-16.99) 01/03/23 21:59 Hct 42.7 % (36-47) 01/03/23 21:59 MCV 84.7 fl (85-98) L 01/03/23 21:59 MCH 27.4 pg (27-33) 01/03/23 21:59 MCHC 32.3 g/dL (30-55) 01/03/23 21:59 RDW 15.0 % (12.1-15.1) 01/03/23 21:59 Plt Count 286 10^3/cmm (157-399) 01/03/23 21:59 MPV 11.3 fL (7.4-10.4) H 01/03/23 21:59 Gran % Cancelled 01/03/23 21:40 Neut % (Auto) 63.5 % 01/03/23 21:59 Lymph % (Auto) 26.6 % 01/03/23 21:59 [place] % (Auto) 8.5 % 01/03/23 21:59 Eos % (Auto) 0.8 % 01/03/23 21:59 Baso % (Auto) 0.4 % 01/03/23 21:59 Neut # (Auto) 9.10 10^3/uL (1.8-7.7) H 01/03/23 21:59 Lymph # (Auto) 3.8 10^3/uL (0.8-4.8) 01/03/23 21:59 [place] # (Auto) 1.2 10^3/uL (0.2-0.9) H 01/03/23 21:59 Eos # (Auto) 0.1 10^3/uL (0.0-0.8) 01/03/23 21:59 Baso # (Auto) 0.1 10^3/uL (0.0-0.1) 01/03/23 21:59 Absolute Gran (auto) Cancelled 01/03/23 21:40 Nucleated RBC % (auto) 0 % 01/03/23 21:59 Nucleated RBCs # 0.0 /100WBC 01/03/23 21:59 PT 12.00 SECONDS (12.1-14.9) L 01/03/23 21:40 INR 0.86 (0.8-1.2) 01/03/23 21:40 Sodium 139 mmol/L (136-145) 01/03/23 21:40 Potassium 4.2 mmol/L (3.5-5.1) 01/03/23 21:40 Chloride 105 mmol/L (98-107) 01/03/23 21:40 Carbon Dioxide 21 mmol/L (22-29) L 01/03/23 21:40 Anion Gap 17.2 (5-19) 01/03/23 21:40 BUN 15 mg/dL (8-23) 01/03/23 21:40 Creatinine 1.1 mg/dL (0.5-0.9) H 01/03/23 21:40 GFR Calculation 50.5 mL/min (90-130) L 01/03/23 21:40 Glucose 137 mg/dL (65-115) H 01/03/23 21:40 Calculated Osmolality 291 mOsm/kg (285-295) 01/03/23 21:40 Calcium 9.4 mg/dL (8.5-10.5) 01/03/23 21:40 Total Bilirubin 0.2 mg/dL (0.15-1.2) 01/03/23 21:40 AST 18 U/L (0-32) 01/03/23 21:40 ALT 15 U/L (0-33) 01/03/23 21:40 Alkaline Phosphatase 116 U/L (35-105) H 01/03/23 21:40 Troponin T Baseline 21 ng/L (0-10) H 01/03/23 21:40 Troponin T 120 Minute 18.35 ng/L (0-10) H 01/03/23 23:34 Delta Troponin T -2.65 ABS# (0-10) L 10/25/23 23:34 Total Protein 7.3 g/dL (6.6-8.7) 01/03/23 21:40 Albumin 4.1 g/dL (3.5-5.2) 01/03/23 21:40 Globulin 3.2 g/dL (1.3-4.6) 01/03/23 21:40 TSH 2.98 uIU/mL (0.27-4.20) 01/03/23 21:40 Urine Color Yellow (Yellow) 01/03/23 23:35 Urine Appearance Clear (CLEAR) 01/03/23 23:35 Urine pH 6 (5-7) 01/03/23 23:35 Ur Specific [place] 1.015 (1.005-1.030) 01/03/23 23:35 Urine Protein Neg (Negative) 01/03/23 23:35 Urine Glucose (UA) Norm (Normal) 01/03/23 23:35 Urine Ketones Negative (Negative) 01/03/23 23:35 Urine Blood Trace (Negative) H 01/03/23 23:35 Urine Nitrate Negative (Negative) 01/03/23 23:35 Urine Bilirubin Neg (Negative) 01/03/23 23:35 Urine Urobilinogen Neg mg/dL (Negative) 01/03/23 23:35 Ur Leukocyte Esterase Negative (Negative) 01/03/23 23:35 Urine RBC 0-4 /hpf (0-2) H 01/03/23 23:35 Urine WBC None /hpf (0-5) 01/03/23 23:35 Ur Squamous Epith Cells 0-4 /hpf (0-5) H 01/03/23 23:35 Amorphous Sediment Not Reportable 01/03/23 23:35 Urine Bacteria Trace /hpf (NONE) 01/03/23 23:35 Urine Opiates Screen Positive ng/mL (Negative) H 01/03/23 23:35 Ur Barbiturates Screen Negative ng/mL (Negative) 01/03/23 23:35 Ur Phencyclidine Scrn Negative ng/mL (Negative) 01/03/23 23:35 Ur Amphetamines Screen Negative ng/mL (Negative) 01/03/23 23:35 U Benzodiazepines Scrn Negative ng/mL (Negative) 01/03/23 23:35 Urine Cocaine Screen Negative ng/mL (Negative) 01/03/23 23:35 U Marijuana (THC) Screen Negative ng/mL (Negative) 01/03/23 23:35 All radiology interpretation(s) finalized by discharge EKG Data EKG 1: I personally reviewed and interpreted this EKG as follows: EKG interpretation date: 01/03/23 EKG interpretation time: 20:23 Prior EKG tracings: not available for review Interpretation: EKG showed ventricular rate 163 bpm, QRS duration 85, QTc of 344, atrial flutter/tachycardia with RVR with aberrant conduction or PVCs. Moderate ST depression. Other EKG comments: Chest X-Ray 01/03/23 21:32 IMPRESSION: Negative for infiltrate. Discharge Plan Discharge Patient Disposition: Admitted As Inpatient Admit Provider: Rd Hua Clinical Impression: Atrial fibrillation with rapid ventricular response Condition: Stable Coding Level of Care Code ED Clinical Aide for Chg Andrew
[2023-01-03 21:59] LABS: INR 0.86 (0.8-1.2)
[2023-01-03 22:06] LABS: Basophils # 0.1 10^3/uL (0.0-0.1); Basophils % 0.4 %; Eosinophils # 0.1 10^3/uL (0.0-0.8); Eosinophils % 0.8 %; Hematocrit 42.7 % (36-47); Lymphocytes # 3.8 10^3/uL (0.8-4.8); Lymphocytes % 26.6 %; Mean Corpuscular HGB Conc 32.3 g/dL (30-55); Mean Corpuscular Hemoglobin 27.4 pg (27-33); Mean Corpuscular Volume 84.7 fl (85-98); Mean Platelet Volume 11.3 fL (7.4-10.4); Monocytes # 1.2 10^3/uL (0.2-0.9); Monocytes % 8.5 %; Neutrophils % 63.5 %; Nucleated Red Blood Cells % 0 %; Platelet Count 286 10^3/cmm (157-399); Red Blood Count 5.04 10^6/uL (3.85-5.65); White Blood Count 14.35 10^3/uL (3.29-11.43)
[2023-01-03 22:10] LABS: Troponin(5th) Baseline 21 ng/L (0-10)
[2023-01-03] MEDS: dilTIAZem 60 mg Tablet PO (22:11)
[2023-01-03] MEDS: dilTIAZem 100 MG in sodium chloride 0.9% (add-van) 100 ML IV (22:12)
[2023-01-03 22:19] LABS: Alanine Aminotransferase 15 U/L (0-33); Albumin Level 4.1 g/dL (3.5-5.2); Alkaline Phosphatase 116 U/L (35-105); Aspartate Amino Transferase 18 U/L (0-32); Blood Urea Nitrogen 15 mg/dL (8-23); Calcium 9.4 mg/dL (8.5-10.5); Carbon Dioxide 21 mmol/L (22-29); Chloride 105 mmol/L (98-107); Globulin 3.2 g/dL (1.3-4.6); Glomerular Filtration Rate 50.5 mL/min (90-130); Glucose 137 mg/dL (65-115); Osmolality Calculated 291 mOsm/kg (285-295); Sodium 139 mmol/L (136-145); Thyroid Stimulating Hormone 2.98 uIU/mL (0.27-4.20); Total Bilirubin 0.2 mg/dL (0.15-1.2); Total Protein 7.3 g/dL (6.6-8.7)
[2023-01-03 22:21] LABS: Anion Gap 17.2 (5-19); Potassium 4.2 mmol/L (3.5-5.1)
--- NOTE | 2023-01-03 23:32 | ECG_ITS ---
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 Measurements Intervals [place] Rate: 104 P: 263 [place]: 343 QRS: 22 QRSD: 117 T: 54 QT: 394 QTc: 520 Interpretive Statements ATRIAL FLUTTER WITH RVR INCOMPLETE RIGHT BUNDLE BRANCH BLOCK [90+ ms QRS DURATION, TERMINAL R IN V1/V2, 40+ ms S IN I/aVL/V4/V5/V6] ABNORMAL RHYTHM ECG Compared to ECG 01/03/2023 21:28:01 Incomplete right bundle-branch block now present Ventricular premature complex(es) no longer present ST (T wave) deviation no longer present Electronically Signed On 01-04-2023 3:06:57 CDT by Gilma Venegas M.D. [id number]
[2023-01-03 23:44] LABS: Add Urine Culture? No; Add Urine Microscopic? YES; Bacteria Urine TRACE /hpf; Bilirubin Urine Neg (Negative); Blood Urine Trace (Negative); Glucose Urine UA Norm (Normal); Ketones Urine Negative (Negative); Leukocyte Esterase Urine Negative (Negative); Nitrate Urine Negative (Negative); Protein Urine Neg (Negative); RBC Urine 0-4 /hpf (0-2); Specific Gravity, Urine 1.015 (1.005-1.030); Squamous Epithelial Cell Urine 0-4 /hpf (0-5); Urine Appearance Clear (CLEAR); Urine Color Yellow (Yellow); Urobilinogen Urine Neg (Negative); pH Urine 6 (5-7)
[2023-01-03 23:50] LABS: Amphetamines Screen Urine Negative (Negative); Barbiturates Screen Urine Negative (Negative); Benzodiazepines Screen Urine Negative (Negative); Cocaine Screen Urine Negative (Negative); Opiate Screen Urine Positive (Negative); PCP Screen Urine Negative (Negative); THC Screen Urine Negative (Negative)
[2023-01-04] VITALS (142 sets, daily range): BP systolic 121–199; BP diastolic 57–103; PULSE 62–139; RESP 11–31; TEMP 36.7; O2SAT 92–100
[2023-01-04] LABS: Troponin 5 2HR 18.35 ng/L (0-10)
[2023-01-04 00:01] LABS: Troponin 5 2HR Delta -2.65 ABS# (0-10)
--- NOTE | 2023-01-04 00:47 | P.HP_ITS ---
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 States has not missed any of her metoprolol doses. Came into ER due to palpitations, tachycardia, found to have A-fib with RVR, heart rates up to 186. Did not respond to Cardizem push. Was started on Cardizem drip. So far continues to require infusion. Noted leukocytosis 14.35. Chest x-ray and UA not suggestive of acute infection. She does state has had some pain around her upper teeth. Had some chills at home. Review of Systems Const: Denies: fever(s), chills, body aches or malaise ENMT: Reports: dental pain; Denies: ear or mastoid pain Card: Reports: palpitations and irregular heart rhythm; Denies: chest pain, edema, pre-syncope or dyspnea on exertion Resp: Denies: dyspnea, productive cough, change in phlegm color or hemoptysis GI: Denies: abdominal pain, nausea, vomiting, diarrhea, constipation, hematochezia or melena : Denies: flank pain, urinary frequency or hematuria Musc: Denies: back pain, joint swelling or joint redness Skin/Breast: Denies: rash or new lesions Neuro: Denies: headache(s), numbness in extremities, weakness in extremities, dizziness, confusion or seizure-like activity Endo: Denies: polyuria or polydipsia Medications/Allergies Home Medications Medication Instructions Recorded Confirmed Last Taken Type aspirin 81 mg tablet,delayed 81 mg PO DAILY 04/04/19 12/27/22 11/14/22 History release (Adult Low Dose Aspirin) cholecalciferol (vitamin D3) 50 50 mcg PO DAILY 10/15/19 12/27/22 11/20/22 History mcg (2,000 unit) capsule hydrocodone 10 mg-acetaminophen 1 tab PO TID PRN pain 30 days #90 03/31/21 12/27/2211/20/23 Rx 325 mg tablet tabs pantoprazole 20 mg tablet,delayed 20 mg PO DAILY 03/31/21 12/27/22 11/20/22 History release (Protonix) bupropion HCl 150 mg 24 hr tablet, 150 mg PO QAM 06/07/21 12/27/22 11/21/22 History extended release (Wellbutrin XL) hydroxyzine HCl 25 mg tablet 25 mg PO Q8H PRN Anxiety 06/07/21 12/27/22 11/21/22 06:00 History multivitamin 1 tab PO DAILY 11/20/21 12/27/22 11/20/22 History rosuvastatin 10 mg tablet 10 mg PO DAILY 11/20/21 12/27/22 11/20/22 History apixaban 5 mg tablet (Eliquis) 5 mg PO BID 07/13/22 12/27/22 11/20/22 08:00 History fluticasone 250 mcg-salmeterol 50 1 inh inhalation BID 07/13/22 12/27/22 11/20/22 History mcg/dose blistr powdr for inhalation (Advair Diskus) metoprolol succinate 25 mg 12.5 mg PO DAILY 07/13/22 12/27/22 11/21/22 06:00 History tablet,extended release 24 hr potassium chloride 10 mEq 10 meq PO DAILY 07/13/22 12/27/22 11/20/22 History tablet,extended release semaglutide 0.25 mg or 0.5 mg (2 0.25 mg SUBCUT .Weekly 07/13/22 12/27/22 11/14/22 12:15 History mg/3 mL) subcutaneous pen injector ([employer]) fluorouracil 5 % topical cream 1 applic topical DAILY #40 grams 11/08/22 12/27/22 11/20/22 Rx (Efudex) varenicline 0.5 mg (11)-1 mg (42) ea PO 12/27/22 12/27/22 Unknown History tablets in a dose pack Allergies Allergy/AdvReac Type Severity Reaction Status Date / Time sulfamethoxazole Allergy abdominal Verified 12/27/22 14:31 [From Bactrim] pain trimethoprim [From Bactrim] Allergy abdominal Verified 12/27/22 14:31 pain Sulfa (Sulfonamide AdvReac Mild rash and Verified 12/27/22 14:31 Antibiotics) itch tiagabine [From Gabitril] AdvReac Mild headache, Verified 12/27/22 14:31 upset GI PFSH Acute PFSH: Medical History Age related osteoporosis Atrial fibrillation, currently in sinus rhythm Carotid stenosis 100% left carotid stenosis Cervical disc disease Degenerative joint disease (DJD) of lumbar spine Encounter for long-term (current) use of NSAIDs Encounter for long-term opiate analgesic use High risk medication use HTN (hypertension) Hypercholesterolemia Immunization counseling Opioid contract exists Osteoarthritis of both knees Smoker unmotivated to quit Surgical History H/O: hysterectomy Family History Sister Cancer breast Diabetes Stroke Brother Cancer lung Diabetes Stroke CAD (coronary artery disease) Brother has AICD Mother Diabetes Father Heart disease Heart attack CAD (coronary artery disease) Father at age 51 secondary to heart attack Social History Smoking and tobacco/nicotine status: current every day tobacco/nicotine user cigarettes Packs smoked per day: 0.75 Years cigarettes smoked: 50 Alcohol intake: never Substance/Drug Use: former Date of last use: 2014 Marital status: Vitals/I&O/Wt Last Vital Signs Temp 98.7 F 01/03/23 21:26 Pulse 186 H 01/03/23 21:26 01/03/23 01/03/23 01/04/23 14:59 22:59 06:59 Intake Total 3.417 / 3.417 11.75 / 15.167 Balance 3.417 / 3.417 11.75 / 15.167 Physical Exam Const: COMMON NORMALS: patient oriented x3 and alert GENERAL APPEARANCE: cooperative ORIENTATION/CONSCIOUSNESS: Yes awake HENMT: COMMON NORMALS: oropharynx normal Neck/C-Spine: COMMON NORMALS: no JVD Resp: COMMON NORMALS: normal respiratory effort and clear to auscultation escobar aterally AUSCULTATION: clear to auscultation bilaterally Cardio: COMMON NORMALS: no JVD, regular rhythm, S1 normal heart sound present, S2 normal heart sound present and No murmurs present (Cardio) RHYTHM: regular rhythm HEART SOUNDS: S1 normal heart sound present and S2 normal heart sound present GI: COMMON NORMALS: Normal to inspection, nondistended, normoactive bowel sounds present, Soft to palpation and non-tender PALPATION: Yes Soft to palpation Extremity: COMMON NORMALS: no joint enlargement and no pedal edema Neuro: COMMON NORMALS: patient oriented x3 and moves all extremities SENSORIUM/ORIENTATION: Yes alert Skin: COMMON NORMALS: no rashes or lesions noted GENERAL SKIN EXAM: no rashes or lesions noted Data 01/03/23 21:59 01/03/23 21:40 A&P Assessment and plan (1) Atrial fibrillation with rapid ventricular response: Severe symptomatic tachycardia, A-fib with RVR, heart rates in 180s on presentation. Did not respond to Cardizem push. Started on Cardizem drip. Monitor blood pressures, at risk of hypotension with treatment. So far continues to require infusion, currently on 12.5 mg/h. Eliquis has been on hold in anticipation of dental extraction. Discussed with ER physician, ER documentation reviewed. Reviewed chemistry, potassium WNL. Reviewed TSH. WNL. Requested to check magnesium. Reviewed chest x-ray, UA, UDS. Reviewed INR. Follow-up chemistry requested. Complete troponin EKG series, noted mild troponin elevation, likely demand ischemia secondary to tachycardia. On my review EKG with atrial flutter with RVR, incomplete right bundle branch block, I do not see obvious signs of acute [place]. Continue metoprolol but will switch to tartrate formulation. (2) Pain, dental: She is awaiting dental extraction of upper teeth due to dental decay which has been scheduled for tomorrow but I am not sure whether she will make the appointment, depending on how well her heart rate may respond to treatment. She is having pain around her right tooth. Noted leukocytosis. Possible periodontitis, but discussed with her cannot exclude abscess at this time, she is agreeable to assess additionally with CT scan with contrast. Requested. With leukocytosis, she is afebrile but did have some chills. Unable to assess baseline heart rate due to A-fib with RVR currently. Will collect blood culture. Should pursue dental extraction once stable from cardiac perspective. For now empirically will treat with Augmentin with consideration of periodontitis, additional assessment for any deeper infection. (3) Leukocytosis: As above, periodontitis suspected, assess for additional other dental infection/abscess. Blood cultures requested. She otherwise denies any other complaints to me suggest infection. Denies any choking or cough with food or drink. No other complaints on review of systems. Reviewed chest x-ray, UA, not suggestive of acute infection and looking for any additional sources. (4) Squamous cell carcinoma of epiglottis: Reviewed ENT note, reviewed radiation oncology note. Pending arrangements for radiation therapy. Denies any choking or cough with food or drink. Has been working on trying to quit smoking. Plan Smoking addiction: Continue to encourage cessation. Nicotine replacement as needed. LORENA: Noted mild LORENA, creatinine 1.1. Prior baseline appears to be normal. Follow-up chemistry requested. History of carotid stenosis, 100% left carotid stenosis. 50% right carotid stenosis. DJD HTN: Monitor blood pressures HLD: Continue statin OA Other medical problems Requested home medications to be confirmed, please reconcile once available. Attestations Medical Necessity Statement*: Place in observation for additional assessment and management of A-fib with RVR, dental pain, leukocytosis. Diagnoses Atrial fibrillation with rapid ventricular response I48.91 Pain, dental K08.89 Leukocytosis D72.829 Squamous cell carcinoma of epiglottis C32.1
--- NOTE | 2023-01-04 01:10 | CTR_ITS ---
PROCEDURE INFORMATION: Exam: CT Neck With Contrast Exam date and time: 01/04/2023 5:17 AM Age: 62 years old Clinical indication: Other: Upper teeth pain; Patient HX: Patient had an appointment with dentist to get her upper teeth looked at due to pain. ; Additional info: Dental pain, assess for any dental abscess aroundupper teeth TECHNIQUE: Imaging protocol: Computed tomography of the neck with contrast. Radiation optimization: All CT scans at this facility use at least one of these dose optimization techniques: automated exposure control; mA and/or kV adjustment per patient size (includes targeted exams where dose is matched to clinical indication); or iterative reconstruction. Contrast material: OMNI 350; Contrast volume: 80 ml; Contrast route: INTRAVENOUS (IV); REPORTING DATA: Count of CT and Cardiac NM exams in prior 12 months: This patient has received 3 known CTs and 0 known cardiac nuclear medicine studies in the 12 months prior to the current study. COMPARISON: 1. CT neck w con* [id number] 12/08/2022 7:[address] neck 03/28/2022 RADIATION DOSE METRICS: Total DLP (mGy-cm): 239.44 FINDINGS: Orbital cavities: Orbits are within normal limits. Mastoid air cells: Mastoid air cells are clear. Paranasal sinuses: Paranasal sinuses are clear. Dental: Poor dentition. Multiple dental caries noted in the remaining teeth. A 0.9 x 0.6 x 0.4 cm residual cavitation is noted in the maxilla at the location previously occupied by the two frontal incisors (coronal series 6, image 26; axial series 4, image 53; sagittal series 7, image 47). A thin tract extends from this space superiorly to the roof of the maxilla, best seen on sagittal series 7, image 47 on bone windows, consistent with expected maxillary incisive canal. There is a questionable small periapical abscess surrounding the root of a partially missing tooth in the left maxilla, likely tooth #13 (coronal series 6, image 33; sagittal series 7, image 37; axial series 4, image 54). This periapical abscess measures up to 0.2 cm, surrounding the majority of the residual tooth root. Pharynx: No significant tonsillar enlargement. Larynx: Persistent asymmetric thickening of the epiglottis, not significantly changed from prior studies. Prevertebral and retropharyngeal spaces: Normal. Salivary glands: Glands are normal in size. Thyroid: Subcentimeter hypoattenuating nodule in the right thyroid, unchanged. No follow-up indicated. Lymph nodes: No suspicious lymphadenopathy. Trachea: Airway is patent. Lungs: Lung apices demonstrate mild chronic centrilobular emphysematous changes. Bones/joints: No acute osseous findings. Vasculature: Diminutive/hypoplastic left vertebral artery, unchanged. Chronic occlusion of the left internal carotid artery at its origin, unchanged. The left MCA appears well supplied via the [id number]. Soft tissues: Superficial soft tissues are within normal limits. CT/CT neck w con* [id number] IMPRESSION: 1. Questionable small periapical abscess surrounding the root of a partially missing tooth in the left maxilla (coronal series 6, image 33; sagittal series 7, image 37; axial series 4, image 54), likely tooth #13. This periapical abscess measures up to 0.2 cm, surrounding the majority of the residual tooth root. 2. Persistent asymmetric thickening of the epiglottis, not significantly changed from prior studies.
[2023-01-04] MEDS: enoxaparin 40 mg/0.4 mL Syringe SUBCUT (01:55)
[2023-01-04] MEDS: amoxicillin-clav 875-125 mg Tablet 1 TAB PO ×2 (01:55→08:03)
[2023-01-04 04:38] LABS: Troponin 5 6HR 19.95 ng/L (0-10)
[2023-01-04 04:44] LABS: Troponin 5 6HR Delta -1.05 ng/L (0-12)
--- NOTE | 2023-01-04 04:54 | ECG_ITS ---
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 Measurements Intervals [place] Rate: 75 P: 102 [place]: 342 QRS: 58 QRSD: 79 T: 73 QT: 381 QTc: 427 Interpretive Statements SINUS RHYTHM MINIMAL ST DEPRESSION [0.025+ mV ST DEPRESSION] T WAVE INVERSION, CONSIDER ANTERIOR ISCHEMIA Compared to ECG 01/04/2023 00:34:27 ST (T wave) deviation now present Atrial flutter no longer present Incomplete right bundle-branch block no longer present Electronically Signed On 01-04-2023 20:03:17 CDT by Gilma Venegas M.D. [id number]
[2023-01-04] MEDS: iohexol 350 mg/mL 500 mL Btl (per mL) IV (05:27)
[2023-01-04] MEDS: acetaminophen 325 mg Tablet 650 MG PO (05:41)
[2023-01-04] MEDS: buPROPion XL (24 HR) 150 mg Tablet PO (05:41)
[2023-01-04] MEDS: albuterol 2.5 mg/3 mL Neb INHALATION (07:43)
[2023-01-04] MEDS: budesonide 0.5 mg/2 mL Neb INHALATION (07:43)
[2023-01-04] MEDS: pantoprazole DR 40 mg Tablet PO (08:03)
[2023-01-04] MEDS: atorvastatin 40 mg Tablet PO (08:03)
[2023-01-04] MEDS: metoprolol tartrate 25 mg Tablet PO (08:03)
[2023-01-04] MEDS: HYDROcodone-acetaminophen 10-325 mg Tablet 1 TAB PO (08:05)
[2023-01-04] MEDS: dilTIAZem 30 mg Tablet PO (08:56)
[2023-01-04] MEDS: piperacillin-tazobactam 3.375 GM in sodium chloride 0.9% (plus) 50 ML IV (09:33)
--- NOTE | 2023-01-04 11:39 | P.DS_ITS ---
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 States has not missed any of her metoprolol doses.? Came into ER due to palpitations, tachycardia, found to have A-fib with RVR, heart rates up to 186.? Did not respond to Cardizem push.? Was started on Cardizem drip.? So far continues to require infusion. Noted leukocytosis 14.35.? Chest x-ray and UA not suggestive of acute infection.? She does state has had some pain around her upper teeth.? Had some chills at home. Dental abscess -CT imaging showed CT/CT neck w con* [id number] IMPRESSION: 1. ? Questionable small periapical abscess surrounding the root of a partially missing tooth in the left maxilla (coronal series 6, image 33; sagittal series 7, image 37; axial series 4, image 54), likely tooth #13. This periapical abscess measures up to 0.2 cm, surrounding the majority of the residual tooth root. 2. ? Persistent asymmetric thickening of the epiglottis, not significantly changed from prior studies. -Patient was supposed to have a dental extraction today -I spoke to dental office, have rescheduled appointment for Sunday at 10:30 AM -She was managed with IV antibiotics during the hospitalization, discharged on Augmentin and Flagyl for 10 days -No alarm symptoms, no facial swelling, no lip or tongue swelling, no shortness of breath -Discharge with close monitoring as outpatient -If any alarm symptoms please come back to the emergency room -I had extensive discussion about risk and benefits of holding Eliquis and aspirin including but not limited to CVA, morbidity and mortality associated, as the dentist has recommended for her to hold Eliquis and aspirin 5 days before surgery, will continue to hold, until her surgery is performed on Sunday. Discussed risk and benefits, she voiced understanding, all consents are, agreed to proceed For A-fib with RVR, managed with Cardizem drip, she converted to normal sinus rhythm, Toprol increased to 25 twice daily, discharged on Cardizem 60 twice daily, follow with cardiology as outpatient Physical Exam Const: COMMON NORMALS: no acute distress and patient oriented x3 Resp: COMMON NORMALS: normal respiratory effort, No retractions, No use of accessory muscles and clear to auscultation bilaterally AUSCULTATION: clear to auscultation bilaterally Cardio: COMMON NORMALS: regular rate, regular rhythm, S1 normal heart sound present and S2 normal heart sound present RATE: regular rate RHYTHM: regular rhythm HEART SOUNDS: S1 normal heart sound present and S2 normal heart sound present GI: COMMON NORMALS: Normal to inspection, nondistended, normoactive bowel sounds present and non-tender Extremity: COMMON NORMALS: no pedal edema Neuro: COMMON NORMALS: patient oriented x3 Psych: COMMON NORMALS: mental status grossly normal Discharge Data Studies Completed and Pending Completed Studies During Hospitalization Category Date Time Status CT neck w con* [id number] Routine Cat Scan 01/04/23 01:10 Completed XR chest 1V portable [id number] Stat Exams 01/03/23 21:32 Completed Pending at discharge Category Date Time Status Basic Metabolic Panel AM LABS Lab 01/05/23 04:00 Ordered Basic Metabolic Panel AM LABS Lab 01/06/23 04:00 Ordered Basic Metabolic Panel AM LABS Lab 01/07/23 04:00 Ordered Blood Culture Stat Lab 01/04/23 02:15 Results Complete Blood Count w/Auto AM LABS Lab 01/05/23 04:00 Ordered Complete Blood Count w/Auto AM LABS Lab 01/06/23 04:00 Ordered Complete Blood Count w/Auto AM LABS Lab 01/07/23 04:00 Ordered Radiology Impressions Chest X-Ray 01/03/23 21:32 IMPRESSION: Negative for infiltrate. Neck CT 01/04/23 01:10 IMPRESSION: 1. Questionable small periapical abscess surrounding the root of a partially missing tooth in the left maxilla (coronal series 6, image 33; sagittal series 7, image 37; axial series 4, image 54), likely tooth #13. This periapical abscess measures up to 0.2 cm, surrounding the majority of the residual tooth root. 2. Persistent asymmetric thickening of the epiglottis, not significantly changed from prior studies. Laboratory Results WBC 14.35 10^3/uL (3.29-11.43) H 01/03/23 21:59 Corrected WBC Cancelled 01/03/23 21:40 RBC 5.04 10^6/uL (3.85-5.65) 01/03/23 21:59 Hgb 13.80 g/dL (11.27-16.99) 01/03/23 21:59 Hct 42.7 % (36-47) 01/03/23 21:59 MCV 84.7 fl (85-98) L 01/03/23 21:59 MCH 27.4 pg (27-33) 01/03/23 21:59 MCHC 32.3 g/dL (30-55) 01/03/23 21:59 RDW 15.0 % (12.1-15.1) 01/03/23 21:59 Plt Count 286 10^3/cmm (157-399) 01/03/23 21:59 MPV 11.3 fL (7.4-10.4) H 01/03/23 21:59 Gran % Cancelled 01/03/23 21:40 Neut % (Auto) 63.5 % 01/03/23 21:59 Lymph % (Auto) 26.6 % 01/03/23 21:59 [place] % (Auto) 8.5 % 01/03/23 21:59 Eos % (Auto) 0.8 % 01/03/23 21:59 Baso % (Auto) 0.4 % 01/03/23 21:59 Neut # (Auto) 9.10 10^3/uL (1.8-7.7) H 01/03/23 21:59 Lymph # (Auto) 3.8 10^3/uL (0.8-4.8) 01/03/23 21:59 [place] # (Auto) 1.2 10^3/uL (0.2-0.9) H 01/03/23 21:59 Eos # (Auto) 0.1 10^3/uL (0.0-0.8) 01/03/23 21:59 Baso # (Auto) 0.1 10^3/uL (0.0-0.1) 01/03/23 21:59 Absolute Gran (auto) Cancelled 01/03/23 21:40 Nucleated RBC % (auto) 0 % 01/03/23 21:59 Nucleated RBCs # 0.0 /100WBC 01/03/23 21:59 PT 12.00 SECONDS (12.1-14.9) L 01/03/23 21:40 INR 0.86 (0.8-1.2) 01/03/23 21:40 Sodium 139 mmol/L (136-145) 01/03/23 21:40 Potassium 4.2 mmol/L (3.5-5.1) 01/03/23 21:40 Chloride 105 mmol/L (98-107) 01/03/23 21:40 Carbon Dioxide 21 mmol/L (22-29) L 01/03/23 21:40 Anion Gap 17.2 (5-19) 01/03/23 21:40 BUN 15 mg/dL (8-23) 01/03/23 21:40 Creatinine 1.1 mg/dL (0.5-0.9) H 01/03/23 21:40 GFR Calculation 50.5 mL/min (90-130) L 01/03/23 21:40 Glucose 137 mg/dL (65-115) H 01/03/23 21:40 Calculated Osmolality 291 mOsm/kg (285-295) 01/03/23 21:40 Calcium 9.4 mg/dL (8.5-10.5) 01/03/23 21:40 Magnesium 2.0 mg/dL (1.7-2.3) 01/04/23 02:15 Total Bilirubin 0.2 mg/dL (0.15-1.2) 01/03/23 21:40 AST 18 U/L (0-32) 01/03/23 21:40 ALT 15 U/L (0-33) 01/03/23 21:40 Alkaline Phosphatase 116 U/L (35-105) H 01/03/23 21:40 Troponin T Baseline 21 ng/L (0-10) H 01/03/23 21:40 Troponin T 120 Minute 18.35 ng/L (0-10) H 01/03/23 23:34 Delta Troponin T -2.65 ABS# (0-10) L 01/03/23 23:34 Troponin T Hi Sens 6Hr 19.95 ng/L (0-10) H 01/04/23 03:39 Troponin T Hi Sens 6Hr Delta -1.05 ng/L (0-12) L 01/04/23 03:39 Total Protein 7.3 g/dL (6.6-8.7) 01/03/23 21:40 Albumin 4.1 g/dL (3.5-5.2) 01/03/23 21:40 Globulin 3.2 g/dL (1.3-4.6) 01/03/23 21:40 TSH 2.98 uIU/mL (0.27-4.20) 01/03/23 21:40 Urine Color Yellow (Yellow) 01/03/23 23:35 Urine Appearance Clear (CLEAR) 01/03/23 23:35 Urine pH 6 (5-7) 01/03/23 23:35 Ur Specific [place] 1.015 (1.005-1.030) 01/03/23 23:35 Urine Protein Neg (Negative) 01/03/23 23:35 Urine Glucose (UA) Norm (Normal) 01/03/23 23:35 Urine Ketones Negative (Negative) 01/03/23 23:35 Urine Blood Trace (Negative) H 01/03/23 23:35 Urine Nitrate Negative (Negative) 01/03/23 23:35 Urine Bilirubin Neg (Negative) 01/03/23 23:35 Urine Urobilinogen Neg mg/dL (Negative) 01/03/23 23:35 Ur Leukocyte Esterase Negative (Negative) 01/03/23 23:35 Urine RBC 0-4 /hpf (0-2) H 01/03/23 23:35 Urine WBC None /hpf (0-5) 01/03/23 23:35 Ur Squamous Epith Cells 0-4 /hpf (0-5) H 01/03/23 23:35 Amorphous Sediment Not Reportable 01/03/23 23:35 Urine Bacteria Trace /hpf (NONE) 01/03/23 23:35 Urine Opiates Screen Positive ng/mL (Negative) H 01/03/23 23:35 Ur Barbiturates Screen Negative ng/mL (Negative) 01/03/23 23:35 Ur Phencyclidine Scrn Negative ng/mL (Negative) 01/03/23 23:35 Ur Amphetamines Screen Negative ng/mL (Negative) 01/03/23 23:35 U Benzodiazepines Scrn Negative ng/mL (Negative) 01/03/23 23:35 Urine Cocaine Screen Negative ng/mL (Negative) 01/03/23 23:35 U Marijuana (THC) Screen Negative ng/mL (Negative) 01/03/23 23:35 Vitals Last Vital Signs Temp 98.0 F 01/04/23 07:35 Pulse 78 01/04/23 08:10 Resp 17 01/04/23 08:10 BP 172/96 01/04/23 08:10 Pulse Ox 97 01/04/23 08:10 O2 Del Method Room Air 01/04/23 08:10 Discharge Plan Discharge Patient Disposition: Home Condition: Stable Prescriptions: New metoprolol tartrate 25 mg Tablet 25 mg PO BID@0900,2100 30 Days Qty: 60 0RF diltiazem HCl 60 mg tablet 60 mg PO BID 30 Days Qty: 60 0RF metronidazole 500 mg tablet 500 mg PO Q8H 7 Days Qty: 21 0RF amoxicillin-pot clavulanate 875-125 mg tablet 1 tab PO Q12H 7 Days Qty: 14 0RF Continued hydroxyzine HCl 25 mg tablet 25 mg PO Q8H PRN (Reason: Anxiety) pantoprazole [Protonix] 20 mg tablet,delayed release (DR/EC) 40 mg PO DAILY hydrocodone-acetaminophen 10-325 mg tablet 1 tab PO TID PRN (Reason: pain) 30 Days Qty: 90 0RF cholecalciferol (vitamin D3) 50 mcg (2,000 unit) capsule 50 mcg PO DAILY bupropion HCl [Wellbutrin XL] 150 mg tablet extended release 24 hr 150 mg PO QAM Ozempic 0.25 mg or 0.5 mg (2 mg/3 mL) pen injector 0.25 mg SUBCUT .Weekly fluticasone propion-salmeterol [Advair Diskus] 250-50 mcg/dose blister with device 1 inh inhalation BID potassium chloride 10 mEq tablet extended release 10 meq PO DAILY fluorouracil [Efudex] 5 % cream 1 applic topical DAILY Qty: 40 0RF Rx Instructions: at bedtime, cover with band aid multivitamin Tablet 1 tab PO DAILY rosuvastatin 10 mg Tablet 10 mg PO DAILY Held aspirin [Adult Low Dose Aspirin] 81 mg tablet,delayed release (DR/EC) 81 mg PO DAILY Hold Instructions: Resume on 11/27/22. Take aspirin until 11/27/2022 Eliquis 5 mg tablet 5 mg PO BID Hold Instructions: Resume on 01/08/23. Discontinued metoprolol succinate 25 mg tablet extended release 24 hr 25 mg PO DAILY Discharge Orders: Discharge Order (Routine); Ordered 01/04/23 Ordered By: Slick Cassidy Referrals: Rianna Ruiz MD [Primary Care Provider] - Patient Instructions: Opioid Safety Discharge Attestations Time Spent in Discharge Care*: greater than 30 min Quality Metrics Clinical Quality Measures [ No reported AMI, CVA or VTE this stay] Coding Level of Care Code 44510 Total time (in minutes) for Discharge: 45 Diagnoses Atrial fibrillation with rapid ventricular response I48.91 Pain, dental K08.89 Leukocytosis D72.829 Squamous cell carcinoma of epiglottis C32.1
--- NOTE | 2023-01-04 15:58 | PC.NURSE ---
Discharged patient. Bilateral IVs removed. New medications and upcoming appointments discussed with patient. Patient signature form signed.
== END 2023-01-04 13:30 | disposition home or self-care (01) ==
LOC: ER 23:54 → ICU 01-04 00:22
PROVIDERS: Admitting Provider Internal Medicine; Emergency Provider Emergency Medicine; PCP Internal Medicine; Visit Provider Family Medicine
DX: I48.91 Unspecified atrial fibrillation (principal); K08.89 Other specified disorders of teeth and supporting structures; D72.829 Elevated white blood cell count, unspecified; C32.1 Malignant neoplasm of supraglottis; I45.10 Unspecified right bundle-branch block; Z79.82 Long term (current) use of aspirin; I10 Essential (primary) hypertension; Z79.891 Long term (current) use of opiate analgesic; Z79.899 Other long term (current) drug therapy; F17.210 Nicotine dependence, cigarettes, uncomplicated; M19.90 Unspecified osteoarthritis, unspecified site; M81.0 Age-related osteoporosis without current pathological fracture
CPT/HCPCS: 36415; 70491; 71045; 80053; 80306; 81001; 83735; 84443; 84484; 85025; 85610; 87040; 93005; 94640; 96372; 96374; 96375; 99285; G0378; J1650; J2543; J3490; J7613; J7626; Q9967

== ENCOUNTER 2023-01-12 11:30 | Outpatient (CLI) | payer MEDICARE, MEDICAID, SELFPAY ==
--- NOTE | 2023-01-12 12:15 | USCV_ITS ---
Rosario Villalba Age: 62 Gender: F : 1960 Exam Date: 01/12/2023 12:02 Ordering Phys: Tal Dean MD ([email or web address]) Technologist: MARY Exam Location: [facility] [place] Indication: carotid stenosis, History of LICA and left vertebral occlusion Risk Factors: Previous Vascular Surgery: Right Brachial BP: / Left Brachial BP: / Right Left Velocity (cm/s) Spectral Plaque Velocity (cm/s) Spectral Plaque Syst/Diast Broadening Syst/Diast Broadening 160.20/26.40 Prox CCA 79.50 / 7.70 147.80/26.40 Mid CCA 67.50 / 11.10 169.30/32.60 Distal CCA 97.30 / 13.10 162.90/30.20 Prox ICA / 138.70/32.20 Mid ICA / 81.20/ 16.20 Distal ICA / 176.90 ECA 140.30 0.96 ICA/CCA Antegrade Vertebral Retrograde 88.90/ 26.50 cm/s 20.50/ 20.50 cm/s Tri Subclavian Tri 295.4 44.50 0 FINDINGS comparison 08/01 CONCLUSIONS Right ICA stenosis 50-69%. Moderate atheromatous plaque right carotid bulb/ICA. Velocities are unchanged Chronic Left ICA occlusion Normal antegrade Doppler flow noted in the right vertebral artery. Retrograde Doppler flow noted in the left vertebral artery today. Anil Brownlee MD (Electronically Signed) Final Date: 12 January 2023 15:58 S
== END 2023-01-12 11:31 | disposition home or self-care (01) ==
LOC: RAD 11:31
PROVIDERS: PCP Internal Medicine; Visit Provider Internal Medicine Cardiovascular Disease
DX: I65.22 Occlusion and stenosis of left carotid artery (principal)
CPT/HCPCS: 93880

== ENCOUNTER 2023-01-23 14:03 | Outpatient (CLI) | payer MEDICARE, MEDICAID, SELFPAY ==
--- NOTE | 2023-01-23 12:30 | PETR_ITS ---
PROCEDURE INFORMATION: Exam: PET/CT Skull Base to Mid-thigh Exam date and time: 01/23/2023 12:57 PM Age: 62 years old Clinical indication: Malignant neoplasm of supraglottis (squamous cell carcinoma of the epiglottis); Initial staging and radiation therapy planning. LABS AND CLINICAL REPORTS: Glucose: 132 mg/dl Treatment strategy for malignancy (PET staging): Initial Staging (PI) TECHNIQUE: Imaging protocol: Following at least four-hour fasting and following the injection of radiopharmaceutical, low dose CT images were obtained. Then, PET images were obtained. Attenuation corrected images were constructed using the CT scan. Fused images of PET and CT were reviewed. The standardized uptake values (SUV) reported below are maximum values within a region of interest, expressed in gm/ml. Exam includes orbital meatal line to mid-thigh. Radiopharmaceutical: 12.14 mCi F-18 FDG (Fluorodeoxyglucose), IV. Time of imaging post radiopharmaceutical administration: 1 hour Injection site: The information is currently not available COMPARISON: CT neck w con* [id number] 01/04/2023, CT chest 12/08/2022. Report of CT abdomen pelvis of 04/06/2015 is available for correlation. FINDINGS: Brain: Visualized brain has normal physiologic uptake. Pharynx: No abnormal uptake. Larynx: Primary tumor involving the epiglottis measures 11.1 SUV. Lungs, pleura and trachea: No abnormal uptake. Heart: Normal physiologic uptake. There is no cardiomegaly. Coronary artery calcification is present. There is no pericardial effusion. Mediastinal space: No abnormal uptake. Liver: No abnormal uptake. Gallbladder and bile ducts: No abnormal uptake. No calcified gallstones. Pancreas: No abnormal uptake. Spleen: No abnormal uptake. No splenomegaly. Adrenal glands: No abnormal uptake. 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 Kidneys and ureters: Normal physiologic uptake. No hydronephrosis. Stomach and bowel: No abnormal uptake. No abnormal dilatation of the bowel. 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 Intraperitoneal and retroperitoneal spaces: No abnormal uptake. No ascites. Bladder: Normal physiologic uptake. Reproductive: No abnormal uptake. The uterus is absent post surgically. Vasculature: No abnormal uptake. No aortic aneurysm. Lymph nodes: No abnormal uptake. No lymphadenopathy in the head, neck, chest, abdomen, pelvis, and extremities. Bones/joints: Linear increased synovial uptake in the left shoulder measuring 4.7 SUV on axial image 66 is suggestive of benign inflammatory finding. No suspicious lytic or sclerotic bone lesions. Soft tissues: No abnormal uptake in the visualized head, neck, chest, abdomen, pelvis, and extremities. [facility] [id number] IMPRESSION: Increased uptake of 11.1 SUV within the primary tumor involving the epiglottis. FDG avid lymph nodes in the neck. No FDG avid distant metastatic disease.
== END 2023-01-23 14:04 | disposition home or self-care (01) ==
LOC: RAD 14:03
PROVIDERS: PCP Internal Medicine; Visit Provider Radiology Radiation Oncology
DX: C32.1 Malignant neoplasm of supraglottis (principal)
CPT/HCPCS: 78815; A9552

== ENCOUNTER 2023-01-26 13:18 | Outpatient (CLI) | payer MEDICARE, MEDICAID, SELFPAY ==
--- NOTE | 2023-01-26 13:36 | MM_ITS ---
WS: [id number] BILATERAL 3D TOMOSYNTHESIS DIGITAL SCREENING MAMMOGRAPHY WITH CAD CLINICAL INFORMATION: SCREENING HISTORY: Screening mammogram. No current complaints. COMPARISON: 2021 TECHNIQUE: Bilateral CC and MLO views. FINDINGS: Scattered fibroglandular densities bilaterally. No suspicious focal mass, asymmetry, calcifications, or architectural distortion. No evidence of malignancy. IMPRESSION: MM/[place] [id number] BI-RADS: 1-Negative FOLLOW UP: 1 Year Follow-up Recommend return to annual screening mammography.
== END 2023-01-26 13:19 | disposition home or self-care (01) ==
LOC: RAD 13:18
PROVIDERS: PCP Internal Medicine; Visit Provider Internal Medicine
DX: Z12.31 Encounter for screening mammogram for malignant neoplasm of breast (principal)
CPT/HCPCS: 77063; 77067

== ENCOUNTER 2023-02-08 13:48 | Oncology outpatient (recurring) (ONCR) | payer MEDICARE, MEDICAID, SELFPAY ==
--- NOTE | 2023-01-25 13:40 | ONCRAD EPV_ITS ---
Radiation Oncology Established Patient Visit Patient: Rosario Villalba [id number] : 1960 Age: 62 Sex: Female Dictated by: Robb Hahn Date of Service: 01/25/2023 Referring Physician(s) : Dr. Dyer Diagnosis: C32.1 - Malignant neoplasm of supraglottis, Diagnosed 11/21/2022 (Active) St I(T1 , N0, M0) s/p bx confirming squamous cell carcinoma, p16 positive. Radiotherapy to Date: None. Current History: She was seen here in initial consultation by Dr. Breezy Ruiz on 01/01/2023. Since then she has had complete maxillary and partial mandibular tooth extraction. Now healing well. She has additional dental treatment scheduled on 01/31/2023. She continues to smoke < 10 cigarettes a day. She has been on a trial of Ozempic which she is stopping. It had no effect in causing weight loss. PET/CT 01/23/2023 revealed mass and uptake in epiglottis. No evidence for cervical [place] or metastatic disease uptake. ( Original formal report noted that there was cervical adenopathy on PET imaging. This was not the case and has now been verified. An addendum report will be issued) Current Medications: Ozempic, Advair, HC/APAP, Eliquis, metropolol, diltiazem, hydroxyzine, Wellbutrin, rosuvastatin, pantoprazole, ASA Allergies: sulfamethoxazole [From Bactrim] Allergy (Verified 12/27/22 14:31)abdominal pain trimethoprim [From Bactrim] Allergy (Verified 12/27/22 14:31)abdominal pain Sulfa (Sulfonamide Antibiotics) Adverse Reaction (Mild, Verified 12/27/22 14:31)rash and itch tiagabine [From Gabitril] Adverse Reaction (Mild, Verified 12/27/22 14:31)headache, upset GI Physical Exam: General: Alert and oriented x 3. No acute distress. HEENT: Full dentures in maxillary region. Absent central incisors and molars in mandible. Previous extractions healing well. NECK: Supple without supraclavicular or jugular lymphadenopathy. Performance Status: 0 Lab: None pending. Pathology: Primary, c32.1 - malignant neoplasm of supraglottis, Diagnosed 11/21/2022 (active). Imaging: See HPI Impression: Clinical St I (T1 N0 M0) p 16 positive squamous cell carcinoma of the epiglottis. Plan on 70 Gy over 35 treatment to primary lesion Discussed need to maintain nutrition and hydration to avoid then need for PEG tube while on treatment. Also discussed the critical need for smoking cessation. Signed by: 01/25/2023 1:39:24 PM <<Signature on File>> Time spent with patient: CPT Code: CPT Code:
== END 2023-02-08 23:59 | disposition home or self-care (01) ==
PROVIDERS: PCP Internal Medicine; Visit Provider Radiology Radiation Oncology
DX: Z51.0 Encounter for antineoplastic radiation therapy (principal); C32.1 Malignant neoplasm of supraglottis
CPT/HCPCS: 77300; 77301; 77334; 77338; 77386; 93005; 99024; 99214

== ENCOUNTER 2023-02-22 12:27 | Outpatient (CLI) | payer MEDICARE, MEDICAID, SELFPAY ==
--- NOTE | 2023-02-22 14:06 | P.DIET_ITS ---
Reason for Visit: 01614 - C32.1 Person Interviewed: Patient Medical History, Labs and Background: osteoporosis, DJD-lumbar spine, hypercholesterolemia, active smoker-3/4 ppd x 50 years, squamus cell cancer of epiglottis. Height: 5 ft 6 in Weight: 195 lb BMI: 31.5 kg/m2 (class 1 obesity) UBW: Rosario said she weighed 195 a year ago, so it is typical for her. IBW: About 50 years ago Rosario weighed 135 and that would be her goal. Concerns and Goals: Currently Rosario only has upper dentrues and won't get lower dentures until around April of next year. Chewing is difficult, but swallowing is not hard right now. She wanted some ideas for soft foods. Sleep Hygiene: Typically Rosario goes to bed around 10 pm, but doesn't fall aslee p until 12:30-1am, and often she gets up to go to the bathroom. Physical Activity: Because of her back, exercise is hard - even housework is hard. Feeding Issues: Difficulty Swallowing and Dentures Other Feeding Issues: With no bottom teeth, Rosario can only eat soft foods. Food Allergies and Sensitivities: She didn't think she had any. 24 Hour Recall: Breakfast Time: Snack Time: Lunch Time: Snack Time: Dinner Time: Snack Time: Eating Out: She doesn't eat out very much. Soda vs Milk vs Water: During the day, she drinks sweet tea or koolaid or diet Dr. Mclean. She tries to drink water but doesn't like it. Additional Comments: The 24 hour recall was hard for her to do because she grazes throughout the day. Most of the time she will snack on junk - she said she loves chips and chocolate but both are hard to eat right now. With the radiation she said a lot of things don't taste good. Fruits and vegetables are hard to chew so she has bought frozen fruit in the hopes of making smoothies with it. When she drinks protein shakes, she prefers cholate. Recommendations: Assessment: Rosario was having her 2nd radiation treatment today and made an appt with nutrition to talk about softer foods because of her treatments and because her lower dentures won't be available until April. By her own admission, she likes junk and grazes throughout the day because she is on her own and doesn't really like to cook. When she does cook she makes a lot of something and then freezes leftovers when she is tired of it. Diagnosis: Chewing difficulty r/t denture issues and cancer AEB pt endorses inability to eat most foods because of no bottom teeth. Intervention: We discussed what she currently did for meals and she admitted that she snacks and grazes, and will make a big meal and then eat from that for days and if she gets tired of it she freezes the leftovers. Potato based soups and possibly chili were suggested, but not pasta because she doesn't do well with it. We also talked about smoothies with the jug of Aloe water she bought as well as other smoothies with the almond milk she bought plus banana and peanut butter powder and chocolate syrup if necessary :). Also discussed trying to drink 1 glass of water per day since she wants to include water in her meal plan. Monitoring and Intervention: My name, office number and extension, and email were given for follow up. I asked about swallowing and she said that isn't a problem yet, so I suggested getting back in touch with me through one of those options should she want to talk further. Coding Level of Care Code Nutrition/Individ/Init 60 min Time Spent (min) 55
== END 2023-02-22 12:28 | disposition home or self-care (01) ==
LOC: DIET 12:28
PROVIDERS: PCP Internal Medicine; Visit Provider Radiology Radiation Oncology
DX: Z71.3 Dietary counseling and surveillance (principal); C32.1 Malignant neoplasm of supraglottis; R63.39 Other feeding difficulties; R13.10 Dysphagia, unspecified; K08.499 Partial loss of teeth due to other specified cause, unspecified class
CPT/HCPCS: 97802

== ENCOUNTER 2023-02-27 12:43 | Outpatient (CLI) | payer MEDICARE, MEDICAID, SELFPAY ==
--- NOTE | 2023-02-27 13:15 | USCV_ITS ---
Rosario Villalba Age: 62 Gender: F : 1960 Exam Date: 02/27/2023 12:57 Ordering Phys: Harish Oneil MD (Andy) ([email or web address] [place]) Technologist: Madison Haider [place] [facility] [place]: RECHECK ON CCA STENOSIS Risk Factors: Unknown Previous Vascular Surgery: None Right Brachial BP: / Left Brachial BP: / Right Left Velocity (cm/s) Spectral Plaque Velocity (cm/s) Spectral Plaque Syst/Diast Broadening Syst/Diast Broadening 140.00/28.70 Prox CCA 67.40 / 17.20 181.80/38.80 Mid CCA 71.40 / 13.20 170.90/45.10 Distal CCA 153.30/ 19.80 350.30/79.80 Prox ICA / 279.10/54.10 Mid ICA / 150.40/27.10 Distal ICA / 198.90 ECA 188.10 1.93 ICA/CCA Antegrade Vertebral Retrograde 78.50/ 21.70 cm/s 20.00/ cm/s Tri Subclavian Bi 175.4 171.0 0 0 FINDINGS KNOWN LT ICA OCCLUSION Intimal thickening and minimal plaques in the common carotid arteries bilaterally Moderate to heavy heterogenous plaques of the right bifurcation and internal carotid artery Minimal plaques at the left bifurcation Sluggish retrograde flow in the left vertebral artery. 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 There is sluggish retrograde flow in the left vertebral artery Compared to the previous study from 01/12/2023, the right proximal ICA stenosis appears to be more severe, could be due to the change in the hemodynamics. Consider CTA to better evaluate the lesions Dr Wilbert Tam MD FACC (Electronically Signed) Final Date: 28 February 2023 09:57 S
== END 2023-02-27 12:44 | disposition home or self-care (01) ==
LOC: RAD 12:44
PROVIDERS: PCP Internal Medicine; Visit Provider Thoracic Surgery (Cardiothoracic Vascular Surgery)
DX: I65.23 Occlusion and stenosis of bilateral carotid arteries (principal); I65.21 Occlusion and stenosis of right carotid artery
CPT/HCPCS: 93880

== ENCOUNTER 2023-02-28 13:42 | Oncology outpatient (recurring) (ONCR) | payer MEDICARE, MEDICAID, SELFPAY ==
--- NOTE | 2023-02-13 14:33 | ONCRAD TMN_ITS ---
Radiation Oncology Weekly Treatment Management Patient: Keyur Villalba MR#: [id number] : 1960> Attending Physician: Dr. Lexie Cash Date of Service: 02/13/2023 Fractions: 4 out of 35 Referring Physician(s) : Diagnosis: C32.1 - Malignant neoplasm of supraglottis, Diagnosed 11/21/2022 (Active) Radiotherapy to date: Course: HN 2022, Treatment Site: HN 70Gy, Ref. ID: [id number], Energy: 6X, Dose/Fx (cGy): 200, #Fx: 4 / 35, Dose Correction (cGy): 0, Total Dose (cGy): 800, Start Date: 02/08/2023, Elapsed Days: 5 Reason for visit: The patient is being seen today as part of their regularly scheduled weekly on treatment visits to assess for acute toxicities from radiotherapy. Review of Systems: Patient has had no changes in taste or skin or swallowing. She is switching over to a soft diet because she has had her teeth pulled. Vital Signs: Performed on 02/13/2023 2:20 PM BMI - 31.506 kg/m2 (high), Height - 66 in, Weight - 195.2 lbs, Temperature - 96.1 f, Pulse - 76 /min, Respiration - 18 /min, O2 Sat - 93 % (low), Pain - 0, Fatigue - 0 and BP - 141/ 69 mm(hg)(high/). Physical Exam: There are no changes on her skin. There are no lesions or ulcerations in her oral cavity Imaging: Radiation therapy imaging related to accurate target localization (i.e. KV, MV and CBCT) was reviewed. Appropriate changes, if any, were made to ensure treatment accuracy. Plan: At this time she is doing well. She is notes no changes from the treatment. We did set her up with the dietitian to help her with managing her adjustment to soft foods. I reviewed with her the changes she will experience over the next few weeks. She had no additional questions. We will continue with her treatments. Signed by: Dr. Lexie Cash 02/13/2023 2:32:12 PM
--- NOTE | 2023-02-20 14:22 | ONCRAD TMN_ITS ---
Radiation Oncology Weekly Treatment Management Patient: Deejay Baer MR#: [id number] : 1960> Attending Physician: Dr. Lexie Cash Date of Service: 02/20/2023 Fractions: 9 out of 35 with concurrent chemo Referring Physician(s) : Diagnosis: C32.1 - Malignant neoplasm of supraglottis, Diagnosed 11/21/2022 (Active) Radiotherapy to date: Course: HN 2022, Treatment Site: HN 70Gy, Ref. ID: [id number], Energy: 6X, Dose/Fx (cGy): 200, #Fx: , Dose Correction (cGy): 0, Total Dose (cGy): 1,800, Start Date: 02/08/2023, Elapsed Days: 12 Reason for visit: The patient is being seen today as part of their regularly scheduled weekly on treatment visits to assess for acute toxicities from radiotherapy. Review of Systems: Patient is actually doing quite well. She has not noticed any trouble swallowing. She still waiting to hear from the distribution systems superintendent. Vital Signs: Performed on 02/20/2023 1:49 PM BMI - 31.635 kg/m2 (high), Height - 66 in, Weight - 196 lbs, Temperature - 96.3 f, Pulse - 69 /min, Respiration - 18 /min, O2 Sat - 97 %, Pain - 0, Fatigue - 0 and BP - 139/ 63 mm(hg)(/low). Physical Exam: Skin shows no changes. Oral cavity was without mucositis or thrush Imaging: Radiation therapy imaging related to accurate target localization (i.e. KV, MV and CBCT) was reviewed. Appropriate changes, if any, were made to ensure treatment accuracy. Plan: Will continue with her treatments as planned. We have recontacted the distribution systems superintendent and put through the information again. Signed by: Dr. Lexie Cash 02/20/2023 2:21:02 PM
--- NOTE | 2023-02-27 14:22 | ONCRAD TMN_ITS ---
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 ID: [id number], Energy: 6X, Dose/Fx (cGy): 200, #Fx: 14 / 35, Dose Correction (cGy): 0, Total Dose (cGy): 2,800, Start Date: 02/08/2023, Elapsed Days: 19 Reason for visit: The patient is being seen today as part of their regularly scheduled weekly on treatment visits to assess for acute toxicities from radiotherapy. Review of Systems: Gargling with salt and soda. Still smoking but trying to quit. Voice ok. Swallowing ok. Occ cough usually not productive. Vital Signs: Performed on 02/27/2023 1:59 PM BMI - 31.313 kg/m2 (high), Height - 66 in, Weight - 194 lbs, Temperature - 96.5 f, Pulse - 60 /min, Respiration - 16 /min, O2 Sat - 99 %, Pain - 0, Fatigue - 7 and BP - 146/ 61 mm(hg)(high/low). Physical Exam: omitted Imaging: Radiation therapy imaging related to accurate target localization (i.e. KV, MV and CBCT) was reviewed. Appropriate changes, if any, were made to ensure treatment accuracy. Plan: Good tolerance of treatment. Begged her again to quit smoking. Continue as planned. Signed by: Robb Hahn 02/27/2023 2:21:09 PM
== END 2023-02-28 23:59 | disposition home or self-care (01) ==
PROVIDERS: PCP Internal Medicine; Visit Provider Radiology Radiation Oncology
DX: Z51.0 Encounter for antineoplastic radiation therapy (principal); C32.1 Malignant neoplasm of supraglottis
CPT/HCPCS: 77014; 77336; 77386; 99024; 99213

== ENCOUNTER 2023-03-07 14:28 | Observation (INO) | payer MEDICARE, MEDICAID, SELFPAY ==
[2023-03-07] VITALS (64 sets, daily range): BP systolic 75–153; BP diastolic 40–99; PULSE 53–205; RESP 10–28; TEMP 37–37.2; O2SAT 90–100; BMI 31.3; BMI 31.5
--- NOTE | 2023-03-07 14:55 | ECG_ITS ---
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 Measurements Intervals Geary Rate: 142 P: 93 ID: [id number] QRS: -1 QRSD: 89 T: 21 QT: 256 QTc: 394 Interpretive Statements SINUS TACHYCARDIA, POSSIBLE ATRIAL FLUTTER POSSIBLE RIGHT VENTRICULAR CONDUCTION DELAY [RSR (QR) IN V1/V2] Compared to ECG 01/25/2023 12:17:07 ST (T wave) deviation now present Electronically Signed On 03-07-2023 15:34:11 [employer]ER RECOVERY OPERATOR by Tye Eden M.D. [id number]
[2023-03-07] MEDS: dilTIAZem 5 mg/mL SDV 5 mL 20 MG IVP (14:58)
[2023-03-07 15:04] LABS: Basophils % 0.7 %; Eosinophils % 0.2 %; Hematocrit 45.9 % (36-47); Lymphocytes # 1.2 10^3/uL (0.8-4.8); Lymphocytes % 20.9 %; Mean Corpuscular HGB Conc 31.8 g/dL (30-55); Mean Corpuscular Hemoglobin 26.7 pg (27-33); Mean Corpuscular Volume 84.1 fl (85-98); Mean Platelet Volume 11.4 fL (7.4-10.4); Monocytes # 1.3 10^3/uL (0.2-0.9); Monocytes % 22.3 %; Neutrophils % 55.6 %; Nucleated Red Blood Cells % 0 %; Platelet Count 240 10^3/cmm (157-399); Red Blood Count 5.46 10^6/uL (3.85-5.65); Red Cell Distribution Width 15.7 % (12.1-15.1); White Blood Count 5.93 10^3/uL (3.29-11.43)
[2023-03-07] MEDS: dilTIAZem 100 MG in sodium chloride 0.9% (add-van) 100 ML IV (15:06)
[2023-03-07 15:15] LABS: Alanine Aminotransferase 22 U/L (0-33); Albumin Level 4.3 g/dL (3.5-5.2); Alkaline Phosphatase 128 U/L (35-105); Anion Gap 13.6 (5-19); Aspartate Amino Transferase 34 U/L (0-32); Blood Urea Nitrogen 13 mg/dL (8-23); Calcium 9.7 mg/dL (8.5-10.5); Carbon Dioxide 25 mmol/L (22-29); Chloride 102 mmol/L (98-107); Globulin 3.5 g/dL (1.3-4.6); Glomerular Filtration Rate 50.5 mL/min (90-130); Glucose 124 mg/dL (65-115); Osmolality Calculated 284 mOsm/kg (285-295); Potassium 4.6 mmol/L (3.5-5.1); Sodium 136 mmol/L (136-145); Total Bilirubin 0.2 mg/dL (0.15-1.2); Total Protein 7.8 g/dL (6.6-8.7)
--- NOTE | 2023-03-07 15:24 | W.ED.ARRPALP ---
HPI - Arrhythmia/Palpitations General: Chief Complaint: Arrhythmia/Palpitations Stated Complaint: sent from oncology, high hr Time Seen by Provider: 03/07/23 14:38 Source: patient Mode of arrival: ambulatory History of Present Illness: 62-year-old female presents emergency room with sudden onset of rapid heart rate today she is feeling very fatigued and lightheaded. She has a known history of atrial fibrillation she has not missed any of her medication she usually on apixaban. She is not on any medications for rate control. She has felt a little bit more short of breath but denies any chest pain. 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 GERD (gastroesophageal reflux disease) Odynophagia COVID-19 Atrial fibrillation, currently in sinus rhythm Immunization counseling Carotid stenosis 100% left carotid stenosis Smoker unmotivated to quit Encounter for long-term (current) use of NSAIDs Encounter for long-term opiate analgesic use High risk medication use Opioid contract exists Degenerative joint disease (DJD) of lumbar spine Cervical disc disease HTN (hypertension) Hypercholesterolemia Osteoarthritis of both knees Age related osteoporosis Surgical History H/O: hysterectomy Family History Sister Cancer breast Diabetes Stroke Brother Cancer lung Diabetes Stroke CAD (coronary artery disease) Brother has AICD Mother Diabetes Father Heart disease Heart attack CAD (coronary artery disease) Father at age 51 secondary to heart attack Social History Smoking and tobacco/nicotine status: current every day tobacco/nicotine user cigarettes Packs smoked per day: 0.75 Years cigarettes smoked: 50 Alcohol intake: never Substance/Drug Use: former Date of last use: 2014 Marital status: Physical Exam Const: COMMON NORMALS: no acute distress GENERAL APPEARANCE: cooperative and comfortable ORIENTATION/CONSCIOUSNESS: Yes awake, Yes oriented to person, Yes oriented to place and Yes oriented to time HENMT: COMMON NORMALS: normocephalic, atraumatic and hearing grossly normal bilaterally HEAD & SCALP: normocephalic and atraumatic Resp: COMMON NORMALS: normal respiratory effort, No retractions, No use of accessory muscles and clear to auscultation bilaterally AUSCULTATION: clear to auscultation bilaterally Cardio: COMMON NORMALS: regular rate, regular rhythm and No murmurs present (Cardio) RATE: regular rate RHYTHM: regular rhythm GI: COMMON NORMALS: Soft to palpation and No hepatosplenomegaly present AUSCULTATION: Yes normoactive bowel sounds PALPATION: Yes Soft to palpation, No Tenderness to palpation present (GI), No Guarding due to palpation present (GI) and Yes No hepatosplenomegaly present Extremity: COMMON NORMALS: normal to inspection, capillary refill normal, no clubbing, cyanosis or edema, no calf tenderness and no pedal edema Neuro: SENSORIUM/ORIENTATION: Yes oriented to person, Yes oriented to place and Yes oriented to time Skin: COMMON NORMALS: no rashes or lesions noted GENERAL SKIN EXAM: no rashes or lesions noted Course Vital Signs: Vital signs: Vital Signs Temperature 98.8 F 03/07/23 14:32 Pulse Rate 54 L 03/07/23 16:00 Respiratory Rate 23 H 03/07/23 16:00 Blood Pressure 97/40 03/07/23 16:00 Pulse Oximetry 95 03/07/23 16:00 Oxygen Delivery Me thod Room Air 03/07/23 15:55 MDM - Arrhythmia/Palpitations Medical Decision Making Patient presented in A-fib with RVR with a rate in the 150s and 160s a single push dose of Cardizem she bradycardia down to the 30s. She states she felt better but her blood pressure did decrease she is improved now into the upper 50s. She not currently on any negative [place] tropes. Will put her on observation. I am concerned if we discharged home on something for rate suppression she may become bradycardic is easily she bradycardia down with medicine given to her in the ER. She may at some point be a candidate for pacemaker if she continues to become bradycardic with medication. Medical Records I reviewed the patient's medical records. Lab Data I reviewed the patient's lab results. 03/07/23 14:45 03/07/23 14:45 Laboratory Results WBC 5.93 10^3/uL (3.29-11.43) 03/07/23 14:45 RBC 5.46 10^6/uL (3.85-5.65) 03/07/23 14:45 Hgb 14.60 g/dL (11.27-16.99) 03/07/23 14:45 Hct 45.9 % (36-47) 03/07/23 14:45 MCV 84.1 fl (85-98) L 03/07/23 14:45 MCH 26.7 pg (27-33) L 03/07/23 14:45 MCHC 31.8 g/dL (30-55) 03/07/23 14:45 RDW 15.7 % (12.1-15.1) H 03/07/23 14:45 Plt Count 240 10^3/cmm (157-399) 03/07/23 14:45 MPV 11.4 fL (7.4-10.4) H 03/07/23 14:45 Neut % (Auto) 55.6 % 03/07/23 14:45 Lymph % (Auto) 20.9 % 03/07/23 14:45 [place] % (Auto) 22.3 % 03/07/23 14:45 Eos % (Auto) 0.2 % 03/07/23 14:45 Baso % (Auto) 0.7 % 03/07/23 14:45 Neut # (Auto) 3.30 10^3/uL (1.8-7.7) 03/07/23 14:45 Lymph # (Auto) 1.2 10^3/uL (0.8-4.8) 03/07/23 14:45 [place] # (Auto) 1.3 10^3/uL (0.2-0.9) H 03/07/23 14:45 Eos # (Auto) 0.0 10^3/uL (0.0-0.8) 03/07/23 14:45 Baso # (Auto) 0.0 10^3/uL (0.0-0.1) 03/07/23 14:45 Nucleated RBC % (auto) 0 % 03/07/23 14:45 Nucleated RBCs # 0.0 /100WBC 03/07/23 14:45 Sodium 136 mmol/L (136-145) 03/07/23 14:45 Potassium 4.6 mmol/L (3.5-5.1) 03/07/23 14:45 Chloride 102 mmol/L (98-107) 03/07/23 14:45 Carbon Dioxide 25 mmol/L (22-29) 03/07/23 14:45 Anion Gap 13.6 (5-19) 03/07/23 14:45 BUN 13 mg/dL (8-23) 03/07/23 14:45 Creatinine 1.1 mg/dL (0.5-0.9) H 03/07/23 14:45 GFR Calculation 50.5 mL/min (90-130) L 03/07/23 14:45 Glucose 124 mg/dL (65-115) H 03/07/23 14:45 Calculated Osmolality 284 mOsm/kg (285-295) L 03/07/23 14:45 Calcium 9.7 mg/dL (8.5-10.5) 03/07/23 14:45 Total Bilirubin 0.2 mg/dL (0.15-1.2) 03/07/23 14:45 AST 34 U/L (0-32) H 03/07/23 14:45 ALT 22 U/L (0-33) 03/07/23 14:45 Alkaline Phosphatase 128 U/L (35-105) H 03/07/23 14:45 Total Protein 7.8 g/dL (6.6-8.7) 03/07/23 14:45 Albumin 4.3 g/dL (3.5-5.2) 03/07/23 14:45 Globulin 3.5 g/dL (1.3-4.6) 03/07/23 14:45 No radiology studies performed this visit Discharge Plan Discharge Patient Disposition: Admitted As Inpatient Clinical Impression: Paroxysmal A-fib, Atrial fibrillation with RVR Condition: Stable Coding Level of Care Code ED Barrel Waterer for Gina Morales
--- NOTE | 2023-03-07 16:01 | P.HP_ITS ---
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 With increased heart rates she was complaining of mild shortness of breath, diaphoresis and chest heaviness. As per the patient she has been having episodes of fluttering in the chest on and off for last few weeks even at home. She does not check her heart rate at home. In the ER she was found to have A-fib with RVR for which she received 20 mg of IV Cardizem push. During receiving the push she brought it down to 30 bpm with resolution of her symptoms. States her appetite is poor specially since starting of radiation therapy and extraction of her lower teeth and is not able to chew or taste most of the food. States she tries to drink 1 protein shake a day. Review of Systems 2 General: Reports: 10 or more systems reviewed and unremarkable except in HPI and below Const: Denies: fever(s), chills, body aches, change in appetite, change in weight, malaise, night sweats, diaphoresis, change in sleep pattern, daytime sleepiness or snoring Eyes: Denies: change in vision, blurry vision, photophobia, eye discomfort or eye discharge ENMT: Denies: throat pain, enlarged tonsils, hoarseness, mouth pain, oral sores, dry mouth, tinnitus, nasal congestion or post nasal drip Card: Denies: chest pain, palpitations, irregular heart rhythm, edema, swelling of feet/ankles, lightheadedness, syncope, pre-syncope, dyspnea on exertion, orthopnea, leg pain with exertion or acrocyanosis Resp: Denies: dyspnea, productive cough, non-productive cough, wheezing, stridor, pain on inspiration, change in phlegm color, hemoptysis or chest congestion GI: Denies: abdominal pain, nausea, vomiting, hematemesis, coffee ground emesis, dysphagia, heartburn, diarrhea, constipation, bloating, GI cramping, change in bowel habits, pain on defecation, hematochezia or melena : Denies: flank pain, dysuria, urinary frequency, urinary urgency, urinary hesitancy, nocturia or hematuria Musc: Denies: neck pain, back pain, extremity pain, joint pain, joint swelling, joint redness, joint stiffness or limited range of motion Neuro: Denies: headache(s), numbness in extremities, weakness in extremities, sensory changes, lack of coordination, difficulty walking, frequent falls, dizziness, vertigo, confusion, Slurred speech present, difficulty communicating thoughts or seizure-like activity Psych: Denies: anxiety, depression, mood swings, panic attacks, hopelessness or irritability Endo: Denies: polyuria, polydipsia, tired all the time, cold intolerance, excessive sweating, flushing or heat intolerance Luis Alberto/Lymph: Denies: easy bruising or easy bleeding All/Imm: Denies: tongue swelling, facial swelling or acute wheezing Medications/Allergies Home Medications Medication Instructions Recorded Confirmed Last Taken Type aspirin 81 mg tablet,delayed 81 mg PO QAM 04/04/19 03/07/23 03/07/23 History release (Adult Low Dose Aspirin) cholecalciferol (vitamin D3) 50 50 mcg PO DAILY 10/15/19 03/07/23 03/07/23 History mcg (2,000 unit) capsule hydrocodone 10 mg-acetaminophen 1 tab PO TID PRN pain 30 days #90 03/31/21 03/07/23 01/03/23 17:00 Rx 325 mg tablet tabs bupropion HCl 150 mg 24 hr tablet, 150 mg PO QAM 06/07/21 03/07/23 03/07/23 History extended release (Wellbutrin XL) multivitamin 1 tab PO DAILY 11/20/21 03/07/23 03/07/23 History apixaban 5 mg tablet (Eliquis) 5 mg PO BID 07/13/22 03/07/23 03/07/23 History fluticasone 250 mcg-salmeterol 50 1 inh inhalation BID PRN Shortness 07/13/22 03/07/23 01/03/23 10:00 History mcg/dose blistr powdr for Of Breath inhalation (Advair Diskus) lidocaine HCl 2 % mucosal solution 5 ml mucous membrane Q6H PRN pain 03/06/23 03/07/23 Unknown Rx (Lidocaine Viscous) #100 mL diltiazem HCl 60 mg tablet 60 mg PO BID 03/07/23 03/07/23 03/07/23 History fluorouracil 5 % topical cream 1 applic topical DAILY PRN foot 03/07/23 03/07/23 Unknown History (Efudex) pantoprazole 40 mg tablet,delayed 40 mg PO DAILY 03/07/23 03/07/23 03/07/23 History release potassium chloride 20 mEq/15 mL 20 meq PO DAILY 03/07/23 03/07/23 03/07/23 History oral liquid rosuvastatin 20 mg tablet 20 mg PO DAILY 03/07/23 03/07/23 03/07/23 History Allergies Allergy/AdvReac Type Severity Reaction Status Date / Time sulfamethoxazole Allergy abdominal Verified 02/14/23 12:41 [From Bactrim] pain trimethoprim [From Bactrim] Allergy abdominal Verified 02/14/23 12:41 pain Sulfa (Sulfonamide AdvReac Mild rash and Verified 02/14/23 12:41 Antibiotics) itch tiagabine [From Gabitril] AdvReac Mild headache, Verified 02/14/23 12:41 upset GI PFSH Acute 2 PFSH: Medical History (Updated 03/07/23 @ 16:06 by Kj Salgado MD) Chronic anticoagulation 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 GERD (gastroesophageal reflux disease) Odynophagia COVID-19 Atrial fibrillation, currently in sinus rhythm Immunization counseling Carotid stenosis 100% left carotid stenosis Smoker unmotivated to quit Encounter for long-term (current) use of NSAIDs Encounter for long-term opiate analgesic use High risk medication use Opioid contract exists Degenerative joint disease (DJD) of lumbar spine Cervical disc disease HTN (hypertension) Hypercholesterolemia Osteoarthritis of both knees Age related osteoporosis Surgical History H/O: hysterectomy Family History Sister Cancer breast Diabetes Stroke Brother Cancer lung Diabetes Stroke CAD (coronary artery disease) Brother has AICD Mother Diabetes Father Heart disease Heart attack CAD (coronary artery disease) Father at age 51 secondary to heart attack Social History Smoking and tobacco/nicotine status: current every day tobacco/nicotine user cigarettes Packs smoked per day: 0.75 Years cigarettes smoked: 50 Alcohol intake: never Substance/Drug Use: former Date of last use: 2014 Marital status: Vitals/I&O/Wt Last Vital Signs Temp 98.8 F 03/07/23 14:32 Pulse 53 L 03/07/23 15:10 Resp 20 H 03/07/23 15:10 BP 131/99 03/07/23 15:00 Pulse Ox 93 03/07/23 15:10 03/07/23 03/07/23 03/07/23 06:59 14:59 22:59 Intake Total 0.333 / 0.333 Balance 0.333 / 0.333 Weight last 48 hrs Weight 87.997 kg Physical Exam 2 Narrative: General: No acute distress, AO x3, dehydrated HEENT: PERRLA, pupils bilaterally equal and reactive Chest: Normal vesicular breath sounds, no added sounds, equal good air entry bilaterally CVS: S1-S2 irregularly irregular, no murmurs, no tachycardia, no gallops, no rubs Abdomen: Soft, nontender, no organomegaly, bowel sounds present Neuro: No focal deficits, no facial deformity, AO x3, power 5/5 in all limbs Data 03/07/23 14:45 03/07/23 14:45 A&P Assessment and plan (1) Atrial fibrillation with RVR: Takes Cardizem 60 mg twice daily at home. Went into bradycardia with heart rate down to 30s with Cardizem 20 mg IV push in the ER. Currently rate controlled and in sinus rhythm. Gives history of having episodes of fluttering in chest even at home. For now we will start on 30 mg p.o. Cardizem 3 times a day. Patient is agreeable. Most likely will switch from 60 mg twice daily to 30 mg 3 times daily for next couple of weeks and if patient is able to tolerate well will transition over to oral Cardizem sustained-release of 90 to 120 mg/day. Continue with home dose of Eliquis 5 mg twice daily for anticoagulation. Last echocardiogram from 11/2021 showed an EF of 70% without regional motion abnormality, RVSP 40 mmHg with normal RV size and systolic function. TSH recently checked to be 2.98. Check urine drug screen. Check D-dimer. If elevated will plan for CTA though patient is already on Eliquis. Patient is slightly dehydrated. Start on IV fluids with normal saline at 75 cc/h. (2) Bradycardia: Telemetry monitoring. (3) Chronic anticoagulation: (4) HTN (hypertension): Goal blood pressure less than 140/90 mmHg. Blood pressure soft for now. Hold off on antihypertensives for now. Qualifiers: Hypertension type: essential hypertension Qualified Code(s): I10 - Essential (primary) hypertension (5) Carotid stenosis: (6) Smoker unmotivated to quit: (7) Squamous cell carcinoma of epiglottis: Undergoing radiation therapy. Continue with lidocaine oral solution as needed. (8) Paroxysmal A-fib: Plan CODE STATUS: Full code. Patient presents Arturo and Kayleen will be the healthcare proxy if patient is not able to make her own decisions. Number in chart already. Liquid cardiac diet with protein shakes with each meal Protonix for PUD prophylaxis Eliquis will suffice as DVT prophylaxis Attestations 2 Medical Necessity Statement*: Admit under observation for less than 2 midnights for management of A-fib with RVR followed by bradycardia for further monitoring Diagnoses Atrial fibrillation with RVR I48.91 Bradycardia R00.1 Chronic anticoagulation Z79.01 Essential hypertension I10 Hypertension type: essential hypertension Carotid stenosis I65.29 Smoker unmotivated to quit F17.200 Squamous cell carcinoma of epiglottis C32.1 Paroxysmal A-fib I48.0
[2023-03-07 17:05] LABS: D Dimer 0.73 ug/mLFEU (0-0.59)
[2023-03-07] MEDS: sodium chloride 0.9% 1,000 ML 75 ML IV (17:32)
[2023-03-07] MEDS: dilTIAZem 60 mg Tablet 30 MG PO (20:31)
[2023-03-07] MEDS: HYDROcodone-acetaminophen 10-325 mg Tablet 1 TAB PO (20:32)
[2023-03-07] MEDS: apixaban 5 mg Tablet PO (20:32)
[2023-03-08 03:33] VITALS: BP 143/54; PULSE 66; RESP 16; TEMP 36.9; O2SAT 96
[2023-03-08 04:34] LABS: Basophils % 0.8 %; Eosinophils % 0.5 %; Hematocrit 38.4 % (36-47); Lymphocytes % 25.3 %; Mean Corpuscular Hemoglobin 27.2 pg (27-33); Mean Platelet Volume 11.2 fL (7.4-10.4); Monocytes # 0.9 10^3/uL (0.2-0.9); Monocytes % 21.7 %; Neutrophils # 2.01 10^3/uL (1.8-7.7); Neutrophils % 51.4 %; Nucleated Red Blood Cells % 0 %; Platelet Count 172 10^3/cmm (157-399); Red Blood Count 4.52 10^6/uL (3.85-5.65); Red Cell Distribution Width 15.5 % (12.1-15.1); White Blood Count 3.91 10^3/uL (3.29-11.43)
[2023-03-08 04:59] LABS: Alanine Aminotransferase 16 U/L (0-33); Albumin Level 3.4 g/dL (3.5-5.2); Alkaline Phosphatase 102 U/L (35-105); Anion Gap 14.9 (5-19); Aspartate Amino Transferase 26 U/L (0-32); Blood Urea Nitrogen 10 mg/dL (8-23); Calcium 9.1 mg/dL (8.5-10.5); Carbon Dioxide 23 mmol/L (22-29); Chloride 104 mmol/L (98-107); Globulin 2.9 g/dL (1.3-4.6); Glomerular Filtration Rate 72.9 mL/min (90-130); Glucose 106 mg/dL (65-115); Osmolality Calculated 285 mOsm/kg (285-295); Phosphorus 3.7 mg/dL (2.5-4.5); Potassium 3.9 mmol/L (3.5-5.1); Sodium 138 mmol/L (136-145); Total Bilirubin 0.2 mg/dL (0.15-1.2); Total Protein 6.3 g/dL (6.6-8.7)
[2023-03-08] MEDS: buPROPion XL (24 HR) 150 mg Tablet PO (05:09)
[2023-03-08] MEDS: aspirin 81 mg EC Tablet PO (05:09)
[2023-03-08] MEDS: sodium chloride 0.9% 1,000 ML 75 ML IV (05:27)
[2023-03-08 05:51] VITALS: PULSE 63
[2023-03-08 06:41] LABS: Amphetamines Screen Urine Negative (Negative); Barbiturates Screen Urine Negative (Negative); Benzodiazepines Screen Urine Negative (Negative); Cocaine Screen Urine Negative (Negative); Opiate Screen Urine Positive (Negative); PCP Screen Urine Negative (Negative); THC Screen Urine Negative (Negative)
[2023-03-08 06:46] LABS: Add Urine Culture? No; Add Urine Microscopic? YES; Bacteria Urine 1+ /hpf; Bilirubin Urine Neg (Negative); Blood Urine Trace (Negative); Glucose Urine UA Norm (Normal); Ketones Urine Negative (Negative); Leukocyte Esterase Urine Negative (Negative); Nitrate Urine Negative (Negative); Protein Urine Neg (Negative); RBC Urine 0-4 /hpf (0-2); Specific Gravity, Urine 1.015 (1.005-1.030); Urine Appearance Clear (CLEAR); Urine Color Yellow (Yellow); Urobilinogen Urine Neg (Negative); WBC Urine 0-4 /hpf (0-5); pH Urine 5 (5-7)
[2023-03-08 07:17] VITALS: BP 144/65; PULSE 70; RESP 18; TEMP 36.7; O2SAT 96
[2023-03-08] MEDS: atorvastatin 40 mg Tablet 80 MG PO (08:05)
[2023-03-08] MEDS: dilTIAZem 60 mg Tablet 30 MG PO (08:05)
[2023-03-08] MEDS: HYDROcodone-acetaminophen 10-325 mg Tablet 1 TAB PO (08:05)
[2023-03-08] MEDS: pantoprazole DR 40 mg Tablet PO (08:06)
[2023-03-08] MEDS: apixaban 5 mg Tablet PO (08:06)
[2023-03-08 10:00] VITALS: BMI 31.4
--- NOTE | 2023-03-08 10:04 | PC.CHAP ---
Pastoral Care Encounter/Spiritual Assessment Type of Contact [] Declined plumber pipe fitting visit [] Patient/Family/Request visit [] Outpatient visit [] Follow-up visit [] Physician referral [] Code/Alert [x] Routine visit [] Staff referral [] Actively dying [] Patient sleeping [] Family support [] [] Out of room [] Palliative care [] [x] Receiving care in room [] Pre-surgical visit [] Trauma [] Long length of stay [] ICU visit [] Other: Relational/Emotional Strength [x] Patient feels connected with others/family/visitors/staff [] Distress [] Loneliness/isolation [] Abandonment Spirituality of Patient [x] Person of Joselyn [] Attends Voodoo of their Joselyn [x] Believes in Prayer [] Reads Bible or Orthodox materials [] There are Spiritual issues to be addressed [employer] Inter[employer] [x] Prayer [x] Active listening [x] Non-anxious presence [x] Spiritual/emotional support [] Crisis/trauma care [x] Spiritual counseling [] Bereavement support [] Provided bereavement packet [] Provided Bible/devotional materials [] Provided toy/stuffed animal, coloring book to patient or family member [] Provided Communion [] Anointing/Pratt [] Salvation [x] Completed spiritual assessment [] Other: Impact on Illness or Injury [] Angry [] Fearful [] Anxious [] Often cries [] Exhaustion [] Unable to work [] Unable to attend jewish [] Unable to walk/stand [] Unable to read [] Unable to drive [] Unable to eat/drink [] Unable to sleep [] Unable to be with family [] Patient intubated [] Other: Summary A-apr waiting on doctors report then she can go home has a good attitude Time spent with patient 10 mins
--- NOTE | 2023-03-08 11:02 | PM.DCS ---
Discharge Providers Date of Admission: 03/07/23 17:18 Date of Discharge: March 08, 2023 Attending Provider at Admission: Kj Salgado MD Attending Provider at Discharge: Kj Salgado MD Primary Care Provider: Rianna Ruiz MD Diagnoses at Discharge Discharge Diagnosis (1) Atrial fibrillation with RVR: Status: Acute (2) Bradycardia: Status: Acute (3) Chronic anticoagulation: Status: Acute (4) HTN (hypertension): Status: Acute Qualifiers: Hypertension type: essential hypertension Qualified Code(s): I10 - Essential (primary) hypertension (5) Carotid stenosis: Status: Acute Permanent problem details: 100% left carotid stenosis (6) Smoker unmotivated to quit: Status: Acute (7) Squamous cell carcinoma of epiglottis: Status: Acute (8) Paroxysmal A-fib: Status: Acute Reason for Visit Reason for Visit: sent from oncology, high hr Hospital Course Hospital Course Rosario Villalba is a 62 year old female with past medical history of 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 With increased heart rates she was complaining of mild shortness of breath, diaphoresis and chest heaviness. As per the patient she has been having episodes of fluttering in the chest on and off for last few weeks even at home. She does not check her heart rate at home. In the ER she was found to have A-fib with RVR for which she received 20 mg of IV Cardizem push. During receiving the push she brought it down to 30 bpm with resolution of her symptoms. States her appetite is poor specially since starting of radiation therapy and extraction of her lower teeth and is not able to chew or taste most of the food. States she tries to drink 1 protein shake a day. Patient was admitted under observation given bradycardia on admission after giving IV Cardizem. Patient remained in normal sinus rhythm during the hospitalization with 1 episode of A-fib with RVR at night. Patient remained asymptomatic. She has been discharged in hemodynamically stable condition on oral Cardizem 120 mg daily along with 30 mg as needed for heart rate of more than 100 bpm if it remains persistent for more than 15 minutes. Physical Exam Narrative: General: No acute distress, AO x3, HEENT: PERRLA, pupils bilaterally equal and reactive Chest: Normal vesicular breath sounds, no added sounds, equal good air entry bilaterally CVS: S1-S2 irregularly irregular, no murmurs, no tachycardia, no gallops, no rubs Abdomen: Soft, nontender, no organomegaly, bowel sounds present Neuro: No focal deficits, no facial deformity, AO x3, power 5/5 in all limbs Discharge Data Studies Completed and Pending Laboratory Results WBC 3.91 10^3/uL (3.29-11.43) 03/08/23 04:08 RBC 4.52 10^6/uL (3.85-5.65) 03/08/23 04:08 Hgb 12.30 g/dL (11.27-16.99) 03/08/23 04:08 Hct 38.4 % (36-47) 03/08/23 04:08 MCV 85.0 fl (85-98) 03/08/23 04:08 MCH 27.2 pg (27-33) 03/08/23 04:08 MCHC 32.0 g/dL (30-55) 03/08/23 04:08 RDW 15.5 % (12.1-15.1) H 03/08/23 04:08 Plt Count 172 10^3/cmm (157-399) 03/08/23 04:08 MPV 11.2 fL (7.4-10.4) H 03/08/23 04:08 Neut % (Auto) 51.4 % 03/08/23 04:08 Lymph % (Auto) 25.3 % 03/08/23 04:08 [place] % (Auto) 21.7 % 03/08/23 04:08 Eos % (Auto) 0.5 % 03/08/23 04:08 Baso % (Auto) 0.8 % 03/08/23 04:08 Neut # (Auto) 2.01 10^3/uL (1.8-7.7) 03/08/23 04:08 Lymph # (Auto) 1.0 10^3/uL (0.8-4.8) 03/08/23 04:08 [place] # (Auto) 0.9 10^3/uL (0.2-0.9) 03/08/23 04:08 Eos # (Auto) 0.0 10^3/uL (0.0-0.8) 03/08/23 04:08 Baso # (Auto) 0.0 10^3/uL (0.0-0.1) 03/08/23 04:08 Nucleated RBC % (auto) 0 % 03/08/23 04:08 Nucleated RBCs # 0.0 /100WBC 03/08/23 04:08 D-Dimer 0.73 ug/mLFEU (0-0.59) H 03/07/23 14:45 Sodium 138 mmol/L (136-145) 03/08/23 04:08 Potassium 3.9 mmol/L (3.5-5.1) 03/08/23 04:08 Chloride 104 mmol/L (98-107) 03/08/23 04:08 Carbon Dioxide 23 mmol/L (22-29) 03/08/23 04:08 Anion Gap 14.9 (5-19) 03/08/23 04:08 BUN 10 mg/dL (8-23) 03/08/23 04:08 Creatinine 0.8 mg/dL (0.5-0.9) 03/08/23 04:08 GFR Calculation 72.9 mL/min (90-130) L 03/08/23 04:08 Glucose 106 mg/dL (65-115) 03/08/23 04:08 Calculated Osmolality 285 mOsm/kg (285-295) 03/08/23 04:08 Calcium 9.1 mg/dL (8.5-10.5) 03/08/23 04:08 Phosphorus 3.7 mg/dL (2.5-4.5) 03/08/23 04:08 Magnesium 2.0 mg/dL (1.7-2.3) 03/08/23 04:08 Total Bilirubin 0.2 mg/dL (0.15-1.2) 03/08/23 04:08 AST 26 U/L (0-32) 03/08/23 04:08 ALT 16 U/L (0-33) 03/08/23 04:08 Alkaline Phosphatase 102 U/L (35-105) 03/08/23 04:08 Total Protein 6.3 g/dL (6.6-8.7) L 03/08/23 04:08 Albumin 3.4 g/dL (3.5-5.2) L 03/08/23 04:08 Globulin 2.9 g/dL (1.3-4.6) 03/08/23 04:08 Urine Color Yellow (Yellow) 03/08/23 05:00 Urine Appearance Clear (CLEAR) 03/08/23 05:00 Urine pH 5 (5-7) 03/08/23 05:00 Ur Specific [place] 1.015 (1.005-1.030) 03/08/23 05:00 Urine Protein Neg (Negative) 03/08/23 05:00 Urine Glucose (UA) Norm (Normal) 03/08/23 05:00 Urine Ketones Negative (Negative) 03/08/23 05:00 Urine Blood Trace (Negative) H 03/08/23 05:00 Urine Nitrate Negative (Negative) 03/08/23 05:00 Urine Bilirubin Neg (Negative) 03/08/23 05:00 Urine Urobilinogen Neg mg/dL (Negative) 03/08/23 05:00 Ur Leukocyte Esterase Negative (Negative) 03/08/23 05:00 Urine RBC 0-4 /hpf (0-2) H 03/08/23 05:00 Urine WBC 0-4 /hpf (0-5) H 03/08/23 05:00 Ur Squamous Epith Cells 5-10 /hpf (0-5) H 03/08/23 05:00 Amorphous Sediment Not Reportable 03/08/23 05:00 Urine Bacteria 1+ /hpf (NONE) H 03/08/23 05:00 Urine Opiates Screen Positive ng/mL (Negative) H 03/08/23 05:00 Ur Barbiturates Screen Negative ng/mL (Negative) 03/08/23 05:00 Ur Phencyclidine Scrn Negative ng/mL (Negative) 03/08/23 05:00 Ur Amphetamines Screen Negative ng/mL (Negative) 03/08/23 05:00 U Benzodiazepines Scrn Negative ng/mL (Negative) 03/08/23 05:00 Urine Cocaine Screen Negative ng/mL (Negative) 03/08/23 05:00 U Marijuana (THC) Screen Negative ng/mL (Negative) 03/08/23 05:00 Vitals Last Vital Signs Temp 98.1 F 03/08/23 07:17 Pulse 70 03/08/23 07:17 Resp 18 03/08/23 07:17 BP 144/65 03/08/23 07:17 Pulse Ox 96 03/08/23 07:17 O2 Del Method Room Air 03/08/23 10:52 Discharge Plan Discharge Patient Disposition: Home Condition: Stable Prescriptions: New diltiazem HCl [Cardizem CD] 120 mg capsule,extended release 24hr 120 mg PO Q24H Qty: 30 0RF diltiazem HCl 60 mg Tablet 30 mg PO DAILY PRN (Reason: Heart rate more than 110) Qty: 30 0RF Rx Instructions: PRN for heart rate >100 bpm if it remains persistent for more than 15 min. Continued hydrocodone-acetaminophen 10-325 mg tablet 1 tab PO TID PRN (Reason: pain) 30 Days Qty: 90 0RF aspirin [Adult Low Dose Aspirin] 81 mg tablet,delayed release (DR/EC) 81 mg PO QAM Hold Instructions: Resume on 01/08/23. cholecalciferol (vitamin D3) 50 mcg (2,000 unit) capsule 50 mcg PO DAILY bupropion HCl [Wellbutrin XL] 150 mg tablet extended release 24 hr 150 mg PO QAM Eliquis 5 mg tablet 5 mg PO BID Hold Instructions: Resume on 01/08/23. fluticasone propion-salmeterol [Advair Diskus] 250-50 mcg/dose blister with device 1 inh inhalation BID PRN (Reason: Shortness Of Breath) lidocaine HCl [Lidocaine Viscous] 2 % solution 5 ml mucous membrane Q6H PRN (Reason: pain) Qty: 100 0RF Rx Instructions: add Maalox 100ml and benadryl 100ml to make mouthwash, swish and swallow multivitamin Tablet 1 tab PO DAILY potassium chloride 20 mEq/15 mL liquid 20 meq PO DAILY pantoprazole 40 mg tablet,delayed release (DR/EC) 40 mg PO DAILY rosuvastatin 20 mg tablet 20 mg PO DAILY Efudex 5 % cream 1 applic topical DAILY PRN (Reason: foot) Rx Instructions: at bedtime, cover with band aid Discontinued diltiazem HCl 60 mg tablet 60 mg PO BID Discharge Orders: Discharge Order (Routine); Ordered 03/08/23 Ordered By: Kj Salgado Referrals: Rianna Ruiz MD [Primary Care Provider] - 03/15/23 9:30 am (You have a previously scheduled appointment with Dr. Ruiz on 03-15-23 at 0930 am. Please keep this appointment and if you have any questions or concerns you can call the number listed. Thank you.) Discharge Diet: Advance as tolerated, Regular and Soft Mechanical Discharge Activity: Resume usual activity and Increase activity as tolerated Patient Instructions: Opioid Safety Activity Restrictions/Additional Instructions: Please take Cardizem 120 mg oral daily. You should also take Cardizem 30 mg as needed for heart rate of more than 100 bpm if it remains persistent for more than 15 minutes. If heart rate persistently remains elevated after 30 minutes after taking extra dose of oral Cardizem please come to the ER. Discharge Attestations Time Spent in Discharge Care*: greater than 30 min Specific Discharge Activities: educating patient, discussing with pcp/other providers, discussing with hospice case manager/social workers/dc planners, documenting/other paperwork and evaluating patient/reviewing data Status at Discharge: Cognitive status at discharge: cognitively intact, Behavioral status at discharge: cooperative, Functional status at discharge: independent ambulation, Overall status at discharge: patient is back to baseline Quality Metrics Clinical Quality Measures [ No reported AMI, CVA or VTE this stay] Coding Level of Care Code 60998 Total time (in minutes) for Discharge: 60 Diagnoses Atrial fibrillation with RVR I48.91 Bradycardia R00.1 Chronic anticoagulation Z79.01 Essential hypertension I10 Hypertension type: essential hypertension Carotid stenosis I65.29 Smoker unmotivated to quit F17.200 Squamous cell carcinoma of epiglottis C32.1 Paroxysmal A-fib I48.0
[2023-03-08 11:30] VITALS: BP 117/55; PULSE 59; RESP 15; TEMP 36.7; O2SAT 96
[2023-03-08 13:02] VITALS: BP 117/55; PULSE 59; RESP 15; TEMP 36.7; O2SAT 96
--- NOTE | 2023-03-08 13:04 | PC.NURSE ---
Discharge Note Patient discharged to home via POV accompanied by self. Discharge instructions reviewed with patient and/or risk control representative. Mobile pharmacy medications and/or prescriptions provided. Belongings/home medications returned.
== END 2023-03-08 13:05 | disposition home or self-care (01) ==
LOC: ER 16:22 → CSU 17:19
PROVIDERS: Admitting Provider Student in an Organized Health Care Education/Training Program; Emergency Provider Family Medicine; PCP Internal Medicine; Visit Provider Student in an Organized Health Care Education/Training Program
DX: I48.91 Unspecified atrial fibrillation (principal); R00.1 Bradycardia, unspecified; Z79.01 Long term (current) use of anticoagulants; I10 Essential (primary) hypertension; I65.29 Occlusion and stenosis of unspecified carotid artery; C32.1 Malignant neoplasm of supraglottis; I48.0 Paroxysmal atrial fibrillation; Z79.82 Long term (current) use of aspirin; F17.210 Nicotine dependence, cigarettes, uncomplicated; K21.9 Gastro-esophageal reflux disease without esophagitis; Z86.16 Personal history of COVID-19
CPT/HCPCS: 36415; 80053; 80306; 81001; 83735; 84100; 85025; 85378; 93005; 94664; 96365; 96375; 96376; 99285; G0378; J3490; J7030

== ENCOUNTER 2023-03-09 09:48 | Oncology outpatient (recurring) (ONCR) | payer MEDICARE, MEDICAID, SELFPAY ==
--- NOTE | 2023-03-06 14:45 | ONCRAD TMN_ITS ---
Radiation Oncology Weekly Treatment Management Patient: Rosario Villalba MR#: [id number] : 1960 Attending Physician: Jj Lentz Date of Service: 03/06/2023 Referring Physician(s) : Dr. 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 ID: [id number], Energy: 6X, Dose/Fx (cGy): 200, #Fx: 18 / 35, Dose Correction (cGy): 0, Total Dose (cGy): 3,600, Start Date: 02/08/2023, Elapsed Days: 26 Reason for visit: The patient is being seen today as part of their regularly scheduled weekly on treatment visits to assess for acute toxicities from radiotherapy. Review of Systems: She is having more sore throat. She scored at 6/10. Currently she is gargling with salt and soda. She has hydrocodone 10/325 from her pain clinic doctor. She takes 2-1/2 of those per day. That is done on a routine basis. No other measures for pain. She has lost about 3 pounds. She is swallowing a soft diet with minimal difficulty. The loss of several teeth that were extracted before treatment has actually had more impact on her eating. She has a full upper denture and will be having a partial denture made a few weeks after finishing radiation. Vital Signs: Performed on 03/06/2023 1:51 PM BMI - 31.28 kg/m2 (high), Height - 66 in, Weight - 193.8 lbs, Temperature - 97.4 f, Pulse - 71 /min, Respiration - 16 /min, O2 Sat - 96 %, Pain - 6, Fatigue - 7 and BP - 137/ 54 mm(hg)(/low). Physical Exam: Alert, oriented, no acute distress. Good quality voice. Oral cavity exam reveals moist mucous membranes. No lesions or yeast. She has a full upper denture and a few remaining lower teeth that will anchor her partial plate. No cervical or supraclavicular lymphadenopathy. Lungs clear to auscultation. Heart irregularly irregular rhythm. No other abnormal sounds heard. Imaging: Radiation therapy imaging related to accurate target localization (i.e. KV, MV and CBCT) was reviewed. Appropriate changes, if any, were made to ensure treatment accuracy. Plan: Continue radiation per plan. We will add Magic mouthwash to her regimen. She is aware and actually told me that any additional narcotics need to be coordinated with her pain clinic doctor. Encouraged to continue salt and soda rinse and gargle. She is having some difficulty with sleeping and will discuss that with her PCP in March. She has been on sleeping medication in the past but was taken off it for a recent uncertain to her. Signed by: Jj Lentz 03/06/2023 2:43:47 PM
== END 2023-03-11 23:59 | disposition home or self-care (01) ==
PROVIDERS: PCP Internal Medicine; Visit Provider Specialist
DX: Z51.0 Encounter for antineoplastic radiation therapy (principal); C32.1 Malignant neoplasm of supraglottis; F17.210 Nicotine dependence, cigarettes, uncomplicated
CPT/HCPCS: 77014; 77336; 77386; 99024

== ENCOUNTER 2023-03-23 15:35 | Outpatient (CLI) | payer MEDICARE, MEDICAID, SELFPAY ==
--- NOTE | 2023-03-23 16:00 | CTR_ITS ---
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 Exam focused on the arteries. 3D rendering (Not supervised by radiologist): MIP and/or 3D reconstructed images were created by the technologist. COMPARISON: CT angio neck [id number] 03/28/2022 8:38 AM FINDINGS: ANTERIOR CIRCULATION: Right internal carotid artery: Intracranial segment is patent with no significant stenosis. No aneurysm. Right middle cerebral artery: No occlusion or significant stenosis. No aneurysm. Right anterior cerebral artery: No occlusion or significant stenosis. No aneurysm. Left internal carotid artery: Left internal carotid artery is occluded in the petrous portion with reconstitution in the supraclinoid portion from contralateral circulation. Left middle cerebral artery: No occlusion or significant stenosis. No aneurysm. Left anterior cerebral artery: No occlusion or significant stenosis. No aneurysm. POSTERIOR CIRCULATION: Right vertebral artery: No occlusion or significant stenosis. No aneurysm. Left vertebral artery: Left vertebral artery is small in caliber and ends in PICA. Basilar artery: No occlusion or significant stenosis. No aneurysm. Right posterior cerebral artery: No occlusion or significant stenosis. No aneurysm. Left posterior cerebral artery: No occlusion or significant stenosis. No aneurysm. Brain: No definite mass, mass effect, or midline shift. Cerebral ventricles: No ventriculomegaly. Bones/joints: Unremarkable. No acute fracture. Soft tissues: Unremarkable. 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 Exam focused on the cervical segments of the vasculature. 3D rendering (Not supervised by radiologist): MIP and/or 3D reconstructed images were created by the technologist. Radiation optimization: All CT scans at this facility use at least one of these dose optimization techniques: automated exposure control; mA and/or kV adjustment per patient size (includes targeted exams where dose is matched to clinical indication); or iterative reconstruction. Contrast material: OMNI 350; Contrast volume: 95 ml; Contrast route: INTRAVENOUS (IV); COMPARISON: CT angio neck [id number] 03/28/2022 8:38 AM RADIATION DOSE METRICS: Total DLP (mGy-cm): 1260.07 FINDINGS: Right common carotid artery: No stenosis. No dissection or occlusion. Right internal carotid artery: No stenosis of the extracranial segment. No dissection or occlusion. Right external carotid artery: No occlusion or stenosis of the origin. Left common carotid artery: No stenosis. No dissection or occlusion. Left internal carotid artery: Complete occlusion of the left internal carotid artery at its origin with no significant change from prior study. Left external carotid artery: No occlusion or stenosis of the origin. Right vertebral artery: No stenosis. No dissection or occlusion. Left vertebral artery: Left vertebral artery is small in caliber but remains patent. Soft tissues: Normal. No significant soft tissue swelling. Bones/joints: No acute fracture. CT/CT angio neck [id number] IMPRESSION: Left internal carotid artery is chronically occluded in the petrous portion and in the neck with reconstitution in the supraclinoid portion from contralateral circulation. IMPRESSION: Chronically completely occluded left internal carotid artery in the neck with no significant change from prior study. REFERENCES: NASCET CRITERIA. The degree of stenosis in the cervical segment of the internal carotid artery is based on NASCET criteria. Normal is no stenosis. Mild is less than 50% stenosis. Moderate is 50-69% stenosis. Severe is 70% to 99% stenosis. Total occlusion is no detectable patent lumen.
[2023-03-23] MEDS: iohexol 350 mg/mL 500 mL Btl (per mL) IV (16:16)
== END 2023-03-23 15:36 | disposition home or self-care (01) ==
LOC: RAD 15:35
PROVIDERS: PCP Internal Medicine; Visit Provider Thoracic Surgery (Cardiothoracic Vascular Surgery)
DX: I65.23 Occlusion and stenosis of bilateral carotid arteries (principal)
CPT/HCPCS: 70498; Q9967

== ENCOUNTER 2023-04-03 13:13 | Oncology outpatient (recurring) (ONCR) | payer MEDICARE, MEDICAID, SELFPAY ==
--- NOTE | 2023-03-13 15:29 | ONCRAD TMN_ITS ---
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 ID: [id number], Energy: 6X, Dose/Fx (cGy): 200, #Fx: 22 / 35, Dose Correction (cGy): 0, Total Dose (cGy): 4,400, Start Date: 02/08/2023, Elapsed Days: 33 Reason for visit: The patient is being seen today as part of their regularly scheduled weekly on treatment visits to assess for acute toxicities from radiotherapy. Review of Systems: Throat a bit sore. Triple mix helps some. Still smoking. Gargling with salt and soda. Hard to find food that she likes. Using HC BID for chronic back pain. Vital Signs: Performed on 03/13/2023 1:54 PM BMI - 31.087 kg/m2 (high), Height - 66 in, Weight - 192.6 lbs, Temperature - 96.5 f, Pulse - 66 /min, Respiration - 18 /min, O2 Sat - 97 %, Pain - 0, Fatigue - 0 and BP - 161/ 78 mm(hg)(high/). Physical Exam: omitted Imaging: Radiation therapy imaging related to accurate target localization (i.e. KV, MV and CBCT) was reviewed. Appropriate changes, if any, were made to ensure treatment accuracy. Plan: Good tolerance of RT. Pleaded for her to quit smoking. Continue treatment as planned. Signed by: Robb Hahn 03/13/2023 3:27:32 PM Telemedicine Consent Patient seen today via Telemedicine by agreement and consent of patient. Telemedicine technology used during the visit include audio and, as available, review of images. This patient encounter is appropriate and reasonable under the circumstances given the patient???s particular presentation at this time. The patient has been advised of the potential risks and limitations of this mode of treatment (including but not limited to the absence of in-person examination) and has agreed to be treated in a remote fashion in spite of them. Any and all of the patient???s/patient???s family???s questions on this issue have been answered and I have made no promises or guarantees to the patient. The patient has also been advised to contact this office for worsening conditions or problems, and seek emergency medical treatment and/or call 911 if the patient deems either necessary.
--- NOTE | 2023-03-20 13:59 | ONCRAD TMN_ITS ---
Radiation Oncology Weekly Treatment Management Patient: Keyur Vilallba MR#: [id number] : 1960> Attending Physician: Dr. 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 ID: [id number], Energy: 6X, Dose/Fx (cGy): 200, #Fx: 27 / 35, Dose Correction (cGy): 0, Total Dose (cGy): 5,400, Start Date: 02/08/2023, Elapsed Days: 40 Reason for visit: The patient is being seen today as part of their regularly scheduled weekly on treatment visits to assess for acute toxicities from radiotherapy. Review of Systems: Patient has a moderately sore throat with a 5 out of 10 rating. She is eating softer foods. She says her taste is changed as well. She actually did gain a pound this week compared to last week. Vital Signs: Performed on 03/20/2023 1:24 PM BMI - 31.409 kg/m2 (high), Height - 66 in, Weight - 194.6 lbs, Temperature - 97.1 f, Pulse - 65 /min, Respiration - 16 /min, O2 Sat - 96 %, Pain - 5, Fatigue - 6 and BP - 114/ 66 mm(hg). Physical Exam: On examination her oral cavity is dry but without evidence of thrush or lesions. Her skin is erythematous and has 1 dry patch that is peeled right over the sternal notch. Imaging: Radiation therapy imaging related to accurate target localization (i.e. KV, MV and CBCT) was reviewed. Appropriate changes, if any, were made to ensure treatment accuracy. Plan: I reviewed with her at this time that she is doing quite well for where she is in the weeks of treatment. Her weight is actually increased a pound this week. I encouraged her to keep her weight as stable as possible. We talked about getting through the next 8 treatments and then having her return for a follow-up in a month and then scheduling her scans after that. Will otherwise continue with her treatments as planned Signed by: Dr. Lexie Cash 03/20/2023 1:59:06 PM
--- NOTE | 2023-03-27 14:12 | ONCRAD TMN_ITS ---
Radiation Oncology Weekly Treatment Management Patient: Rosario Villalba MR#: [id number] : 1960 Attending Physician: Dr. Lexie Cash Date of Service: 03/27/2023 Fractions: 31 out of 35 Referring Physician(s) : Dr. 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 ID: [id number], Energy: 6X, Dose/Fx (cGy): 200, #Fx: 31 / 35, Dose Correction (cGy): 0, Total Dose (cGy): 6,200, Start Date: 02/08/2023, Elapsed Days: 47 Reason for visit: The patient is being seen today as part of their regularly scheduled weekly on treatment visits to assess for acute toxicities from radiotherapy. Review of Systems: She still has significant pain with it being 10 out of 10. She is taking her hydrocodone, her Magic mix and her mouthwash as well as salt water gargling. She still able to eat ice cream and protein shakes as well as Ramen noodles. Vital Signs: Performed on 03/27/2023 1:37 PM BMI - 30.958 kg/m2 (high), Height - 66 in, Weight - 191.8 lbs, Temperature - 97.5 f, Pulse - 64 /min, Respiration - 16 /min, O2 Sat - 97 %, Pain - 10, Fatigue - 4 and BP - 152/ 71 mm(hg)(high/). Physical Exam: On examination her skin is erythematous but there are no areas of moist desquamation. Oral cavity is quite dry with white coating on the outer aspects of her tongue Imaging: Radiation therapy imaging related to accurate target localization (i.e. KV, MV and CBCT) was reviewed. Appropriate changes, if any, were made to ensure treatment accuracy. Plan: At this point we will continue with her treatments. She only has 4 remaining. We talked about follow-up at a month. We also discussed how we will get a first PET scan at 12 weeks. She will be contacting her credit associate regarding the CTA results. These were stable compared to the previous scan. Signed by: Dr. Lexie Cash 03/27/2023 2:11:56 PM
--- NOTE | 2023-04-03 14:21 | N.ONRD TS_ITS ---
Radiation Oncology Treatment Summary Patient: Rosario Villalba MR#: [id number] : 1960 Age: 63 Sex: Female Dictated by: Dr. 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 ID: [id number], Energy: 6X, Dose/Fx (cGy): 200, #Fx: 35 / 35, Dose Correction (cGy): 0, Total Dose (cGy): 7,000, Start Date: 02/08/2023, End Date: 04/03/2023, Elapsed Days: 54 Clinical Summary: The patient tolerated RT well. She did have a moderately sore throat. Her skin had mild changes. Her weight remained stable. Plan: End of treatment today. Continue on the above medication until the skin reaction resolves. Follow up in one month. Signed by: Dr. Lexie Cash>04/03/2023 2:19:41 PM <<Signature on File>>
== END 2023-04-03 23:59 | disposition home or self-care (01) ==
PROVIDERS: PCP Internal Medicine; Visit Provider Radiology Radiation Oncology
DX: Z51.0 Encounter for antineoplastic radiation therapy (principal); C32.1 Malignant neoplasm of supraglottis; F17.210 Nicotine dependence, cigarettes, uncomplicated
CPT/HCPCS: 77336; 77386; 99024

== ENCOUNTER → 2023-04-23 12:32 | Outpatient (BNVA) | payer MEDICARE, MEDICAID, SELFPAY | PROVIDERS: PCP Internal Medicine; Visit Provider Thoracic Surgery (Cardiothoracic Vascular Surgery) | DX: I65.22 Occlusion and stenosis of left carotid artery (principal); I10 Essential (primary) hypertension; F17.200 Nicotine dependence, unspecified, uncomplicated; C32.1 Malignant neoplasm of supraglottis; D02.0 Carcinoma in situ of larynx | CPT/HCPCS: 31575; 99213; 99214 ==

== ENCOUNTER → 2023-05-22 14:11 | Outpatient (BNVA) | payer MEDICARE, MEDICAID, SELFPAY | PROVIDERS: PCP Internal Medicine; Visit Provider Otolaryngology | DX: C32.1 Malignant neoplasm of supraglottis (principal); D02.0 Carcinoma in situ of larynx; F17.200 Nicotine dependence, unspecified, uncomplicated | CPT/HCPCS: 31575; 99213; 99214 ==

== ENCOUNTER → 2023-06-19 14:22 | Outpatient (BNVA) | payer MEDICARE, MEDICAID, SELFPAY | PROVIDERS: PCP Internal Medicine; Visit Provider Otolaryngology | DX: C32.1 Malignant neoplasm of supraglottis (principal); F17.200 Nicotine dependence, unspecified, uncomplicated | CPT/HCPCS: 31575; 99214 ==

== ENCOUNTER → 2023-06-25 11:41 | Outpatient (BNVA) | payer MEDICARE, MEDICAID, SELFPAY | PROVIDERS: PCP Internal Medicine; Visit Provider Internal Medicine Cardiovascular Disease | DX: E78.00 Pure hypercholesterolemia, unspecified (principal); I10 Essential (primary) hypertension; I83.893 Varicose veins of bilateral lower extremities with other complications; I65.22 Occlusion and stenosis of left carotid artery; I48.0 Paroxysmal atrial fibrillation; Z79.01 Long term (current) use of anticoagulants; F17.210 Nicotine dependence, cigarettes, uncomplicated | CPT/HCPCS: 99213 ==

== ENCOUNTER → 2023-07-26 12:59 | Outpatient (BNVA) | payer MEDICARE, MEDICAID, SELFPAY | PROVIDERS: PCP Internal Medicine; Visit Provider Otolaryngology | DX: C32.1 Malignant neoplasm of supraglottis (principal); R13.10 Dysphagia, unspecified; J38.4 Edema of larynx | CPT/HCPCS: 31575; 99214; 99215 ==

== ENCOUNTER 2023-07-30 13:17 | Oncology outpatient (recurring) (ONCR) | payer MEDICARE, MEDICAID, SELFPAY ==
--- NOTE | 2023-07-30 13:59 | ONCRAD EPV_ITS ---
Radiation Oncology Established Patient Visit Patient: Rosario Villalba [id number] : 1960 Age: 63 Sex: Female Dictated by: Dr. Lexie Cash Date of Service: 07/30/2023 Referring Physician(s) : Dr. 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 ID: [id number], Energy: 6X, Dose/Fx (cGy): 200, #Fx: 35 / 35, Dose Correction (cGy): 0, Total Dose Delivered (cGy): 7,000, Start Date: 02/08/2023, End Date: 04/03/2023, Elapsed Days: 54 Current History: Patient has seen Dr. Dyer in the last 2 to 3 weeks. He said everything looked normal. She still has a sore throat which has been fairly stable over the last 2 months. She has had some difficulty swallowing but has actually developed some submental edema during this time as well. 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 She continues to have problems with A-fib and an increased heart rate. Current Medications: Allergies: Current Complaints / Review of Systems: . Vital Signs: Performed on 07/30/2023 1:23 PM Height - 66 in, Weight - 185.8 lbs, BMI - 29.989 kg/m2 (high), Temperature - 98.2 f, Pulse - 129 /min (high), Respiration - 16 /min, O2 Sat - 98 %, Pain - 7, Fatigue - 7 and BP - 122/ 62 mm(hg)(/low). Physical Exam: General: Alert and oriented x 3. No acute distress. HEENT: Normocephalic, atraumatic. Extraocular Movements Intact: Pupils Equal, Round, Reactive to light: Sclerae anicteric. Oral cavity is clear without lesions, masses or ulcers. NECK: Supple without supraclavicular or jugular lymphadenopathy. She did have an area of submental edema. LUNGS: Respiratory rate is regular nonlabored. HEART: Irregular rate and rhythm. ABDOMEN: Soft, nontender, nondistended EXTREMITIES: No peripheral edema is identified. NEUROLOGIC alert and orient x 3. Gait and speech within normal limits. Performance Status: 80 Lab: None pending. Pathology: Primary, c32.1 - malignant neoplasm of supraglottis, Diagnosed 11/21/2022 (active) . Imaging: See HPI Impression: Squamous cell carcinoma of the supraglottic larynx now with 3 to 4 months out from completion of treatment Plan: The ear nose and throat physician is moving to a different location. There is 1 ENT physician here in [place] but she refuses to visit with him. We talked about at this time the closest would be the 2 ENT doctors in [place]. This point she is not very interested in traveling that far for checkup. I recommended to her that in the interim perhaps we can go ahead and schedule her for PET scan and then have her return for follow-up with those results and hopefully by that time we will have some additional options for ENT. She verbalized understanding and agreed to the above plan. Will schedule her for a PET scan in 3 months and follow-up subsequently Signed by: 07/30/2023 2:07:19 PM <<Signature on File>> Time spent with patient:20 CPT Code: CPT Code:
== END 2023-08-10 23:59 | disposition home or self-care (01) ==
PROVIDERS: PCP Internal Medicine; Visit Provider Radiology Radiation Oncology
DX: C32.1 Malignant neoplasm of supraglottis (principal); I48.91 Unspecified atrial fibrillation; R13.10 Dysphagia, unspecified; Z92.3 Personal history of irradiation
CPT/HCPCS: 99024; 99213

== ENCOUNTER 2023-08-16 13:01 | Oncology outpatient (recurring) (ONCR) | payer MEDICARE, MEDICAID, SELFPAY ==
--- NOTE | 2023-08-16 13:30 | USCV_ITS ---
Rosario Villalba Age: 63 Gender: F : 1960 Exam Date: 08/16/2023 13:13 Ordering Phys: Tal Dean MD ([email or web address]) Technologist: [facility] Exam Location: [facility] [place] Indication: Occlusion. Risk Factors: Previous Vascular Surgery: Right Brachial BP: / Left Brachial BP: / Right Left Velocity (cm/s) Spectral Plaque Velocity (cm/s) Spectral Plaque Syst/Diast Broadening Syst/Diast Broadening 171.60/34.10 Prox CCA 96.00 / 9.70 157.10/17.30 Mid CCA 100.30/ 11.90 149.80/29.30 Distal CCA 100.30/ 11.90 125.90/38.00 Prox ICA 0.00 / 0.00 95.40/ 27.60 Mid ICA 0.00 / 0.00 108.30/27.90 Distal ICA 0.00 / 0.00 134.50 ECA 156.20 0.80 ICA/CCA 1.20 Antegrade Vertebral Antegrade 63.60/ 17.50 cm/s 27.70/ 8.50 cm/s Tri Subclavian Tri 85.50 111.5 0 FINDINGS Comparison:. CTA 03/23/23, carotid US 02/27/23 Known, chronic occlusion left ICA. No significant elevation of systolic or diastolic velocities right carotid artery. Scattered calcified plaque in the bifurcation. Antegrade vertebral arteries. CONCLUSIONS Right ICA stenosis < 50%. Complete, chronic occlusion left ICA. Dr. Ashley Fisher DO (Electronically Signed) Final Date: 16 August 2023 14:40 S
== END 2023-09-09 23:59 | disposition home or self-care (01) ==
LOC: RAD 13:01 → ONCMED 09-25 07:39
PROVIDERS: PCP Internal Medicine; Visit Provider Internal Medicine Cardiovascular Disease
DX: I65.22 Occlusion and stenosis of left carotid artery; I65.21 Occlusion and stenosis of right carotid artery
CPT/HCPCS: 93880

== ENCOUNTER 2023-11-06 09:14 | Oncology outpatient (recurring) (ONCR) | payer MEDICARE, MEDICAID, SELFPAY ==
--- NOTE | 2023-10-16 13:00 | CTR_ITS ---
PROCEDURE INFORMATION: Exam: CT Neck Without and With Contrast Exam date and time: 10/16/2023 1:22 PM Age: 63 years old Clinical indication: Other: Sore throat; Additional info: Cancer of supraglottis, sore throat TECHNIQUE: Imaging protocol: Computed tomography of the neck without and with contrast. Radiation optimization: All CT scans at this facility use at least one of these dose optimization techniques: automated exposure control; mA and/or kV adjustment per patient size (includes targeted exams where dose is matched to clinical indication); or iterative reconstruction. Contrast material: OMNI 350; Contrast volume: 100 ml; Contrast route: INTRAVENOUS (IV); COMPARISON: 1. CT angio neck [id number] 03/23/2023 4:[address] neck w con* [id number] 01/04/2023 5:17 AM RADIATION DOSE METRICS: Total DLP (mGy-cm): 324.21 FINDINGS: Nasal cavity: There is a rightward convexity deviation of the nasal septum. Salivary glands: Normal. Glands are normal in size. Pharynx: Unremarkable. No significant tonsillar enlargement. Prevertebral and retropharyngeal spaces: Unremarkable. Larynx: There is irregular nodular enhancement of the epiglottis and concentric thickening, mucosal enhancement of the supraglottic larynx with necrosis in the left vallecula measuring 9 x 12 x 7 mm. Thyroid: Normal. No enlarged or calcified nodules. Trachea: Visualized trachea is unremarkable. Lungs: Unremarkable as visualized. Lymph nodes: There is no suspicious cervical lymphadenopathy. Bones/joints: Degenerative changes are noted in the bones. Soft tissues: Unremarkable. No significant soft tissue swelling. Other findings: The thyroid gland is nodular uterus correlate with dedicated thyroid ultrasound. CT/CT neck wo/w con [id number] IMPRESSION: Diffuse mucosal thickening, nodular enhancement in the hypopharynx, supraglottic larynx with areas of vallecular necrosis on the left. Please correlate with direct visualization. Imaging cannot easily differentiate treatment-related change, persistent/recurrent disease is not excluded.
[2023-10-16] MEDS: iohexol 350 mg/mL 500 mL Btl (per mL) IV (13:33)
--- NOTE | 2023-10-18 13:48 | ONCRAD EPV_ITS ---
Radiation Oncology Established Patient Visit Patient: Deejay Ponce [id number] : 1960> Age: 63> Sex: Female> Dictated by: Dr. 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 She had had a CT scan which showed thickening which was undetermined. She has a PET scan currently scheduled. She came today after her pain management appointment to discuss her sore throat and current symptoms. She says her throat is still sore. When she eats certain foods that are rough seems like it bothers her more. She still has constant coughing usually in the morning and evening which can produce clear to greenish sputum. She says occasionally she even has a little bit of blood in the sputum as well. She has actually gained 4 pounds since her last visit here in May. Radiotherapy to Date: Course: 2022, Treatment Site: HN 70Gy, Ref. ID: [id number], Energy: 6X, Dose/Fx (cGy): 200, #Fx: 35 / 35, Dose Correction (cGy): 0, Total Dose Delivered (cGy): 7,000, Start Date: 02/08/2023, End Date: 04/03/2023, Elapsed Days: 54 Current History: Current Medications: Allergies: Current Complaints / Review of Systems: . Vital Signs: Performed on 10/18/2023 1:11 PM BMI - 30.506 kg/m2 (high), Height - 66 in, Weight - 189 lbs, Temperature - 96.4 f, Pulse - 64 /min, Respiration - 18 /min, O2 Sat - 94 % (low), Pain - 10, Fatigue - 0 and BP - 136/ 63 mm(hg)(/low). Physical Exam: General: Alert and oriented x 3. No acute distress. HEENT: Normocephalic, atraumatic. Extraocular Movements Intact: Pupils Equal, Round, Reactive to Light: Sclerae anicteric. Oral cavity is clear without lesions masses or ulcerations however she does have a white coating across her tongue. She says this is usually from her inhaler.. NECK: Supple without supraclavicular or jugular lymphadenopathy. LUNGS: Respiratory rate is regular nonlabored. HEART: Regular rate and rhythm, ABDOMEN mildly protuberant NEUROLOGIC: Alert and orient x 3. Gait and speech within normal limits. Performance Status: 90 Lab: None pending. Pathology: Primary, c32.1 - malignant neoplasm of supraglottis, Diagnosed 11/21/2022 (active) . Imaging: See HPI Impression: Squamous cell carcinoma supraglottic larynx now 7 months from completion of treatment Plan: At this point she will return after she gets her PET scan done. She did request a refill on her Magic mix which I will send along with a prescription for Diflucan. I reminded her to rinse her mouth after she uses her inhaler. She will be seeing her primary care on Sunday and reviewing lab work that she has had done. I asked her to please let her primary care know about her mental fog which has been bothering her more lately. She otherwise call if any additional changes should occur. Signed by: 10/18/2023 1:46:57 PM <<Signature on File>> Time spent with patient:25 CPT Code: CPT Code:
--- NOTE | 2023-11-06 09:32 | PETR_ITS ---
PROCEDURE INFORMATION: Exam: PET/CT Skull Base to Mid-thigh Exam date and time: 11/06/2023 10:02 AM Age: 63 years old Clinical indication: Condition or disease; Primary cancer: Neoplasm supraglottis; Follow-up oncological assessment; Additional info: Abnormal pet LABS AND CLINICAL REPORTS: Glucose: 110 mg/dl Treatment strategy for malignancy (PET staging): Restaging (PS) TECHNIQUE: Imaging protocol: Following at least four-hour fasting and following the injection of radiopharmaceutical, low dose CT images were obtained. Then, PET images were obtained. Attenuation corrected images were constructed using the CT scan. Fused images of PET and CT were reviewed. The standardized uptake values (SUV) reported below are maximum values within a region of interest, expressed in gm/ml. Exam includes orbital meatal line to mid-thigh. Radiopharmaceutical: 13.3 mCi F-18 FDG (Fluorodeoxyglucose), IV. Time of imaging post radiopharmaceutical administration: 1 hour Injection site: Left antecubital vein COMPARISON: PT PET skulltothigh INITIAL [id number] 01/23/2023, CT neck 10/16/2023 FINDINGS: Brain: Visualized brain has normal physiologic uptake. Pharynx: Intense uptake of 14.4 SUV (previously 11.1 SUV) in the bilateral vallecula anteriorly to the epiglottis corresponding to heterogenously enhancing mass on recent CT represents primary malignancy. Larynx: No abnormal uptake. Lungs, pleura and trachea: No abnormal uptake. Small wedge-shaped opacity in the right lower lobe on axial image 222 likely represents a subsegmental atelectasis. No pleural effusion. Heart: Normal physiologic uptake. There is no cardiomegaly. Coronary artery calcification is present. There is no pericardial effusion. Mediastinal space: No abnormal uptake. Liver: No abnormal uptake. Gallbladder and biliary ducts: No abnormal uptake. No calcified gallstones. Pancreas: No abnormal uptake. Spleen: No abnormal uptake. No splenomegaly. Adrenal glands: No abnormal uptake. No nodules. Kidneys and ureters: Normal physiologic uptake. No hydronephrosis. Stomach and bowel: No abnormal uptake. Intraperitoneal and retroperitoneal spaces: No abnormal uptake. No ascites. Bladder: Normal physiologic uptake. Reproductive: No abnormal uptake. The uterus is absent post surgically. Vasculature: No abnormal uptake. No aortic aneurysm. Lymph nodes: No abnormal uptake. No lymphadenopathy in the head, neck, chest, abdomen, pelvis, and extremities. Skeleton: New increased uptake of 9.9 SUV in the midline within the alveolar process of the maxilla corresponds to morphologically stable 0.9 cm lytic focus likely represents benign inflammatory finding. Increased synovial uptake in the left shoulder suggestive of benign inflammatory process. Soft tissues: No abnormal uptake in the visualized head, neck, chest, abdomen, pelvis, and extremities. PET/PET skull to thigh SUBS [id number] IMPRESSION: Intense uptake of 14.4 SUV in the soft tissue fullness in the hypopharynx involving the bilateral vallecula inseparable from the epiglottis suggestive of viable malignancy previously measuring 11.1 SUV in 2022. No FDG avid lymphadenopathy in the neck, no evidence of distant FDG avid metastatic disease. Stable midline lytic focus in the alveolar process of the maxilla shows new increased uptake of 9.9 SUV likely representing benign inflammatory finding.
== END 2023-11-10 23:59 | disposition home or self-care (01) ==
LOC: RAD 09:14 → ONCMED 11-09 08:36
PROVIDERS: PCP Internal Medicine; Visit Provider Radiology Radiation Oncology
DX: C32.1 Malignant neoplasm of supraglottis (principal)
CPT/HCPCS: 70492; 78815; 99213; A9552; Q9967

== ENCOUNTER 2023-11-20 13:09 | Oncology outpatient (recurring) (ONCR) | payer MEDICARE, MEDICAID, SELFPAY ==
--- NOTE | 2023-11-20 14:02 | ONCRAD EPV_ITS ---
Radiation Oncology Established Patient Visit Patient: Bourland. Ponce [id number] : 1960 Age: 63 Sex: Female Dictated by: Dr. 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 ID: [id number], Energy: 6X, Dose/Fx (cGy): 200, #Fx: 35 / 35, Dose Correction (cGy): 0, Total Dose Delivered (cGy): 7,000, Start Date: 02/08/2023, End Date: 04/03/2023, Elapsed Days: 54 Current History: She returns today for routine follow-up. Since her last follow-up she had a PET scan and has been referred to Dr. Leona owens ENT in [place]. He did a biopsy on the area that was positive on the PET scan. This was positive. She is now slated to go to [place] for laser therapy on the area. She is also having issues with her teeth in the mandibular area on the left. For the last week or so that side of her face has been swollen. She has been using ice packs to try and decrease the swelling. She is aware that she has problems with the 2 or 3 teeth she has remaining in that area. She unfortunately does not particularly care for her current dentist but has no real other options as that is the only office that we will take her insurance. Current Medications: Allergies: Current Complaints / Review of Systems: . Vital Signs: Performed on 11/20/2023 1:23 PM BMI - 30.441 kg/m2 (high), Height - 66 in, Weight - 188.6 lbs, Temperature - 97.4 f, Pulse - 67 /min, Respiration - 16 /min, O2 Sat - 96 %, Pain - 10, Fatigue - 0 and BP - 122/ 72 mm(hg). Physical Exam: General: Alert and oriented x 3. No acute distress. HEENT: The left side of her mandible is swollen and puffy. There is no overlying erythema. Pupils are equal round reactive to light. Sclera clear. Extraocular muscles intact. Oral cavity is without lesions. NECK: Supple without supraclavicular or jugular lymphadenopathy. LUNGS: Respiratory rate is regular nonlabored. Performance Status: 80 Lab: None pending. Pathology: Primary, c32.1 - malignant neoplasm of supraglottis, Diagnosed 11/21/2022 (active) . Imaging: See HPI Impression: Recurrent supraglottic larynx cancer Plan at this point she will be having laser therapy done in [place]. I have encouraged her to call her dentist and get her teeth taken care of. 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 She has in the last week quit smoking as well. She did get established with the pain management clinic and is happy with that at this point. Will see her back on a as needed basis and of asked her to call if we can assist in her care in the future. Signed by: 11/20/2023 2:00:25 PM <<Signature on File>> Time spent with patient: 25 CPT Code: CPT Code:
== END 2023-12-10 23:59 | disposition home or self-care (01) ==
LOC: ONCMED 13:09
PROVIDERS: PCP Internal Medicine; Visit Provider Radiology Radiation Oncology
DX: C32.1 Malignant neoplasm of supraglottis (principal); Z92.3 Personal history of irradiation; Z87.891 Personal history of nicotine dependence
CPT/HCPCS: 99024

== ENCOUNTER → 2023-12-28 10:41 | Outpatient (BNVA) | payer MEDICARE, MEDICAID, SELFPAY | PROVIDERS: PCP Internal Medicine; Visit Provider Nurse Practitioner Family | DX: I10 Essential (primary) hypertension (principal); Z86.79 Personal history of other diseases of the circulatory system; Z87.891 Personal history of nicotine dependence; Z79.01 Long term (current) use of anticoagulants; Z79.82 Long term (current) use of aspirin | CPT/HCPCS: 99214 ==

== ENCOUNTER 2024-02-09 12:29 | Emergency (ER) | payer MEDICARE, MEDICAID, SELFPAY ==
[2024-02-09 12:56] VITALS: BP 101/65; PULSE 69; RESP 16; TEMP 36.8; O2SAT 98
--- NOTE | 2024-02-09 14:20 | W.ED.GENADLT ---
HPI - General Adult General: Chief complaint: General Medical Stated complaint: needs feeding tube be put back in Time Seen by Provider: 02/09/24 14:09 History of Present Illness: Rosario Villalba is a 63-year-old female that presents to the emergency department for re-placement of her nasogastric feeding tube. 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 She was treated at [facility] and has a trach as well is a nasogastric feeding tube. Patient has undergone radiation therapy for some time. Presents for nasogastric feeding tube replacement. Associated symptoms: Deny nausea Related Data Home Medications Medication Instructions Recorded Confirmed bupropion HCl 150 mg 24 hr tablet, 150 mg PO QAM 06/07/21 02/09/24 extended release (Wellbutrin XL) apixaban 5 mg tablet (Eliquis) 5 mg PO BID 07/13/22 02/09/24 potassium chloride 20 mEq/15 mL 20 meq PO DAILY 03/07/23 02/09/24 oral liquid rosuvastatin 20 mg tablet 20 mg PO DAILY 03/07/23 02/09/24 hydroxyzine HCl 25 mg tablet 25 mg PO Q8H PRN Anxiety 02/09/24 02/09/24 metoprolol tartrate 25 mg tablet 25 mg PO DAILY 02/09/24 02/09/24 Previous Rx's Medication Instructions Recorded hydrocodone 10 mg-acetaminophen 1 tab PO TID PRN pain 30 days #90 03/31/21 325 mg tablet tabs diltiazem HCl 120 mg 120 mg PO BID #180 caps 06/25/23 capsule,extended release 24 hr Allergies Allergy/AdvReac Type Severity Reaction Status Date / Time sulfamethoxazole Allergy abdominal Verified 02/09/24 13:01 [From Bactrim] pain trimethoprim [From Bactrim] Allergy abdominal Verified 02/09/24 13:01 pain Sulfa (Sulfonamide AdvReac Mild rash and Verified 02/09/24 13:01 Antibiotics) itch tiagabine [From Gabitril] AdvReac Mild headache, Verified 02/09/24 13:01 upset GI Review of Systems General: Reports: 10 or more systems reviewed and unremarkable except in HPI and below Const: Denies: fever(s), chills, fatigue or snoring ENMT: Reports: throat pain, odynophagia, hoarseness, dry mouth and halitosis; Denies: enlarged tonsils, ear or mastoid pain, ear discharge, change in hearing, tinnitus, nasal discharge, nasal congestion, nasal obstruction, epistaxis, post nasal drip or sinus pain Resp: Denies: wheezing or change in phlegm color GI: Reports: dysphagia; Denies: nausea Musc: Denies: neck pain Luis Alberto/Lymph: Denies: easy bruising or easy bleeding PFSH ED PFSH: Medical History Carotid stenosis 100% left carotid stenosis Chronic anticoagulation 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 GERD (gastroesophageal reflux disease) Odynophagia COVID-19 Atrial fibrillation, currently in sinus rhythm Immunization counseling Smoker unmotivated to quit Encounter for long-term (current) use of NSAIDs Encounter for long-term opiate analgesic use High risk medication use Opioid contract exists Degenerative joint disease (DJD) of lumbar spine Cervical disc disease HTN (hypertension) Hypercholesterolemia Osteoarthritis of both knees Age related osteoporosis Surgical History History of colonoscopy History of esophagogastroduodenoscopy (EGD) History of back surgery H/O: hysterectomy Family History Sister Cancer breast Diabetes Stroke Brother Cancer lung Diabetes Stroke CAD (coronary artery disease) Brother has AICD Mother Diabetes Father Heart disease Heart attack CAD (coronary artery disease) Father at age 51 secondary to heart attack Social History Smoking and tobacco/nicotine status: former use of tobacco/nicotine Quit status (tobacco/nicotine): has tried quititng Second hand smoke exposure: No Alcohol intake: never Substance/Drug Use: former Date of last use: 2014 Marital status: Physical Exam Const: COMMON NORMALS: no acute distress, average body habitus, patient oriented x3, no limitations, healthy appearing, alert and well nourished OTHER: Gravelly voice from smoking and vocal cord chronic changes. HENMT: COMMON NORMALS: normocephalic, atraumatic, hearing grossly normal bilaterally, external ears normal, EAC's normal, Normal external nose present, Normal nasal mucous membranes and turbinates present, moist oral mucous membranes, oropharynx normal and gingiva normal HEAD & SCALP: normocephalic and atraumatic FACE & SINUS: normal facial exam, sinuses nontender and face symmetric NOSE: Normal external nose present, Normal nares present, No nasal polyps present, Normal nasal mucous membranes and turbinates present, No nasal discharge present and Abnormal nasal septum present (Deviated septum anteriorly to the right side) deviated EXTERNAL EAR: Yes external ears normal EXTERNAL AUDITORY CANAL: EAC's normal MOUTH: Normal oral and palatal mucosa present, lip normal, tongue normal and Normal salivary glands and ducts present (However saliva is very pasty and thick) TEETH & GINGIVA: Yes other (Multiple missing teeth.) THROAT: posterior oropharynx normal, tonsils normal and uvula midline Eye: COMMON NORMALS: Equal, round and reactive pupils present, EOMs intact bilaterally, conjunctivae normal and no scleral icterus CONJUNCTIVA: Yes conjunctivae normal PUPIL: Yes Equal, round and reactive pupils present Neck/C-Spine: COMMON NORMALS: full ROM, no lymphadenopathy, supple, no meningeal signs, no JVD and No carotid bruits OTHER: Postradiation changes. Resp: COMMON NORMALS: normal respiratory effort, No retractions and No use of accessory muscles Cardio: COMMON NORMALS: no JVD Extremity: COMMON NORMALS: normal to inspection and full ROM Neuro: COMMON NORMALS: patient oriented x3 SENSORIUM/ORIENTATION: Yes alert MENINGEAL SIGNS: Yes no meningeal signs Psych: COMMON NORMALS: mental status grossly normal, Normal thought process present, cooperative, normal affect, speech normal, activity/motor behavior normal, denies hallucinations, denies homicidal ideation and denies suicidal ideation SPEECH: Yes normal speech THOUGHT PROCESS: Normal thought process present Skin: COMMON NORMALS: no rashes or lesions noted and no wounds GENERAL SKIN EXAM: no rashes or lesions noted Course Vital Signs: Vital signs: Vital Signs Temperature 98.2 F 02/09/24 12:56 Pulse Rate 69 02/09/24 12:56 Respiratory Rate 16 02/09/24 12:56 Blood Pressure 101/65 02/09/24 12:56 Pulse Oximetry 98 02/09/24 12:56 Oxygen Delivery Me thod Room Air 02/09/24 12:56 [facility] - General Adult Medical Decision Making Patient presented to the emergency department with nasogastric feeding tube. Due to patient's comorbidities, history of neck radiation secondary to squamous cell carcinoma of the laryngeal surface of the epiglottis, I deferred placement of nasogastric feeding tube to a surgeon. Dr Burgos consulted.. He presents for evaluation of the patient 1420. At 1515, feeding tube has been placed by surgeon. We are obtaining an XR to assess placement. Patient will be discharged home following confirmed placement of feeding tube. Imaging reviewed by surgeon. Cleared for discharge home. Patient is needing her tracheostomy suctioning prior to departure. She reports that while they were supposed to have services set up at home by [facility], she has never gotten them. I have placed DME orders for tracheostomy supplies. Patient needs to follow-up with [facility]y and her care team otherwise return here as needed for new concerning or worsening symptoms XR interpretation done by ED provider, pending radiology final review Discharge Plan Discharge Patient Disposition: Home Clinical Impression: Encounter for feeding tube placement Condition: Stable Prescriptions: No Action hydrocodone-acetaminophen 10-325 mg tablet 1 tab PO TID PRN (Reason: pain) 30 Days Qty: 90 0RF bupropion HCl [Wellbutrin XL] 150 mg tablet extended release 24 hr 150 mg PO QAM Eliquis 5 mg tablet 5 mg PO BID Hold Instructions: Resume on 01/08/23. diltiazem HCl 120 mg capsule,extended release 24hr 120 mg PO BID Qty: 180 3RF potassium chloride 20 mEq/15 mL liquid 20 meq PO DAILY rosuvastatin 20 mg tablet 20 mg PO DAILY hydroxyzine HCl 25 mg tablet 25 mg PO Q8H PRN (Reason: Anxiety) metoprolol tartrate 25 mg tablet 25 mg PO DAILY Discharge Orders: Discharge ED (Routine); Ordered 02/09/24 Ordered By: Diogenes Carcamo Other Ambulatory Orders: DME: Tracheostomy Supplies (Order) Location: None Selected Ordered By: Diogenes Carcamo Referrals: Rianna Ruiz MD [Primary Care Provider] - Discharge Diet: Advance as tolerated Discharge Activity: Resume usual activity Patient Instructions: Nasogastric Tube (DC), Opioid Safety, Pain Management Activity Restrictions/Additional Instructions: Please follow-up with your care team this week. 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
--- NOTE | 2024-02-09 15:29 | XRR_ITS ---
PROCEDURE INFORMATION: Exam: XR Chest Exam date and time: 02/09/2024 3:18 PM Age: 63 years old Clinical indication: Device placement; Ng tube; Patient HX: Ng confirmation TECHNIQUE: Imaging protocol: Radiologic exam of the chest. Views: 1 view. COMPARISON: CR XR chest 1V portable [id number] 01/03/2023 9:51 PM FINDINGS: Tubes, catheters and devices: NG tube is looped in the stomach with tip projecting adjacent to the GE junction. Neural stimulator electrodes in the thoracic spine. Surgical clips in the lower neck. Airway: Question tracheostomy. Lungs: Lung hyperlucency, favoring emphysema. Pleural spaces: Unremarkable. No pleural effusion. No pneumothorax. Heart/Mediastinum: Moderate cardiomegaly. Vasculature: Calcified aortic knob. Bones/joints: No acute skeletal abnormality or aggressive osseous lesion. XR/XR chest 1V portable [id number] IMPRESSION: NG tube is looped in the stomach with tip projecting adjacent to the GE junction.
--- NOTE | 2024-02-09 15:41 | P.CONIM_ITS ---
Providers/Reason For Consult Consulting Physician/Specialty*: General Surgery Reason for Consult*: Dislodged feeding tube Primary Care Provider: Rianna Ruiz MD History of Present Illness History of Present Illness Rosario Villalba is a 63 year old female with history of a mass in the hypoglotis area and pharynx. She had a nasogastric feeding tube for enteral feeding while undergoing treatment, she also has a trach, her tube became dislodged this afternoon, she presented to the hospitalist and was at the got dislodged. Review of Systems General: Reports: ROS unobtainable due to medical condition Medications/Allergies Home Medications Medication Instructions Recorded Confirmed Last Taken Type aspirin 81 mg tablet,delayed 81 mg PO QAM 04/04/19 12/28/23 03/07/23 History release (Adult Low Dose Aspirin) cholecalciferol (vitamin D3) 50 50 mcg PO DAILY 10/15/19 12/28/23 03/07/23 History mcg (2,000 unit) capsule hydrocodone 10 mg-acetaminophen 1 tab PO TID PRN pain 30 days #90 03/31/21 12/28/23 03/07/23 08:00 Rx 325 mg tablet tabs bupropion HCl 150 mg 24 hr tablet, 150 mg PO QAM 06/07/21 12/28/23 03/07/23 History extended release (Wellbutrin XL) multivitamin 1 tab PO DAILY 11/20/21 12/28/23 03/07/23 History apixaban 5 mg tablet (Eliquis) 5 mg PO BID 07/13/22 12/28/23 03/07/23 History potassium chloride 20 mEq/15 mL 20 meq PO DAILY 03/07/23 12/28/23 03/07/23 History oral liquid rosuvastatin 20 mg tablet 20 mg PO DAILY 03/07/23 12/28/23 03/07/23 History fluticasone fur. 200 mcg-umeclid inhalation 06/19/23 12/28/23 Unknown History 62.5 mcg-vilant 25 mcg inhalat.powder (Trelegy Ellipta) diltiazem HCl 120 mg 120 mg PO BID #180 caps 06/25/23 12/28/23 Unknown Rx capsule,extended release 24 hr diltiazem HCl 60 mg tablet 30 mg (1/2 x 60 mg) PO DAILY PRN 06/25/23 12/28/23 Unknown Rx Heart rate more than 110 #30 tabs fluconazole 100 mg tablet 100 mg PO DAILY thrush #10 tabs 10/18/23 12/28/23 Unknown Rx (Diflucan) lidocaine HCl 2 % mucosal solution 5 ml mucous membrane QID PRN pain 10/18/23 12/28/23 Unknown Rx (Lidocaine Viscous) #100 mL Allergies Allergy/AdvReac Type Severity Reaction Status Date / Time sulfamethoxazole Allergy abdominal Verified 02/09/24 13:01 [From Bactrim] pain trimethoprim [From Bactrim] Allergy abdominal Verified 02/09/24 13:01 pain Sulfa (Sulfonamide AdvReac Mild rash and Verified 02/09/24 13:01 Antibiotics) itch tiagabine [From Gabitril] AdvReac Mild headache, Verified 02/09/24 13:01 upset GI PFSH Acute PFSH: Medical History Carotid stenosis 100% left carotid stenosis Chronic anticoagulation 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 GERD (gastroesophageal reflux disease) Odynophagia COVID-19 Atrial fibrillation, currently in sinus rhythm Immunization counseling Smoker unmotivated to quit Encounter for long-term (current) use of NSAIDs Encounter for long-term opiate analgesic use High risk medication use Opioid contract exists Degenerative joint disease (DJD) of lumbar spine Cervical disc disease HTN (hypertension) Hypercholesterolemia Osteoarthritis of both knees Age related osteoporosis Surgical History History of colonoscopy History of esophagogastroduodenoscopy (EGD) History of back surgery H/O: hysterectomy Family History Sister Cancer breast Diabetes Stroke Brother Cancer lung Diabetes Stroke CAD (coronary artery disease) Brother has AICD Mother Diabetes Father Heart disease Heart attack CAD (coronary artery disease) Father at age 51 secondary to heart attack Social History Smoking and tobacco/nicotine status: former use of tobacco/nicotine Quit status (tobacco/nicotine): has tried quititng Second hand smoke exposure: No Alcohol intake: never Substance/Drug Use: former Date of last use: 2014 Marital status: Vitals/I&O/Wt Last Vital Signs Temp 98.2 F 02/09/24 12:56 Pulse 69 02/09/24 12:56 Resp 16 02/09/24 12:56 BP 101/65 02/09/24 12:56 Pulse Ox 98 02/09/24 12:56 O2 Del Method Room Air 02/09/24 12:56 02/09/24 02/09/24 02/09/24 06:59 14:59 22:59 Intake Total 0 / 0 Balance 0 / 0 Weight last 48 hrs Weight 194 lb Physical Exam 2 Narrative: Patient stable, trach is in place. Abdomen exam is benign. I cannot visualize any obstruction on the back of the mouth. A&P Assessment and plan (1) Encounter for feeding tube placement: Plan MICU being called to evaluate this patient for possible replacement of feeding tube. After evaluation of the patient and discussion with her and the family member we decided to proceed with replacement of nasoenteric feeding tube. A size 8 weighted feeding tube was advanced through the right nare and carefully advanced distally with the patient swallowing during insertion, the tube was fixed at the proposed length. I then obtained an x-ray to verify position patient had a satisfactory position of the feeding tube in the stomach. I then proceeded to remove the stylette and fixed the tube to the nose. Patient was given education regarding the tube, she has been instructed to please follow-up with her primary surgeon as they may want to replace this feeding tube to the different system in the near future. Patient shows understanding agrees with the plan. Coding Level of Care Code 63707 Diagnoses Encounter for feeding tube placement Z46.59
[2024-02-09 18:33] VITALS: BP 124/73; PULSE 84; RESP 16; O2SAT 99
--- NOTE | 2024-02-13 12:16 | PC.SOCIAL ---
DME Orders Spoke with Mireya at HOME. She states that they have already delivered the suction machine and catheters. She states she has been working with Ludivina at [facility], and speaking with patient's son. Updated her that there were additional DME orders on original order and refaxed orders at this time.
== END 2024-02-09 18:32 | disposition home or self-care (01) ==
PROVIDERS: Emergency Provider Nurse Practitioner; PCP Internal Medicine
DX: Z46.59 Encounter for fitting and adjustment of other gastrointestinal appliance and device (principal); Z87.891 Personal history of nicotine dependence; C32.1 Malignant neoplasm of supraglottis; D02.0 Carcinoma in situ of larynx; I10 Essential (primary) hypertension
CPT/HCPCS: 71045; 94799; 99283

== ENCOUNTER 2024-02-17 12:10 | Emergency (ER) | payer MEDICARE, MEDICAID, SELFPAY ==
[2024-02-17 12:16] VITALS: BP 104/64; PULSE 92; RESP 18; TEMP 36.7; O2SAT 99
--- NOTE | 2024-02-17 12:36 | ED_ITS ---
HPI - General Adult General: Chief complaint: General Medical Stated complaint: pulled feeding tube out Time Seen by Provider: 02/17/24 12:28 Source: patient Mode of arrival: ambulatory Limitations: no limitations History of Present Illness: 63-year-old female has a history of tube feedings through nasogastric tube. She states she had accidentally pulled out her tube this morning. She is here to [facility] replaced has no other complaints at this time. Associated symptoms: Deny chest pain, dyspnea, headache(s), nausea, rash or vomiting Related Data Home Medications Medication Instructions Recorded Confirmed bupropion HCl 150 mg 24 hr tablet, 150 mg PO QAM 06/07/21 02/17/24 extended release (Wellbutrin XL) apixaban 5 mg tablet (Eliquis) 5 mg PO BID 07/13/22 02/17/24 rosuvastatin 20 mg tablet 20 mg PO DAILY 03/07/23 02/17/24 hydroxyzine HCl 25 mg tablet 25 mg PO Q8H PRN Anxiety 02/09/24 02/17/24 metoprolol tartrate 25 mg tablet 25 mg PO DAILY 02/09/24 02/17/24 potassium chloride 10 mEq 10 meq PO DAILY 02/17/24 02/17/24 tablet,extended release Previous Rx's Medication Instructions Recorded hydrocodone 10 mg-acetaminophen 1 tab PO TID PRN pain 30 days #90 03/31/21 325 mg tablet tabs diltiazem HCl 120 mg 120 mg PO BID #180 caps 06/25/23 capsule,extended release 24 hr Allergies Allergy/AdvReac Type Severity Reaction Status Date / Time sulfamethoxazole Allergy abdominal Verified 02/09/24 13:01 [From Bactrim] pain trimethoprim [From Bactrim] Allergy abdominal Verified 02/09/24 13:01 pain Sulfa (Sulfonamide AdvReac Mild rash and Verified 02/09/24 13:01 Antibiotics) itch tiagabine [From Gabitril] AdvReac Mild headache, Verified 02/09/24 13:01 upset GI Review of Systems Const: Denies: fever(s) or chills ENMT: Denies: throat pain Card: Denies: chest pain Resp: Denies: dyspnea GI: Denies: abdominal pain, nausea, vomiting or diarrhea Musc: Denies: neck pain or back pain Skin/Breast: Denies: rash Neuro: Denies: headache(s) PFSH ED PFSH: Medical History Carotid stenosis 100% left carotid stenosis Chronic anticoagulation 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 GERD (gastroesophageal reflux disease) Odynophagia COVID-19 Atrial fibrillation, currently in sinus rhythm Immunization counseling Smoker unmotivated to quit Encounter for long-term (current) use of NSAIDs Encounter for long-term opiate analgesic use High risk medication use Opioid contract exists Degenerative joint disease (DJD) of lumbar spine Cervical disc disease HTN (hypertension) Hypercholesterolemia Osteoarthritis of both knees Age related osteoporosis Surgical History History of colonoscopy History of esophagogastroduodenoscopy (EGD) History of back surgery H/O: hysterectomy Family History Sister Cancer breast Diabetes Stroke Brother Cancer lung Diabetes Stroke CAD (coronary artery disease) Brother has AICD Mother Diabetes Father Heart disease Heart attack CAD (coronary artery disease) Father at age 51 secondary to heart attack Social History Smoking and tobacco/nicotine status: former use of tobacco/nicotine Quit status (tobacco/nicotine): has tried quititng Second hand smoke exposure: No Alcohol intake: never Substance/Drug Use: former Date of last use: 2014 Marital status: Physical Exam Const: COMMON NORMALS: no acute distress, patient oriented x3 and healthy appearing HENMT: COMMON NORMALS: normocephalic and atraumatic HEAD & SCALP: normocephalic and atraumatic Eye: COMMON NORMALS: conjunctivae normal CONJUNCTIVA: Yes conjunctivae normal Neck/C-Spine: COMMON NORMALS: full ROM and supple Chest: COMMONS NORMALS: normal inspection of the chest Resp: COMMON NORMALS: normal respiratory effort Cardio: COMMON NORMALS: regular rate RATE: regular rate Extremity: COMMON NORMALS: normal to inspection and full ROM Neuro: COMMON NORMALS: patient oriented x3, moves all extremities and no focal motor deficits Psych: COMMON NORMALS: mental status grossly normal, Normal thought process present and cooperative THOUGHT PROCESS: Normal thought process present Skin: COMMON NORMALS: no rashes or lesions noted and no wounds GENERAL SKIN EXAM: no rashes or lesions noted Course Vital Signs: Vital signs: Vital Signs Temperature 98.1 F 02/17/24 12:16 Pulse Rate 92 02/17/24 12:16 Respiratory Rate 18 02/17/24 12:16 Blood Pressure 104/64 02/17/24 12:16 Pulse Oximetry 99 02/17/24 12:16 Oxygen Delivery Me thod Room Air 02/17/24 12:16 MDM - General Adult Medical Decision Making Patient presents here after she had excellently pulled out her nasogastric feeding tube did replace it with a new tube is in good placement patient stable for discharge follow-up PCP return if worsening. Medical Records I reviewed the patient's medical records. XR interpretation done by ED provider, pending radiology final review ED provider radiology interpretation(s): Chest x-ray feeding tube in place Discharge Plan Discharge Patient Disposition: Home Clinical Impression: Encounter for feeding tube placement Condition: Stable Prescriptions: No Action hydrocodone-acetaminophen 10-325 mg tablet 1 tab PO TID PRN (Reason: pain) 30 Days Qty: 90 0RF bupropion HCl [Wellbutrin XL] 150 mg tablet extended release 24 hr 150 mg PO QAM Eliquis 5 mg tablet 5 mg PO BID Hold Instructions: Resume on 01/08/23. 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
--- NOTE | 2024-02-17 13:37 | XRR_ITS ---
PROCEDURE INFORMATION: Exam: XR Chest Exam date and time: 02/17/2024 1:59 PM Age: 63 years old Clinical indication: Device placement; Ng tube TECHNIQUE: Imaging protocol: Radiologic exam of the chest. Views: 1 view. COMPARISON: CR XR chest 1V portable [id number] 02/09/2024 3:18 PM FINDINGS: Tubes, catheters and devices: Enteric tube terminates in the stomach. Lungs: Visualized portions of the lungs are unremarkable. Pleural spaces: No pleural effusion. Heart/Mediastinum: Unremarkable. No cardiomegaly. Bones/joints: Unremarkable. XR/XR chest 1V portable [id number] IMPRESSION: Enteric tube terminates in the stomach.
[2024-02-17 14:45] VITALS: BP 139/66; PULSE 81; RESP 16; O2SAT 99
== END 2024-02-17 14:51 | disposition home or self-care (01) ==
PROVIDERS: Emergency Provider Emergency Medicine; PCP Internal Medicine
DX: Z46.59 Encounter for fitting and adjustment of other gastrointestinal appliance and device (principal); Z87.891 Personal history of nicotine dependence; C32.1 Malignant neoplasm of supraglottis; D02.0 Carcinoma in situ of larynx; I10 Essential (primary) hypertension
CPT/HCPCS: 71045; 99283

== ENCOUNTER 2024-02-22 12:38 | Emergency (ER) | payer MEDICARE, MEDICAID, SELFPAY ==
[2024-02-22 12:48] VITALS: BP 97/59; PULSE 63; RESP 14; TEMP 36.7; O2SAT 98; BMI 29.7
--- NOTE | 2024-02-22 14:28 | ED_ITS ---
HPI - General Adult General: Chief complaint: General Medical Stated complaint: blockage in feeding tube Time Seen by Provider: 02/22/24 14:27 Source: patient Mode of arrival: ambulatory Limitations: no limitations History of Present Illness: Patient is a 63-year-old female presents to ED today stating that her NG tube is clogged. Patient was seen here recently/5 days ago and had NG tube replaced. She has no other complaints at this time. Onset (ago): hour(s) Associated symptoms: Reports no associated symptoms; Deny chest pain or vomiting Treatments prior to arrival: none Related Data Home Medications Medication Instructions Recorded Confirmed bupropion HCl 150 mg 24 hr tablet, 150 mg PO QAM 06/07/21 02/22/24 extended release (Wellbutrin XL) apixaban 5 mg tablet (Eliquis) 5 mg PO BID 07/13/22 02/22/24 rosuvastatin 20 mg tablet 20 mg PO DAILY 03/07/23 02/22/24 hydroxyzine HCl 25 mg tablet 25 mg PO Q8H PRN Anxiety 02/09/24 02/22/24 metoprolol tartrate 25 mg tablet 25 mg PO DAILY 02/09/24 02/22/24 potassium chloride 10 mEq 10 meq PO DAILY 02/17/24 02/22/24 tablet,extended release levothyroxine 112 mcg tablet 112 mcg PO DAILY 02/22/24 02/22/24 pilocarpine HCl 5 mg tablet 5 mg PO TID 02/22/24 02/22/24 Previous Rx's Medication Instructions Recorded hydrocodone 10 mg-acetaminophen 1 tab PO TID PRN pain 30 days #90 03/31/21 325 mg tablet tabs diltiazem HCl 120 mg 120 mg PO BID #180 caps 06/25/23 capsule,extended release 24 hr Allergies Allergy/AdvReac Type Severity Reaction Status Date / Time sulfamethoxazole Allergy abdominal Verified 02/09/24 13:01 [From Bactrim] pain trimethoprim [From Bactrim] Allergy abdominal Verified 02/09/24 13:01 pain Sulfa (Sulfonamide AdvReac Mild rash and Verified 02/09/24 13:01 Antibiotics) itch tiagabine [From Gabitril] AdvReac Mild headache, Verified 02/09/24 13:01 upset GI Review of Systems Const: Denies: fever(s) Card: Denies: chest pain GI: Denies: abdominal pain, vomiting or change in bowel habits PFSH ED PFSH: Medical History Carotid stenosis 100% left carotid stenosis Chronic anticoagulation 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 GERD (gastroesophageal reflux disease) Odynophagia COVID-19 Atrial fibrillation, currently in sinus rhythm Immunization counseling Smoker unmotivated to quit Encounter for long-term (current) use of NSAIDs Encounter for long-term opiate analgesic use High risk medication use Opioid contract exists Degenerative joint disease (DJD) of lumbar spine Cervical disc disease HTN (hypertension) Hypercholesterolemia Osteoarthritis of both knees Age related osteoporosis Surgical History History of colonoscopy History of esophagogastroduodenoscopy (EGD) History of back surgery H/O: hysterectomy Family History Sister Cancer breast Diabetes Stroke Brother Cancer lung Diabetes Stroke CAD (coronary artery disease) Brother has AICD Mother Diabetes Father Heart disease Heart attack CAD (coronary artery disease) Father at age 51 secondary to heart attack Social History Smoking and tobacco/nicotine status: former use of tobacco/nicotine Quit status (tobacco/nicotine): has tried quititng Second hand smoke exposure: No Alcohol intake: never Substance/Drug Use: former Date of last use: 2014 Marital status: Physical Exam Const: COMMON NORMALS: no acute distress, patient oriented x3, no limitations, alert and well nourished GENERAL APPEARANCE: cooperative HENMT: NOSE: Other nasal findings present (NG tube present) Resp: COMMON NORMALS: normal respiratory effort and clear to auscultation bilaterally AUSCULTATION: clear to auscultation bilaterally Cardio: COMMON NORMALS: regular rate and regular rhythm RATE: regular rate RHYTHM: regular rhythm Neuro: COMMON NORMALS: patient oriented x3 SENSORIUM/ORIENTATION: Yes alert Course Vital Signs: Vital signs: Vital Signs Temperature 98.0 F 02/22/24 12:48 Pulse Rate 68 02/22/24 16:56 Respiratory Rate 16 02/22/24 16:56 Blood Pressure 117/65 02/22/24 16:56 Pulse Oximetry 96 02/22/24 16:56 Oxygen Delivery Me thod Room Air 02/22/24 16:56 MDM - General Adult Medical Decision Making NG tube was attempted to be flushed/unclogged unsuccessfully. Decision was made to remove the tube and place a new tube. Dr. Lowe here and helped nursing staff with this. CXR imaging obtained which confirms placement. She is stable for discharge at this time. Medical Records I reviewed the patient's medical records. XR interpretation done by ED provider, pending radiology final review Discharge Plan Discharge Patient Disposition: Home Clinical Impression: Encounter for nasogastric (NG) tube placement Condition: Stable Prescriptions: No Action hydrocodone-acetaminophen 10-325 mg tablet 1 tab PO TID PRN (Reason: pain) 30 Days Qty: 90 0RF bupropion HCl [Wellbutrin XL] 150 mg tablet extended release 24 hr 150 mg PO QAM Eliquis 5 mg tablet 5 mg PO BID Hold Instructions: Resume on 01/08/23. diltiazem HCl 120 mg capsule,extended release 24hr 120 mg PO BID Qty: 180 3RF rosuvastatin 20 mg tablet 20 mg PO DAILY hydroxyzine HCl 25 mg tablet 25 mg PO Q8H PRN (Reason: Anxiety) metoprolol tartrate 25 mg tablet 25 mg PO DAILY potassium chloride 10 mEq tablet extended release 10 meq PO DAILY pilocarpine HCl 5 mg tablet 5 mg PO TID levothyroxine 112 mcg tablet 112 mcg PO DAILY Discharge Orders: Discharge ED (Routine); Ordered 02/22/24 Ordered By: Felecia Villagran Referrals: Rianna Ruiz MD [Primary Care Provider] - Patient Instructions: Nasogastric Tube (DC) Coding Level of Care Code ED [employer] Specialist for [facility]
--- NOTE | 2024-02-22 15:41 | PC.NURSE ---
this nurse assumed pt care at 1540 from Michaela TOBIAS.
[2024-02-22] MEDS: LORazepam 2 mg/mL INJ 1 mL 1 MG IM (16:51)
[2024-02-22 16:56] VITALS: BP 117/65; PULSE 68; RESP 16; O2SAT 96
--- NOTE | 2024-02-22 17:49 | XRR_ITS ---
PROCEDURE INFORMATION: Exam: XR Chest Exam date and time: 02/22/2024 5:52 PM Age: 63 years old Clinical indication: Device placement; Ng tube; Prior surgery; Surgery date: 6+ months; Surgery type: Trach/spinal stim; Additional info: Ng placement TECHNIQUE: Imaging protocol: Radiologic exam of the chest. Views: 1 view. COMPARISON: CR (CHEST, ) 02/17/2024 1:59 PM FINDINGS: Tubes, catheters and devices: A nasogastric tube is in place with the distal tip overlying the stomach, in radiographically appropriate position. Lungs: No pulmonary consolidation. Pleural spaces: No pleural effusion or pneumothorax. Heart/Mediastinum: The cardiomediastinal silhouette is within normal limits. Vasculature: Atherosclerotic calcifications of the aorta are noted. Diaphragm: Stable elevation of the left hemidiaphragm. Bones/joints: No acute osseous abnormalities are seen. XR/XR chest 1V portable [id number] IMPRESSION: Nasogastric tube in radiographically appropriate position.
[2024-02-22 18:49] VITALS: BP 120/66; PULSE 73; RESP 16; O2SAT 98
== END 2024-02-22 18:05 | disposition home or self-care (01) ==
PROVIDERS: Emergency Provider Physician Assistant; PCP Internal Medicine
DX: Z46.59 Encounter for fitting and adjustment of other gastrointestinal appliance and device (principal); Z79.01 Long term (current) use of anticoagulants; Z87.891 Personal history of nicotine dependence; C32.1 Malignant neoplasm of supraglottis; D02.0 Carcinoma in situ of larynx; I10 Essential (primary) hypertension
CPT/HCPCS: 71045; 96372; 99284; J2060

== ENCOUNTER 2024-02-25 11:03 | Inpatient (IN) | payer MEDICARE, MEDICAID, SELFPAY ==
[2024-02-25] VITALS (26 sets, daily range): BP systolic 110–161; BP diastolic 71–122; PULSE 70–198; RESP 12–21; TEMP 36.9–37.1; O2SAT 96–100; BMI 25.8; BMI 29.6
--- NOTE | 2024-02-25 13:34 | XRR_ITS ---
PROCEDURE INFORMATION: Exam: XR Chest Exam date and time: 02/25/2024 1:49 PM Age: 63 years old Clinical indication: Cough; Additional info: Possible aspiration TECHNIQUE: Imaging protocol: Radiologic exam of the chest. Views: 1 view. COMPARISON: CR (CHEST, ) 02/22/2024 5:52 PM FINDINGS: Tubes, catheters and devices: Neurostimulator leads terminate at a midthoracic level. Lungs: Unremarkable. No consolidation. Pleural spaces: Unremarkable. No pleural effusion. No pneumothorax. Heart/Mediastinum: Unremarkable. No cardiomegaly. Bones/joints: Unremarkable. Soft tissues: Clips are seen in the bilateral lower soft tissues of the neck. XR/XR chest 1V portable [id number] IMPRESSION: No acute findings.
--- NOTE | 2024-02-25 13:37 | PC.NURSE ---
Dr. Van gave verbal order to order cbc, cmp, cxr, ua, and magnisum. Dr. Jenna Gonzalez office called to check on pt and to say that she had a critically low calcium level in the office.
[2024-02-25 14:23] LABS: Basophils # 0.1 10^3/uL (0.0-0.1); Basophils % 0.5 %; Eosinophils # 0.1 10^3/uL (0.0-0.8); Eosinophils % 0.9 %; Hematocrit 35.8 % (36-47); Lymphocytes # 1.1 10^3/uL (0.8-4.8); Lymphocytes % 10.4 %; Mean Corpuscular HGB Conc 31.6 g/dL (30-55); Mean Corpuscular Hemoglobin 26.5 pg (27-33); Mean Corpuscular Volume 83.8 fl (85-98); Mean Platelet Volume 10.3 fL (7.4-10.4); Monocytes # 0.9 10^3/uL (0.2-0.9); Monocytes % 8.4 %; Neutrophils # 8.04 10^3/uL (1.8-7.7); Neutrophils % 79.5 %; Nucleated Red Blood Cells % 0 %; Platelet Count 294 10^3/cmm (157-399); Red Blood Count 4.27 10^6/uL (3.85-5.65); Red Cell Distribution Width 15.2 % (12.1-15.1); White Blood Count 10.11 10^3/uL (3.29-11.43)
--- NOTE | 2024-02-25 14:30 | ED_ITS ---
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 Patient had NG tube placed for enteral feedings while undergoing treatment for her cancer. Patient has been seen here multiple times recently regarding her NG tube. She was just seen here 3 days ago after NG tube was clogged. It was removed and replaced then. States it had been functioning well until she accidentally pulled it out today. She also recently followed up with her PCP Dr. Ruiz and had labs drawn. She had called to the emergency department and spoke to Dr. Van prior to arrival about a low calcium level that was found on her recent labs. Patient states she underwent swallow study a few weeks ago and is scheduled for a repeat swallow study tomorrow. Plan eventually is to have NG tube removed if she has a successful study. Onset (ago): hour(s) Associated symptoms: Reports no associated symptoms; Deny chest pain, confusion, dyspnea, malaise, nausea, palpitations, syncope or vomiting Treatments prior to arrival: none Related Data Home Medications Medication Instructions Recorded Confirmed bupropion HCl 150 mg 24 hr tablet, 150 mg PO QAM 06/07/21 02/26/24 extended release (Wellbutrin XL) apixaban 5 mg tablet (Eliquis) 5 mg PO BID 07/13/22 02/26/24 rosuvastatin 20 mg tablet 20 mg PO DAILY 03/07/23 02/26/24 hydroxyzine HCl 25 mg tablet 25 mg PO Q8H PRN Anxiety 02/09/24 02/26/24 metoprolol tartrate 25 mg tablet 25 mg PO DAILY 02/09/24 02/26/24 potassium chloride 10 mEq 10 meq PO DAILY 02/17/24 02/26/24 tablet,extended release levothyroxine 112 mcg tablet 112 mcg PO DAILY 02/22/24 02/26/24 Previous Rx's Medication Instructions Recorded hydrocodone 10 mg-acetaminophen 1 tab PO TID PRN pain 30 days #90 03/31/21 325 mg tablet tabs diltiazem HCl 120 mg 120 mg PO BID #180 caps 06/25/23 capsule,extended release 24 hr Allergies Allergy/AdvReac Type Severity Reaction Status Date / Time sulfamethoxazole Allergy abdominal Verified 02/09/24 13:01 [From Bactrim] pain trimethoprim [From Bactrim] Allergy abdominal Verified 02/09/24 13:01 pain Sulfa (Sulfonamide AdvReac Mild rash and Verified 02/09/24 13:01 Antibiotics) itch tiagabine [From Gabitril] AdvReac Mild headache, Verified 02/09/24 13:01 upset GI Review of Systems 2 Const: Denies: body aches, change in appetite, fatigue or malaise Card: Denies: chest pain, palpitations, syncope or pre-syncope Resp: Denies: dyspnea GI: Denies: nausea, vomiting or diarrhea Musc: Reports: back pain (chronic) and extremity pain (chronic); Denies: joint pain, muscle cramps or muscle weakness Neuro: Denies: numbness in extremities, weakness in extremities, sensory changes, difficulty walking or confusion PFSH ED 2 PFSH: Medical History Carotid stenosis 100% left carotid stenosis Chronic anticoagulation 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 GERD (gastroesophageal reflux disease) Odynophagia COVID-19 Atrial fibrillation, currently in sinus rhythm Immunization counseling Smoker unmotivated to quit Encounter for long-term (current) use of NSAIDs Encounter for long-term opiate analgesic use High risk medication use Opioid contract exists Degenerative joint disease (DJD) of lumbar spine Cervical disc disease HTN (hypertension) Hypercholesterolemia Osteoarthritis of both knees Age related osteoporosis Surgical History History of colonoscopy History of esophagogastroduodenoscopy (EGD) History of back surgery H/O: hysterectomy Family History Sister Cancer breast Diabetes Stroke Brother Cancer lung Diabetes Stroke CAD (coronary artery disease) Brother has AICD Mother Diabetes Father Heart disease Heart attack CAD (coronary artery disease) Father at age 51 secondary to heart attack Social History (Reviewed 02/25/24 @ 14:57 by JOEY Hubbard Smoking and tobacco/nicotine status: former use of tobacco/nicotine Quit status (tobacco/nicotine): has tried quititng Second hand smoke exposure: No Alcohol intake: never Substance/Drug Use: former Date of last use: 2014 Marital status: Physical Exam 2 Const: COMMON NORMALS: no acute distress, average body habitus, patient oriented x3, no limitations, healthy appearing, alert and well nourished G ENERAL APPEARANCE: cooperative Neck/C-Spine: OTHER: trach site appears clean Resp: COMMON NORMALS: normal respiratory effort and clear to auscultation bilaterally AUSCULTATION: clear to auscultation bilaterally Cardio: COMMON NORMALS: regular rate and regular rhythm RATE: regular rate RHYTHM: regular rhythm Extremity: GENERAL: Yes normal exam except as noted Neuro: KEITH COMA SCALE: document GCS findings Newcomb coma scale eye opening: Spontaneous Newcomb coma scale verbal response: Orientated Keith coma scale motor response: Obey commands Keiht coma scale total score: 15 COMMON NORMALS: patient oriented x3, CN's II-XII intact bilaterally, moves all extremities, no focal motor deficits and no sensory deficits noted S ENSORIUM/ORIENTATION: Yes alert Skin: COMMON NORMALS: no rashes or lesions noted GENERAL SKIN EXAM: no rashes or lesions noted Course 2 Consultations: Consultation #1: Dr. Orellana-did not feel patient needed to be admitted for her calcium at this time as she is asymptomatic. He agreed with decision for 2 g of IV calcium gluconate here. Recommend repeating labs tomorrow during her scheduled swallow study. He added additional labs of PTH, vitamin D, TSH for primary care to follow and work up as an outpatient Vital Signs: Vital signs: Vital Signs Temperature 98.8 F 02/26/24 05:00 Pulse Rate 70 02/26/24 09:00 Respiratory Rate 17 02/26/24 09:00 Blood Pressure 130/80 02/26/24 09:00 Pulse Oximetry 96 02/26/24 09:00 Oxygen Delivery Me thod Room Air 02/26/24 06:00 MDM - General Adult Medical Decision Making Patient is a 63-year-old female here after she inadvertently pulled out her NG tube. She was also found to have hypocalcemia at 5.9. Patient is not complaining of paresthesias, muscle weakness, spasms or other neuromuscular irritability. No prolonged QT on her EKG. spoke to hospitalist, Dr. Tomas, who does not feel she needs to be admitted at this time. Agrees with decision for 2 g of IV calcium gluconate and plan will be to repeat her calcium tomorrow before her swallow study. RN alerted me to acute rate change on patient. Repeat EKG was performed showing A-fib with RVR with a rate of 204. She does have a history of A-fib and has not taken her medications today. RN states she did give the calcium gluconate slowly at the recommended rate. Spoke to Dr. Van who is recommending 150 mg amiodarone bolus and starting her on a drip. I will speak to Dr. Orellana again for admission. Chart reviewed and patient discussed with midlevel. Agree with assessment and plan. Medical Records I reviewed the patient's medical records. Lab Data I reviewed the patient's lab results. 02/26/24 03:15 02/26/24 03:15 Radiology Impressions Chest X-Ray 02/25/24 22:46 IMPRESSION: Nasogastric tube in radiographically appropriate position. Laboratory Results WBC 10.11 10^3/uL (3.29-11.43) 02/25/24 14:14 RBC 4.27 10^6/uL (3.85-5.65) 02/25/24 14:14 Hgb 11.30 g/dL (11.27-16.99) 02/25/24 14:14 Hct 35.8 % (36-47) L 02/25/24 14:14 MCV 83.8 fl (85-98) L 02/25/24 14:14 MCH 26.5 pg (27-33) L 02/25/24 14:14 MCHC 31.6 g/dL (30-55) 02/25/24 14:14 RDW 15.2 % (12.1-15.1) H 02/25/24 14:14 Plt Count 294 10^3/cmm (157-399) 02/25/24 14:14 MPV 10.3 fL (7.4-10.4) 02/25/24 14:14 Neut % (Auto) 79.5 % 02/25/24 14:14 Lymph % (Auto) 10.4 % 02/25/24 14:14 [place] % (Auto) 8.4 % 02/25/24 14:14 Eos % (Auto) 0.9 % 02/25/24 14:14 Baso % (Auto) 0.5 % 02/25/24 14:14 Neut # (Auto) 8.04 10^3/uL (1.8-7.7) H 02/25/24 14:14 Lymph # (Auto) 1.1 10^3/uL (0.8-4.8) 02/25/24 14:14 [place] # (Auto) 0.9 10^3/uL (0.2-0.9) 02/25/24 14:14 Eos # (Auto) 0.1 10^3/uL (0.0-0.8) 02/25/24 14:14 Baso # (Auto) 0.1 10^3/uL (0.0-0.1) 02/25/24 14:14 Nucleated RBC % (auto) 0 % 02/25/24 14:14 Nucleated RBCs # 0.0 /100WBC 02/25/24 14:14 Sodium 140 mmol/L (136-145) 02/25/24 14:14 Potassium 4.3 mmol/L (3.5-5.1) 02/25/24 14:14 Chloride 99 mmol/L (98-107) 02/25/24 14:14 Carbon Dioxide 24 mmol/L (22-29) 02/25/24 14:14 Anion Gap 21.3 (5-19) H 02/25/24 14:14 BUN 13 mg/dL (8-23) 02/25/24 14:14 Creatinine 1.2 mg/dL (0.5-0.9) H 02/25/24 14:14 GFR Calculation 45.5 mL/min (90-130) L 02/25/24 14:14 Glucose 113 mg/dL (65-115) 02/25/24 14:14 Estimat Average Glucose 120 02/25/24 14:14 Hemoglobin A1c 5.8 % (4.0-6.0) 02/25/24 14:14 Calculated Osmolality 291 mOsm/kg (285-295) 02/25/24 14:14 Calcium 5.9 mg/dL (8.5-10.5) L 02/25/24 14:14 Magnesium 1.9 mg/dL (1.7-2.3) 02/25/24 14:14 Iron 25 ug/dL (37-145) L 02/25/24 14:14 TIBC 259 mcg/dl 02/25/24 14:14 % Saturation 9.6 % (20-50) L 02/25/24 14:14 Unsat Iron Binding 234 ug/dL (112-347) 02/25/24 14:14 Total Bilirubin 0.5 mg/dL (0.15-1.2) 02/25/24 14:14 AST 20 U/L (0-32) 02/25/24 14:14 ALT 12 U/L (0-33) 02/25/24 14:14 Alkaline Phosphatase 120 U/L (35-105) H 02/25/24 14:14 Total Protein 8.1 g/dL (6.6-8.7) 02/25/24 14:14 Albumin 4.0 g/dL (3.5-5.2) 02/25/24 14:14 Globulin 4.1 g/dL (1.3-4.6) 02/25/24 14:14 Vitamin B12 1706 pg/mL (232-1245) H 02/25/24 14:14 25-OH Vitamin D Total 57 ng/mL (30-100) 02/25/24 14:14 TSH 13.04 uIU/mL (0.27-4.20) H 02/25/24 14:14 Free T4 1.00 ng/dL (0.82-1.77) 02/25/24 14:14 Free T3 1.7 PG/ML (2.0-4.4) L 02/25/24 14:14 PTH Intact 7.0 pg/mL (15-65) L 02/25/24 14:14 Calcium (PTH Intact) 5.9 mg/dL (8.5-10.5) L 02/25/24 14:14 Discharge Plan Discharge Patient Disposition: Admitted As Inpatient Admit Provider: Jennifer Colon Clinical Impression: Hypocalcemia, Encounter for nasogastric (NG) tube placement, Atrial fibrillation with rapid ventricular response Condition: Stable Coding Level of Care Code ED Director Of Social Services for Chg Fwd Documented by User: Pranay Van DO 02/26/24 06:28 HPI - General Adult 2 General: Chief complaint: General Medical Stated complaint: pulled feeding tube out Time Seen by Provider: 02/25/24 14:21 Related Data Home Medications Medication Instructions Recorded Confirmed bupropion HCl 150 mg 24 hr tablet, 150 mg PO QAM 06/07/21 02/26/24 extended release (Wellbutrin XL) apixaban 5 mg tablet (Eliquis) 5 mg PO BID 07/13/22 02/26/24 rosuvastatin 20 mg tablet 20 mg PO DAILY 03/07/23 02/26/24 hydroxyzine HCl 25 mg tablet 25 mg PO Q8H PRN Anxiety 02/09/24 02/26/24 metoprolol tartrate 25 mg tablet 25 mg PO DAILY 02/09/24 02/26/24 potassium chloride 10 mEq 10 meq PO DAILY 02/17/24 02/26/24 tablet,extended release levothyroxine 112 mcg tablet 112 mcg PO DAILY 02/22/24 02/26/24 Previous Rx's Medication Instructions Recorded hydrocodone 10 mg-acetaminophen 1 tab PO TID PRN pain 30 days #90 03/31/21 325 mg tablet tabs diltiazem HCl 120 mg 120 mg PO BID #180 caps 06/25/23 capsule,extended release 24 hr Allergies Allergy/AdvReac Type Severity Reaction Status Date / Time sulfamethoxazole Allergy abdominal Verified 02/09/24 13:01 [From Bactrim] pain trimethoprim [From Bactrim] Allergy abdominal Verified 02/09/24 13:01 pain Sulfa (Sulfonamide AdvReac Mild rash and Verified 02/09/24 13:01 Antibiotics) itch tiagabine [From Gabitril] AdvReac Mild headache, Verified 02/09/24 13:01 upset GI PFSH ED 2 PFSH: Medical History Carotid stenosis 100% left carotid stenosis Chronic anticoagulation 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 GERD (gastroesophageal reflux disease) Odynophagia COVID-19 Atrial fibrillation, currently in sinus rhythm Immunization counseling Smoker unmotivated to quit Encounter for long-term (current) use of NSAIDs Encounter for long-term opiate analgesic use High risk medication use Opioid contract exists Degenerative joint disease (DJD) of lumbar spine Cervical disc disease HTN (hypertension) Hypercholesterolemia Osteoarthritis of both knees Age related osteoporosis Surgical History History of colonoscopy History of esophagogastroduodenoscopy (EGD) History of back surgery H/O: hysterectomy Family History Sister Cancer breast Diabetes Stroke Brother Cancer lung Diabetes Stroke CAD (coronary artery disease) Brother has AICD Mother Diabetes Father Heart disease Heart attack CAD (coronary artery disease) Father at age 51 secondary to heart attack Social History Smoking and tobacco/nicotine status: former use of tobacco/nicotine Quit status (tobacco/nicotine): has tried quititng Second hand smoke exposure: No Alcohol intake: never Substance/Drug Use: former Date of last use: 2014 Marital status: Physical Exam 2 Neuro: KEITH COMA SCALE: document GCS findings Newcomb coma scale total score: 15 Course 2 Vital Signs: Vital signs: Vital Signs Temperature 98.8 F 02/26/24 05:00 Pulse Rate 70 02/26/24 09:00 Respiratory Rate 17 02/26/24 09:00 Blood Pressure 130/80 02/26/24 09:00 Pulse Oximetry 96 02/26/24 09:00 Oxygen Delivery Me thod Room Air 02/26/24 06:00 MDM - General Adult Medical Decision Making Patient is a 63-year-old female here after she inadvertently pulled out her NG tube. She was also found to have hypocalcemia at 5.9. Patient is not complaining of paresthesias, muscle weakness, spasms or other neuromuscular irritability. No prolonged QT on her EKG. spoke to hospitalist, Dr. Tomas, who does not feel she needs to be admitted at this time. Agrees with decision for 2 g of IV calcium gluconate and plan will be to repeat her calcium tomorrow before her swallow study. RN alerted me to acute weight change on patient. Repeat EKG was performed showing A-fib with RVR with a rate of 204. She does have a history of A-fib and has not taken her medications today. RN states she did give the calcium gluconate slowly at the recommended rate. Spoke to Dr. Van who is recommending 150 mg amiodarone bolus and starting her on a drip. I will speak to Dr. Orellana again for admission. Chart reviewed and patient discussed with midlevel. Agree with assessment and plan. Lab Data 02/26/24 03:15 02/26/24 03:15 Radiology Impressions Chest X-Ray 02/25/24 22:46 IMPRESSION: Nasogastric tube in radiographically appropriate position. Laboratory Results WBC 10.11 10^3/uL (3.29-11.43) 02/25/24 14:14 RBC 4.27 10^6/uL (3.85-5.65) 02/25/24 14:14 Hgb 11.30 g/dL (11.27-16.99) 02/25/24 14:14 Hct 35.8 % (36-47) L 02/25/24 14:14 MCV 83.8 fl (85-98) L 02/25/24 14:14 MCH 26.5 pg (27-33) L 02/25/24 14:14 MCHC 31.6 g/dL (30-55) 02/25/24 14:14 RDW 15.2 % (12.1-15.1) H 02/25/24 14:14 Plt Count 294 10^3/cmm (157-399) 02/25/24 14:14 MPV 10.3 fL (7.4-10.4) 02/25/24 14:14 Neut % (Auto) 79.5 % 02/25/24 14:14 Lymph % (Auto) 10.4 % 02/25/24 14:14 [place] % (Auto) 8.4 % 02/25/24 14:14 Eos % (Auto) 0.9 % 02/25/24 14:14 Baso % (Auto) 0.5 % 02/25/24 14:14 Neut # (Auto) 8.04 10^3/uL (1.8-7.7) H 02/25/24 14:14 Lymph # (Auto) 1.1 10^3/uL (0.8-4.8) 02/25/24 14:14 [place] # (Auto) 0.9 10^3/uL (0.2-0.9) 02/25/24 14:14 Eos # (Auto) 0.1 10^3/uL (0.0-0.8) 02/25/24 14:14 Baso # (Auto) 0.1 10^3/uL (0.0-0.1) 02/25/24 14:14 Nucleated RBC % (auto) 0 % 02/25/24 14:14 Nucleated RBCs # 0.0 /100WBC 02/25/24 14:14 Sodium 140 mmol/L (136-145) 02/25/24 14:14 Potassium 4.3 mmol/L (3.5-5.1) 02/25/24 14:14 Chloride 99 mmol/L (98-107) 02/25/24 14:14 Carbon Dioxide 24 mmol/L (22-29) 02/25/24 14:14 Anion Gap 21.3 (5-19) H 02/25/24 14:14 BUN 13 mg/dL (8-23) 02/25/24 14:14 Creatinine 1.2 mg/dL (0.5-0.9) H 02/25/24 14:14 GFR Calculation 45.5 mL/min (90-130) L 02/25/24 14:14 Glucose 113 mg/dL (65-115) 02/25/24 14:14 Estimat Average Glucose 120 02/25/24 14:14 Hemoglobin A1c 5.8 % (4.0-6.0) 02/25/24 14:14 Calculated Osmolality 291 mOsm/kg (285-295) 02/25/24 14:14 Calcium 5.9 mg/dL (8.5-10.5) L 02/25/24 14:14 Magnesium 1.9 mg/dL (1.7-2.3) 02/25/24 14:14 Iron 25 ug/dL (37-145) L 02/25/24 14:14 TIBC 259 mcg/dl 02/25/24 14:14 % Saturation 9.6 % (20-50) L 02/25/24 14:14 Unsat Iron Binding 234 ug/dL (112-347) 02/25/24 14:14 Total Bilirubin 0.5 mg/dL (0.15-1.2) 02/25/24 14:14 AST 20 U/L (0-32) 02/25/24 14:14 ALT 12 U/L (0-33) 02/25/24 14:14 Alkaline Phosphatase 120 U/L (35-105) H 02/25/24 14:14 Total Protein 8.1 g/dL (6.6-8.7) 02/25/24 14:14 Albumin 4.0 g/dL (3.5-5.2) 02/25/24 14:14 Globulin 4.1 g/dL (1.3-4.6) 02/25/24 14:14 Vitamin B12 1706 pg/mL (232-1245) H 02/25/24 14:14 25-OH Vitamin D Total 57 ng/mL (30-100) 02/25/24 14:14 TSH 13.04 uIU/mL (0.27-4.20) H 02/25/24 14:14 Free T4 1.00 ng/dL (0.82-1.77) 02/25/24 14:14 Free T3 1.7 PG/ML (2.0-4.4) L 02/25/24 14:14 PTH Intact 7.0 pg/mL (15-65) L 02/25/24 14:14 Calcium (PTH Intact) 5.9 mg/dL (8.5-10.5) L 02/25/24 14:14 All radiology interpretation(s) finalized by discharge Discharge Plan Discharge Patient Disposition: Admitted As Inpatient Admit Provider: Jennifer Colon Clinical Impression: Hypocalcemia, Encounter for nasogastric (NG) tube placement, Atrial fibrillation with rapid ventricular response Condition: Stable Coding Level of Care Code ED Director Of Social Services for Chg Fwcinthya
[2024-02-25 14:39] LABS: Alanine Aminotransferase 12 U/L (0-33); Alkaline Phosphatase 120 U/L (35-105); Anion Gap 21.3 (5-19); Aspartate Amino Transferase 20 U/L (0-32); Blood Urea Nitrogen 13 mg/dL (8-23); Carbon Dioxide 24 mmol/L (22-29); Chloride 99 mmol/L (98-107); Creatinine Clr Calc Pharmacy 54.8445; Globulin 4.1 g/dL (1.3-4.6); Glomerular Filtration Rate 45.5 mL/min (90-130); Glucose 113 mg/dL (65-115); Magnesium 1.9 mg/dL (1.7-2.3); Osmolality Calculated 291 mOsm/kg (285-295); Potassium 4.3 mmol/L (3.5-5.1); Sodium 140 mmol/L (136-145); Total Bilirubin 0.5 mg/dL (0.15-1.2); Total Protein 8.1 g/dL (6.6-8.7)
[2024-02-25 14:42] LABS: Calcium 5.9 mg/dL (8.5-10.5)
--- NOTE | 2024-02-25 14:54 | ECG_ITS ---
[facility] Test Date: 2024-02-25 Pat Name: Rosario Villalba Department: Room: Gender: Female Driver Education Instructor: : 1960 Requested By: Felecia Villagran Order Number: [id number] Leora MD: Wilbert Tam M.D. Measurements Intervals [place] Rate: 89 P: 60 AL: 141 QRS: 43 QRSD: 76 T: 52 QT: 386 QTc: 471 Interpretive Statements SINUS RHYTHM Compared to ECG 03/07/2023 14:55:26 No significant changes Electronically Signed On 02-25-2024 19:32:15 [employer] by Wilbert Tam M.D. [email or web address]
[2024-02-25] MEDS: calcium gluconate 0.1 gm/mL 10% SDV 10mL 2 GM IVP (16:05)
--- NOTE | 2024-02-25 16:40 | ECG_ITS ---
[facility] Test Date: 2024-02-25 Pat Name: Rosario Villalba Department: Room: [facility] Gender: Female Director Translation: : 1960 Requested By: Felecia Villagran Order Number: [id number] Corey MD: Wilbert Tam M.D. Measurements Intervals [place] Rate: 204 P: 0 ND: 0 QRS: 67 QRSD: 154 T: 0 QT: 203 QTc: 374 Interpretive Statements ATRIAL FIBRILLATION WITH RAPID VENTRICULAR RESPONSE INTRAVENTRICULAR CONDUCTION DELAY [130+ ms QRS DURATION] CRITICAL TEST RESULT INTERPRETATION BASED ON A DEFAULT AGE OF 40 YEARS Compared to ECG 02/25/2024 15:49:55 Intraventricular conduction delay now present Sinus rhythm no longer present Electronically Signed On 02-25-2024 19:32:30 ELEMENTARY LIBRARIAN by Wilbert Tam M.D. [email or web address]
--- NOTE | 2024-02-25 16:45 | PC.NURSE ---
PATIENT ROOM MONITOR ALERTING 203 AT THE NURSES STATION. NURSE ENTERED ROOM TO READJUST CARDIAC LEADS, HR STAYED THE SAME. NURSE ATTEMPTED TO PALPATE RADIAL PULSE AND WAS UNABLE TO FEEL ONE. EKG PERFORMED DUE TO CHANGE IN STATUS.
[2024-02-25] MEDS: amiodarone 50 mg/mL SDV 3 mL 150 MG IVP (17:01)
[2024-02-25 17:08] LABS: Calcium 5.9 mg/dL (8.5-10.5)
[2024-02-25 17:19] LABS: 25 Hydroxy Vitamin D 57 ng/mL (30-100); Thyroid Stimulating Hormone 13.04 uIU/mL (0.27-4.20)
[2024-02-25] MEDS: sodium chloride 0.9% 500 ML 999 ML IV (17:30)
[2024-02-25] MEDS: dilTIAZem 5 mg/mL SDV 5 mL 10 MG IVP (17:30)
--- NOTE | 2024-02-25 18:05 | P.HP_ITS ---
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 NG tube is in place for enteral feedings while she is undergoing treatment for her cancer. Blood work showed hypocalcemia with calcium down to 5.9. She received 2 g of IV calcium after which she went into A-fib with RVR and was started on amiodarone 150 mg of IV loading dose. Medicine is consulted for A-fib with RVR. Patient usually is on Cardizem and metoprolol which she has not taken over the last 24 hours. She denies of having any chest pain, palpitations, difficulty in breathing, nausea or vomiting. Review of Systems 2 General: Reports: 10 or more systems reviewed and unremarkable except in HPI and below Const: Denies: fever(s), chills or body aches Eyes: Denies: change in vision, blurry vision or photophobia ENMT: Reports: hoarseness; Denies: throat pain, enlarged tonsils, odynophagia or nasal congestion Card: Denies: chest pain, palpitations, irregular heart rhythm, edema, swelling of feet/ankles, lightheadedness, pre-syncope, dyspnea on exertion or orthopnea Resp: Denies: dyspnea, productive cough, non-productive cough, wheezing, stridor, pain on inspiration, change in phlegm color, hemoptysis or chest congestion GI: Denies: abdominal pain, nausea, vomiting, hematemesis, coffee ground emesis, dysphagia, heartburn, diarrhea, constipation, GI cramping, change in stool character, hematochezia or melena : Denies: flank pain, difficulty voiding, dysuria, urinary frequency, urinary urgency, urinary hesitancy or hematuria Musc: Denies: neck pain, back pain, extremity pain, joint swelling, joint warmth or deformity Neuro: Denies: headache(s), numbness in extremities, weakness in extremities, sensory changes, difficulty walking, frequent falls, dizziness, vertigo, behavioral changes, Slurred speech present or seizure-like activity Psych: Denies: anxiety, depression, suicidal ideation or homicidal ideation Endo: Denies: polyuria, polydipsia, tired all the time, cold intolerance or hot flashes Luis Alberto/Lymph: Denies: easy bruising or easy bleeding Medications/Allergies Home Medications Medication Instructions Recorded Confirmed Last Taken Type hydrocodone 10 mg-acetaminophen 1 tab PO TID PRN pain 30 days #90 03/31/21 02/22/24 02/22/24 Rx 325 mg tablet tabs bupropion HCl 150 mg 24 hr tablet, 150 mg PO QAM 06/07/21 02/22/24 02/22/24 History extended release (Wellbutrin XL) apixaban 5 mg tablet (Eliquis) 5 mg PO BID 07/13/22 02/22/24 02/22/24 History rosuvastatin 20 mg tablet 20 mg PO DAILY 03/07/23 02/22/24 02/22/24 History diltiazem HCl 120 mg 120 mg PO BID #180 caps 06/25/23 02/22/24 02/22/24 Rx capsule,extended release 24 hr hydroxyzine HCl 25 mg tablet 25 mg PO Q8H PRN Anxiety 02/09/24 02/22/24 02/22/24 History metoprolol tartrate 25 mg tablet 25 mg PO DAILY 02/09/24 02/22/24 02/22/24 History potassium chloride 10 mEq 10 meq PO DAILY 02/17/24 02/22/24 02/22/24 History tablet,extended release levothyroxine 112 mcg tablet 112 mcg PO DAILY 02/22/24 02/22/24 Unknown History pilocarpine HCl 5 mg tablet 5 mg PO TID 02/22/24 02/22/24 Unknown History Allergies Allergy/AdvReac Type Severity Reaction Status Date / Time sulfamethoxazole Allergy abdominal Verified 02/09/24 13:01 [From Bactrim] pain trimethoprim [From Bactrim] Allergy abdominal Verified 02/09/24 13:01 pain Sulfa (Sulfonamide AdvReac Mild rash and Verified 02/09/24 13:01 Antibiotics) itch tiagabine [From Gabitril] AdvReac Mild headache, Verified 02/09/24 13:01 upset GI PFSH Acute 2 PFSH: Medical History Carotid stenosis 100% left carotid stenosis Chronic anticoagulation 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 GERD (gastroesophageal reflux disease) Odynophagia COVID-19 Atrial fibrillation, currently in sinus rhythm Immunization counseling Smoker unmotivated to quit Encounter for long-term (current) use of NSAIDs Encounter for long-term opiate analgesic use High risk medication use Opioid contract exists Degenerative joint disease (DJD) of lumbar spine Cervical disc disease HTN (hypertension) Hypercholesterolemia Osteoarthritis of both knees Age related osteoporosis Surgical History History of colonoscopy History of esophagogastroduodenoscopy (EGD) History of back surgery H/O: hysterectomy Family History Sister Cancer breast Diabetes Stroke Brother Cancer lung Diabetes Stroke CAD (coronary artery disease) Brother has AICD Mother Diabetes Father Heart disease Heart attack CAD (coronary artery disease) Father at age 51 secondary to heart attack Social History Smoking and tobacco/nicotine status: former use of tobacco/nicotine Quit status (tobacco/nicotine): has tried quititng Second hand smoke exposure: No Alcohol intake: never Substance/Drug Use: former Date of last use: 2014 Marital status: Vitals/I&O/Wt Last Vital Signs Temp 98.4 F 02/25/24 11:52 Pulse 142 H 02/25/24 17:58 Resp 15 02/25/24 16:44 BP 114/81 02/25/24 17:58 Pulse Ox 98 02/25/24 17:58 O2 Del Method Room Air 02/25/24 17:58 Weight last 48 hrs Weight 79.379 kg Physical Exam 2 Narrative: General: No acute distress, AOx3, tracheostomy in place HEENT: PERRLA, pupils bilaterally equal and reactive, pallors not present Chest: Normal vesicular breath sounds, no added sounds, equal good air entry bilaterally CVS: S1-S2 irregularly irregular, no murmurs,tachycardia, no gallops, no rubs Abdomen: Soft, nontender, no organomegaly, bowel sounds present Neuro: No focal deficits, no facial deformity, AO x3, power 5/5 in all limbs Data 02/25/24 14:14 02/25/24 14:14 A&P Assessment and plan (1) Atrial fibrillation with RVR: Have not taken her home dose of Cardizem and metoprolol since yesterday. Usually on Cardizem 120 mg twice daily and metoprolol 25 mg oral daily. Went into RVR after getting IV calcium push. Continue with amiodarone at 150 mg IV push followed by the drip as per protocol. Will give a trial of 500 cc of IV fluid bolus followed by 10 mg of IV Cardizem. Restart home dose of metoprolol and Cardizem at 30 mg every 6 hourly. Slightly dehydrated. Plan for NS at 75 cc/h. Continue with home dose of Eliquis. Check TSH, echocardiogram. (2) Encounter for nasogastric (NG) tube placement: In place for enteral feeding. To be replaced back in the ER. (3) Hypocalcemia: Down to 5.9. Albumin normal Received 2 g of IV calcium gluconate in ER. Repeat calcium level in AM. Appreciate normal magnesium, potassium level. Check PTH, vitamin D, TSH levels. 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 Follows up with oncology as an outpatient. Plan for speech evaluation in a.m. Patient was due for a speech evaluation as an outpatient on 02/25. Will go ahead and do the speech evaluation while inpatient. (5) HTN (hypertension): Goal blood pressure less than 140/90 mmHg with mean over 65. Continue with home dose of Cardizem and metoprolol for now. Readjust as per goal blood pressures. Qualifiers: Hypertension type: essential hypertension Qualified Code(s): I10 - Essential (primary) hypertension Plan LORENA: Baseline creatinine normal. Currently 1.2. Most likely in setting of dehydration. Fluid as above. Monitor BMP daily. Continue other chronic home medications including levothyroxine, bupropion. Full code Restart tube feeds Protonix for PUD prophylaxis Eliquis was sufficient for DVT prophylaxis Attestations 2 Medical Necessity Statement*: Admission for more than 2 midnights for management of A-fib with RVR, hypocalcemia and the patient with cancer of supraglottis, NG-tube replacement Diagnoses Atrial fibrillation with RVR I48.91 Encounter for nasogastric (NG) tube placement Z46.59 Hypocalcemia E83.51 Squamous cell carcinoma of epiglottis C32.1 Essential hypertension I10 Hypertension type: essential hypertension
--- NOTE | 2024-02-25 18:13 | USCV_ITS ---
Rosario Villalba Age: 63 Gender: F : 1960 Exam Date: 02/25/2024 22:03 Ordering Phys: Jennifer Colon MD Technologist: SHERRY [place] [facility] [place]: afib with rvr BP: 130 / 92 HR: 77 Rhythm: Sinus Technical Quality: Adequate MEASUREMENTS (Male / Female) Normal Values 2D ECHO LV Diastolic Diameter PLAX 3.1 cm 4.2 - 5.9 / 3.9 - 5.3 cm IVS Diastolic Thickness 1.4 cm 0.6 - 1.0 / 0.6 - 0.9 cm IVS Systolic Thickness 1.9 cm LVPW Diastolic Thickness 1.2 cm 0.6 - 1.0 / 0.6 - 0.9 cm LVPW Systolic Thickness 1.6 cm LVOT Diameter 1.7 cm LV Ejection Fraction 2D Teich 65.0 % LV Ejection Fraction MOD 4C 55.2 % LV Ejection Fraction MOD 2C 47.9 % LV Ejection Fraction 2C AL 49.8 % LA Diameter 3.4 cm Aorta at Sinotubular Diameter 3.1 cm IVC Diameter 0.6 cm M-MODE LA Ao Ratio MM 1.1 AV Cusp Separation MM 1.7 cm DOPPLER AV Peak Velocity 89.0 cm/s LVOT Peak Velocity 80.0 cm/s AV Area Cont Eq vti 2.3 cm squared AV Area Cont Eq pk 2.1 cm squared MV Peak Velocity 122.0 cm/s MV Area PHT 3.6 cm squared Mitral E to A Ratio 0.9 TV Peak Velocity 287.0 cm/s TR Peak Velocity 294.0 cm/s TR Peak Gradient 34.6 mmHg TV Peak E Velocity 58.0 cm/s PV Peak Velocity 90.0 cm/s FINDINGS Left Ventricle Left ventricle is normal in size. LV systolic function is normal with EF of 55 to 60%. No regional wall motion abnormalities are seen. Right Ventricle Normal in size and function Right Atrium Normal in size Left Atrium Normal in size. Mitral Valve Moderate mitral annular calcification. Mild mitral regurgitation. Aortic Valve Structurally normal aortic valve. No significante stenosis or regurgitaiton. Tricuspid Valve Mild tricuspid regurgitation. RVSP is 35 to 40 mmHg. This is consistent with mild pulmonary hypertension Pulmonic Valve Not well visualized Pericardium Normal Aorta Normal in size IVC Appears to be normal CONCLUSIONS LV systolic function is normal with EF of 55 to 60%. Mild mitral regurgitation. Mild tricuspid regurgitation. Mild pulmonary hypertension. Compared to prior echocardiogram from 11/2021, no significant changes are seen. Tye Eden MD (Electronically Signed) Final Date: 26 February 2024 10:34 S
--- NOTE | 2024-02-25 18:26 | PC.NURSE ---
AT APPROX 1630, ANOTHER NURSE CAME INTO A DIFFERENT PATIENTS ROOM THAT I WAS IN AND STATED THAT THIS PATIENT'S HEART RATE WAS 211. UPON ASSESSMENT, PATIENT WAS AFIB WITH RVR. PATIENT HAS HX OF AFIB AND DID NOT TAKE MEDICATIONS TODAY PER PATIENT. EKG PERFORMED AND PROVIDER NOTIFIED OF STATUS CHANGE. PATIENT WAS A&OX4 AT THIS TIME.
[2024-02-25] MEDS: sodium chloride 0.9% 1,000 ML 999 ML IV (18:31)
--- NOTE | 2024-02-25 18:36 | PC.NURSE ---
PATIENTS HEART RATE INCREASING TO 190'S, BP 125/97. CALLED AND SPOKE WITH HOSPITALIST DI, AND HE GAVE VERBAL ORDERS TO CONTINUE AMIODARONE DRIP WITHOUT ANY ADDITIONAL ORDERS.
--- NOTE | 2024-02-25 18:55 | ECG_ITS ---
[facility] Test Date: 2024-02-25 Pat Name: Rosario Villalba Department: Room: ICU11 Gender: Female Powder Mixer: : 1960 Requested By: Felecia Villagran Order Number: [id number] Leora MD: Tye Eden M.D. Measurements Intervals [place] Rate: 102 P: 56 MI: 147 QRS: 25 QRSD: 78 T: 39 QT: 356 QTc: 464 Interpretive Statements SINUS TACHYCARDIA Compared to ECG 02/25/2024 16:40:54 Atrial fibrillation no longer present Intraventricular conduction delay no longer present Electronically Signed On 02-26-2024 15:15:01 HURL SHAKER by Tye Eden M.D. [email or web address]
[2024-02-25 18:59] LABS: Iron 25 ug/dL (37-145); Percent Saturation 9.6 % (20-50); Total Iron Binding Capacity 259 mcg/dl; Unsaturated Iron Binding 234 ug/dL (112-347)
[2024-02-25 19:16] LABS: Vitamin B12 1706 pg/mL (232-1245)
[2024-02-25] MEDS: sodium chloride 0.9% 1,000 ML 75 ML IV (20:42)
[2024-02-25 20:59] LABS: Estmated Average Glucose 120; Hemoglobin A1C 5.8 % (4.0-6.0)
[2024-02-25 21:09] LABS: T3 Free 1.7 PG/ML (2.0-4.4)
--- NOTE | 2024-02-25 22:46 | XRR_ITS ---
PROCEDURE INFORMATION: Exam: XR Chest Exam date and time: 02/25/2024 11:15 PM Age: 63 years old Clinical indication: Device placement; Ng tube; Prior surgery; Surgery date: 6+ months; Surgery type: Tracheotomy, spinal cord stimulator; Additional info: Ng tube placement TECHNIQUE: Imaging protocol: Radiologic exam of the chest. Views: 1 view. COMPARISON: CR XR chest 1V portable [id number] 02/25/2024 1:49 PM FINDINGS: Tubes, catheters and devices: A nasogastric tube is in place with the distal tip overlying the stomach, in radiographically appropriate position. Lungs: No pulmonary consolidation. Pleural spaces: No pleural effusion or pneumothorax. Heart/Mediastinum: Unremarkable. No cardiomegaly. Diaphragm: Mild elevation of the left hemidiaphragm. Bones/joints: No acute osseous abnormalities are seen. XR/XR chest 1V portable [id number] IMPRESSION: Nasogastric tube in radiographically appropriate position.
[2024-02-25] MEDS: HYDROmorphone 1 mg/mL INJ 1 mL 0.5 MG IVP (23:51)
[2024-02-25] MEDS: atorvastatin 40 mg Tablet NG-TUBE (23:51)
[2024-02-25] MEDS: dilTIAZem 30 mg Tablet NG-TUBE (23:51)
[2024-02-26] VITALS (96 sets, daily range): BP systolic 87–169; BP diastolic 54–122; PULSE 63–139; RESP 12–28; TEMP 36.4–37.2; O2SAT 94–100; BMI 30.9
[2024-02-26] MEDS: pantoprazole 40 mg SDV IVP (02:08)
--- NOTE | 2024-02-26 02:34 | PC.NURSE ---
Feeding tube insertion: Patient specifically asked for 8fr dobhoff feeding tube to be inserted as opposed to a standard NG tube, this nurse explained to patient the risk of clogging when administering medications down the feeding tube, patient understood and still requested 8fr tube be inserted. Dr. Jones aware.
[2024-02-26 03:33] LABS: Basophils # 0.1 10^3/uL (0.0-0.1); Basophils % 0.6 %; Eosinophils # 0.1 10^3/uL (0.0-0.8); Eosinophils % 0.9 %; Hematocrit 30.6 % (36-47); Lymphocytes # 0.9 10^3/uL (0.8-4.8); Lymphocytes % 10.3 %; Mean Corpuscular HGB Conc 30.7 g/dL (30-55); Mean Corpuscular Hemoglobin 26.5 pg (27-33); Mean Corpuscular Volume 86.2 fl (85-98); Mean Platelet Volume 10.5 fL (7.4-10.4); Monocytes # 0.9 10^3/uL (0.2-0.9); Monocytes % 10.8 %; Neutrophils # 6.51 10^3/uL (1.8-7.7); Nucleated Red Blood Cells % 0 %; Platelet Count 233 10^3/cmm (157-399); Red Blood Count 3.55 10^6/uL (3.85-5.65); Red Cell Distribution Width 15.1 % (12.1-15.1); White Blood Count 8.45 10^3/uL (3.29-11.43)
[2024-02-26 04:02] LABS: Alanine Aminotransferase 11 U/L (0-33); Albumin Level 3.2 g/dL (3.5-5.2); Alkaline Phosphatase 97 U/L (35-105); Anion Gap 19.6 (5-19); Aspartate Amino Transferase 16 U/L (0-32); Blood Urea Nitrogen 10 mg/dL (8-23); Carbon Dioxide 22 mmol/L (22-29); Chloride 105 mmol/L (98-107); Chol HDL Ratio 3.28 mg/dL (0.0-4.40); Cholesterol 128 mg/dL (0-200); Creatinine Clr Calc Pharmacy 63.4211; Globulin 3.3 g/dL (1.3-4.6); Glomerular Filtration Rate 56.2 mL/min (90-130); Glucose 98 mg/dL (65-115); HDL Cholesterol 39 mg/dL (60-100); LDL Cholesterol Calculated 75 mg/dL (50-129); LDL HDL Ratio 1.92 RATIO (0.00-3.22); Osmolality Calculated 295 mOsm/kg (285-295); Potassium 3.6 mmol/L (3.5-5.1); Sodium 143 mmol/L (136-145); Total Bilirubin 0.3 mg/dL (0.15-1.2); Total Protein 6.5 g/dL (6.6-8.7); Triglycerides 68 mg/dL (0-150)
[2024-02-26 04:05] LABS: Calcium 5.7 mg/dL (8.5-10.5)
[2024-02-26 04:14] LABS: Folate Level 18.1 ng/mL (4.8-37.3)
[2024-02-26] MEDS: calcium gluconate 0.9% NaCL 1 GM/50 ML PREMIX IV (05:02)
[2024-02-26] MEDS: dilTIAZem 30 mg Tablet NG-TUBE ×3 (05:44→17:26)
[2024-02-26] MEDS: apixaban 5 mg Tablet NG-TUBE ×2 (10:15→17:26)
[2024-02-26] MEDS: levothyroxine 112 mcg Tablet NG-TUBE (10:15)
[2024-02-26] MEDS: metoprolol tartrate 25 mg Tablet NG-TUBE ×2 (10:15→20:08)
--- NOTE | 2024-02-26 10:45 | FL_ITS ---
WS: [id number] Modified barium swallow, Clinical Data: Other dysphagia Comparison: None. Fluoroscopy time: 2min [id number] # of spot films: 1 Findings: There is a small feeding tube leading from the nasal cavity through the hypopharynx. There are multip le clips from a laryngectomy. The patient swallowed the material and there is difficulty in anterior posterior propulsion and worsened with increasing food consistency. No fistula was seen. The barium t ablet did not move beyond the mid hypopharynx even with multiple turning maneuvers and additional sw allows. FL/FL barium swallow modifd [id number] Impression: 1. Difficulty in anterior posterior propulsion of food material. 2. Barium tablet stayed in the mid hypopharynx and would not descend despite mu ltiple maneuvers.
[2024-02-26 11:43] LABS: Alanine Aminotransferase 10 U/L (0-33); Albumin Level 3.3 g/dL (3.5-5.2); Alkaline Phosphatase 113 U/L (35-105); Anion Gap 19.6 (5-19); Aspartate Amino Transferase 32 U/L (0-32); Blood Urea Nitrogen 8 mg/dL (8-23); Carbon Dioxide 21 mmol/L (22-29); Chloride 105 mmol/L (98-107); Creatinine Clr Calc Pharmacy 64.7265; Globulin 3.2 g/dL (1.3-4.6); Glomerular Filtration Rate 56.2 mL/min (90-130); Glucose 104 mg/dL (65-115); Osmolality Calculated 293 mOsm/kg (285-295); Potassium 3.6 mmol/L (3.5-5.1); Sodium 142 mmol/L (136-145); Total Bilirubin 0.3 mg/dL (0.15-1.2); Total Protein 6.5 g/dL (6.6-8.7)
[2024-02-26 12:02] LABS: Calcium 5.4 mg/dL (8.5-10.5)
--- NOTE | 2024-02-26 14:35 | P.PN_ITS ---
Subjective 2 Subjective: Patient on amiodarone drip at this time. 0.5/h. Has been in sinus rhythm. Plan for modified barium swallow later this afternoon. Vitals/I&O/Wt Last Vital Signs Temp 98.9 F 02/26/24 14:00 Pulse 73 02/26/24 14:00 Resp 12 02/26/24 13:15 BP 162/87 02/26/24 13:15 Pulse Ox 98 02/26/24 13:15 O2 Del Method Room Air 02/26/24 06:00 02/25/24 02/26/24 02/26/24 22:59 06:59 14:59 Intake Total 1700 / 1700 285.000 / 2014.017 2338.46 / 1114.46 Balance 1700 / 1700 285.000 / 6290.932 4243.46 / 1114.46 Weight last 48 hrs Weight 86.778 kg Weight 83.234 kg Weight 79.379 kg Physical Exam 2 Narrative: General: No acute distress, AOx3, tracheostomy in place HEENT: PERRLA, pupils bilaterally equal and reactive, pallors not present Chest: Normal vesicular breath sounds, no added sounds, equal good air entry bilaterally CVS: S1-S2 irregularly irregular, no murmurs,tachycardia, no gallops, no rubs Abdomen: Soft, nontender, no organomegaly, bowel sounds present Neuro: No focal deficits, no facial deformity, AO x3, Data 02/26/24 03:15 02/26/24 11:00 A&P Assessment and plan (1) Atrial fibrillation with RVR: Have not taken her home dose of Cardizem and metoprolol since yesterday. Usually on Cardizem 120 mg twice daily and metoprolol 25 mg oral daily. Went into RVR after getting IV calcium push. Continue with amiodarone at 150 mg IV push followed by the drip as per protocol. Will give a trial of 500 cc of IV fluid bolus followed by 10 mg of IV Cardizem. Restart home dose of metoprolol and Cardizem at 30 mg every 6 hourly. Slightly dehydrated. Plan for NS at 75 cc/h. Continue with home dose of Eliquis. Check TSH, echocardiogram. (2) Encounter for nasogastric (NG) tube placement: In place for enteral feeding. To be replaced back in the ER. (3) Hypocalcemia: Down to 5.9. Albumin normal Received 2 g of IV calcium gluconate in ER. Repeat calcium level in AM. Appreciate normal magnesium, potassium level. Check PTH, vitamin D, TSH levels. 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 Follows up with oncology as an outpatient. Plan for speech evaluation in a.m. Patient was due for a speech evaluation as an outpatient on 02/25. Will go ahead and do the speech evaluation while inpatient. (5) HTN (hypertension): Goal blood pressure less than 140/90 mmHg with mean over 65. Continue with home dose of Cardizem and metoprolol for now. Readjust as per goal blood pressures. Qualifiers: Hypertension type: essential hypertension Qualified Code(s): I10 - Essential (primary) hypertension Plan LORENA: Baseline creatinine normal. Currently 1.2. Most likely in setting of dehydration. Fluid as above. Monitor BMP daily. Continue other chronic home medications including levothyroxine, bupropion. Full code Restart tube feeds Protonix for PUD prophylaxis Eliquis was sufficient for DVT prophylaxis 02/26/2024 -PTH 7.0, calcium 5.7. ? Plan for modified barium swallow today. ? Will start diet but oral pending speech therapy evaluation ? Vitamin D level is pending. ? TSH 13.04, free T31.7, free T41.0. Attestations 2 Medical Necessity Statement*: Admission for more than 2 midnights for management of A-fib with RVR, hypocalcemia and the patient with cancer of supraglottis, NG-tube replacement Diagnoses Atrial fibrillation with RVR I48.91 Encounter for nasogastric (NG) tube placement Z46.59 Hypocalcemia E83.51 Squamous cell carcinoma of epiglottis C32.1 Essential hypertension I10 Hypertension type: essential hypertension
[2024-02-26] MEDS: calcium carbonate 500 mg Chew Tablet 1000 MG NG-TUBE (17:26)
[2024-02-26] MEDS: calcitriol 0.25 mcg Capsule NG-TUBE (17:26)
[2024-02-26] MEDS: atorvastatin 40 mg Tablet NG-TUBE (20:08)
[2024-02-26] MEDS: HYDROcodone-acetaminophen 10-325 mg Tablet 1 TAB NG-TUBE (21:20)
[2024-02-27] VITALS (44 sets, daily range): BP systolic 117–181; BP diastolic 68–104; PULSE 62–81; RESP 12–27; TEMP 36.4–37; O2SAT 93–99; BMI 29.9
[2024-02-27] MEDS: pantoprazole 40 mg SDV IVP (00:35)
[2024-02-27] MEDS: dilTIAZem 30 mg Tablet NG-TUBE ×4 (00:35→17:32)
[2024-02-27] MEDS: calcitriol 0.25 mcg Capsule NG-TUBE ×2 (05:11→17:32)
[2024-02-27 06:13] LABS: Basophils # 0.1 10^3/uL (0.0-0.1); Basophils % 0.9 %; Eosinophils # 0.1 10^3/uL (0.0-0.8); Eosinophils % 1.9 %; Hematocrit 32.3 % (36-47); Lymphocytes # 0.8 10^3/uL (0.8-4.8); Lymphocytes % 12.1 %; Mean Corpuscular HGB Conc 31.6 g/dL (30-55); Mean Corpuscular Hemoglobin 26.9 pg (27-33); Mean Corpuscular Volume 85.2 fl (85-98); Mean Platelet Volume 10.9 fL (7.4-10.4); Monocytes # 0.8 10^3/uL (0.2-0.9); Monocytes % 11.4 %; Neutrophils # 5.08 10^3/uL (1.8-7.7); Neutrophils % 73.3 %; Nucleated Red Blood Cells % 0 %; Platelet Count 256 10^3/cmm (157-399); Red Blood Count 3.79 10^6/uL (3.85-5.65); Red Cell Distribution Width 15.1 % (12.1-15.1); White Blood Count 6.93 10^3/uL (3.29-11.43)
[2024-02-27 06:34] LABS: Magnesium 1.5 mg/dL (1.7-2.3); Phosphorus 5.9 mg/dL (2.5-4.5)
[2024-02-27 06:37] LABS: Alanine Aminotransferase 12 U/L (0-33); Albumin Level 3.2 g/dL (3.5-5.2); Alkaline Phosphatase 97 U/L (35-105); Anion Gap 17.4 (5-19); Aspartate Amino Transferase 19 U/L (0-32); Blood Urea Nitrogen 7 mg/dL (8-23); Carbon Dioxide 23 mmol/L (22-29); Chloride 104 mmol/L (98-107); Creatinine Clr Calc Pharmacy 70.7928; Glomerular Filtration Rate 63.4 mL/min (90-130); Glucose 77 mg/dL (65-115); Osmolality Calculated 289 mOsm/kg (285-295); Potassium 3.4 mmol/L (3.5-5.1); Sodium 141 mmol/L (136-145); Total Bilirubin 0.4 mg/dL (0.15-1.2); Total Protein 6.2 g/dL (6.6-8.7)
[2024-02-27 06:57] LABS: Calcium 5.3 mg/dL (8.5-10.5)
[2024-02-27] MEDS: calcium carbonate 500 mg Chew Tablet 1000 MG NG-TUBE ×3 (09:17→21:29)
[2024-02-27] MEDS: levothyroxine 112 mcg Tablet NG-TUBE (09:17)
[2024-02-27] MEDS: apixaban 5 mg Tablet NG-TUBE ×2 (09:18→17:32)
[2024-02-27] MEDS: metoprolol tartrate 25 mg Tablet NG-TUBE ×2 (09:18→21:30)
[2024-02-27 11:44] LABS: Glucose Point of Care 100 mg/dL (70-110)
[2024-02-27] MEDS: calcium gluconate 0.1 gm/mL 10% SDV 10mL 1 GM IVP (12:35)
--- NOTE | 2024-02-27 13:08 | P.PN_ITS ---
Subjective 2 Subjective: seen today calcium 5.4 this am patient's oncologist Dr. Fisher has recommended to maintain NPO status for now. Patient had an esophagram done recently which shows a small leak. At this time she is recommended to keep NG tube in and maintain strict n.p.o. status for that to heal. Discussed with patient's oncology nurse at [place]. She will place in a referral for endocrinology as well. I have left a voicemail for Dr. Fisher to call me back. Vitals/I&O/Wt Last Vital Signs Temp 97.5 F L 02/27/24 12:00 Pulse 73 02/27/24 12:00 Resp 17 02/27/24 12:00 BP 151/98 02/27/24 12:00 Pulse Ox 99 02/27/24 12:00 O2 Del Method Room Air 02/27/24 12:00 02/26/24 02/27/24 02/27/24 22:59 06:59 14:59 Intake Total 80 / 1194.46 100 / 100 Balance 80 / 1194.46 100 / 100 Weight last 48 hrs Weight 84.028 kg Weight 86.778 kg Weight 83.234 kg Physical Exam 2 Narrative: General: No acute distress, AOx3, tracheostomy in place HEENT: PERRLA, pupils bilaterally equal and reactive, pallors not present, NG tube in place. Chest: Normal vesicular breath sounds, no added sounds, equal good air entry bilaterally CVS: S1-S2 irregularly irregular, no murmurs,tachycardia, no gallops, no rubs Abdomen: Soft, nontender, no organomegaly, bowel sounds present Neuro: No focal deficits, no facial deformity, AO x3, Data 02/27/24 05:25 02/27/24 05:25 A&P Assessment and plan (1) Atrial fibrillation with RVR: Have not taken her home dose of Cardizem and metoprolol since yesterday. Usually on Cardizem 120 mg twice daily and metoprolol 25 mg oral daily. Went into RVR after getting IV calcium push. Continue with amiodarone at 150 mg IV push followed by the drip as per protocol. Will give a trial of 500 cc of IV fluid bolus followed by 10 mg of IV Cardizem. Restart home dose of metoprolol and Cardizem at 30 mg every 6 hourly. Slightly dehydrated. Plan for NS at 75 cc/h. Continue with home dose of Eliquis. Check TSH, echocardiogram. (2) Encounter for nasogastric (NG) tube placement: In place for enteral feeding. To be replaced back in the ER. (3) Hypocalcemia: Down to 5.9. Albumin normal Received 2 g of IV calcium gluconate in ER. Repeat calcium level in AM. Appreciate normal magnesium, potassium level. Check PTH, vitamin D, TSH levels. 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 Follows up with oncology as an outpatient. Plan for speech evaluation in a.m. Patient was due for a speech evaluation as an outpatient on 02/25. Will go ahead and do the speech evaluation while inpatient. (5) HTN (hypertension): Goal blood pressure less than 140/90 mmHg with mean over 65. Continue with home dose of Cardizem and metoprolol for now. Readjust as per goal blood pressures. 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 Currently 1.2. Most likely in setting of dehydration. Fluid as above. Monitor BMP daily. Continue other chronic home medications including levothyroxine, bupropion. Full code Restart tube feeds Protonix for PUD prophylaxis Eliquis was sufficient for DVT prophylaxis 02/26/2024 -PTH 7.0, calcium 5.7. ? Plan for modified barium swallow today. ? Will start diet but oral pending speech therapy evaluation ? Vitamin D level is pending. ? TSH 13.04, free T31.7, free T41.0 02/27/2024 -Discussed patient's care with [facility] oncology department. Patient had a total laryngectomy recently and has a small leak in esophagus which was evident on esophagram that she had done recently at [place]. She has been recommended to stay strictly n.p.o to allow for healing. Continue to use NG tube for feeding and medication administration at this time. ? She does have evidence of hypoparathyroidism secondary to surgical removal of thyroid and parathyroid glands. Patient's labs are consistent with that. Calcium 5.3, phosphorus 5.9, PTH 7.0. ? We will start her on calcitriol 0.25 mcg twice daily and calcium carbonate 1000 3 times daily daily. Today I will give one-time dose of 1 g calcium gluconate. ? Endocrine referral has been placed at [facility]. Her oncologist will be referring to endocrine for further management. ? I have called her oncologist and waiting for a call back at this time to discuss care. ? Continue levothyroxine 112 daily. 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 Free T41.0 And normal. ? Once calcium starts to improve we will consider discharge patient home with repeat labs to be done as an outpatient and to follow-up with endocrinology, otolaryngology in the outpatient setting. ? Hypokalemia. Replete potassium today. ? A-fib with RVR: Patient has remained in sinus rhythm. Continue Cardizem and Lopressor. Cannot switch to long-acting at discharge since patient is administering meds through her NG at this time. Long-acting medications cannot be crushed up. ? Transfer to floor. ? Check CMP at 6 PM Attestations 2 Medical Necessity Statement*: Once calcium levels start to trend upwards we will consider discharge home to follow-up as an outpatient. 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
--- NOTE | 2024-02-27 18:21 | PC.NURSE ---
Shift summary: Pt rested in bed throughout shift with trips to the bathroom. Pt very steady on her feet, no issues. She is strcit NPO, per her [facility] [address] Dr her esophagus still has a hole. Medications that can be crushed and put through the Dobhoff feeding tube have been admin.. PT has tolerated well. No complaints of pain. She did have one huge coughing spell, thick tenacious mucous was plugging her trach, Suction provided. SHe has went to the restroom 5 times this shift.
[2024-02-27] MEDS: atorvastatin 40 mg Tablet NG-TUBE (21:29)
[2024-02-27] MEDS: HYDROcodone-acetaminophen 10-325 mg Tablet 1 TAB NG-TUBE (21:30)
[2024-02-28] VITALS (20 sets, daily range): BP systolic 107–149; BP diastolic 60–85; PULSE 60–123; RESP 7–22; TEMP 36.6–36.8; O2SAT 92–99; BMI 29.7
[2024-02-28] MEDS: pantoprazole 40 mg SDV IVP (00:33)
[2024-02-28] MEDS: dilTIAZem 30 mg Tablet NG-TUBE ×4 (00:33→18:09)
--- NOTE | 2024-02-28 04:02 | ECG_ITS ---
[facility]24[facility]28 Pat Name: Rosario Villalab Department: Room: ICU11 Gender: Female Museum Technician: : 1960 Requested By: Slick Cassidy Order Number: [id number] Corey MD: Wilbert Tam M.D. Measurements Intervals [place] Rate: 129 P: 0 [place]: 0 QRS: 64 QRSD: 85 T: 48 QT: 367 QTc: 539 Interpretive Statements ATRIAL FIBRILLATION WITH RAPID VENTRICULAR RESPONSE ABNORMAL RHYTHM ECG Compared to ECG 02/25/2024 18:55:27 Sinus tachycardia no longer present Electronically Signed On 02-28-2024 23:54:58 PROGRAM REP by Wilbert Tam M.D. [id number]
[2024-02-28 04:50] LABS: Magnesium 1.5 mg/dL (1.7-2.3); Phosphorus 6.3 mg/dL (2.5-4.5)
[2024-02-28] MEDS: calcitriol 0.25 mcg Capsule NG-TUBE ×2 (05:35→18:09)
[2024-02-28 05:47] LABS: Alanine Aminotransferase 12 U/L (0-33); Albumin Level 3.3 g/dL (3.5-5.2); Alkaline Phosphatase 109 U/L (35-105); Anion Gap 22.5 (5-19); Aspartate Amino Transferase 21 U/L (0-32); Blood Urea Nitrogen 7 mg/dL (8-23); Carbon Dioxide 21 mmol/L (22-29); Chloride 101 mmol/L (98-107); Creatinine Clr Calc Pharmacy 70.5841; Globulin 3.6 g/dL (1.3-4.6); Glomerular Filtration Rate 63.4 mL/min (90-130); Glucose 73 mg/dL (65-115); Osmolality Calculated 289 mOsm/kg (285-295); Potassium 3.5 mmol/L (3.5-5.1); Sodium 141 mmol/L (136-145); Total Bilirubin 0.5 mg/dL (0.15-1.2); Total Protein 6.9 g/dL (6.6-8.7)
[2024-02-28 06:30] LABS: Calcium 5.7 mg/dL (8.5-10.5)
--- NOTE | 2024-02-28 08:08 | CT_ITS ---
WS: [id number] CT CHEST TECHNIQUE: Noncontrast CT of the chest with coronal and sagittal reformatted images. CLINICAL INFORMATION: esophagram, drink oral water soluble contrast prior to study COMPARISON: None. DLP: 473.[address] scans at [facility] use at least one of these dose optimization techniques: automated e xposure control; mA and/or kV adjustment per patient size (includes targeted exams where dose is matc hed to clinical indication); or iterative reconstruction. FINDINGS: History of prior laryngectomy. Patient ingested water-soluble contrast while on the table for CT scanning. Contrast is visualized in the thoracic esophagus. No evidence of esophageal leak. No evidence of fistula to the trachea. Tracheostomy. Contrast extends to the GE junction without evidence of obstruction. Enteric tube extends into the stomach. Lungs are well aerated. No mediastinal or hilar lymphadenopathy. Thoracic spinal stimulator. Mild tho racic kyphosis. No other suspicious findings. CT/CT chest wo con [id number] IMPRESSION: No evidence of esophageal leak or fistulous communication to the trachea
[2024-02-28] MEDS: apixaban 5 mg Tablet NG-TUBE ×2 (10:16→18:09)
[2024-02-28] MEDS: calcium carbonate 500 mg Chew Tablet 1000 MG NG-TUBE ×3 (10:16→21:20)
[2024-02-28] MEDS: levothyroxine 112 mcg Tablet NG-TUBE (10:17)
[2024-02-28] MEDS: metoprolol tartrate 25 mg Tablet NG-TUBE ×2 (10:17→21:19)
[2024-02-28] MEDS: HYDROcodone-acetaminophen 10-325 mg Tablet 1 TAB NG-TUBE ×2 (12:26→21:19)
--- NOTE | 2024-02-28 13:50 | PC.NUTR ---
If Enteral feeding medically appropriate, recommend Jevity 1.5 to begin @10mls/hr, increasing 15mls Q4-8 hours as tolerated until goal rate of 40mls/hr is reached with FWF of 80mls Q4H or per MD discretion.
--- NOTE | 2024-02-28 14:12 | PM.PN ---
Subjective Subjective: Seen this morning. Calcium 5.7 today. Slowly improving. Discussed her care with Dr. Fisher her oncologist last night. He recommends CT esophagram today. If esophageal leak no longer present we may able to start oral diet and potentially remove NG. Patient to go for CT esophagram today. Vitals/I&O/Wt Last Vital Signs Temp 98.0 F 02/28/24 04:00 Pulse 69 02/28/24 06:00 Resp 14 02/28/24 06:00 BP 143/85 02/28/24 06:00 Pulse Ox 98 02/28/24 06:00 O2 Del Method Room Air 02/28/24 06:00 02/27/24 02/28/24 02/28/24 22:59 06:59 14:59 Intake Total 115 / 215 40 / 255 Balance 115 / 215 40 / 255 Weight last 48 hrs Weight 83.518 kg Weight 84.028 kg Physical Exam Narrative: General: No acute distress, AOx3, tracheostomy in place HEENT: PERRLA, pupils bilaterally equal and reactive, pallors not present, NG tube in place. Chest: Normal vesicular breath sounds, no added sounds, equal good air entry bilaterally CVS: S1-S2 irregularly irregular, no murmurs,tachycardia, no gallops, no rubs Abdomen: Soft, nontender, no organomegaly, bowel sounds present Neuro: No focal deficits, no facial deformity, AO x3, Data 02/27/24 05:25 02/28/24 04:16 A&P Assessment and plan (1) Atrial fibrillation with RVR: Have not taken her home dose of Cardizem and metoprolol since yesterday. Usually on Cardizem 120 mg twice daily and metoprolol 25 mg oral daily. Went into RVR after getting IV calcium push. Continue with amiodarone at 150 mg IV push followed by the drip as per protocol. Will give a trial of 500 cc of IV fluid bolus followed by 10 mg of IV Cardizem. Restart home dose of metoprolol and Cardizem at 30 mg every 6 hourly. Slightly dehydrated. Plan for NS at 75 cc/h. Continue with home dose of Eliquis. Check TSH, echocardiogram. (2) Encounter for nasogastric (NG) tube placement: In place for enteral feeding. To be replaced back in the ER. (3) Hypocalcemia: Down to 5.9. Albumin normal Received 2 g of IV calcium gluconate in ER. Repeat calcium level in AM. Appreciate normal magnesium, potassium level. Check PTH, vitamin D, TSH levels. 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 Follows up with oncology as an outpatient. Plan for speech evaluation in a.m. Patient was due for a speech evaluation as an outpatient on 02/25. Will go ahead and do the speech evaluation while inpatient. (5) HTN (hypertension): Goal blood pressure less than 140/90 mmHg with mean over 65. Continue with home dose of Cardizem and metoprolol for now. Readjust as per goal blood pressures. 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 Currently 1.2. Most likely in setting of dehydration. Fluid as above. Monitor BMP daily. Continue other chronic home medications including levothyroxine, bupropion. Full code Restart tube feeds Protonix for PUD prophylaxis Eliquis was sufficient for DVT prophylaxis 02/26/2024 -PTH 7.0, calcium 5.7. ? Plan for modified barium swallow today. ? Will start diet but oral pending speech therapy evaluation ? Vitamin D level is pending. ? TSH 13.04, free T31.7, free T41.0 02/27/2024 -Discussed patient's care with [facility] oncology department. Patient had a total laryngectomy recently and has a small leak in esophagus which was evident on esophagram that she had done recently at [place]. She has been recommended to stay strictly n.p.o to allow for healing. Continue to use NG tube for feeding and medication administration at this time. ? She does have evidence of hypoparathyroidism secondary to surgical removal of thyroid and parathyroid glands. Patient's labs are consistent with that. Calcium 5.3, phosphorus 5.9, PTH 7.0. ? We will start her on calcitriol 0.25 mcg twice daily and calcium carbonate 1000 3 times daily daily. Today I will give one-time dose of 1 g calcium gluconate. ? Endocrine referral has been placed at [facility]. Her oncologist will be referring to endocrine for further management. ? I have called her oncologist and waiting for a call back at this time to discuss care. ? Continue levothyroxine 112 daily. Further dose adjustments to be made by her elastic tape inserter. Free T41.0 And normal. ? Once calcium starts to improve we will consider discharge patient home with repeat labs to be done as an outpatient and to follow-up with endocrinology, otolaryngology in the outpatient setting. ? Hypokalemia. Replete potassium today. ? A-fib with RVR: Patient has remained in sinus rhythm. Continue Cardizem and Lopressor. Cannot switch to long-acting at discharge since patient is administering meds through her NG at this time. Long-acting medications cannot be crushed up. ? Transfer to floor. ? Check CMP at 6 PM 02/28/2024 -CT esophagram today. If no leak present, plan to start oral diet. ? Discussed with speech therapy. Plan for evaluation today after CT esophagram results ? Continue calcitriol, calcium carbonate, Lopressor, levothyroxine daily. ? Will transfer to floor ? Continue to monitor CMP twice daily. Attestations Medical Necessity Statement*: Once calcium levels start to trend upwards we will consider discharge home to follow-up as an outpatient. 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
[2024-02-28] MEDS: atorvastatin 40 mg Tablet NG-TUBE (21:20)
[2024-02-29] VITALS (8 sets, daily range): BP systolic 115–151; BP diastolic 71–90; PULSE 62–76; RESP 14–18; TEMP 36.7–37; O2SAT 92–98; BMI 29.5
[2024-02-29] MEDS: pantoprazole 40 mg SDV IVP (01:16)
[2024-02-29] MEDS: dilTIAZem 30 mg Tablet NG-TUBE ×4 (01:16→17:33)
[2024-02-29 05:13] LABS: Basophils # 0.1 10^3/uL (0.0-0.1); Basophils % 0.5 %; Eosinophils # 0.1 10^3/uL (0.0-0.8); Eosinophils % 0.8 %; Hematocrit 31.9 % (36-47); Lymphocytes # 0.8 10^3/uL (0.8-4.8); Lymphocytes % 7.8 %; Mean Corpuscular HGB Conc 31.7 g/dL (30-55); Mean Corpuscular Hemoglobin 26.5 pg (27-33); Mean Corpuscular Volume 83.7 fl (85-98); Monocytes # 0.8 10^3/uL (0.2-0.9); Monocytes % 7.9 %; Neutrophils # 8.28 10^3/uL (1.8-7.7); Neutrophils % 82.6 %; Nucleated Red Blood Cells % 0 %; Platelet Count 262 10^3/cmm (157-399); Red Blood Count 3.81 10^6/uL (3.85-5.65); Red Cell Distribution Width 14.7 % (12.1-15.1); White Blood Count 10.02 10^3/uL (3.29-11.43)
[2024-02-29 05:27] LABS: Alanine Aminotransferase 11 U/L (0-33); Albumin Level 3.2 g/dL (3.5-5.2); Alkaline Phosphatase 108 U/L (35-105); Anion Gap 20.4 (5-19); Aspartate Amino Transferase 20 U/L (0-32); Blood Urea Nitrogen 11 mg/dL (8-23); Carbon Dioxide 24 mmol/L (22-29); Chloride 98 mmol/L (98-107); Creatinine Clr Calc Pharmacy 63.3876; Globulin 3.5 g/dL (1.3-4.6); Glomerular Filtration Rate 56.2 mL/min (90-130); Glucose 115 mg/dL (65-115); Magnesium 1.5 mg/dL (1.7-2.3); Osmolality Calculated 288 mOsm/kg (285-295); Potassium 3.4 mmol/L (3.5-5.1); Sodium 139 mmol/L (136-145); Total Bilirubin 0.5 mg/dL (0.15-1.2); Total Protein 6.7 g/dL (6.6-8.7)
[2024-02-29 05:41] LABS: Calcium 5.6 mg/dL (8.5-10.5)
[2024-02-29] MEDS: buPROPion XL (24 HR) 150 mg Tablet PO (05:50)
[2024-02-29] MEDS: calcitriol 0.25 mcg Capsule NG-TUBE ×2 (05:50→15:53)
[2024-02-29] MEDS: calcium gluconate 0.1 gm/mL 10% SDV 10mL 1 GM IVP (06:29)
[2024-02-29] MEDS: potassium chloride oral liq 20 mEq/15 mL UDC 40 MEQ PO ×2 (08:44→11:21)
[2024-02-29] MEDS: metoprolol tartrate 25 mg Tablet NG-TUBE ×2 (08:44→20:51)
[2024-02-29] MEDS: apixaban 5 mg Tablet NG-TUBE ×2 (08:44→17:33)
[2024-02-29] MEDS: calcium carbonate 500 mg Chew Tablet 1000 MG NG-TUBE ×3 (08:44→20:51)
[2024-02-29] MEDS: levothyroxine 112 mcg Tablet NG-TUBE (08:44)
[2024-02-29] MEDS: magnesium sulfate premix 2 GM/50 ML PIGGYBACK IV (08:45)
--- NOTE | 2024-02-29 09:20 | PC.SOCIAL ---
IMM Updated Updated pt on IMM. No questions voiced. Provided pt a copy. Initialed, dated, & timed copy in chart.
--- NOTE | 2024-02-29 09:31 | ECG_ITS ---
[facility]24[facility]29 Pat Name: Rosario Villalba Department: Room: 262 Gender: Female Inspector Fibrous Wallboard: : 1960 Requested By: Cheri Tyler Order Number: [id number] Leora MD: Wilbert Tam M.D. Measurements Intervals [place] Rate: 145 P: 0 [place]: 0 QRS: 1 QRSD: 153 T: 1 QT: 311 QTc: 483 Interpretive Statements ATRIAL FLUTTER/TACHYCARDIA WITH RAPID VENTRICULAR RESPONSE INTRAVENTRICULAR CONDUCTION DELAY [130+ ms QRS DURATION] Compared to ECG 02/28/2024 04:02:31 Intraventricular conduction delay now present Atrial fibrillation no longer present Electronically Signed On 02-29-2024 19:44:21 SHIP ENGINEER by Wilbert Tam M.D. [id number]
[2024-02-29] MEDS: amiodarone 150 MG/100 ML PREMIX 400 MG IV (09:59)
--- NOTE | 2024-02-29 10:25 | P.PN_ITS ---
Subjective 2 Subjective: Seen this morning. Patient vomiting when seen at bedside. She was started on a pur?ed diet yesterday. She states she gets very nauseous when she tries to eat. She also experienced an episode of A-fib with RVR today after she vomited. Heart rates in the 170s. Blood pressure 100/74. CT esophagram did not show a leak. ? Discussed with patient that if she cannot tolerate oral at this time we will continue tube feeds. Patient denies chest pain however did experience transient diaphoresis which improved within a few minutes. Magnesium, potassium low this morning. Will replete. Amiodarone bolus ordered. Vitals/I&O/Wt Last Vital Signs Temp 98.0 F 02/29/24 04:00 Pulse 65 02/29/24 05:38 Resp 17 02/29/24 04:00 BP 119/77 02/29/24 04:00 Pulse Ox 94 02/29/24 00:00 O2 Del Method Room Air 02/29/24 04:00 02/28/24 02/29/24 02/29/24 22:59 06:59 14:59 Intake Total 885 / 1035 60 / 1095 142.5 / 142.5 Balance 885 / 1035 60 / 1095 142.5 / 142.5 Weight last 48 hrs Weight 83.189 kg Weight 83.143 kg Weight 83.143 kg Weight 83.518 kg Physical Exam 2 Narrative: General: Patient vomiting at this time and appears distressed. AOx3, tracheostomy in place HEENT: PERRLA, pupils bilaterally equal and reactive, pallors not present, NG tube in place. Chest: Normal vesicular breath sounds, no added sounds, equal good air entry bilaterally CVS: S1-S2 irregularly irregular, tachycardic mildly diaphoretic. EKG shows atrial flutter. Abdomen: Soft, nontender, no organomegaly, bowel sounds present Neuro: No focal deficits, no facial deformity, AO x3, Data 02/29/24 04:16 02/29/24 04:16 A&P Assessment and plan (1) Atrial fibrillation with RVR: Have not taken her home dose of Cardizem and metoprolol since yesterday. Usually on Cardizem 120 mg twice daily and metoprolol 25 mg oral daily. Went into RVR after getting IV calcium push. Continue with amiodarone at 150 mg IV push followed by the drip as per protocol. Will give a trial of 500 cc of IV fluid bolus followed by 10 mg of IV Cardizem. Restart home dose of metoprolol and Cardizem at 30 mg every 6 hourly. Slightly dehydrated. Plan for NS at 75 cc/h. Continue with home dose of Eliquis. Check TSH, echocardiogram. (2) Encounter for nasogastric (NG) tube placement: In place for enteral feeding. To be replaced back in the ER. (3) Hypocalcemia: Down to 5.9. Albumin normal Received 2 g of IV calcium gluconate in ER. Repeat calcium level in AM. Appreciate normal magnesium, potassium level. Check PTH, vitamin D, TSH levels. 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 Follows up with oncology as an outpatient. Plan for speech evaluation in a.m. Patient was due for a speech evaluation as an outpatient on 02/25. Will go ahead and do the speech evaluation while inpatient. (5) HTN (hypertension): Goal blood pressure less than 140/90 mmHg with mean over 65. Continue with home dose of Cardizem and metoprolol for now. Readjust as per goal blood pressures. 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 Currently 1.2. Most likely in setting of dehydration. Fluid as above. Monitor BMP daily. Continue other chronic home medications including levothyroxine, bupropion. Full code Restart tube feeds Protonix for PUD prophylaxis Eliquis was sufficient for DVT prophylaxis 02/26/2024 -PTH 7.0, calcium 5.7. ? Plan for modified barium swallow today. ? Will start diet but oral pending speech therapy evaluation ? Vitamin D level is pending. ? TSH 13.04, free T31.7, free T41.0 02/27/2024 -Discussed patient's care with [facility] oncology department. Patient had a total laryngectomy recently and has a small leak in esophagus which was evident on esophagram that she had done recently at [place]. She has been recommended to stay strictly n.p.o to allow for healing. Continue to use NG tube for feeding and medication administration at this time. ? She does have evidence of hypoparathyroidism secondary to surgical removal of thyroid and parathyroid glands. Patient's labs are consistent with that. Calcium 5.3, phosphorus 5.9, PTH 7.0. ? We will start her on calcitriol 0.25 mcg twice daily and calcium carbonate 1000 3 times daily daily. Today I will give one-time dose of 1 g calcium gluconate. ? Endocrine referral has been placed at [facility]. Her oncologist will be referring to endocrine for further management. ? I have called her oncologist and waiting for a call back at this time to discuss care. ? Continue levothyroxine 112 daily. Further dose adjustments to be made by her control systems engineer. Free T41.0 And normal. ? Once calcium starts to improve we will consider discharge patient home with repeat labs to be done as an outpatient and to follow-up with endocrinology, otolaryngology in the outpatient setting. ? Hypokalemia. Replete potassium today. ? A-fib with RVR: Patient has remained in sinus rhythm. Continue Cardizem and Lopressor. Cannot switch to long-acting at discharge since patient is administering meds through her NG at this time. Long-acting medications cannot be crushed up. ? Transfer to floor. ? Check CMP at 6 PM 02/28/2024 -CT esophagram today. If no leak present, plan to start oral diet. ? Discussed with speech therapy. Plan for evaluation today after CT esophagram results ? Continue calcitriol, calcium carbonate, Lopressor, levothyroxine daily. ? Will transfer to floor ? Continue to monitor CMP twice daily. 02/29/2024 -No leak on CT esophagram. ? Secondary to nausea and mild coughing episode with eating I have discussed with patient to maintain n.p.o. status and continue on tube feeds at this time. I recommended her to get evaluated at a later time with her oncologist after discharge. ? Continue calcitriol, calcium carbonate. Patient has refused her tube feeds overnight. ? She is also refused her calcium carbonate. Counseled her on the importance of it. Calcium 5.6 this morning. It is slowly improving. ? Amiodarone bolus ordered, Amio drip ordered. ? Will order normal saline bolus 500 cc x 1 -Will transfer to ICU at this time. ? Order IV magnesium, oral potassium. Keep magnesium above 2, potassium above 4. Attestations 2 Medical Necessity Statement*: Patient had A-fib with RVR requiring amiodarone drip at this time. 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
[2024-02-29 18:31] LABS: Alanine Aminotransferase 12 U/L (0-33); Albumin Level 3.3 g/dL (3.5-5.2); Alkaline Phosphatase 116 U/L (35-105); Anion Gap 18.1 (5-19); Aspartate Amino Transferase 21 U/L (0-32); Blood Urea Nitrogen 9 mg/dL (8-23); Calcium 6.2 mg/dL (8.5-10.5); Carbon Dioxide 21 mmol/L (22-29); Chloride 100 mmol/L (98-107); Creatinine Clr Calc Pharmacy 63.4045; Globulin 4.4 g/dL (1.3-4.6); Glomerular Filtration Rate 56.2 mL/min (90-130); Glucose 130 mg/dL (65-115); Osmolality Calculated 280 mOsm/kg (285-295); Potassium 4.1 mmol/L (3.5-5.1); Sodium 135 mmol/L (136-145); Total Bilirubin 0.4 mg/dL (0.15-1.2); Total Protein 7.7 g/dL (6.6-8.7)
[2024-02-29] MEDS: HYDROcodone-acetaminophen 10-325 mg Tablet 1 TAB NG-TUBE (20:51)
[2024-02-29] MEDS: atorvastatin 40 mg Tablet NG-TUBE (20:51)
[2024-03-01] VITALS (29 sets, daily range): BP systolic 95–145; BP diastolic 55–95; PULSE 63–189; RESP 9–25; TEMP 36.3–38; O2SAT 95–98
[2024-03-01] MEDS: pantoprazole 40 mg SDV IVP (00:46)
[2024-03-01] MEDS: dilTIAZem 30 mg Tablet NG-TUBE ×4 (00:46→18:33)
[2024-03-01 05:16] LABS: Basophils % 0.4 %; Eosinophils # 0.1 10^3/uL (0.0-0.8); Eosinophils % 1.4 %; Hematocrit 34.4 % (36-47); Lymphocytes # 0.7 10^3/uL (0.8-4.8); Lymphocytes % 7.1 %; Mean Corpuscular HGB Conc 31.4 g/dL (30-55); Mean Corpuscular Hemoglobin 26.2 pg (27-33); Mean Corpuscular Volume 83.3 fl (85-98); Mean Platelet Volume 10.2 fL (7.4-10.4); Monocytes # 1.1 10^3/uL (0.2-0.9); Monocytes % 10.3 %; Neutrophils # 8.24 10^3/uL (1.8-7.7); Neutrophils % 80.4 %; Nucleated Red Blood Cells % 0 %; Platelet Count 273 10^3/cmm (157-399); Red Blood Count 4.13 10^6/uL (3.85-5.65); Red Cell Distribution Width 15.2 % (12.1-15.1); White Blood Count 10.25 10^3/uL (3.29-11.43)
[2024-03-01] MEDS: buPROPion XL (24 HR) 150 mg Tablet PO (05:16)
[2024-03-01] MEDS: calcitriol 0.25 mcg Capsule NG-TUBE (05:16)
[2024-03-01 05:32] LABS: Alanine Aminotransferase 9 U/L (0-33); Albumin Level 3.3 g/dL (3.5-5.2); Alkaline Phosphatase 108 U/L (35-105); Anion Gap 16.6 (5-19); Aspartate Amino Transferase 19 U/L (0-32); Blood Urea Nitrogen 7 mg/dL (8-23); Carbon Dioxide 25 mmol/L (22-29); Chloride 99 mmol/L (98-107); Creatinine Clr Calc Pharmacy 64.2399; Globulin 3.8 g/dL (1.3-4.6); Glomerular Filtration Rate 56.2 mL/min (90-130); Glucose 128 mg/dL (65-115); Magnesium 1.7 mg/dL (1.7-2.3); Osmolality Calculated 284 mOsm/kg (285-295); Potassium 3.6 mmol/L (3.5-5.1); Sodium 137 mmol/L (136-145); Total Bilirubin 0.5 mg/dL (0.15-1.2); Total Protein 7.1 g/dL (6.6-8.7)
[2024-03-01 05:37] LABS: Calcium 5.7 mg/dL (8.5-10.5)
[2024-03-01] MEDS: calcium gluconate 0.9% NaCL 1 GM/50 ML PREMIX IV (06:51)
--- NOTE | 2024-03-01 08:00 | PC.NURSE ---
Pt has cellulitis to right AC where previous IV was placed. Green drainage noted. Cellulitis outlined with marker. Notified Dr. Tyler.
[2024-03-01] MEDS: levothyroxine 112 mcg Tablet NG-TUBE (08:55)
[2024-03-01] MEDS: apixaban 5 mg Tablet NG-TUBE ×2 (08:55→18:33)
[2024-03-01] MEDS: metoprolol tartrate 25 mg Tablet NG-TUBE ×2 (08:55→21:31)
[2024-03-01] MEDS: calcium carbonate 500 mg Chew Tablet 1000 MG NG-TUBE ×3 (08:55→21:32)
--- NOTE | 2024-03-01 11:20 | USR_ITS ---
PROCEDURE INFORMATION: Exam: US Right Limited Joint or Other Non-Vascular Extremity Structure Exam date and time: 03/01/2024 3:21 PM Age: 63 years old Clinical indication: Other: Redness swelling; Patient HX: Patient has had iv in the RT upper extremity cephalic vein. Ultrasound to rule out abscess. Area had been draining. Noted by ultrasound is edematous tissue surrounding the cephalic vein. The cephalic vein wall appears thickened, but no thrombus is identified at this time. Blood flow and compression is very hard to achieve in this area due to patient being in pain and the area being hard. Patient is on blood thinner. ; Additional info: Possible abcess, right antecubital TECHNIQUE: Imaging protocol: US right limited joint or other nonvascular extremity structure. Real-time ultrasound with image documentation. Exam focused on the area of clinical interest. COMPARISON: CT chest wo con [id number] 02/28/2024 9:38 AM FINDINGS: Soft tissues: There is subcutaneous edema of the right upper extremity with no organized collections. There is wall thickening with partial occlusion of the right cephalic vein, consistent with thrombophlebitis. US/US soft tissue/extremity [id number] IMPRESSION: 1. No abscess formation. 2. Findings suggestive of thrombophlebitis of the cephalic vein with cellulitis/edema to be correlated clinically.
--- NOTE | 2024-03-01 11:58 | PHA.VACGOAL ---
Vancomycin Goal - Goal Vancomycin Goal:: 10-15 mg/L Vancomycin Indication:: Other - Therapy Current therapy:: Pip/Tazo Day of therpy:: Day []of [] . Actual body weight (kg): 188 lb 6.4 oz - Data Labs: WBC 10.25 10^3/uL (3.29-11.43) 03/01/24 05:00 RBC 4.13 10^6/uL (3.85-5.65) 03/01/24 05:00 Hgb 10.80 g/dL (11.27-16.99) L 03/01/24 05:00 Hct 34.4 % (36-47) L 03/01/24 05:00 MCV 83.3 fl (85-98) L 03/01/24 05:00 MCH 26.2 pg (27-33) L 03/01/24 05:00 MCHC 31.4 g/dL (30-55) 03/01/24 05:00 RDW 15.2 % (12.1-15.1) H 03/01/24 05:00 Sodium 137 mmol/L (136-145) 03/01/24 05:00 Potassium 3.6 mmol/L (3.5-5.1) 03/01/24 05:00 Chloride 99 mmol/L (98-107) 03/01/24 05:00 Carbon Dioxide 25 mmol/L (22-29) 03/01/24 05:00 Anion Gap 16.6 (5-19) 03/01/24 05:00 BUN 7 mg/dL (8-23) L 03/01/24 05:00 Creatinine 1.0 mg/dL (0.5-0.9) H 03/01/24 05:00 GFR Calculation 56.2 mL/min (90-130) L 03/01/24 05:00 Last dialysis session:: N/A Treatment plan:: new consult Regimen:: LOADING DOSE OF 1500 MG PER DOSING PROTOCOL MAINTENANCE DOSE 1000mg Q12H Follow up:: WILL CONTINUE TO MONITOR AND FOLLOW UP DAILY
--- NOTE | 2024-03-01 13:30 | PC.NURSE ---
Pt is awaiting PICC placement at this time. supervisor die casting, Danni, notified multiple times.
[2024-03-01 14:00] LABS: Vit D 1,25 (Oh)2, Total 35 pg/mL (18-72); Vit D2 1,25 (Oh)2 <8 pg/mL; Vit D3 1,25 (Oh)2 35 pg/mL
--- NOTE | 2024-03-01 15:01 | XRR_ITS ---
PROCEDURE INFORMATION: Exam: XR Chest Exam date and time: 03/01/2024 4:56 PM Age: 63 years old Clinical indication: Device placement; Patient HX: Lt picc confirmation; Afib/rvr TECHNIQUE: Imaging protocol: Radiologic exam of the chest. Views: 1 view. COMPARISON: CT chest elana [id number] 02/28/2024 9:38 AM FINDINGS: Tubes, catheters and devices: Surgical clips in the lower neck. Tracheostomy tube is in satisfactory position. Tip of the feeding tube is in the stomach. Spinal cord stimulator is seen. Tip of the left upper extremity PICC is in the superior cavoatrial junction. Lungs: Unremarkable. No consolidation. Pleural spaces: Unremarkable. No pleural effusion. No pneumothorax. Heart/Mediastinum: Unremarkable. No cardiomegaly. Bones/joints: Unremarkable. XR/XR chest 1V portable [id number] IMPRESSION: 1. No acute cardiopulmonary process. 2. Tip of the left upper extremity PICC is at the superior cavoatrial junction.
--- NOTE | 2024-03-01 16:02 | ECG_ITS ---
[facility] Date: 2024-03-01 Pat Name: Rosario Villalba Department: Room: 262 Gender: Female Identification Printing Machine Setter: : 1960 Requested By: Cheri Tyler Order Number: [id number] Leora MD: Tye Eden M.D. Measurements Intervals [place] Rate: 163 P: 0 [place]: 0 QRS: 38 QRSD: 69 T: 29 QT: 280 QTc: 462 Interpretive Statements ATRIAL FIBRILLATION WITH RAPID VENTRICULAR RESPONSE LOW QRS VOLTAGE IN EXTREMITY LEADS [QRS DEFLECTION < 0.5 mV IN LIMB LEADS] MINIMAL ST DEPRESSION [0.025+ mV ST DEPRESSION] Compared to ECG 02/29/2024 09:33:29 Low QRS voltage now present ST (T wave) deviation now present Atrial flutter no longer present Intraventricular conduction delay no longer present Electronically Signed On 03-03-2024 20:19:28 TOE LINING CLOSER by Tye Eden M.D. [id number]
[2024-03-01] MEDS: amiodarone 150 MG/100 ML PREMIX 400 MG IV ×2 (16:06→18:28)
--- NOTE | 2024-03-01 16:16 | P.PN_ITS ---
Subjective 2 Subjective: Seen this morning. No acute events overnight. Patient starting to tolerate oral diet. Does have greenish discharge from right antecubital IV site with swelling present. Soft tissue ultrasound has been ordered. Vanco and Zosyn have been ordered. She has been positive for MRSA before. Vitals/I&O/Wt Last Vital Signs Temp 99.1 F 03/01/24 12:00 Pulse 77 03/01/24 12:00 Resp 14 03/01/24 12:00 BP 105/59 03/01/24 12:00 Pulse Ox 98 03/01/24 12:00 O2 Del Method Room Air 03/01/24 12:00 03/01/24 03/01/24 03/01/24 06:59 14:59 22:59 Intake Total 720 / 982.5 200 / 200 Balance 720 / 982.5 200 / 200 Weight last 48 hrs Weight 85.457 kg Weight 83.189 kg Weight 83.143 kg Weight 83.143 kg Physical Exam 2 Narrative: General: Patient vomiting at this time and appears distressed. AOx3, tracheostomy in place HEENT: PERRLA, pupils bilaterally equal and reactive, pallors not present, NG tube in place. Chest: Normal vesicular breath sounds, no added sounds, equal good air entry bilaterally CVS: S1-S2 irregularly irregular, tachycardic mildly diaphoretic. EKG shows atrial flutter. Abdomen: Soft, nontender, no organomegaly, bowel sounds present Neuro: No focal deficits, no facial deformity, AO x3, Extremities: Right antecubital area does have mild greenish discharge with swelling and redness. Area has been marked with skin marker. Data 03/01/24 05:00 03/01/24 05:00 A&P Assessment and plan (1) Atrial fibrillation with RVR: Have not taken her home dose of Cardizem and metoprolol since yesterday. Usually on Cardizem 120 mg twice daily and metoprolol 25 mg oral daily. Went into RVR after getting IV calcium push. Continue with amiodarone at 150 mg IV push followed by the drip as per protocol. Will give a trial of 500 cc of IV fluid bolus followed by 10 mg of IV Cardizem. Restart home dose of metoprolol and Cardizem at 30 mg every 6 hourly. Slightly dehydrated. Plan for NS at 75 cc/h. Continue with home dose of Eliquis. Check TSH, echocardiogram. (2) Encounter for nasogastric (NG) tube placement: In place for enteral feeding. To be replaced back in the ER. (3) Hypocalcemia: Down to 5.9. Albumin normal Received 2 g of IV calcium gluconate in ER. Repeat calcium level in AM. Appreciate normal magnesium, potassium level. Check PTH, vitamin D, TSH levels. 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 Follows up with oncology as an outpatient. Plan for speech evaluation in a.m. Patient was due for a speech evaluation as an outpatient on 02/25. Will go ahead and do the speech evaluation while inpatient. (5) HTN (hypertension): Goal blood pressure less than 140/90 mmHg with mean over 65. Continue with home dose of Cardizem and metoprolol for now. Readjust as per goal blood pressures. 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 Currently 1.2. Most likely in setting of dehydration. Fluid as above. Monitor BMP daily. Continue other chronic home medications including levothyroxine, bupropion. Full code Restart tube feeds Protonix for PUD prophylaxis Eliquis was sufficient for DVT prophylaxis 02/26/2024 -PTH 7.0, calcium 5.7. ? Plan for modified barium swallow today. ? Will start diet but oral pending speech therapy evaluation ? Vitamin D level is pending. ? TSH 13.04, free T31.7, free T41.0 02/27/2024 -Discussed patient's care with [facility] oncology department. Patient had a total laryngectomy recently and has a small leak in esophagus which was evident on esophagram that she had done recently at [place]. She has been recommended to stay strictly n.p.o to allow for healing. Continue to use NG tube for feeding and medication administration at this time. ? She does have evidence of hypoparathyroidism secondary to surgical removal of thyroid and parathyroid glands. Patient's labs are consistent with that. Calcium 5.3, phosphorus 5.9, PTH 7.0. ? We will start her on calcitriol 0.25 mcg twice daily and calcium carbonate 1000 3 times daily daily. Today I will give one-time dose of 1 g calcium gluconate. ? Endocrine referral has been placed at [facility]. Her oncologist will be referring to endocrine for further management. ? I have called her oncologist and waiting for a call back at this time to discuss care. ? Continue levothyroxine 112 daily. Further dose adjustments to be made by her ingredient scaler helper. Free T41.0 And normal. ? Once calcium starts to improve we will consider discharge patient home with repeat labs to be done as an outpatient and to follow-up with endocrinology, otolaryngology in the outpatient setting. ? Hypokalemia. Replete potassium today. ? A-fib with RVR: Patient has remained in sinus rhythm. Continue Cardizem and Lopressor. Cannot switch to long-acting at discharge since patient is administering meds through her NG at this time. Long-acting medications cannot be crushed up. ? Transfer to floor. ? Check CMP at 6 PM 02/28/2024 -CT esophagram today. If no leak present, plan to start oral diet. ? Discussed with speech therapy. Plan for evaluation today after CT esophagram results ? Continue calcitriol, calcium carbonate, Lopressor, levothyroxine daily. ? Will transfer to floor ? Continue to monitor CMP twice daily. 02/29/2024 -No leak on CT esophagram. ? Secondary to nausea and mild coughing episode with eating I have discussed with patient to maintain n.p.o. status and continue on tube feeds at this time. I recommended her to get evaluated at a later time with her oncologist after discharge. ? Continue calcitriol, calcium carbonate. Patient has refused her tube feeds overnight. ? She is also refused her calcium carbonate. Counseled her on the importance of it. Calcium 5.6 this morning. It is slowly improving. ? Amiodarone bolus ordered, Amio drip ordered. ? Will order normal saline bolus 500 cc x 1 -Will transfer to ICU at this time. ? Order IV magnesium, oral potassium. Keep magnesium above 2, potassium above 4. 03/01/2024 ? Yesterday patient converted to sinus rhythm after amnio bolus. Since she had electrolyte abnormalities I decided not to go ahead with amnio drip. Repleted electrolytes ? Today however she had another episode of A-fib with RVR. Electrolytes are okay today. Have ordered another bolus and will start amnio drip and transferred to ICU. ? Right antecubital IV site infection: Will send sample for culture. Started on Vanco and Zosyn. She has been positive for MRSA in the past. ? Soft tissue ultrasound ordered. ? Warm compresses ordered ? Discussed with nursing staff to start giving her medications by mouth after crushing them. Hopefully we can get her oral intake increased enough that NG tube can come out. ? Calcium 5.9 and improving. We will continue on calcitriol 0.25 twice daily going forward and calcium carbonate 1000 3 times daily. She should have repeat labs done in a week for further titration of calcitriol dose. Plan for discharge in next 24 to 48 hours after oral intake has improved and NG can be safely removed. Attestations 2 Medical Necessity Statement*: Patient had A-fib with RVR requiring amiodarone drip at this time. 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
--- NOTE | 2024-03-01 16:31 | PC.NURSE ---
Pt has a bout of symptomatic afib with RVR. Pt complains of chest heaviness and bilateral leg tingling. Dr. Tyler notified. Amio bolus given per order. EKG completed. PICC inserted by Chanelle Lopez. Report called to JATINDER Hillman in ICU.
--- NOTE | 2024-03-01 17:33 | PICC.NOTE ---
Double lumen PICC placed to left basilic vein. Referred to vascular access nurse for PICC placement due to no access and need for amiodarone IV. Risks and benefits discussed and informed consent obtained from pt. Left arm assessed with left basilic vein measuring 4.2 mm, straight, and apparent best choice for placement. Using sterile technique and MST, left basilic vein accessed x 1 stick. Mid-arm circumference measured 10 cm from left AC 30 cm. Trimmed cath 43 cm with 0 cm external length noted. CXR shows tip in cavoatrial junction, in good position for use per radiologist. Line secured with stat-lock. Insertion site covered with Biopatch and TSM. Report given to bedside nurse, JATINDER García. Pt to be transferred to ICU 10.
[2024-03-01] MEDS: vancomycin 1,500 MG/300 ML PIGGYBACK 200 MG IV (17:42)
[2024-03-01] MEDS: piperacillin-tazobactam 3.375 GM in sodium chloride 0.9% (plus) 50 ML IV ×2 (18:04→22:55)
[2024-03-01] MEDS: atorvastatin 40 mg Tablet NG-TUBE (21:32)
[2024-03-01] MEDS: HYDROcodone-acetaminophen 10-325 mg Tablet 1 TAB PO (22:23)
[2024-03-02] VITALS (68 sets, daily range): BP systolic 96–172; BP diastolic 44–91; PULSE 55–129; RESP 12–25; TEMP 36.8–37.6; O2SAT 91–100
[2024-03-02] MEDS: dilTIAZem 30 mg Tablet NG-TUBE ×3 (00:23→17:25)
[2024-03-02] MEDS: pantoprazole 40 mg SDV IVP (00:38)
[2024-03-02 03:45] LABS: Basophils # 0.1 10^3/uL (0.0-0.1); Basophils % 0.6 %; Eosinophils # 0.1 10^3/uL (0.0-0.8); Eosinophils % 0.5 %; Hematocrit 32.3 % (36-47); Lymphocytes # 0.7 10^3/uL (0.8-4.8); Lymphocytes % 6.4 %; Mean Corpuscular Volume 83.9 fl (85-98); Mean Platelet Volume 11.1 fL (7.4-10.4); Monocytes % 9.8 %; Neutrophils # 8.59 10^3/uL (1.8-7.7); Neutrophils % 82.4 %; Nucleated Red Blood Cells % 0 %; Platelet Count 232 10^3/cmm (157-399); Red Blood Count 3.85 10^6/uL (3.85-5.65); Red Cell Distribution Width 15.6 % (12.1-15.1); White Blood Count 10.42 10^3/uL (3.29-11.43)
[2024-03-02] MEDS: VANCOMYCIN ADD-Vantage 1,000 MG in 0.9% NaCl ADD-Vantage 250 ML 250 MG IV ×2 (04:50→16:13)
[2024-03-02] MEDS: calcitriol 0.25 mcg Capsule NG-TUBE ×2 (05:01→17:25)
[2024-03-02 06:03] LABS: Alanine Aminotransferase 9 U/L (0-33); Albumin Level 2.6 g/dL (3.5-5.2); Alkaline Phosphatase 99 U/L (35-105); Aspartate Amino Transferase 19 U/L (0-32); Blood Urea Nitrogen 7 mg/dL (8-23); Carbon Dioxide 20 mmol/L (22-29); Chloride 104 mmol/L (98-107); Creatinine Clr Calc Pharmacy 58.3999; Globulin 3.9 g/dL (1.3-4.6); Glomerular Filtration Rate 50.3 mL/min (90-130); Glucose 109 mg/dL (65-115); Magnesium 1.5 mg/dL (1.7-2.3); Osmolality Calculated 287 mOsm/kg (285-295); Sodium 139 mmol/L (136-145); Total Bilirubin 0.5 mg/dL (0.15-1.2); Total Protein 6.5 g/dL (6.6-8.7)
[2024-03-02 06:04] LABS: Anion Gap 18.5 (5-19); Potassium 3.5 mmol/L (3.5-5.1)
[2024-03-02 06:05] LABS: Calcium 5.5 mg/dL (8.5-10.5)
[2024-03-02] MEDS: piperacillin-tazobactam 3.375 GM in sodium chloride 0.9% (plus) 50 ML IV ×2 (06:40→15:21)
[2024-03-02] MEDS: calcium gluconate 0.9% NaCL 1 GM/50 ML PREMIX IV ×3 (06:40→10:42)
[2024-03-02] MEDS: levothyroxine 112 mcg Tablet NG-TUBE (09:06)
[2024-03-02] MEDS: calcium carbonate 500 mg Chew Tablet 1000 MG NG-TUBE ×3 (09:06→20:40)
[2024-03-02] MEDS: metoprolol tartrate 25 mg Tablet NG-TUBE ×2 (09:06→20:40)
[2024-03-02] MEDS: apixaban 5 mg Tablet NG-TUBE ×2 (09:06→17:25)
--- NOTE | 2024-03-02 09:06 | P.PN_ITS ---
Subjective 2 Subjective: 03/01/2024 - Seen this morning. No acut e events overnight. Patient starting to tolerate oral diet. Does have greenish discharge from right antecubital IV site with swelling present. Soft tissue ultrasound has been ordered. Vanco and Zosyn have been ordered. She has been positive for MRSA before. 03/02/2024. She developed afib w/ RVR wh ile IV calcium was being administered on 03/01. She was given an Amiodarone bolus and placed on an Amiodarone gtt and transferred to the ICU. She has converted to NSR on 03/02. Her Amiodarone drip was discontinued and she was started back on her oral Cardizem and oral Metoprolol. The patient is tolerating po, but feels that she is not ready to take pills. She would prefer her pills crushed. Her nurse is worried that she has poor po intake - 25% at best. She denies f/c, CP, palpitations, SOB, dizziness, light headedness, abdominal pain, n/v. She endorses that she had 2 watery BMs today. Vitals/I&O/Wt Last Vital Signs Temp 99.6 F 03/02/24 03:00 Pulse 72 03/02/24 06:00 Resp 19 H 03/02/24 05:00 BP 134/60 03/02/24 05:00 Pulse Ox 100 03/02/24 05:00 O2 Del Method Room Air 03/01/24 22:00 03/01/24 03/02/24 03/02/24 22:59 06:59 14:59 Intake Total 560 / 760 500 / 1260 50 / 50 Balance 560 / 760 500 / 1260 50 / 50 Weight last 48 hrs Weight 82.1 kg Weight 85.457 kg Physical Exam 2 Const: GENERAL APPEARANCE: cooperative and comfortable NUTRITIONAL APPEARANCE: overweight ORIENTATION/CONSCIOUSNESS: Yes awake, Yes oriented to person, Yes oriented to place and Yes oriented to time HENMT: COMMON NORMALS: normocephalic, external ears normal and Normal external nose present HEAD & SCALP: normal to inspection and normocephalic NOSE: N ormal external nose present EXTERNAL EAR: Yes external ears normal MOUTH: Normal oral and palatal mucosa present THROAT: posterior oropharynx normal Eye: COMMON NORMALS: Equal, round and reactive pupils present, EOMs intact bilaterally and conjunctivae normal CONJUNCTIVA: Yes conjunctivae normal P UPIL: Yes Equal, round and reactive pupils present Neck/C-Spine: OTHER: difficult to evaluate submandibular /submental gland, and carotid glands due to thickened skin noted on exam. Lymph: OTHER: unable to evaluate due to abnormal anatomy Resp: OTHER: CTAB w/ no w/r/r. Cardio: COMMON NORMALS: regular rate and regular rhythm RATE: regular rate RHYTHM: regular rhythm BRUITS: no carotid bruits PERIPHERAL PULSES: r adial pulses present positive bilateral 2+ and dorsalis pedis present positive bilateral 2+ GI: OTHER: Dobhoff tube in place. Patient w/ BS+, NT, ND, no guarding, no rigidity or rebound tenderness, no hepatosp Extremity: GENERAL: No clubbing, No cyanosis and No edema Neuro: SENSORIUM/ORIENTATION: Yes oriented to person, Yes oriented to place and Yes oriented to time Psych: COMMON NORMALS: Normal thought process present APPEARANCE: Yes grossly normal ATTITUDE: Yes calm and Yes engaged MOOD & AFFECT: Yes euthymic mood THOUGHT PROCESS: Normal thought process present THOUGHT CONTENT: Yes Normal thought content present ATTENTION/CONCENTRATION: Yes attention grossly intact Skin: NARRATIVE SKIN EXAM: R. elbow erythema, exquisite tenderness to palpation, warmth. Data 03/02/24 03:27 03/02/24 05:21 A&P Assessment and plan (1) Atrial fibrillation with RVR: Usually on Cardizem 120 mg twice daily and metoprolol 25 mg oral daily at home. Went into RVR after getting IV calcium push on 03/01. s/p a trial of 500 cc of IV fluid bolus followed by 10 mg of IV Cardizem on 03/01. S/p with amiodarone at 150 mg IV bolus followed by the drip as per protocol - d/c'ed on 03/02. - Transition back to oral Cardizem 30mg q6h and Metoprolol Slightly dehydrated. Plan for NS at 75 cc/h. Continue with home dose of Eliquis. Check TSH of 13 on 02/24. Free T4 of 1.00. F/u ECHO (2) Encounter for nasogastric (NG) tube placement: In place for enteral feeding. To be replaced back in the ER. (3) Hypocalcemia: Down to 5.9. Albumin normal Received 2 g of IV calcium gluconate in ER. Appreciate normal magnesium, potassium level. Low intact PTH of 7, vitamin D of 35, TSH level of 13. PTHRP pending Repeat calcium level in AM. 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 Follows up with oncology as an outpatient. Plan for speech evaluation in a.m. Patient was due for a speech evaluation as an outpatient on 02/25. S/p modified barium swallow on 02/25. Patient is currently getting speech therapy. (5) HTN (hypertension): Goal blood pressure less than 140/90 mmHg with mean over 65. Continue with home dose of Cardizem and metoprolol for now. Readjust as per goal blood pressures. 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 Currently 1.2. Most likely in setting of dehydration. Fluid as above. Monitor BMP daily. Continue other chronic home medications including levothyroxine, bupropion. Full code Restart tube feeds Protonix for PUD prophylaxis Eliquis was sufficient for DVT prophylaxis 02/26/2024 -PTH 7.0, calcium 5.7. ? Plan for modified barium swallow today. ? Will start diet but oral pending speech therapy evaluation ? Vitamin D level is 35 ? TSH 13.04, free T31.7, free T41.0 02/27/2024 -Discussed patient's care with [facility] oncology department. Patient had a total laryngectomy recently and has a small leak in esophagus which was evident on esophagram that she had done recently at [place]. She has been recommended to stay strictly n.p.o to allow for healing. Continue to use NG tube for feeding and medication administration at this time. ? She does have evidence of hypoparathyroidism secondary to surgical removal of thyroid and parathyroid glands. Patient's labs are consistent with that. Calcium 5.3, phosphorus 5.9, PTH 7.0. ? We will start her on calcitriol 0.25 mcg twice daily and calcium carbonate 1000 3 times daily daily. Today I will give one-time dose of 1 g calcium gluconate. ? Endocrine referral has been placed at [facility]. Her oncologist will be referring to endocrine for further management. ? I have called her oncologist and waiting for a call back at this time to discuss care. ? Continue levothyroxine 112 daily. Further dose adjustments to be made by her residence director. Free T41.0 And normal. ? Once calcium starts to improve we will consider discharge patient home with repeat labs to be done as an outpatient and to follow-up with endocrinology, otolaryngology in the outpatient setting. ? Hypokalemia. Replete potassium today. ? A-fib with RVR: Patient has remained in sinus rhythm. Continue Cardizem and Lopressor. Cannot switch to long-acting at discharge since patient is administering meds through her NG at this time. Long-acting medications cannot be crushed up. ? Transfer to floor. ? Check CMP at 6 PM 02/28/2024 -CT esophagram today. If no leak present, plan to start oral diet. ? Discussed with speech therapy. Plan for evaluation today after CT esophagram results ? Continue calcitriol, calcium carbonate, Lopressor, levothyroxine daily. ? Will transfer to floor ? Continue to monitor CMP twice daily. 02/29/2024 -No leak on CT esophagram. ? Secondary to nausea and mild coughing episode with eating I have discussed with patient to maintain n.p.o. status and continue on tube feeds at this time. I recommended her to get evaluated at a later time with her oncologist after discharge. ? Continue calcitriol, calcium carbonate. Patient has refused her tube feeds overnight. ? She is also refused her calcium carbonate. Counseled her on the importance of it. Calcium 5.6 this morning. It is slowly improving. ? Amiodarone bolus ordered, Amio drip ordered. ? Will order normal saline bolus 500 cc x 1 -Will transfer to ICU at this time. ? Order IV magnesium, oral potassium. Keep magnesium above 2, potassium above 4. 03/01/2024 ? Yesterday patient converted to sinus rhythm after amnio bolus. Since she had electrolyte abnormalities I decided not to go ahead with amnio drip. Repleted electrolytes ? Today however she had another episode of A-fib with RVR. Electrolytes are okay today. Have ordered another bolus and will start amnio drip and transferred to ICU. ? Right antecubital IV site infection: Will send sample for culture. Started on Vanco and Zosyn. She has been positive for MRSA in the past. ? Soft tissue ultrasound ordered. ? Warm compresses ordered ? Discussed with nursing staff to start giving her medications by mouth after crushing them. Hopefully we can get her oral intake increased enough that NG tube can come out. ? Calcium 5.9 and improving. We will continue on calcitriol 0.25 twice daily going forward and calcium carbonate 1000 3 times daily. She should have repeat labs done in a week for further titration of calcitriol dose. Plan for discharge in next 24 to 48 hours after oral intake has improved and NG can be safely removed. 03/02/2024 #Hypocalcemia secondary to acquired #Hypoparathyroidism: Gave 2g Calcium gluconate. F/u repeat Ca. Continue Calcitriol. Per 03/01 plan, She should have repeat labs done in a week for further titration of calcitriol dose. PTHRP is PENDING. She is to see Endocrinology as O/P. #Hypomagnesemia: 5g of MgSO4 total given today. f/u repeat Mg #Borderline hypokalemia: 40mEQ of oral liquid KCL administered. #Afib w/ RVR: Paroxysmal. Now in NSR. Ordered EKG for documentation. Transfer back to the floor and continue home medications. Continue Eliquis. #Hypothyroidism: Continue levothyroxine #R. antecubital fossa cellulitis: Former IV site. CT elbow w/ contrast ordered. Continue Vanc/Zosyn #Concern for Moderate Malnutrition: Consulted Supervisor Pairing And Inspecting on 03/02 for evaluation and recommendation. Per sign out from the hospitalist on 03/01 the decision was whether to d/c w/ dobhoff NG tube or not. Defer this decision to day hospitalist taking over on 03/03/2024 #Supraglottis neoplasm pending. Attestations 2 Medical Necessity Statement*: Patient remains hospitalized for abnormal electrolytes and for cellulitis of the antecubital fossa Coding Level of Care Code 27325 Diagnoses Atrial fibrillation with RVR I48.91 Encounter for nasogastric (NG) tube placement Z46.59 Hypocalcemia E83.51 Squamous cell carcinoma of epiglottis C32.1 Essential hypertension I10 Hypertension type: essential hypertension Hypoparathyroidism after procedure E89.2 Esophageal anastomotic leak K91.89 S/P laryngectomy Z90.02 Hyperphosphatemia E83.39 Acquired hypothyroidism E03.9
[2024-03-02 09:31] LABS: Phosphorus 5.8 mg/dL (2.5-4.5)
[2024-03-02] MEDS: magnesium sulfate premix 4 GM/100 ML PREMIX IV (09:50)
--- NOTE | 2024-03-02 12:38 | PC.NURSE ---
Verbal order from Dr. Elizalde to discontinue amiodarone and give ordered cardizem.
--- NOTE | 2024-03-02 15:35 | ECG_ITS ---
[facility] Date: 2024-03-02 Pat Name: Rosario Villalba Department: Room: ICU10 Gender: Female First Leveler: : 1960 Requested By: Mary Elizalde Order Number: [id number] Reading MD: Tye Eden M.D. Measurements Intervals [place] Rate: 62 P: 59 GA: 161 QRS: 22 QRSD: 90 T: 49 QT: 414 QTc: 422 Interpretive Statements SINUS RHYTHM POSSIBLE LEFT ATRIAL ENLARGEMENT [-0.1mV P-WAVE IN V1/V2] POSSIBLE RIGHT VENTRICULAR CONDUCTION DELAY [RSR (QR) IN V1/V2] NONSPECIFIC T-WAVE ABNORMALITY Compared to ECG 03/01/2024 16:02:52 T-wave abnormality now present Atrial fibrillation no longer present ST (T wave) deviation no longer present Electronically Signed On 03-03-2024 20:12:17 DATASTAGE ARCHITECT by Tye Eden M.D. [email or web address]
--- NOTE | 2024-03-02 15:41 | CTR_ITS ---
PROCEDURE INFORMATION: Exam: CT Right Upper Extremity With Contrast, Elbow Exam date and time: 03/02/2024 4:43 PM Age: 63 years old Clinical indication: Pain and condition or disease; Cellulitis; Elbow; Right; Additional info: R. Elbow cellulitis w/ equisite tenderness, please extend CT scan to include up to the middle forearm TECHNIQUE: Imaging protocol: Computed tomography of the right upper extremity with contrast. Exam focused on the elbow. Radiation optimization: All CT scans at this facility use at least one of these dose optimization techniques: automated exposure control; mA and/or kV adjustment per patient size (includes targeted exams where dose is matched to clinical indication); or iterative reconstruction. Contrast material: OMNIPAQUE 350; Contrast volume: 100 ml; Contrast route: INTRAVENOUS (IV); COMPARISON: US soft tissue/extremity [id number] 03/01/2024 3:21 PM RADIATION DOSE METRICS: Total DLP (mGy-cm): 657.28 FINDINGS: Bones/joints: Normal. No acute fracture or dislocation. Soft tissues: 1.5 x 1.2 x 1.5 cm enhancing subcutaneous nodule in the antecubital fossa, which is inseparable from the thrombosed cephalic vein. Fat stranding throughout the ventral upper arm and antecubital fossa, as well as partially extending to the dorsal proximal forearm. No measurable soft tissue fluid collections. Vasculature: Filling defect with severe surrounding inflammation in the distal cephalic vein. The basilic vein and median antecubital veins appear patent. CT/CT elbow RT w con [id number] IMPRESSION: 1. Filling defect with severe surrounding inflammation in the distal cephalic vein. Compatible with known superficial thrombophlebitis. 2. 1.5 x 1.2 x 1.5 cm enhancing subcutaneous nodule in the antecubital fossa, which is inseparable from the thrombosed cephalic vein. Etiology of this nodule is unclear and it could be infectious or inflammatory. Consider a targeted follow-up ultrasound, as the structure was not documented on the referenced ultrasound. 3. Fat stranding throughout the ventral upper arm and antecubital fossa, as well as partially extending to the dorsal proximal forearm. Favoring cellulitis/edema.
[2024-03-02] MEDS: potassium chloride oral liq 20 mEq/15 mL UDC 40 MEQ PO (16:13)
[2024-03-02] MEDS: iohexol 350 mg/mL 500 mL Btl (per mL) IV (16:51)
[2024-03-02] MEDS: atorvastatin 40 mg Tablet NG-TUBE (20:39)
[2024-03-02] MEDS: HYDROcodone-acetaminophen 10-325 mg Tablet 1 TAB PO (20:55)
--- NOTE | 2024-03-02 23:02 | PC.NURSE ---
Care transfer Care transferred to JATINDER Jaime. Patient resting in bed, informed of transfer, and has no complaints at this time.
[2024-03-03] VITALS (9 sets, daily range): BP systolic 102–145; BP diastolic 61–99; PULSE 64–77; RESP 16–18; TEMP 36.8–36.9; O2SAT 95–99
[2024-03-03] MEDS: piperacillin-tazobactam 3.375 GM in sodium chloride 0.9% (plus) 50 ML IV ×3 (00:06→14:43)
[2024-03-03] MEDS: dilTIAZem 30 mg Tablet NG-TUBE ×3 (00:14→12:02)
[2024-03-03] MEDS: pantoprazole 40 mg SDV IVP (01:34)
[2024-03-03] MEDS: VANCOMYCIN ADD-Vantage 1,000 MG in 0.9% NaCl ADD-Vantage 250 ML 250 MG IV (04:11)
[2024-03-03] MEDS: calcitriol 0.25 mcg Capsule NG-TUBE ×2 (06:09→17:08)
[2024-03-03] MEDS: buPROPion XL (24 HR) 150 mg Tablet PO (06:09)
[2024-03-03 06:15] LABS: Basophils % 0.5 %; Eosinophils # 0.1 10^3/uL (0.0-0.8); Eosinophils % 1.6 %; Hematocrit 29.4 % (36-47); Lymphocytes # 0.7 10^3/uL (0.8-4.8); Lymphocytes % 9.4 %; Mean Corpuscular HGB Conc 31.3 g/dL (30-55); Mean Corpuscular Hemoglobin 25.9 pg (27-33); Mean Corpuscular Volume 82.8 fl (85-98); Mean Platelet Volume 11.3 fL (7.4-10.4); Monocytes # 1.1 10^3/uL (0.2-0.9); Monocytes % 14.8 %; Neutrophils # 5.58 10^3/uL (1.8-7.7); Neutrophils % 73.3 %; Nucleated Red Blood Cells % 0 %; Platelet Count 176 10^3/cmm (157-399); Red Blood Count 3.55 10^6/uL (3.85-5.65); Red Cell Distribution Width 15.4 % (12.1-15.1); White Blood Count 7.62 10^3/uL (3.29-11.43)
[2024-03-03 06:31] LABS: Alanine Aminotransferase 9 U/L (0-33); Alkaline Phosphatase 95 U/L (35-105); Anion Gap 17.8 (5-19); Aspartate Amino Transferase 19 U/L (0-32); Blood Urea Nitrogen 5 mg/dL (8-23); Carbon Dioxide 22 mmol/L (22-29); Chloride 102 mmol/L (98-107); Globulin 2.5 g/dL (1.3-4.6); Glomerular Filtration Rate 56.2 mL/min (90-130); Glucose 101 mg/dL (65-115); Magnesium 1.9 mg/dL (1.7-2.3); Osmolality Calculated 283 mOsm/kg (285-295); Potassium 3.8 mmol/L (3.5-5.1); Sodium 138 mmol/L (136-145); Total Bilirubin 0.4 mg/dL (0.15-1.2); Total Protein 5.5 g/dL (6.6-8.7)
[2024-03-03 06:34] LABS: Phosphorus 5.6 mg/dL (2.5-4.5)
[2024-03-03 07:15] LABS: Calcium 5.3 mg/dL (8.5-10.5)
[2024-03-03] MEDS: calcium carbonate 500 mg Chew Tablet 1000 MG NG-TUBE ×2 (08:27→21:40)
[2024-03-03] MEDS: metoprolol tartrate 25 mg Tablet NG-TUBE ×2 (08:27→21:40)
[2024-03-03] MEDS: apixaban 5 mg Tablet NG-TUBE ×2 (08:28→17:08)
[2024-03-03] MEDS: levothyroxine 112 mcg Tablet NG-TUBE (08:28)
--- NOTE | 2024-03-03 13:19 | PC.SOCIAL ---
IMM Update pg 2 of IMM updated and reviewed w/ patient. Copy provided and copy dated, initialed and placed in chart.
[2024-03-03 16:21] LABS: Vancomycin Trough 19.7 ug/mL (10-15)
--- NOTE | 2024-03-03 17:37 | P.PN_ITS ---
Subjective 2 Subjective: No acute interim events. Patient states she is not eating enough as she does not like the texture of pur?ed foods being offered to her. She has been evaluated by speech therapy previously. Reviewing notes from the , patient will likely have to be determined with different textures and adjust dietary consistency to best tolerated. Today we will try advancing from pur?ed to GI soft with textures such as mashed potatoes. She is noted to be drinking Sprite with normal consistency without any issues. Medications: Reviewed: Yes Vitals/I&O/Wt Last Vital Signs Temp 98.4 F 03/03/24 15:49 Pulse 69 03/03/24 15:49 Resp 16 03/03/24 15:49 BP 108/73 03/03/24 15:49 Pulse Ox 95 03/03/24 15:49 O2 Del Method Room Air 03/03/24 15:49 03/03/24 03/03/24 03/03/24 06:59 14:59 22:59 Intake Total 540 / 1445.042 290 / 290 Balance 540 / 1444.042 290 / 290 Weight last 48 hrs Weight 82.327 kg Weight 82.1 kg Physical Exam 2 Narrative: General: No acute distress, AOx3, tracheostomy in place HEENT: PERRLA, pupils bilaterally equal and reactive, pallors not present Chest: Normal vesicular breath sounds, no added sounds, equal good air entry bilaterally CVS: S1-S2 irregularly irregular, no murmurs,tachycardia, no gallops, no rubs Abdomen: Soft, nontender, no organomegaly, bowel sounds present Neuro: No focal deficits, no facial deformity, AO x3, power 5/5 in all limbs Data 03/03/24 05:57 03/03/24 05:57 A&P Assessment and plan (1) Atrial fibrillation with RVR: Have not taken her home dose of Cardizem and metoprolol since yesterday. Usually on Cardizem 120 mg twice daily and metoprolol 25 mg oral daily. Went into RVR after getting IV calcium push. Continue with amiodarone at 150 mg IV push followed by the drip as per protocol. Will give a trial of 500 cc of IV fluid bolus followed by 10 mg of IV Cardizem. Restart home dose of metoprolol and Cardizem at 30 mg every 6 hourly. Slightly dehydrated. Plan for NS at 75 cc/h. Continue with home dose of Eliquis. Check TSH, echocardiogram. (2) Encounter for nasogastric (NG) tube placement: In place for enteral feeding. To be replaced back in the ER. (3) Hypocalcemia: Down to 5.9. Albumin normal Received 2 g of IV calcium gluconate in ER. Repeat calcium level in AM. Appreciate normal magnesium, potassium level. Check PTH, vitamin D, TSH levels. 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 Follows up with oncology as an outpatient. Plan for speech evaluation in a.m. Patient was due for a speech evaluation as an outpatient on 02/25. Will go ahead and do the speech evaluation while inpatient. (5) HTN (hypertension): Goal blood pressure less than 140/90 mmHg with mean over 65. Continue with home dose of Cardizem and metoprolol for now. Readjust as per goal blood pressures. Qualifiers: Hypertension type: essential hypertension Qualified Code(s): I10 - Essential (primary) hypertension Plan LORENA: Baseline creatinine normal. Currently 1.2. Most likely in setting of dehydration. Fluid as above. Monitor BMP daily. Continue other chronic home medications including levothyroxine, bupropion. Full code Restart tube feeds Protonix for PUD prophylaxis Eliquis was sufficient for DVT prophylaxis 02/27/2024 -Discussed patient's care with [facility] oncology department. Patient had a total laryngectomy recently and has a small leak in esophagus which was evident on esophagram that she had done recently at [place]. She has been recommended to stay strictly n.p.o to allow for healing. Continue to use NG tube for feeding and medication administration at this time. ? She does have evidence of hypoparathyroidism secondary to surgical removal of thyroid and parathyroid glands. Patient's labs are consistent with that. Calcium 5.3, phosphorus 5.9, PTH 7.0. ? We will start her on calcitriol 0.25 mcg twice daily and calcium carbonate 1000 3 times daily daily. Today I will give one-time dose of 1 g calcium gluconate. ? Endocrine referral has been placed at [facility]. Her oncologist will be referring to endocrine for further management. ? I have called her oncologist and waiting for a call back at this time to discuss care. ? Continue levothyroxine 112 daily. Further dose adjustments to be made by her boiler inspector. Free T41.0 And normal. ? Once calcium starts to improve we will consider discharge patient home with repeat labs to be done as an outpatient and to follow-up with endocrinology, otolaryngology in the outpatient setting. ? Hypokalemia. Replete potassium today. ? A-fib with RVR: Patient has remained in sinus rhythm. Continue Cardizem and Lopressor. Cannot switch to long-acting at discharge since patient is administering meds through her NG at this time. Long-acting medications cannot be crushed up. ? Transfer to floor. ? Check CMP at 6 PM 02/28/2024 -CT esophagram today. If no leak present, plan to start oral diet. ? Discussed with speech therapy. Plan for evaluation today after CT esophagram results ? Continue calcitriol, calcium carbonate, Lopressor, levothyroxine daily. ? Will transfer to floor ? Continue to monitor CMP twice daily. 02/29/2024 -No leak on CT esophagram. ? Secondary to nausea and mild coughing episode with eating I have discussed with patient to maintain n.p.o. status and continue on tube feeds at this time. I recommended her to get evaluated at a later time with her oncologist after discharge. ? Continue calcitriol, calcium carbonate. Patient has refused her tube feeds overnight. ? She is also refused her calcium carbonate. Counseled her on the importance of it. Calcium 5.6 this morning. It is slowly improving. ? Amiodarone bolus ordered, Amio drip ordered. ? Will order normal saline bolus 500 cc x 1 -Will transfer to ICU at this time. ? Order IV magnesium, oral potassium. Keep magnesium above 2, potassium above 4. 03/01/2024 ? Yesterday patient converted to sinus rhythm after amnio bolus. Since she had electrolyte abnormalities I decided not to go ahead with amnio drip. Repleted electrolytes ? Today however she had another episode of A-fib with RVR. Electrolytes are okay today. Have ordered another bolus and will start amnio drip and transferred to ICU. ? Right antecubital IV site infection: Will send sample for culture. Started on Vanco and Zosyn. She has been positive for MRSA in the past. ? Soft tissue ultrasound ordered. ? Warm compresses ordered ? Discussed with nursing staff to start giving her medications by mouth after crushing them. Hopefully we can get her oral intake increased enough that NG tube can come out. ? Calcium 5.9 and improving. We will continue on calcitriol 0.25 twice daily going forward and calcium carbonate 1000 3 times daily. She should have repeat labs done in a week for further titration of calcitriol dose. Plan for discharge in next 24 to 48 hours after oral intake has improved and NG can be safely removed. 03/02/2024 #Hypocalcemia secondary to acquired #Hypoparathyroidism: Gave 2g Calcium gluconate. F/u repeat Ca. Continue Calcitriol. Per 03/01 plan, She should have repeat labs done in a week for further titration of calcitriol dose. PTHRP is PENDING. She is to see Endocrinology as O/P. #Hypomagnesemia: 5g of MgSO4 total given today. f/u repeat Mg #Borderline hypokalemia: 40mEQ of oral liquid KCL administered. #Afib w/ RVR: Paroxysmal. Now in NSR. Ordered EKG for documentation. Transfer back to the floor and continue home medications. Continue Eliquis. #Hypothyroidism: Continue levothyroxine #R. antecubital fossa cellulitis: Former IV site. CT elbow w/ contrast ordered. Continue Vanc/Zosyn #Concern for Moderate Malnutrition: Consulted Manufacturing Scheduler on 03/02 for evaluation and recommendation. Per sign out from the hospitalist on 03/01 the decision was whether to d/c w/ dobhoff NG tube or not. Defer this decision to day hospitalist taking over on 03/03/2024 #Supraglottis neoplasm pending. 03/03/2024 Case discussed with patient's ENT physician. CT esophagogram shows no leak. Patient is currently taking IV fluid and also has a Dobbhoff feeding tube in place. Will assess if patient is able to finish meals offered to her. Patient appears she has adequate caloric intake with oral feeds being offered to her, plan will be to remove the Dobbhoff tube as well as not require additional caloric intake via tube feeding. Currently patient expresses frustration with being offered only pur?ed diet. In reviewing speech therapy notes, it appears there was plan to try with different textures and see what patient tolerates best. Today we will advance to GI soft, trial of mashed potatoes, soft bread, scrambled eggs etc. to see if patient tolerates. Small bites recommended. A- fib is now resolved. Continue calcitriol for hypocalcemia. Given that patient has responded well to amiodarone treatment, will discontinue calcium channel pearl that is Cardizem and switch instead to amiodarone for better control of A-fib. Attestations 2 Medical Necessity Statement*: Caloric intake to be monitored, careful change in texture of her diet, change from Cardizem to amiodarone and assess for tolerability. Coding Level of Care Code Acute Code for Chg Fwd Diagnoses Atrial fibrillation with RVR I48.91 Encounter for nasogastric (NG) tube placement Z46.59 Hypocalcemia E83.51 Squamous cell carcinoma of epiglottis C32.1 Essential hypertension I10 Hypertension type: essential hypertension
--- NOTE | 2024-03-03 18:19 | PC.NURSE ---
Patient is sitting on the side of the bed eating a GI Soft diet. Tolerating well. Patient stated she feels like she could eat easier if her teeth were in, but overall feeling well with it. She has taken 1 medication whole, the other she requested to be crushed but swallowed with jello.
[2024-03-03] MEDS: HYDROcodone-acetaminophen 10-325 mg Tablet 1 TAB PO (21:40)
[2024-03-03] MEDS: atorvastatin 40 mg Tablet NG-TUBE (21:40)
[2024-03-03] MEDS: amiodarone 200 mg Tablet PO (21:42)
[2024-03-04] VITALS: BP 102/67; PULSE 63; RESP 18; TEMP 36.6; O2SAT 95
[2024-03-04] MEDS: pantoprazole 40 mg SDV IVP (01:35)
[2024-03-04] MEDS: piperacillin-tazobactam 3.375 GM in sodium chloride 0.9% (plus) 50 ML IV ×2 (01:36→11:29)
[2024-03-04 04:00] VITALS: BP 110/66; PULSE 64; RESP 18; TEMP 37; O2SAT 95
[2024-03-04] MEDS: calcitriol 0.25 mcg Capsule NG-TUBE (05:50)
[2024-03-04 06:00] VITALS: PULSE 79
[2024-03-04] MEDS: buPROPion XL (24 HR) 150 mg Tablet PO (06:13)
[2024-03-04] MEDS: HYDROcodone-acetaminophen 10-325 mg Tablet 1 TAB PO (06:13)
[2024-03-04 06:15] LABS: Basophils # 0.1 10^3/uL (0.0-0.1); Basophils % 0.7 %; Eosinophils # 0.2 10^3/uL (0.0-0.8); Eosinophils % 2.7 %; Hematocrit 30.3 % (36-47); Lymphocytes # 0.9 10^3/uL (0.8-4.8); Lymphocytes % 12.8 %; Mean Corpuscular HGB Conc 30.7 g/dL (30-55); Mean Corpuscular Volume 84.6 fl (85-98); Mean Platelet Volume 11.3 fL (7.4-10.4); Monocytes # 0.9 10^3/uL (0.2-0.9); Monocytes % 12.9 %; Neutrophils # 4.92 10^3/uL (1.8-7.7); Neutrophils % 70.5 %; Nucleated Red Blood Cells % 0 %; Platelet Count 226 10^3/cmm (157-399); Red Blood Count 3.58 10^6/uL (3.85-5.65); Red Cell Distribution Width 15.5 % (12.1-15.1); White Blood Count 6.98 10^3/uL (3.29-11.43)
[2024-03-04 06:37] LABS: Phosphorus 5.8 mg/dL (2.5-4.5)
[2024-03-04 06:39] LABS: Alanine Aminotransferase 9 U/L (0-33); Alkaline Phosphatase 97 U/L (35-105); Anion Gap 18.5 (5-19); Aspartate Amino Transferase 20 U/L (0-32); Blood Urea Nitrogen 4 mg/dL (8-23); Carbon Dioxide 24 mmol/L (22-29); Chloride 102 mmol/L (98-107); Creatinine Clr Calc Pharmacy 63.0535; Globulin 3.1 g/dL (1.3-4.6); Glomerular Filtration Rate 56.2 mL/min (90-130); Glucose 92 mg/dL (65-115); Magnesium 1.7 mg/dL (1.7-2.3); Osmolality Calculated 289 mOsm/kg (285-295); Potassium 3.5 mmol/L (3.5-5.1); Sodium 141 mmol/L (136-145); Total Bilirubin 0.4 mg/dL (0.15-1.2); Total Protein 6.1 g/dL (6.6-8.7)
[2024-03-04 07:20] LABS: Calcium 5.3 mg/dL (8.5-10.5)
[2024-03-04 07:44] VITALS: BP 116/69; PULSE 68; RESP 16; TEMP 36.4; O2SAT 92
--- NOTE | 2024-03-04 09:46 | PC.SLP ---
GRIEF COUNSELOR attempted visit however patient had thrown up her medications that were crushed in jello. Will attempt at later time.
[2024-03-04] MEDS: levothyroxine 112 mcg Tablet NG-TUBE (10:33)
[2024-03-04] MEDS: apixaban 5 mg Tablet NG-TUBE (10:33)
[2024-03-04] MEDS: amiodarone 200 mg Tablet PO (10:33)
[2024-03-04] MEDS: calcium carbonate 500 mg Chew Tablet 1000 MG NG-TUBE (10:38)
[2024-03-04] MEDS: metoprolol tartrate 25 mg Tablet NG-TUBE (10:39)
[2024-03-04 11:20] VITALS: BP 116/75; PULSE 72; RESP 16; TEMP 36.6; O2SAT 97
[2024-03-04 14:30] VITALS: BP 118/70; PULSE 74; RESP 18; TEMP 36.7; O2SAT 94
--- NOTE | 2024-03-04 15:00 | PC.NURSE ---
Patient's PICC Line was removed at this time. No bleeding noted. Patient tolerated well.
--- NOTE | 2024-03-04 15:46 | PM.DCS ---
Discharge Providers Date of Admission: 02/25/24 18:12 Date of Discharge: March 04, 2024 Attending Provider at Admission: Jennifer Colon MD Attending Provider at Discharge: Jennifer Colon MD Primary Care Provider: Rianna Ruiz MD Diagnoses at Discharge Discharge Diagnosis (1) Atrial fibrillation with RVR: Status: Acute (2) Encounter for nasogastric (NG) tube placement: Status: Inactive (3) Hypocalcemia: Status: Acute (4) Squamous cell carcinoma of epiglottis: Status: Acute (5) HTN (hypertension): Status: Acute Qualifiers: Hypertension type: essential hypertension Qualified Code(s): I10 - Essential (primary) hypertension Reason for Visit Reason for Visit: pulled feeding tube out Hospital Course Hospital Course Rosario Villalba is a 63 year old female with past medical history of atrial fibrillation on Eliquis, history of neoplasm involving the supraglottis with NG tube in place, post tracheostomy came to the ER from her PCPs office because of misplacement of NG tube. NG tube is in place for enteral feedings while she is undergoing treatment for her cancer. Blood work showed hypocalcemia with calcium down to 5.9. She received 2 g of IV calcium after which she went into A-fib with RVR. Dobbhoff tube was replaced. CT esophagogram was obtained which was without evidence of esophageal leak or fistulous communication to the trachea. Patient underwent several swallow evaluations during the course of her admission. She had a modified resume swallow which demonstrated difficulty in anterior posterior propulsion of food material. Barium tablet stayed in the mid hypopharynx and did not distend in spite of multiple maneuvers. Patient did experiment with several textures and consistencies during her hospital stay. She is able to consume Jell-O applesauce etc. she is able to drink liquids with a straw. Case was discussed with her ENT physician in [place]. Patient currently is unable to meet her caloric goals by oral feeding alone therefore her Dobbhoff tube has been left in place to enable tube feedings while she recovers. Recommended to follow-up with ENT early next month for reassessment of the same. She was noted to be hypocalcemic, this is thought to be related to hypoparathyroidism likely related to her past radiation. She was started on calcitriol 0.25 mcg twice daily, calcium carbonate 1000 twice daily. Recommended to follow-up with endocrinology shortly after discharge. For A-fib RVR, she was noted to have recurrent episodes of the same. She needed to be on amiodarone intermittently at least 3 times during this admission course. At the time of discharge her Cardizem has been discontinued. Amiodarone 200 mg p.o. twice daily has been added at the time of discharge. Metoprolol has been increased to 25 mg twice daily. Hospital course was also notable for development of thrombophlebitis of the cephalic vein with surrounding cellulitis/edema. Patient is already taking Eliquis 5 mg twice daily. She received IV antibiotic treatment with Zosyn and vancomycin with improvement in cellulitis. Chest has been transition to linezolid for 5 days at the time of discharge. Recommended to follow-up with a ENT, endocrinology, cardiology and PCP as outpatient. Physical Exam Narrative: General: No acute distress, AO x3 HEENT: PERRLA, pupils bilaterally equal and reactive, pallors not present Chest: Normal vesicular breath sounds, no added sounds, equal good air entry bilaterally CVS: S1-S2 regular, no murmurs, no tachycardia, no gallops, no rubs Abdomen: Soft, nontender, no organomegaly, bowel sounds present Neuro: No focal deficits, no facial deformity, AO x3, power 5/5 in all limbs Discharge Data Studies Completed and Pending Completed Studies During Hospitalization Category Date Time Status CT chest wo con [id number] Routine Cat Scan 02/28/24 08:[address] elbow RT w con [id number] Routine Cat Scan 03/02/24 15:41 Completed CXRP [XR chest 1V portable [id number]] Routine Exams 03/01/24 15:01 Completed CXRP [XR chest 1V portable [id number]] Stat Exams 02/25/24 13:34 Completed Modified barium swallow [FL barium swallow modifd [id number] Exams 02/26/24 10:45 Completed ] Routine XR chest 1V portable [id number] Routine Exams 02/25/24 22:46 Completed CV. echo complete* [id number] Stat Ultrasound 02/25/24 18:13 Completed US soft tissue and or extremity [US soft tissue/ Ultrasound 03/01/24 11:20 Completed extremity [id number]] Routine Pending at discharge Category Date Time Status PTH Related Peptide (Protein) Stat Lab 02/25/24 17:24 Received Radiology Impressions Modified Barium Swallow 02/26/24 10:45 Impression: 1. Difficulty in anterior posterior propulsion of food material. 2. Barium tablet stayed in the mid hypopharynx and would not descend despite multiple maneuvers. Chest CT 02/28/24 08:08 IMPRESSION: No evidence of esophageal leak or fistulous communication to the trachea Soft Tissue Ultrasound 03/01/24 11:20 IMPRESSION: 1. No abscess formation. 2. Findings suggestive of thrombophlebitis of the cephalic vein with cellulitis/edema to be correlated clinically. Chest X-Ray 03/01/24 15:01 IMPRESSION: 1. No acute cardiopulmonary process. 2. Tip of the left upper extremity PICC is at the superior cavoatrial junction. Elbow CT 03/02/24 15:41 IMPRESSION: 1. Filling defect with severe surrounding inflammation in the distal cephalic vein. Compatible with known superficial thrombophlebitis. 2. 1.5 x 1.2 x 1.5 cm enhancing subcutaneous nodule in the antecubital fossa, which is inseparable from the thrombosed cephalic vein. Etiology of this nodule is unclear and it could be infectious or inflammatory. Consider a targeted follow-up ultrasound, as the structure was not documented on the referenced ultrasound. 3. Fat stranding throughout the ventral upper arm and antecubital fossa, as well as partially extending to the dorsal proximal forearm. Favoring cellulitis/edema. Laboratory Results WBC 6.98 10^3/uL (3.29-11.43) 03/04/24 05:56 RBC 3.58 10^6/uL (3.85-5.65) L 03/04/24 05:56 Hgb 9.30 g/dL (11.27-16.99) L 03/04/24 05:56 Hct 30.3 % (36-47) L 03/04/24 05:56 MCV 84.6 fl (85-98) L 03/04/24 05:56 MCH 26.0 pg (27-33) L 03/04/24 05:56 MCHC 30.7 g/dL (30-55) 03/04/24 05:56 RDW 15.5 % (12.1-15.1) H 03/04/24 05:56 Plt Count 226 10^3/cmm (157-399) 03/04/24 05:56 MPV 11.3 fL (7.4-10.4) H 03/04/24 05:56 Neut % (Auto) 70.5 % 03/04/24 05:56 Lymph % (Auto) 12.8 % 03/04/24 05:56 [place] % (Auto) 12.9 % 03/04/24 05:56 Eos % (Auto) 2.7 % 03/04/24 05:56 Baso % (Auto) 0.7 % 03/04/24 05:56 Neut # (Auto) 4.92 10^3/uL (1.8-7.7) 03/04/24 05:56 Lymph # (Auto) 0.9 10^3/uL (0.8-4.8) 03/04/24 05:56 [place] # (Auto) 0.9 10^3/uL (0.2-0.9) 03/04/24 05:56 Eos # (Auto) 0.2 10^3/uL (0.0-0.8) 03/04/24 05:56 Baso # (Auto) 0.1 10^3/uL (0.0-0.1) 03/04/24 05:56 Nucleated RBC % (auto) 0 % 03/04/24 05:56 Nucleated RBCs # 0.0 /100WBC 03/04/24 05:56 Sodium 141 mmol/L (136-145) 03/04/24 05:56 Potassium 3.5 mmol/L (3.5-5.1) 03/04/24 05:56 Chloride 102 mmol/L (98-107) 03/04/24 05:56 Carbon Dioxide 24 mmol/L (22-29) 03/04/24 05:56 Anion Gap 18.5 (5-19) 03/04/24 05:56 BUN 4 mg/dL (8-23) L 03/04/24 05:56 Creatinine 1.0 mg/dL (0.5-0.9) H 03/04/24 05:56 GFR Calculation 56.2 mL/min (90-130) L 03/04/24 05:56 Glucose 92 mg/dL (65-115) 03/04/24 05:56 POC Glucose 100 mg/dL (70-110) 02/27/24 11:36 Estimat Average Glucose 120 02/25/24 14:14 Hemoglobin A1c 5.8 % (4.0-6.0) 02/25/24 14:14 Calculated Osmolality 289 mOsm/kg (285-295) 03/04/24 05:56 Calcium 5.3 mg/dL (8.5-10.5) L* 03/04/24 05:56 Phosphorus 5.8 mg/dL (2.5-4.5) H 03/04/24 05:56 Magnesium 1.7 mg/dL (1.7-2.3) 03/04/24 05:56 Iron 25 ug/dL (37-145) L 02/25/24 14:14 TIBC 259 mcg/dl 02/25/24 14:14 % Saturation 9.6 % (20-50) L 02/25/24 14:14 Unsat Iron Binding 234 ug/dL (112-347) 02/25/24 14:14 Total Bilirubin 0.4 mg/dL (0.15-1.2) 03/04/24 05:56 AST 20 U/L (0-32) 03/04/24 05:56 ALT 9 U/L (0-33) 03/04/24 05:56 Alkaline Phosphatase 97 U/L (35-105) 03/04/24 05:56 Total Protein 6.1 g/dL (6.6-8.7) L 03/04/24 05:56 Albumin 3.0 g/dL (3.5-5.2) L 03/04/24 05:56 Globulin 3.1 g/dL (1.3-4.6) 03/04/24 05:56 Triglycerides 68 mg/dL (0-150) 02/26/24 03:15 Cholesterol 128 mg/dL (0-200) 02/26/24 03:15 LDL Cholesterol, Calc 75 mg/dL (50-129) 02/26/24 03:15 HDL Cholesterol 39 mg/dL (60-100) L 02/26/24 03:15 LDL/HDL Ratio 1.92 RATIO (0.00-3.22) 02/26/24 03:15 Cholesterol/HDL Ratio 3.28 mg/dL (0.0-4.40) 02/26/24 03:15 Vitamin B12 1706 pg/mL (232-1245) H 02/25/24 14:14 25-OH Vitamin D Total 35 pg/mL (18-72) 02/25/24 14:14 25-OH Vitamin D Total 57 ng/mL (30-100) 02/25/24 14:14 1,25 Dihydroxy Vit D2 <8 pg/mL 02/25/24 14:14 1,25 Dihydroxy Vit D3 35 pg/mL 02/25/24 14:14 Folate 18.1 ng/mL (4.8-37.3) 02/26/24 03:15 TSH 13.04 uIU/mL (0.27-4.20) H 02/25/24 14:14 Free T4 1.00 ng/dL (0.82-1.77) 02/25/24 14:14 Free T3 1.7 PG/ML (2.0-4.4) L 02/25/24 14:14 PTH Intact 7.0 pg/mL (15-65) L 02/25/24 14:14 Calcium (PTH Intact) 5.9 mg/dL (8.5-10.5) L 02/25/24 14:14 Vancomycin Trough 19.7 ug/mL (10-15) H 03/03/24 15:10 Vitals Last Vital Signs Temp 98.1 F 03/04/24 14:30 Pulse 74 03/04/24 14:30 Resp 18 03/04/24 14:30 BP 118/70 03/04/24 14:30 Pulse Ox 94 03/04/24 14:30 O2 Del Method Room Air 03/04/24 07:44 Discharge Plan Discharge Patient Disposition: Home Condition: Stable Prescriptions: New amiodarone [Pacerone] 200 mg Tablet 200 mg PO BID 30 Days Qty: 60 0RF calcitriol 0.25 mcg Capsule 0.25 mcg ng-tube Q12H 30 Days Qty: 60 0RF hydrocodone-acetaminophen 10-325 mg Tablet 1 tab PO TID PRN (Reason: Moderate Pain) 5 Days Qty: 15 0RF metoprolol tartrate 25 mg Tablet 25 mg ng-tube BID@0900,2100 30 Days Qty: 60 0RF pantoprazole [Protonix] 40 mg tablet,delayed release (DR/EC) 40 mg PO DAILY 28 Days Qty: 30 0RF calcium carbonate 500 mg calcium (1,250 mg) tablet,chewable 500 mg PO BID 30 Days Qty: 60 0RF linezolid 600 mg tablet 600 mg PO BID 5 Days Qty: 10 0RF Continued hydrocodone-acetaminophen 10-325 mg tablet 1 tab PO TID PRN (Reason: pain) 30 Days Qty: 90 0RF bupropion HCl [Wellbutrin XL] 150 mg tablet extended release 24 hr 150 mg PO QAM Eliquis 5 mg tablet 5 mg PO BID Hold Instructions: Resume on 01/08/23. rosuvastatin 20 mg tablet 20 mg PO DAILY hydroxyzine HCl 25 mg tablet 25 mg PO Q8H PRN (Reason: Anxiety) potassium chloride 10 mEq tablet extended release 10 meq PO DAILY levothyroxine 112 mcg tablet 112 mcg PO DAILY Discontinued diltiazem HCl 120 mg capsule,extended release 24hr 120 mg PO BID Qty: 180 3RF metoprolol tartrate 25 mg tablet 25 mg PO DAILY Discharge Orders: Discharge Order (Routine); Ordered 03/04/24 Ordered By: Jennifer Colon Referrals: [facility] [Outside] (We have notified your physician's clinic of the need for a follow-up appointment to be scheduled. If you have not heard from them within the next 2 business days, please call them directly. ) Rianna Ruiz MD [Primary Care Provider] - 7-10 days (We have notified your physician's clinic of the need for a follow-up appointment to be scheduled. If you have not heard from them within the next 2 business days, please call them directly. ) Kailee Pozo FNP [Nurse Practitioner] - 1 week (We have notified your physician's clinic of the need for a follow-up appointment to be scheduled. If you have not heard from them within the next 2 business days, please call them directly. ) Flores Trevino MD [Physician] - 7-10 days (We have notified your physician's clinic of the need for a follow-up appointment to be scheduled. If you have not heard from them within the next 2 business days, please call them directly. ) Discharge Diet: As Directed Discharge Activity: Resume usual activity Patient Instructions: Metoprolol (By mouth), Amiodarone (By mouth), Calcitriol (By mouth), Pantoprazole (By mouth), Hypocalcemia (DC), Opioid Safety, Pain Management Discharge Attestations Time Spent in Discharge Care*: greater than 30 min Status at Discharge: Cognitive status at discharge: cognitively intact, Behavioral status at discharge: cooperative, Quality Metrics Clinical Quality Measures [ No reported AMI, CVA or VTE this stay] Coding Level of Care Code Acute Code for Chg Fwd Diagnoses Atrial fibrillation with RVR I48.91 Encounter for nasogastric (NG) tube placement Z46.59 Hypocalcemia E83.51 Squamous cell carcinoma of epiglottis C32.1 Essential hypertension I10 Hypertension type: essential hypertension
[2024-03-04 16:33] LABS: PTH Related Peptide (Protein) 8 pg/mL (11-20)
== END 2024-03-04 14:45 | disposition home or self-care (01) | DRG 309 ==
LOC: ER 18:05 → ER IP 18:13 → ICU 20:17 → MEDSURG 02-28 21:01 → ICU 03-01 17:14 → MEDSURG 03-02 23:43
PROVIDERS: Family Medicine; Internal Medicine; Student in an Organized Health Care Education/Training Program; Admitting Provider Student in an Organized Health Care Education/Training Program; Emergency Provider Physician Assistant; PCP Internal Medicine; Visit Provider Student in an Organized Health Care Education/Training Program
DX: I48.91 Unspecified atrial fibrillation (principal); L03.113 Cellulitis of right upper limb; T85.628A Displacement of other specified internal prosthetic devices, implants and grafts, initial encounter; T82.898A Other specified complication of vascular prosthetic devices, implants and grafts, initial encounter; N17.9 Acute kidney failure, unspecified; C32.1 Malignant neoplasm of supraglottis; Y82.9 Unspecified medical devices associated with adverse incidents; E83.51 Hypocalcemia; T46.1X6A Underdosing of calcium-channel blockers, initial encounter; T44.7X6A Underdosing of beta-adrenoreceptor antagonists, initial encounter; I65.22 Occlusion and stenosis of left carotid artery; K21.9 Gastro-esophageal reflux disease without esophagitis; F17.210 Nicotine dependence, cigarettes, uncomplicated; I10 Essential (primary) hypertension; E78.00 Pure hypercholesterolemia, unspecified; I80.8 Phlebitis and thrombophlebitis of other sites; R19.7 Diarrhea, unspecified; E87.6 Hypokalemia; E83.39 Other disorders of phosphorus metabolism; E89.3 Postprocedural hypopituitarism; W88.1XXA Exposure to radioactive isotopes, initial encounter; E86.0 Dehydration; M81.0 Age-related osteoporosis without current pathological fracture; Z79.01 Long term (current) use of anticoagulants; Z93.0 Tracheostomy status; Z91.128 Patient's intentional underdosing of medication regimen for other reason; Z79.891 Long term (current) use of opiate analgesic; Z88.2 Allergy status to sulfonamides; M17.0 Bilateral primary osteoarthritis of knee; Z79.1 Long term (current) use of non-steroidal anti-inflammatories (NSAID); Z86.14 Personal history of Methicillin resistant Staphylococcus aureus infection; Z86.16 Personal history of COVID-19; Z90.02 Acquired absence of larynx; Z83.3 Family history of diabetes mellitus; Z82.3 Family history of stroke; Z82.49 Family history of ischemic heart disease and other diseases of the circulatory system; Z80.3 Family history of malignant neoplasm of breast; Z80.1 Family history of malignant neoplasm of trachea, bronchus and lung
CPT/HCPCS: 36415; 36416; 36573; 71045; 71250; 73201; 74230; 76882; 80053; 80061; 80202; 82306; 82310; 82542; 82607; 82652; 82746; 82962; 83036; 83540; 83550; 83735; 83970; 84100; 84439; 84443; 84481; 85025; 92507; 92523; 92526; 92610; 92611; 93005; 93306; 94664; 96365; 96366; 96374; 96375; 96376; 99285; A4222; J0282; J0283; J0612; J1171; J2470; J2543; J3370; J3475; J3490; J7030; J7040; J7050

== ENCOUNTER 2024-03-11 13:04 | Outpatient (CLI) | payer MEDICARE, MEDICAID, SELFPAY ==
[2024-03-11 13:17] LABS: Basophils # 0.1 10^3/uL (0.0-0.1); Basophils % 0.8 %; Eosinophils # 0.1 10^3/uL (0.0-0.8); Eosinophils % 1.6 %; Hematocrit 39.6 % (36-47); Mean Corpuscular HGB Conc 28.5 g/dL (30-55); Mean Corpuscular Hemoglobin 26.2 pg (27-33); Mean Corpuscular Volume 91.9 fl (85-98); Mean Platelet Volume 10.8 fL (7.4-10.4); Monocytes # 0.7 10^3/uL (0.2-0.9); Monocytes % 8.5 %; Neutrophils # 6.57 10^3/uL (1.8-7.7); Neutrophils % 76.6 %; Nucleated Red Blood Cells % 0 %; Platelet Count 284 10^3/cmm (157-399); Red Blood Count 4.31 10^6/uL (3.85-5.65); Red Cell Distribution Width 16.1 % (12.1-15.1); White Blood Count 8.58 10^3/uL (3.29-11.43)
[2024-03-11 13:36] LABS: Alanine Aminotransferase 10 U/L (0-33); Albumin Level 3.3 g/dL (3.5-5.2); Alkaline Phosphatase 109 U/L (35-105); Anion Gap 16.5 (5-19); Aspartate Amino Transferase 18 U/L (0-32); Blood Urea Nitrogen 8 mg/dL (8-23); Calcium 6.9 mg/dL (8.5-10.5); Carbon Dioxide 26 mmol/L (22-29); Chloride 102 mmol/L (98-107); Glomerular Filtration Rate 56.2 mL/min (90-130); Glucose 94 mg/dL (65-115); Osmolality Calculated 288 mOsm/kg (285-295); Potassium 4.5 mmol/L (3.5-5.1); Sodium 140 mmol/L (136-145); Total Bilirubin 0.3 mg/dL (0.15-1.2); Total Protein 7.3 g/dL (6.6-8.7)
== END 2024-03-11 13:05 | disposition home or self-care (01) ==
PROVIDERS: PCP Internal Medicine; Visit Provider Internal Medicine
DX: C32.1 Malignant neoplasm of supraglottis (principal); E11.9 Type 2 diabetes mellitus without complications
CPT/HCPCS: 80053; 85025

== ENCOUNTER → 2024-03-14 13:06 | Outpatient (BNVA) | payer MEDICARE, MEDICAID, SELFPAY | PROVIDERS: PCP Internal Medicine; Visit Provider Internal Medicine | DX: I10 Essential (primary) hypertension (principal); Z86.79 Personal history of other diseases of the circulatory system; E78.00 Pure hypercholesterolemia, unspecified; E03.9 Hypothyroidism, unspecified; Z79.891 Long term (current) use of opiate analgesic; E20.9 Hypoparathyroidism, unspecified; I48.0 Paroxysmal atrial fibrillation | CPT/HCPCS: 99205 ==

== ENCOUNTER 2024-04-02 15:43 | Inpatient (IN) | payer MEDICARE, MEDICAID, SELFPAY ==
[2024-04-02] VITALS (13 sets, daily range): BP systolic 65–133; BP diastolic 43–101; PULSE 65–150; RESP 16–20; TEMP 36.7; O2SAT 92–100; BMI 28.1
--- NOTE | 2024-04-02 15:45 | ECG_ITS ---
[facility] Test Date: 2024-04-02 Pat Name: Rosario Villalba Department: Room: Gender: Female Command Center Officer: : 1960 Requested By: Michael Yates Order Number: [id number] Leora MD: Tye Eden M.D. Measurements Intervals [place] Rate: 64 P: 53 IA: 146 QRS: 8 QRSD: 85 T: 49 QT: 451 QTc: 466 Interpretive Statements SINUS RHYTHM Compared to ECG 03/02/2024 15:35:01 T-wave abnormality no longer present Electronically Signed On 04-05-2024 23:12:50 PROMOTIONS DIRECTOR by Tye Eden M.D. [email or web address]
--- NOTE | 2024-04-02 16:12 | ED_ITS ---
Documented by User: Pranay Van DO 04/04/24 06:51 HPI - Weakness 2 General: Chief complaint: Weakness Stated complaint: affib Time Seen by Provider: 04/02/24 16:11 History of Present Illness: 64-year-old female presents to the emerg ency room with complaints of pain and swelling in her neck and redness. Started yesterday and has gotten significantly more prominent since then. No fevers sweats or chills. She has a chronic cough that is unchanged. She has a history of an cancer of the epiglottis she had a laryngectomy at [facility] in [place]. She has a tracheostomy in place was done approximately 1 year ago. 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 GERD (gastroesophageal reflux disease) Odynophagia COVID-19 Atrial fibrillation, currently in sinus rhythm Immunization counseling Smoker unmotivated to quit Encounter for long-term (current) use of NSAIDs Encounter for long-term opiate analgesic use High risk medication use Opioid contract exists Degenerative joint disease (DJD) of lumbar spine Cervical disc disease HTN (hypertension) Hypercholesterolemia Osteoarthritis of both knees Age related osteoporosis Surgical History History of tracheostomy 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 History of colonoscopy History of esophagogastroduodenoscopy (EGD) History of back surgery H/O: hysterectomy Family History Sister Cancer breast Diabetes Stroke Brother Cancer lung Diabetes Stroke CAD (coronary artery disease) Brother has AICD Mother Diabetes Father Heart disease Heart attack CAD (coronary artery disease) Father at age 51 secondary to heart attack Social History Smoking and tobacco/nicotine status: current some day tobacco/nicotine user cigarettes Packs smoked per day: 0.75 Years cigarettes smoked: 50 Quit status (tobacco/nicotine): has tried quititng Second hand smoke exposure: No Alcohol intake: never Substance/Drug Use: former Date of last use: 2014 Marital status: Physical Exam 2 Const: GENERAL APPEARANCE: cooperative ORIENTATION/CONSCIOUSNESS: Yes awake, Yes oriented to person, Yes oriented to place and Yes oriented to time HENMT: COMMON NORMALS: normocephalic, atraumatic and hearing grossly normal bilaterally HEAD & SCALP: normocephalic and atraumatic Neck/C-Spine: OTHER: Redness and erythema with swelling particularly on the right side of the neck. Tender to the touch tracheostomy is in place and patent no stridor Resp: COMMON NORMALS: normal respiratory effort, No retractions, No use of accessory muscles and clear to auscultation bilaterally AUSCULTATION: clear to auscultation bilaterally Cardio: COMMON NORMALS: regular rate, regular rhythm and No murmurs present (Cardio) RATE: regular rate RHYTHM: regular rhythm GI: COMMON NORMALS: Soft to palpation and No hepatosplenomegaly present A USCULTATION: Yes normoactive bowel sounds PALPATION: Yes Soft to palpation, No Tenderness to palpation present (GI), No Guarding due to palpation present (GI) and Yes No hepatosplenomegaly present Extremity: COMMON NORMALS: normal to inspection, capillary refill normal, no clubbing, cyanosis or edema, no calf tenderness and no pedal edema Neuro: SENSORIUM/ORIENTATION: Yes oriented to person, Yes oriented to place and Yes oriented to time Skin: COMMON NORMALS: no rashes or lesions noted GENERAL SKIN EXAM: no rashes or lesions noted Course 2 Vital Signs: Vital signs: Vital Signs Temperature 98.0 F 04/04/24 04:00 Pulse Rate 126 H 04/04/24 05:42 Respiratory Rate 18 04/04/24 04:00 Blood Pressure 141/95 04/04/24 04:00 Pulse Oximetry 94 04/04/24 04:00 Oxygen Delivery Me thod Room Air 04/04/24 04:00 Oxygen Flow Rate 6 04/03/24 08:31 Fraction of Inspir ed Oxygen 21 04/03/24 08:31 [facility] - Weakness Medical Decision Making Care signed out to Dr. Suazo at change of shift. See final notes for diagnosis and disposition. Patient care transitioned me at shift change. Consultation: I talked with Dr. Khan with ENT at [facility] in [place]. He is on-call for the patient's ENT doctor, Dr. Fisher. Currently no abscess. Extensive cellulitis. Physical exam along with CT both indicate this is a cellulitis with induration but no fluctuance. No abscess. Dr. Khan agrees with Sary Reid for now. Also suggest that could transition to Unasyn. Consultation: I spoke with Dr. Elizalde who agrees to admission. Assessment and plan: Cellulitis of the neck -2 L normal saline bolus. Fluid volumes based on ideal body weight. -Broad-spectrum antibiotics were administered. Vancomycin and meropenem -Sepsis quality measures. -Lactic acid with a reflex was ordered. -Blood cultures were ordered. -I discussed the patient with the hospitalist on-call who is admitting the patient. - Discussed findings and plan with patient. Answered any questions. - All laboratory values were reviewed and interpreted personally by myself, the ER physician - All imaging was reviewed and interpreted personally by myself, the ER physician. - Evaluation and treatment of this problem were appropriate in the emergency setting Lab Data 04/04/24 02:13 04/04/24 02:13 Radiology Impressions Chest X-Ray 04/02/24 16:13 IMPRESSION: 1. There is a tracheostomy tube with its tip difficult to visualized due to rotation of the patient at the time of imaging. A repeat study is recommended. 2. There is moderate elevation of the left hemidiaphragm which is new since the previous study. Neck CT 04/02/24 16:18 IMPRESSION: Status post laryngectomy postoperative changes with placement of the tracheostomy. There is diffuse soft tissue thickening of the aerodigestive tract with marked retropharyngeal edema with effaced supraglottic airway. There is no drainable collection or focal abscess seen. Differential diagnosis is postoperative changes, infection, or possibly residual/recurrent tumor. A PET-CT may be beneficial for follow up in addition to correlation with direct inspection. Continued follow-up also recommended. ADDENDUM: 04/02/24 [id number] Findings were discussed with PRANAY Cho at 04/02/2024 5:25 PM [employer]. Given history of remote surgery infection is favored for this appearance. Continued attention on follow-up recommended. Laboratory Results WBC 10.83 10^3/uL (3.29-11.43) 04/02/24 17:35 RBC 4.22 10^6/uL (3.85-5.65) 04/02/24 17:35 Hgb 11.00 g/dL (11.27-16.99) L 04/02/24 17:35 Hct 34.7 % (36-47) L 04/02/24 17:35 MCV 82.2 fl (85-98) L 04/02/24 17:35 MCH 26.1 pg (27-33) L 04/02/24 17:35 MCHC 31.7 g/dL (30-55) 04/02/24 17:35 RDW 17.6 % (12.1-15.1) H 04/02/24 17:35 Plt Count 222 10^3/cmm (157-399) 04/02/24 17:35 MPV 10.9 fL (7.4-10.4) H 04/02/24 17:35 Neut % (Auto) 78.1 % 04/02/24 17:35 Lymph % (Auto) 10.5 % 04/02/24 17:35 [place] % (Auto) 10.7 % 04/02/24 17:35 Eos % (Auto) 0.2 % 04/02/24 17:35 Baso % (Auto) 0.1 % 04/02/24 17:35 Neut # (Auto) 8.46 10^3/uL (1.8-7.7) H 04/02/24 17:35 Lymph # (Auto) 1.1 10^3/uL (0.8-4.8) 04/02/24 17:35 [place] # (Auto) 1.2 10^3/uL (0.2-0.9) H 04/02/24 17:35 Eos # (Auto) 0.0 10^3/uL (0.0-0.8) 04/02/24 17:35 Baso # (Auto) 0.0 10^3/uL (0.0-0.1) 04/02/24 17:35 Nucleated RBC % (auto) 0 % 04/02/24 17:35 Nucleated RBCs # 0.0 /100WBC 04/02/24 17:35 Sodium Cancelled 04/02/24 17:45 Potassium Cancelled 04/02/24 17:45 Chloride Cancelled 04/02/24 17:45 Carbon Dioxide Cancelled 04/02/24 17:45 Anion Gap Cancelled 04/02/24 17:45 BUN Cancelled 04/02/24 17:45 Creatinine Cancelled 04/02/24 17:45 GFR Calculation Cancelled 04/02/24 17:45 Glucose Cancelled 04/02/24 17:45 Calculated Osmolality Cancelled 04/02/24 17:45 Lactic Acid 1.4 mmol/L (0.5-2.2) 04/02/24 17:45 Calcium Cancelled 04/02/24 17:45 Total Bilirubin Cancelled 04/02/24 17:45 AST Cancelled 04/02/24 17:45 ALT Cancelled 04/02/24 17:45 Alkaline Phosphatase Cancelled 04/02/24 17:45 Total Protein Cancelled 04/02/24 17:45 Albumin Cancelled 04/02/24 17:45 Globulin Cancelled 04/02/24 17:45 TSH Cancelled 04/02/24 17:45 Discharge Plan Discharge Patient Disposition: Admitted As Inpatient Admit Provider: Mary Elizalde Clinical Impression: Cellulitis of neck, S/P laryngectomy, History of tracheostomy Condition: Stable Coding Level of Care Code ED Enterprise Software Developer for Chg Fwd Related Data Home Medications Medication Instructions Recorded Confirmed bupropion HCl 150 mg 24 hr tablet, 150 mg PO QAM 06/07/21 04/02/24 extended release (Wellbutrin XL) apixaban 5 mg tablet (Eliquis) 5 mg PO BID 07/13/22 04/02/24 rosuvastatin 20 mg tablet 20 mg PO DAILY 03/07/23 04/02/24 hydroxyzine HCl 25 mg tablet 25 mg PO Q8H PRN Anxiety 02/09/24 04/02/24 potassium chloride 10 mEq 10 meq PO DAILY 02/17/24 04/02/24 tablet,extended release levothyroxine 112 mcg tablet See Rx Instructions .Route .COMPLEX 01/22/25 01/22/25 pantoprazole 40 mg tablet,delayed 40 mg PO DAILY 04/02/24 04/02/24 release Previous Rx's Medication Instructions Recorded hydrocodone 10 mg-acetaminophen 1 tab PO TID PRN pain 30 days #90 03/31/21 325 mg tablet tabs amiodarone 200 mg tablet (Pacerone) 200 mg PO BID 30 days #60 tabs 03/04/24 calcium carbonate 500 mg PO BID 30 days #60 tabs 03/04/24 metoprolol tartrate 25 mg tablet 25 mg ng-tube BID@0900,2100 30 03/04/24 days #60 tabs calcitriol 0.5 mcg capsule 0.5 mcg PO BID #60 caps 03/21/24 Allergies Allergy/AdvReac Type Severity Reaction Status Date / Time sulfamethoxazole Allergy abdominal Verified 03/13/24 17:06 [From Bactrim] pain trimethoprim [From Bactrim] Allergy abdominal Verified 03/13/24 17:06 pain Sulfa (Sulfonamide AdvReac Mild rash and Verified 03/13/24 17:06 Antibiotics) itch tiagabine [From Gabitril] AdvReac Mild headache, Verified 03/13/24 17:06 upset GI Documented by User: Ramona Suazo MD 04/02/24 21:53 HPI - Weakness 2 General: Chief complaint: Weakness Stated complaint: affib Time Seen by Provider: 04/02/24 16:11 PFSH ED 2 PFSH: Medical History Carotid stenosis 100% left carotid stenosis Chronic anticoagulation 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 GERD (gastroesophageal reflux disease) Odynophagia COVID-19 Atrial fibrillation, currently in sinus rhythm Immunization counseling Smoker unmotivated to quit Encounter for long-term (current) use of NSAIDs Encounter for long-term opiate analgesic use High risk medication use Opioid contract exists Degenerative joint disease (DJD) of lumbar spine Cervical disc disease HTN (hypertension) Hypercholesterolemia Osteoarthritis of both knees Age related osteoporosis Surgical History History of tracheostomy 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 History of colonoscopy History of esophagogastroduodenoscopy (EGD) History of back surgery H/O: hysterectomy Family History Sister Cancer breast Diabetes Stroke Brother Cancer lung Diabetes Stroke CAD (coronary artery disease) Brother has AICD Mother Diabetes Father Heart disease Heart attack CAD (coronary artery disease) Father at age 51 secondary to heart attack Social History Smoking and tobacco/nicotine status: current some day tobacco/nicotine user cigarettes Packs smoked per day: 0.75 Years cigarettes smoked: 50 Quit status (tobacco/nicotine): has tried quititng Second hand smoke exposure: No Alcohol intake: never Substance/Drug Use: former Date of last use: 2014 Marital status: Course 2 Vital Signs: Vital signs: Vital Signs Temperature 98.0 F 04/04/24 04:00 Pulse Rate 126 H 04/04/24 05:42 Respiratory Rate 18 04/04/24 04:00 Blood Pressure 141/95 04/04/24 04:00 Pulse Oximetry 94 04/04/24 04:00 Oxygen Delivery Me thod Room Air 04/04/24 04:00 Oxygen Flow Rate 6 04/03/24 08:31 Fraction of Inspir ed Oxygen 21 04/03/24 08:31 MDM - Weakness Medical Decision Making Patient care transitioned me at shift change. Consultation: I talked with Dr. Khan with ENT at [facility] in [place]. He is on-call for the patient's ENT doctor, Dr. Fisher. Currently no abscess. Extensive cellulitis. Physical exam along with CT both indicate this is a cellulitis with induration but no fluctuance. No abscess. Dr. Khan agrees with Sary Reid for now. Also suggest that could transition to Unasyn. Consultation: I spoke with Dr. Elizalde who agrees to admission. Assessment and plan: Cellulitis of the neck -2 L normal saline bolus. Fluid volumes based on ideal body weight. -Broad-spectrum antibiotics were administered. Vancomycin and meropenem -Sepsis quality measures. -Lactic acid with a reflex was ordered. -Blood cultures were ordered. -I discussed the patient with the hospitalist on-call who is admitting the patient. - Discussed findings and plan with patient. Answered any questions. - All laboratory values were reviewed and interpreted personally by myself, the ER physician - All imaging was reviewed and interpreted personally by myself, the ER physician. - Evaluation and treatment of this problem were appropriate in the emergency setting Lab Data 04/04/24 02:13 04/04/24 02:13 Radiology Impressions Chest X-Ray 04/02/24 16:13 IMPRESSION: 1. There is a tracheostomy tube with its tip difficult to visualized due to rotation of the patient at the time of imaging. A repeat study is recommended. 2. There is moderate elevation of the left hemidiaphragm which is new since the previous study. Neck CT 04/02/24 16:18 IMPRESSION: Status post laryngectomy postoperative changes with placement of the tracheostomy. There is diffuse soft tissue thickening of the aerodigestive tract with marked retropharyngeal edema with effaced supraglottic airway. There is no drainable collection or focal abscess seen. Differential diagnosis is postoperative changes, infection, or possibly residual/recurrent tumor. A PET-CT may be beneficial for follow up in addition to correlation with direct inspection. Continued follow-up also recommended. ADDENDUM: 04/02/24 1728 Findings were discussed with PRANAY Cho at 04/02/2024 5:25 PM [employer]ER [employer]ER. Given history of remote surgery infection is favored for this appearance. Continued attention on follow-up recommended. Laboratory Results WBC 10.83 10^3/uL (3.29-11.43) 04/02/24 17:35 RBC 4.22 10^6/uL (3.85-5.65) 04/02/24 17:35 Hgb 11.00 g/dL (11.27-16.99) L 04/02/24 17:35 Hct 34.7 % (36-47) L 04/02/24 17:35 MCV 82.2 fl (85-98) L 04/02/24 17:35 MCH 26.1 pg (27-33) L 04/02/24 17:35 MCHC 31.7 g/dL (30-55) 04/02/24 17:35 RDW 17.6 % (12.1-15.1) H 04/02/24 17:35 Plt Count 222 10^3/cmm (157-399) 04/02/24 17:35 MPV 10.9 fL (7.4-10.4) H 04/02/24 17:35 Neut % (Auto) 78.1 % 04/02/24 17:35 Lymph % (Auto) 10.5 % 04/02/24 17:35 [place] % (Auto) 10.7 % 04/02/24 17:35 Eos % (Auto) 0.2 % 04/02/24 17:35 Baso % (Auto) 0.1 % 04/02/24 17:35 Neut # (Auto) 8.46 10^3/uL (1.8-7.7) H 04/02/24 17:35 Lymph # (Auto) 1.1 10^3/uL (0.8-4.8) 04/02/24 17:35 [place] # (Auto) 1.2 10^3/uL (0.2-0.9) H 04/02/24 17:35 Eos # (Auto) 0.0 10^3/uL (0.0-0.8) 04/02/24 17:35 Baso # (Auto) 0.0 10^3/uL (0.0-0.1) 04/02/24 17:35 Nucleated RBC % (auto) 0 % 04/02/24 17:35 Nucleated RBCs # 0.0 /100WBC 04/02/24 17:35 Sodium Cancelled 04/02/24 17:45 Potassium Cancelled 04/02/24 17:45 Chloride Cancelled 04/02/24 17:45 Carbon Dioxide Cancelled 04/02/24 17:45 Anion Gap Cancelled 04/02/24 17:45 BUN Cancelled 04/02/24 17:45 Creatinine Cancelled 04/02/24 17:45 GFR Calculation Cancelled 04/02/24 17:45 Glucose Cancelled 04/02/24 17:45 Calculated Osmolality Cancelled 04/02/24 17:45 Lactic Acid 1.4 mmol/L (0.5-2.2) 04/02/24 17:45 Calcium Cancelled 04/02/24 17:45 Total Bilirubin Cancelled 04/02/24 17:45 AST Cancelled 04/02/24 17:45 ALT Cancelled 04/02/24 17:45 Alkaline Phosphatase Cancelled 04/02/24 17:45 Total Protein Cancelled 04/02/24 17:45 Albumin Cancelled 04/02/24 17:45 Globulin Cancelled 04/02/24 17:45 TSH Cancelled 04/02/24 17:45 All radiology interpretation(s) finalized by discharge Discharge Plan Discharge Patient Disposition: Admitted As Inpatient Admit Provider: Mary Elizalde Clinical Impression: Cellulitis of neck, S/P laryngectomy, History of tracheostomy Condition: Stable Coding Level of Care Code ED Enterprise Software Developer for Chg Fwd Related Data Home Medications Medication Instructions Recorded Confirmed bupropion HCl 150 mg 24 hr tablet, 150 mg PO QAM 06/07/21 04/02/24 extended release (Wellbutrin XL) apixaban 5 mg tablet (Eliquis) 5 mg PO BID 07/13/22 04/02/24 rosuvastatin 20 mg tablet 20 mg PO DAILY 03/07/23 04/02/24 hydroxyzine HCl 25 mg tablet 25 mg PO Q8H PRN Anxiety 02/09/24 04/02/24 potassium chloride 10 mEq 10 meq PO DAILY 02/17/24 04/02/24 tablet,extended release levothyroxine 112 mcg tablet See Rx Instructions .Route .COMPLEX 04/02/24 04/02/24 pantoprazole 40 mg tablet,delayed 40 mg PO DAILY 04/02/24 04/02/24 release Previous Rx's Medication Instructions Recorded hydrocodone 10 mg-acetaminophen 1 tab PO TID PRN pain 30 days #90 03/31/21 325 mg tablet tabs amiodarone 200 mg tablet (Pacerone) 200 mg PO BID 30 days #60 tabs 03/04/24 calcium carbonate 500 mg PO BID 30 days #60 tabs 03/04/24 metoprolol tartrate 25 mg tablet 25 mg ng-tube BID@0900,2100 30 03/04/24 days #60 tabs calcitriol 0.5 mcg capsule 0.5 mcg PO BID #60 caps 03/21/24 Allergies Allergy/AdvReac Type Severity Reaction Status Date / Time sulfamethoxazole Allergy abdominal Verified 03/13/24 17:06 [From Bactrim] pain trimethoprim [From Bactrim] Allergy abdominal Verified 03/13/24 17:06 pain Sulfa (Sulfonamide AdvReac Mild rash and Verified 03/13/24 17:06 Antibiotics) itch tiagabine [From Gabitril] AdvReac Mild headache, Verified 03/13/24 17:06 upset GI
--- NOTE | 2024-04-02 16:13 | XRR_ITS ---
PROCEDURE INFORMATION: Exam: XR Chest Exam date and time: 04/02/2024 4:50 PM Age: 64 years old Clinical indication: Dyspnea; Additional info: Dyspnea/cough TECHNIQUE: Imaging protocol: Radiologic exam of the chest. Views: 1 view. COMPARISON: CR XR chest 1V portable [id number] 03/01/2024 4:56 PM FINDINGS: Tubes, catheters and devices: Thoracic neural stimulator device again present. There is a tracheostomy tube with its tip difficult to visualized due to rotation of the patient at the time of imaging.. Lower neck surgical clips. Lungs: No consolidation. Pleural spaces: No pleural effusion. No pneumothorax. Heart/Mediastinum: No cardiomegaly. Diaphragm: There is moderate elevation of the left hemidiaphragm which is new since the previous study. Bones/joints: Unremarkable. XR/XR chest 1V portable [id number] IMPRESSION: 1. There is a tracheostomy tube with its tip difficult to visualized due to rotation of the patient at the time of imaging. A repeat study is recommended. 2. There is moderate elevation of the left hemidiaphragm which is new since the previous study.
--- NOTE | 2024-04-02 16:18 | CTR_ITS ---
PROCEDURE INFORMATION: Exam: CT Neck With Contrast Exam date and time: 04/02/2024 4:32 PM Age: 64 years old Clinical indication: Mass, lump, or swelling in neck; Bilateral and anterior and posterior; Prior surgery; Surgery date: <1 month; Surgery type: Trach; Additional info: Swelling erythema, HX epiglottic CA, laryngectomy TECHNIQUE: Imaging protocol: Computed tomography of the neck with contrast. Radiation optimization: All CT scans at this facility use at least one of these dose optimization techniques: automated exposure control; mA and/or kV adjustment per patient size (includes targeted exams where dose is matched to clinical indication); or iterative reconstruction. Contrast material: OMNIPAQUE 350; Contrast volume: 100 ml; Contrast route: INTRAVENOUS (IV); COMPARISON: PT PET skull to thigh SUBS [id number] 11/06/2023 10:02 AM RADIATION DOSE METRICS: Total DLP (mGy-cm): 194.65 FINDINGS: Tubes, catheters and devices: Postsurgical changes of laryngectomy since the previous CT and PET scan. There is soft tissue fullness of the oropharynx involving the bilateral tonsillar pillars the uvula and hypopharynx with completely effaced airway at the C3-C4 level. There is retropharyngeal edema diffusely present. There is no drainable collection visualized. Soft tissue thickening extends to both carotid spaces. 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 In the neck it is diffusely small in caliber. Mastoid air cells: There is a left mastoid effusion. Salivary glands: Normal. Glands are normal in size. Pharynx: See Tubes, catheters and devices finding. Prevertebral and retropharyngeal spaces: See Tubes, catheters and devices finding. Larynx: Status post laryngectomy. Thyroid: Normal. No enlarged or calcified nodules. Trachea: Status post tracheostomy. Lungs: There is emphysema in the lung apices with biapical lung scarring. Lymph nodes: Unremarkable. No lymphadenopathy. 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 Bones/joints: There is a mild T4 superior endplate compression fracture which is unchanged. Soft tissues: See Tubes, catheters and devices finding. CT/CT neck w con* [id number] IMPRESSION: Status post laryngectomy postoperative changes with placement of the tracheostomy. There is diffuse soft tissue thickening of the aerodigestive tract with marked retropharyngeal edema with effaced supraglottic airway. There is no drainable collection or focal abscess seen. Differential diagnosis is postoperative changes, infection, or possibly residual/recurrent tumor. A PET-CT may be beneficial for follow up in addition to correlation with direct inspection. Continued follow-up also recommended.
[2024-04-02] MEDS: iohexol 350 mg/mL 500 mL Btl (per mL) IV (16:36)
[2024-04-02] MEDS: VANCOMYCIN ADD-Vantage 1,000 MG in 0.9% NaCl ADD-Vantage 250 ML 250 MG IV (17:27)
[2024-04-02 17:42] LABS: Basophils % 0.1 %; Eosinophils % 0.2 %; Hematocrit 34.7 % (36-47); Lymphocytes # 1.1 10^3/uL (0.8-4.8); Lymphocytes % 10.5 %; Mean Corpuscular HGB Conc 31.7 g/dL (30-55); Mean Corpuscular Hemoglobin 26.1 pg (27-33); Mean Corpuscular Volume 82.2 fl (85-98); Mean Platelet Volume 10.9 fL (7.4-10.4); Monocytes # 1.2 10^3/uL (0.2-0.9); Monocytes % 10.7 %; Neutrophils # 8.46 10^3/uL (1.8-7.7); Neutrophils % 78.1 %; Nucleated Red Blood Cells % 0 %; Platelet Count 222 10^3/cmm (157-399); Red Blood Count 4.22 10^6/uL (3.85-5.65); Red Cell Distribution Width 17.6 % (12.1-15.1); White Blood Count 10.83 10^3/uL (3.29-11.43)
[2024-04-02] MEDS: meropenem 500 mg SDV IVP ×2 (19:00→23:13)
[2024-04-02] MEDS: sodium chloride 0.9% 1,000 ML 999 ML IV ×2 (19:09→23:08)
[2024-04-02 19:20] LABS: Lactic Sepsis W/Reflex 1.4 mmol/L (0.5-2.2)
--- NOTE | 2024-04-02 19:48 | P.HP_ITS ---
Providers/Chief Complaint 2 Primary Care Provider: Rianna Ruiz MD Chief Complaint: affib History of Present Illness ENT - Dr. Bowen at [facility] in [place] Rosario Villalba is a 64 yo woman w/ Recurrent Supraglottic Laryngeal cancer dx'ed in 11/2022 s/p laryngectomy & radiation and tracheostomy in place complicated by hypoparathyroidism and hypothyroidism who was brought to the ED on 04/02/2024 by her son after her friend noticed that her neck and her R. eye were erythematous and swollen. She endorses a mild subjective fever, but did not check her temperature, weakness when walking such that she could not stand long enough to cook, and malaise, & some light headedness. She denies chills. She endorses SOB, but states that it is not more than usual. She has a productive cough through her tracheostomy, but states that it is typical for her. Some of the sputum that she suctioned is blood tinged. In the ED, her vital signs were within normal limits. She had no leukocytosis. A CXR was done that showed a moderate, but new since the last CXR in 03/01/2024, elevation of the L. hemidiaphram. A CT of the neck was done that showed marked retropharyngeal edema w/ efface supraglottic airway, but no drianable collections or focal abscess noted. The findings were concerning for post- operative changes, infection or possible residual/recurrent tumor. The ED physician spoke with the patient's ENT at [facility] in [place], [place], Dr. Bowen, who felt that her cancer diagnosis was stable and recommended admission to this hospital for management of her cellulitis. While in the ED, she went in to Afib w/ RVR. She converted back to NSR with a 150mg Amiodarone bolus. Review of Systems 2 Const: Reports: fever(s) and malaise; Denies: chills or body aches Eyes: Denies: change in vision or blurry vision ENMT: Reports: nasal discharge (chronic); Denies: odynophagia, ear or mastoid pain, ear discharge or nasal congestion Card: Denies: chest pain or palpitations Resp: Reports: dyspnea (chronic) and productive cough (through her tracheostomy - chronic) GI: Denies: abdominal pain, nausea, vomiting, hematochezia or melena : Denies: difficulty voiding, dysuria, urinary frequency, urinary urgency or hematuria Musc: Reports: other (no myalgia); Denies: joint pain Skin/Breast: Reports: erythema and skin swelling Neuro: Reports: other (no syncope); Denies: headache(s) or dizziness Psych: Reports: anxiety and depression; Denies: suicidal ideation or homicidal ideation Endo: Reports: cold intolerance; Denies: heat intolerance Luis Alberto/Lymph: Denies: easy bruising or easy bleeding Medications/Allergies Home Medications Medication Instructions Recorded Confirmed Last Taken Type hydrocodone 10 mg-acetaminophen 1 tab PO TID PRN pain 30 days #90 03/31/21 04/02/24 04/02/24 Rx 325 mg tablet tabs bupropion HCl 150 mg 24 hr tablet, 150 mg PO QAM 06/07/21 04/02/24 04/02/24 History extended release (Wellbutrin XL) apixaban 5 mg tablet (Eliquis) 5 mg PO BID 07/13/22 04/02/24 04/02/24 History rosuvastatin 20 mg tablet 20 mg PO DAILY 03/07/23 04/02/24 04/01/24 History hydroxyzine HCl 25 mg tablet 25 mg PO Q8H PRN Anxiety 02/09/24 04/02/24 02/22/24 History potassium chloride 10 mEq 10 meq PO DAILY 02/17/24 04/02/24 04/02/24 History tablet,extended release amiodarone 200 mg tablet (Pacerone) 200 mg PO BID 30 days #60 tabs 03/04/24 04/02/24 04/02/24 Rx calcium carbonate 500 mg PO BID 30 days #60 tabs 03/04/24 04/02/24 04/02/24 Rx metoprolol tartrate 25 mg tablet 25 mg ng-tube BID@0900,2100 30 03/04/24 04/02/24 04/02/24 Rx days #60 tabs calcitriol 0.5 mcg capsule 0.5 mcg PO BID #60 caps 03/21/24 04/02/24 04/02/24 Rx levothyroxine 112 mcg tablet See Rx Instructions .Route .COMPLEX 04/02/24 04/02/24 04/02/24 History pantoprazole 40 mg tablet,delayed 40 mg PO DAILY 04/02/24 04/02/24 04/02/24 History release Allergies Allergy/AdvReac Type Severity Reaction Status Date / Time sulfamethoxazole Allergy abdominal Verified 03/13/24 17:06 [From Bactrim] pain trimethoprim [From Bactrim] Allergy abdominal Verified 03/13/24 17:06 pain Sulfa (Sulfonamide AdvReac Mild rash and Verified 03/13/24 17:06 Antibiotics) itch tiagabine [From Gabitril] AdvReac Mild headache, Verified 03/13/24 17:06 upset GI PFSH Acute 2 PFSH: Medical History Carotid stenosis 100% left carotid stenosis Chronic anticoagulation 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 GERD (gastroesophageal reflux disease) Odynophagia COVID-19 Atrial fibrillation, currently in sinus rhythm Immunization counseling Smoker unmotivated to quit Encounter for long-term (current) use of NSAIDs Encounter for long-term opiate analgesic use High risk medication use Opioid contract exists Degenerative joint disease (DJD) of lumbar spine Cervical disc disease HTN (hypertension) Hypercholesterolemia Osteoarthritis of both knees Age related osteoporosis Surgical History History of tracheostomy 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 History of colonoscopy History of esophagogastroduodenoscopy (EGD) History of back surgery H/O: hysterectomy Family History Sister Cancer breast Diabetes Stroke Brother Cancer lung Diabetes Stroke CAD (coronary artery disease) Brother has AICD Mother Diabetes Father Heart disease Heart attack CAD (coronary artery disease) Father at age 51 secondary to heart attack Social History Smoking and tobacco/nicotine status: current some day tobacco/nicotine user cigarettes Packs smoked per day: 0.75 Years cigarettes smoked: 50 Quit status (tobacco/nicotine): has tried quititng Second hand smoke exposure: No Alcohol intake: never Substance/Drug Use: former Date of last use: 2014 Marital status: Vitals/I&O/Wt Last Vital Signs Temp 98.0 F 04/02/24 15:52 Pulse 69 04/02/24 19:00 Resp 20 H 04/02/24 19:00 BP 116/46 04/02/24 19:00 Pulse Ox 100 04/02/24 19:00 O2 Del Method Room Air 04/02/24 19:00 Weight last 48 hrs Weight 81.647 kg Physical Exam 2 Const: GENERAL APPEARANCE: cooperative and comfortable O RIENTATION/CONSCIOUSNESS: Yes awake, Yes oriented to person, Yes oriented to place and Yes oriented to time HENMT: HEAD & SCALP: normocephalic NOSE: Normal external nose present E XTERNAL EAR: Yes external ears normal MOUTH: Normal oral and palatal mucosa present THROAT: posterior oropharynx normal Eye: OTHER: PERRL, EOMI, normal conjunctiva b/l Neck/C-Spine: GENERAL: Yes normal visual inspection and Yes trachea midline THYROID: Thyroid normal CAROTIDS: No bruit CERVICAL SPINE: Yes cervical ROM normal OTHER: tracheostomy in place. Lymph: OTHER: no cervical or supraclavicular LAD Resp: OTHER: no respiratory distress. R>L expiratory wheezes, especially in the R> middle and lower lung kraus. Cardio: OTHER: RRR, no m/r/g or clicks. 2+ radial and DP pulses. GI: OTHER: BS+, NT, ND, no guarding, no rigidity, no rebound tenderness, no hepatosplenomegaly Extremity: GENERAL: No clubbing, No cyanosis and No edema Neuro: CRANIAL NERVES: Yes CN normal except as noted SPEECH: Other neuro speech findings (Communicates with board or mouthing words. ) SENSORY EXAM: N o sensory level loss detected MOTOR EXAM: 5/5 motor strength present throughout and Normal motor muscle tone present throughout Psych: APPEARANCE: Yes grossly normal ATTITUDE: Yes calm and Yes engaged ACTIVITY/MOTOR BEHAVIOR: Yes appropriate eye contact SPEECH: Yes Other speech symptoms (see Neuro section) MOOD & AFFECT: Yes euthymic mood THOUGHT PROCESS: Normal thought process present THOUGHT CONTENT: Yes Normal thought content present ATTENTION/CONCENTRATION: Yes attention grossly intact M HALLEY/COGNITION: Yes memory grossly intact Skin: NARRATIVE SKIN EXAM: neck and R. eye erythema and mild swelling. tenderness to palpation and warmth of the neck and R. eye. Data 04/02/24 17:35 04/02/24 21:05 A&P Assessment and plan (1) Atrial fibrillation with RVR: (2) Cellulitis of neck: Plan #R. eye and neck Cellulitis: - s/p Vanc/Meropenem in the ED. Continue. F/u BCx. #Recurrent Supraglottic Laryngeal cancer dx'ed in 11/2022 s/p laryngectomy & radiation and tracheostomy in place complicated by postradiation hypoparathyroidism - f/u tracheal aspirate. Duonebs ordered for her wheezing. #Afib w/ RVR #Paroxysmal Afib on Apixaban - Continue Telemetry. Resumed her home dose of Amiodarone 200mg BID and d/c'ed Amiodarone drip. Lovenox while hospitalized. #postradiation hypoparathyroidism # hypothyroidism #HTN #HLD #GERD - Resumed home meds. #Tobacco use d/o - Nicotine patch DVT ppx: Full dose Lovenox GI ppx: PPI Attestations 2 Medical Necessity Statement*: Patient needs to be hospitalized for >2 midnights given her complicated cellulitis in the setting of a hx of laryngeal cancer. Time Spent in Patient Care: >70mins was spent on chart review, patient interview/physical exam, lab/image review, plan formulation and coordination of care. Coding Level of Care Code 45443 Diagnoses Atrial fibrillation with RVR I48.91 Cellulitis of neck L03.221
[2024-04-02 21:38] LABS: Magnesium 1.7 mg/dL (1.7-2.3); Phosphorus 4.6 mg/dL (2.5-4.5)
[2024-04-02 21:48] LABS: Alanine Aminotransferase 18 U/L (0-33); Albumin Level 3.2 g/dL (3.5-5.2); Alkaline Phosphatase 81 U/L (35-105); Anion Gap 16.1 (5-19); Aspartate Amino Transferase 26 U/L (0-32); Blood Urea Nitrogen 13 mg/dL (8-23); Calcium 7.9 mg/dL (8.5-10.5); Carbon Dioxide 25 mmol/L (22-29); Chloride 101 mmol/L (98-107); Globulin 3.3 g/dL (1.3-4.6); Glomerular Filtration Rate 41.4 mL/min (90-130); Glucose 101 mg/dL (65-115); Osmolality Calculated 286 mOsm/kg (285-295); Potassium 4.1 mmol/L (3.5-5.1); Sodium 138 mmol/L (136-145); Total Bilirubin 0.3 mg/dL (0.15-1.2); Total Protein 6.5 g/dL (6.6-8.7)
--- NOTE | 2024-04-02 23:05 | PC.NURSE ---
pt noted to have HR in 150s. upon entering room pt was asleep. pt has hx of afib. EKG obtained, given to ER physician. pt takes metoprolol and amiodarone PO to control HR. ER physician notified. Admitting MD notified. Admitting MD verbalized orders to ER physician.
[2024-04-02] MEDS: enoxaparin 80 mg/0.8 mL Syringe SUBCUT (23:11)
[2024-04-03] VITALS (17 sets, daily range): BP systolic 92–153; BP diastolic 55–77; PULSE 64–80; RESP 15–22; TEMP 36.6–36.9; O2SAT 91–99
[2024-04-03] MEDS: amiodarone 50 mg/mL SDV 3 mL 150 MG IVP (00:03)
[2024-04-03] MEDS: amiodarone 200 mg Tablet PO ×3 (01:00→17:22)
[2024-04-03] MEDS: HYDROcodone-acetaminophen 10-325 mg Tablet 1 TAB PO ×3 (01:24→19:43)
[2024-04-03] MEDS: ipratropium-albuterol 3 mL Neb INHALATION ×4 (02:20→19:10)
[2024-04-03] MEDS: meropenem 1,000 mg SDV 1000 MG IVP ×2 (03:24→14:24)
[2024-04-03 03:49] LABS: Basophils % 0.4 %; Eosinophils % 0.4 %; Hematocrit 28.9 % (36-47); Lymphocytes # 1.1 10^3/uL (0.8-4.8); Lymphocytes % 14.4 %; Mean Corpuscular HGB Conc 30.4 g/dL (30-55); Mean Corpuscular Hemoglobin 25.8 pg (27-33); Mean Corpuscular Volume 84.8 fl (85-98); Mean Platelet Volume 11.9 fL (7.4-10.4); Monocytes # 1.2 10^3/uL (0.2-0.9); Monocytes % 15.7 %; Neutrophils # 5.06 10^3/uL (1.8-7.7); Nucleated Red Blood Cells % 0 %; Platelet Count 205 10^3/cmm (157-399); Red Blood Count 3.41 10^6/uL (3.85-5.65); Red Cell Distribution Width 17.6 % (12.1-15.1); White Blood Count 7.34 10^3/uL (3.29-11.43)
[2024-04-03 03:59] LABS: INR 1.53 (0.8-1.2)
[2024-04-03 04:00] LABS: Partial Thromboplastin Time 51.6 SECONDS (23.9-36.7)
[2024-04-03 04:09] LABS: Alanine Aminotransferase 17 U/L (0-33); Albumin Level 2.9 g/dL (3.5-5.2); Alkaline Phosphatase 72 U/L (35-105); Anion Gap 17.6 (5-19); Aspartate Amino Transferase 26 U/L (0-32); Blood Urea Nitrogen 13 mg/dL (8-23); Calcium 7.3 mg/dL (8.5-10.5); Carbon Dioxide 23 mmol/L (22-29); Chloride 103 mmol/L (98-107); Glomerular Filtration Rate 41.4 mL/min (90-130); Glucose 100 mg/dL (65-115); Magnesium 1.6 mg/dL (1.7-2.3); Osmolality Calculated 290 mOsm/kg (285-295); Phosphorus 4.3 mg/dL (2.5-4.5); Potassium 3.6 mmol/L (3.5-5.1); Sodium 140 mmol/L (136-145); Total Bilirubin 0.3 mg/dL (0.15-1.2); Total Protein 5.9 g/dL (6.6-8.7)
[2024-04-03] MEDS: buPROPion XL (24 HR) 150 mg Tablet PO (06:21)
[2024-04-03] MEDS: pantoprazole DR 40 mg Tablet PO (06:21)
--- NOTE | 2024-04-03 06:55 | PHA.VACGOAL ---
Vancomycin Goal - Goal Vancomycin Goal:: 10-15 mg/L Vancomycin Indication:: SSTI - Therapy Current therapy:: Meropenem Day of therpy:: Day [1]of [] . Actual body weight (kg): 81.647 kg - Data Labs: WBC 7.34 10^3/uL (3.29-11.43) 04/03/24 03:14 RBC 3.41 10^6/uL (3.85-5.65) L 04/03/24 03:14 Hgb 8.80 g/dL (11.27-16.99) L 04/03/24 03:14 Hct 28.9 % (36-47) L 04/03/24 03:14 MCV 84.8 fl (85-98) L 04/03/24 03:14 MCH 25.8 pg (27-33) L 04/03/24 03:14 MCHC 30.4 g/dL (30-55) 04/03/24 03:14 RDW 17.6 % (12.1-15.1) H 04/03/24 03:14 Sodium 140 mmol/L (136-145) 04/03/24 03:14 Potassium 3.6 mmol/L (3.5-5.1) 04/03/24 03:14 Chloride 103 mmol/L (98-107) 04/03/24 03:14 Carbon Dioxide 23 mmol/L (22-29) 04/03/24 03:14 Anion Gap 17.6 (5-19) 04/03/24 03:14 BUN 13 mg/dL (8-23) 04/03/24 03:14 Creatinine 1.3 mg/dL (0.5-0.9) H 04/03/24 03:14 GFR Calculation 41.4 mL/min (90-130) L 04/03/24 03:14 Treatment plan:: new consult Regimen:: New start vancomycin for cellulitis of the neck. Load dose of 1000 mg given in the ER. Started on maintenance dose of 500 mg q12h based prior vancomycin history found from 03/03/24.
[2024-04-03] MEDS: calcitriol 0.25 mcg Capsule 0.5 MCG PO ×2 (08:24→17:22)
[2024-04-03] MEDS: vancomycin 500 MG in sodium chloride 0.9% (plus) 100 ML 200 MG IV ×2 (08:24→18:19)
[2024-04-03] MEDS: metoprolol tartrate 25 mg Tablet PO ×2 (08:25→19:43)
[2024-04-03] MEDS: atorvastatin 40 mg Tablet 80 MG PO (08:26)
[2024-04-03] MEDS: sennosides 8.6 mg Tablet 17.2 MG PO (08:26)
[2024-04-03] MEDS: calcium carbonate 500 mg Chew Tablet PO ×2 (08:26→17:22)
[2024-04-03] MEDS: enoxaparin 80 mg/0.8 mL Syringe SUBCUT ×2 (09:30→21:00)
--- NOTE | 2024-04-03 17:23 | PM.PN ---
Subjective Subjective: Overnight labs and H&P reviewed. Patient had intermittent A-fib which required pushes of Cardizem and metoprolol. She has noted to have bruising around the right maxillary area, medial nasal bridge on the right side and under the right eyebrow. Medications: Reviewed: Yes Vitals/I&O/Wt Last Vital Signs Temp 97.7 F 04/04/24 16:00 Pulse 66 04/04/24 16:00 Resp 16 04/04/24 16:00 BP 103/75 04/04/24 16:00 Pulse Ox 98 04/04/24 16:00 O2 Del Method Room Air 04/04/24 16:00 O2 Flow Rate 6 04/03/24 08:31 FiO2 21 04/03/24 08:31 04/04/24 04/04/24 04/04/24 06:59 14:59 22:59 Intake Total 300 / 1700 580 / 580 Balance 300 / 1700 580 / 580 Weight last 48 hrs Weight 81.647 kg Weight 81.647 kg Weight 81.647 kg Physical Exam Narrative: General: No acute distress, AO x3 HEENT: PERRLA, pupils bilaterally equal and reactive, pallors not present, uncuffed trach in place, overall unchanged. Chest: Normal vesicular breath sounds, no added sounds, equal good air entry bilaterally CVS: S1-S2 regular, no murmurs, no tachycardia, no gallops, no rubs Abdomen: Soft, nontender, no organomegaly, bowel sounds present Neuro: No focal deficits, no facial deformity, AO x3, power 5/5 in all limbs Data 04/04/24 02:13 04/04/24 02:13 Micro: Microbiology 04/03/24 02:37 Gram Stain - Final Sputum - Endotracheal Wash Sputum Culture - Preliminary 04/02/24 21:11 Blood Culture - Preliminary Blood NEGATIVE TO DATE 04/02/24 21:05 Blood Culture - Preliminary Blood NEGATIVE TO DATE A&P Assessment and plan (1) Atrial fibrillation with RVR: (2) Cellulitis of neck: Plan #R. eye and neck Cellulitis: - s/p Vanc/Meropenem in the ED. Continue. F/u BCx. #Recurrent Supraglottic Laryngeal cancer dx'ed in 11/2022 s/p laryngectomy & radiation and tracheostomy in place complicated by postradiation hypoparathyroidism - f/u tracheal aspirate. Duonebs ordered for her wheezing. #Afib w/ RVR #Paroxysmal Afib on Apixaban - Continue Telemetry. Resumed her home dose of Amiodarone 200mg BID and d/c'ed Amiodarone drip. Lovenox while hospitalized. #postradiation hypoparathyroidism # hypothyroidism #HTN #HLD #GERD - Resumed home meds. #Tobacco use d/o - Nicotine patch DVT ppx: Full dose Lovenox GI ppx: PPI April 03, 2024 Patient has swelling involving the entire face, however appears to have more pronounced swelling on the right side of the face. Additionally noted to have color changes almost similar appearance to bruising over the right maxillary area, inside of the nasal bridge and under the right eyebrow. She denies any trauma to the area. Patient did have an NG tube in place for an extended. Of time which she had herself removed at home recently. Concerned that with prolonged NG staying in place she could potentially have maxillary sinus disease extending into the orbits. Her extraocular movements are currently intact. No gross swelling of the globe. With these concerns CT of the neck was discussed with radiology again. No obvious maxillary sinus disease was noted. No extension into the bony orbit. However incidentally noted to have a right optic nerve swelling concerning for optic neuritis. Patient denies any visual complaints. No blurring. She is able to read posters on the wall, able to look at the clock, able to communicate via writing without any issues currently. Case was discussed with ophthalmology on-call recommended an MRI of the orbit to visualize the optic nerve. Ophthalmoscopic exam would only be able to visualize the anterior part of the nerve and will be insufficient to either rule in or rule out the diagnosis of optic neuritis. Recommended to check red color perception. Patient reports red color appearing to be dull on the right side compared to the left. Patient has a spinal stimulator in place and we have been informed that our MRI machine is not compatible with a spinal stimulator. Call was placed to [facility] to discuss the case with ophthalmology service and attempt to transfer for MRI of the orbits. Patient has currently been placed on a wait list for transfer, current expected wait time may be several days, in the interim ophthalmology at [facility] recommends obtaining CT of the orbits in lieu of the MRI with and without contrast for dedicated visualization of the orbits. Additionally based on findings of CT orbit may need a neurology consult in case tumor invasion is suspected. Currently creatinine is at 1.3. Patient recently had a contrast study in the last 24 hours. Given her LORENA, plan to hydrate patient well today and obtain CT imaging in the morning to minimize risk of TATYANA. In the interim continue antibiotics. For A-fib continue amiodarone 200 mg p.o. twice daily. Patient is rate controlled at the time of this assessment. Attestations Medical Necessity Statement*: Continued need for IV antibiotics, concern for optic neuritis as above. Needs further evaluation. Coding Level of Care Code Acute Code for [facility] Diagnoses Atrial fibrillation with RVR I48.91 Cellulitis of neck L03.221
[2024-04-04] VITALS (16 sets, daily range): BP systolic 103–141; BP diastolic 64–95; PULSE 63–135; RESP 16–19; TEMP 36.5–36.7; O2SAT 94–99
[2024-04-04 02:28] LABS: Basophils % 0.5 %; Eosinophils # 0.1 10^3/uL (0.0-0.8); Eosinophils % 1.8 %; Hematocrit 34.2 % (36-47); Lymphocytes % 15.1 %; Mean Corpuscular HGB Conc 30.7 g/dL (30-55); Mean Corpuscular Volume 84.7 fl (85-98); Mean Platelet Volume 11.3 fL (7.4-10.4); Monocytes # 0.7 10^3/uL (0.2-0.9); Monocytes % 10.4 %; Neutrophils # 4.73 10^3/uL (1.8-7.7); Neutrophils % 71.9 %; Nucleated Red Blood Cells % 0 %; Platelet Count 235 10^3/cmm (157-399); Red Blood Count 4.04 10^6/uL (3.85-5.65); White Blood Count 6.57 10^3/uL (3.29-11.43)
[2024-04-04] MEDS: ipratropium-albuterol 3 mL Neb INHALATION ×3 (02:35→14:10)
[2024-04-04 02:50] LABS: Alanine Aminotransferase 21 U/L (0-33); Albumin Level 3.6 g/dL (3.5-5.2); Alkaline Phosphatase 89 U/L (35-105); Anion Gap 17.8 (5-19); Aspartate Amino Transferase 29 U/L (0-32); Blood Urea Nitrogen 13 mg/dL (8-23); Calcium 8.1 mg/dL (8.5-10.5); Carbon Dioxide 23 mmol/L (22-29); Chloride 103 mmol/L (98-107); Glomerular Filtration Rate 41.4 mL/min (90-130); Glucose 120 mg/dL (65-115); Magnesium 1.9 mg/dL (1.7-2.3); Osmolality Calculated 291 mOsm/kg (285-295); Phosphorus 4.3 mg/dL (2.5-4.5); Potassium 3.8 mmol/L (3.5-5.1); Sodium 140 mmol/L (136-145); Total Bilirubin 0.2 mg/dL (0.15-1.2); Total Protein 6.6 g/dL (6.6-8.7)
[2024-04-04] MEDS: meropenem 1,000 mg SDV 1000 MG IVP ×2 (03:13→16:06)
--- NOTE | 2024-04-04 03:39 | ECG_ITS ---
[facility] Date: 2024-04[facility]04 Pat Name: Rosario Villalba Department: Room: 108 Gender: Female [employer] Writer: : 1960 Requested By: Mary Elizalde Order Number: [id number] Leora MD: Tye Eden M.D. Measurements Intervals [place] Rate: 144 P: 0 [place]: 0 QRS: 63 QRSD: 90 T: 29 QT: 303 QTc: 470 Interpretive Statements ATRIAL FLUTTER WITH RAPID VENTRICULAR RESPONSE LOW QRS VOLTAGE IN EXTREMITY LEADS [QRS DEFLECTION < 0.5 mV IN LIMB LEADS] POSSIBLE RIGHT VENTRICULAR CONDUCTION DELAY [RSR (QR) IN V1/V2] MODERATE ST DEPRESSION [0.05+ mV ST DEPRESSION] Compared to ECG 04/02/2024 15:54:42 Low QRS voltage now present ST (T wave) deviation now present Sinus rhythm no longer present Electronically Signed On 04-04-2024 08:57:52 MANAGER QUALITY COMPLIANCE by Tye Eden M.D. [email or web address]
[2024-04-04] MEDS: dilTIAZem 5 mg/mL SDV 5 mL 15 MG IVP (03:55)
[2024-04-04] MEDS: metoprolol tartrate 1 mg/1 mL SDV 5 mL 10 MG IVP (06:22)
[2024-04-04] MEDS: pantoprazole DR 40 mg Tablet PO (06:23)
[2024-04-04] MEDS: buPROPion XL (24 HR) 150 mg Tablet PO (06:23)
[2024-04-04] MEDS: vancomycin 500 MG in sodium chloride 0.9% (plus) 100 ML 200 MG IV ×2 (06:24→19:38)
--- NOTE | 2024-04-04 07:45 | PC.NURSE ---
Pt HR started to increase ranging from upper 130s to 140s. Pt converted back to SR s/p IVP metoprolol 10 mg this morning, then back to rapid HR- upper 130s to 140s around 7:45 am, then around 1130 AM pt converted back to SR again-HR upper 60s to 70s s/p 5 mg IVP metoprolol. technology support analyst and hospitalists are made aware.
[2024-04-04] MEDS: amiodarone 200 mg Tablet PO ×2 (08:41→18:26)
[2024-04-04] MEDS: atorvastatin 40 mg Tablet 80 MG PO (08:41)
[2024-04-04] MEDS: metoprolol tartrate 25 mg Tablet PO (08:41)
[2024-04-04] MEDS: calcitriol 0.25 mcg Capsule 0.5 MCG PO ×2 (08:41→18:26)
[2024-04-04] MEDS: calcium carbonate 500 mg Chew Tablet PO ×2 (08:42→18:26)
--- NOTE | 2024-04-04 09:16 | PC.SOCIAL ---
IMM Update pg 2 of IMM Updated and reviewed w/ patient. Copy provided and copy dated, initialed and placed in chart.
[2024-04-04] MEDS: metoprolol tartrate 1 mg/1 mL SDV 5 mL 5 MG IVP (10:32)
[2024-04-04] MEDS: enoxaparin 80 mg/0.8 mL Syringe SUBCUT ×2 (10:32→20:27)
--- NOTE | 2024-04-04 10:48 | P.CONIM_ITS ---
<Statement entered by Tye Eden M.D - 04/05/24 13:04> Patient was evaluated and cared for in conjunction with an advanced practice practitioner.? I personally examined the patient and reviewed the chart and all pertinent data including imaging, telemetry, and laboratory results.? I discussed the patient in detail with the advanced practice practitioner.? Please see? their note for complete consult note, testing results and agreed upon plan of care for the patient. Patient has converted now to sinus rhythm. Plan to switch back to PO amiodarone tomorrow. GENERAL: Patient is alert, awake and oriented x3. HEART: Regular S1 and S2 LUNGS: Clear to auscultate bilaterally. CENTRAL NERVOUS SYSTEM: Grossly nonfocal. EXTREMITIES: Lower extremities with out edema bilaterally. Providers/Reason For Consult 2 Consulting Physician/Specialty*: Dr Eden, cardiology Reason for Consult*: atrial fibrillation with RVR Requesting Physician: Dr. Colon Attending Physician: Jennifer Colon MD Primary Care Provider: Rianna Ruiz MD History of Present Illness History of Present Illness Rosario Villalba is a 64 year old female with past medical history of hypertension, hyperlipidemia, atrial fibrillation, known left carotid occlusion, history of supraglottic laryngeal cancer status post laryngectomy, radiation and tracheostomy, hypoparathyroidism and hypothyroidism. She was brought to the emergency room 03/31/24 for swelling in the right eye and neck with erythema. Found to have cellulitis, unilateral optic neuritis and has been under treatment antibiotics. She was taken off diltiazem in February due to concerns of hypocalcemia as well as not controlling her ventricular rates while in atrial fibrillation. Amiodarone 200 mg twice daily was added to her medication regimen at that time. During the morning this morning she has been spontaneously converting from atrial fibrillation with RVR back to sinus rhythm, she is still anticoagulated with Eliquis 5 mg twice a day. While in atrial fibrillation ventricular rates will run in the 120s to 140s, she is completely asymptomatic during those times. She does note that after her laryngectomy procedure she would have some brief episodes of RVR whenever she would ambulate. She has also been receiving albuterol nebulizer treatments which may cause some tachycardia as well. Review of Systems 2 Const: Denies: diaphoresis Eyes: Denies: change in vision ENMT: Denies: epistaxis Card: Reports: irregular heart rhythm; Denies: chest pain, palpitations, edema, syncope, pre-syncope, dyspnea on exertion, orthopnea or leg pain with exertion Resp: Denies: dyspnea GI: Denies: nausea, vomiting, hematemesis, hematochezia or melena : Denies: hematuria Musc: Denies: extremity swelling Luis Alberto/Lymph: Denies: easy bruising or easy bleeding Medications/Allergies Home Medications Medication Instructions Recorded Confirmed Last Taken Type hydrocodone 10 mg-acetaminophen 1 tab PO TID PRN pain 30 days #90 03/31/21 04/02/24 04/02/24 Rx 325 mg tablet tabs bupropion HCl 150 mg 24 hr tablet, 150 mg PO QAM 06/07/21 04/02/24 04/02/24 History extended release (Wellbutrin XL) apixaban 5 mg tablet (Eliquis) 5 mg PO BID 07/13/22 04/02/24 04/02/24 History rosuvastatin 20 mg tablet 20 mg PO DAILY 03/07/23 04/02/24 04/01/24 History hydroxyzine HCl 25 mg tablet 25 mg PO Q8H PRN Anxiety 02/09/24 04/02/24 02/22/24 History potassium chloride 10 mEq 10 meq PO DAILY 02/17/24 04/02/24 04/02/24 History tablet,extended release amiodarone 200 mg tablet (Pacerone) 200 mg PO BID 30 days #60 tabs 03/04/24 04/02/24 04/02/24 Rx calcium carbonate 500 mg PO BID 30 days #60 tabs 03/04/24 04/02/24 04/02/24 Rx metoprolol tartrate 25 mg tablet 25 mg ng-tube BID@0900,2100 30 03/04/24 04/02/24 04/02/24 Rx days #60 tabs calcitriol 0.5 mcg capsule 0.5 mcg PO BID #60 caps 03/21/24 04/02/24 04/02/24 Rx levothyroxine 112 mcg tablet See Rx Instructions .Route .COMPLEX 04/02/24 04/02/24 04/02/24 History pantoprazole 40 mg tablet,delayed 40 mg PO DAILY 04/02/24 04/02/24 04/02/24 History release Allergies Allergy/AdvReac Type Severity Reaction Status Date / Time sulfamethoxazole Allergy abdominal Verified 03/13/24 17:06 [From Bactrim] pain trimethoprim [From Bactrim] Allergy abdominal Verified 03/13/24 17:06 pain Sulfa (Sulfonamide AdvReac Mild rash and Verified 03/13/24 17:06 Antibiotics) itch tiagabine [From Gabitril] AdvReac Mild headache, Verified 03/13/24 17:06 upset GI Current Medications Generic Name Dose Route Start Last Admin Trade Name Freq PRN Reason Stop Dose Admin Hydrocodone Bitart/Acetaminophen 1 tab 04/03/24 01:07 04/03/24 19:43 Hydrocodone-Acetaminophen 10-325 Mg Tablet PO 1 tab TID PRN Administration pain Albuterol/Ipratropium 3 ml 04/03/24 02:00 04/04/24 07:32 Ipratropium-Albuterol 3 Ml Neb INHALATION 3 ml Q6H.RESP JONY Administration Amiodarone HCl 200 mg 04/03/24 09:00 04/04/24 08:41 Amiodarone 200 Mg Tablet PO 200 mg BID JONY Administration Atorvastatin Calcium 80 mg 04/03/24 09:00 04/04/24 08:41 Atorvastatin 40 Mg Tablet PO 80 mg DAILY JONY Administration Bupropion HCl 150 mg 04/03/24 06:00 04/04/24 06:23 Bupropion Xl (24 Hr) 150 Mg Tablet PO 150 mg QAM JONY Administration Calcitriol 0.5 mcg 04/03/24 09:00 04/04/24 08:41 Calcitriol 0.25 Mcg Capsule PO 0.5 mcg BID JONY Administration Calcium Carbonate 500 mg 04/03/24 09:00 04/04/24 08:42 Calcium Carbonate 500 Mg Chew Tablet PO 500 mg BID JONY Administration Enoxaparin Sodium 80 mg 04/02/24 21:30 04/04/24 10:32 Enoxaparin 80 Mg/0.8 Ml Syringe SUBCUT 80 mg Q12H JONY Administration Vancomycin HCl 500 mg/ Sodium 100 mls @ 200 mls/hr 04/03/24 07:00 04/04/24 07:56 Chloride IV Infused Q12H JONY Infusion Meropenem 1,000 mg 04/03/24 15:00 04/04/24 03:13 Meropenem 1,000 Mg Sdv IVP 1,000 mg Q12H JONY Administration Protocol Metoprolol Tartrate 25 mg 04/03/24 09:00 04/04/24 08:41 Metoprolol Tartrate 25 Mg Tablet PO 25 mg BID@0900,2100 JONY Administration Pantoprazole Sodium 40 mg 04/03/24 07:00 04/04/24 06:[address] 40 Mg Tablet PO 40 mg ACBREAKFAST JONY Administration Senna 17.2 mg 04/03/24 09:00 04/04/24 08:46 Sennosides 8.6 Mg Tablet PO Not Given DAILY JONY PFSH Acute 2 PFSH: Medical History Carotid stenosis 100% left carotid stenosis Chronic anticoagulation 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 GERD (gastroesophageal reflux disease) Odynophagia COVID-19 Atrial fibrillation, currently in sinus rhythm Immunization counseling Smoker unmotivated to quit Encounter for long-term (current) use of NSAIDs Encounter for long-term opiate analgesic use High risk medication use Opioid contract exists Degenerative joint disease (DJD) of lumbar spine Cervical disc disease HTN (hypertension) Hypercholesterolemia Osteoarthritis of both knees Age related osteoporosis Surgical History History of tracheostomy 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 History of colonoscopy History of esophagogastroduodenoscopy (EGD) History of back surgery H/O: hysterectomy Family History Sister Cancer breast Diabetes Stroke Brother Cancer lung Diabetes Stroke CAD (coronary artery disease) Brother has AICD Mother Diabetes Father Heart disease Heart attack CAD (coronary artery disease) Father at age 51 secondary to heart attack Social History Smoking and tobacco/nicotine status: current some day tobacco/nicotine user cigarettes Packs smoked per day: 0.75 Years cigarettes smoked: 50 Quit status (tobacco/nicotine): has tried quititng Second hand smoke exposure: No Alcohol intake: never Substance/Drug Use: former Date of last use: 2014 Marital status: Vitals/I&O/Wt Last Vital Signs Temp 97.8 F 04/04/24 07:57 Pulse 120 H 04/04/24 08:44 Resp 18 04/04/24 07:57 BP 108/74 04/04/24 08:44 Pulse Ox 97 04/04/24 07:57 O2 Del Method Room Air 04/04/24 07:57 O2 Flow Rate 6 04/03/24 08:31 FiO2 21 04/03/24 08:31 04/03/24 04/04/24 04/04/24 22:59 06:59 14:59 Intake Total 518 / 1700 300 / 1700 460 / 460 Balance 518 / 1700 300 / 1700 460 / 460 Weight last 48 hrs Weight 180 lb Weight 180 lb Weight 180 lb Weight 180 lb Physical Exam 2 Const: COMMON NORMALS: no acute distress and patient oriented x3 Chest: COMMONS NORMALS: normal inspection of the chest and normal palpation of entire chest wall CHEST: Yes Symmetrical chest wall rise Resp: COMMON NORMALS: normal respiratory effort, No retractions, No use of accessory muscles and clear to auscultation bilaterally EFFORT & INSPECTION: Yes symmetric chest movement AUSCULTATION: clear to auscultation bilaterally Cardio: COMMON NORMALS: S1 normal heart sound present, S2 normal heart sound present, No gallops present (Cardio), No clicks present (Cardio), No murmurs present (Cardio) and No rub (Cardio) RATE: tachycardic RHYTHM: abnormal rhythm irregularly irregular HEART SOUNDS: S1 normal heart sound present and S2 normal heart sound present PERIPHERAL PULSES: radial pulses present, posterior tibial pulses present and dorsalis pedis present Neuro: COMMON NORMALS: patient oriented x3 and moves all extremities Psych: COMMON NORMALS: mental status grossly normal and cooperative Data 04/04/24 02:13 04/04/24 02:13 Micro: Microbiology 04/02/24 21:11 Blood Culture - Preliminary Blood NEGATIVE TO DATE 04/02/24 21:05 Blood Culture - Preliminary Blood NEGATIVE TO DATE 04/03/24 02:37 Gram Stain - Final Sputum - Endotracheal Wash A&P Assessment and plan (1) Paroxysmal A-fib: She has been converting to sinus rhythm spontaneously as well as with the assistance of IV metoprolol. Will increase metoprolol to 37.5 mg twice a day and will start her on IV amiodarone 0.5 mg/min for better rate control and switch her to oral amiodarone again tomorrow, on her previous home dose. She has a pending transfer to [facility] for further management of her other conditions. (2) Chronic anticoagulation: (3) HTN (hypertension): Qualifiers: Hypertension type: essential hypertension Qualified Code(s): I10 - Essential (primary) hypertension Consult Attestations 2 Medical Necessity Statement: Per hospitalist Coding Level of Care Code Acute Code for [facility] Fwd Diagnoses Paroxysmal A-fib I48.0 Chronic anticoagulation Z79.01 Essential hypertension I10 Hypertension type: essential hypertension
--- NOTE | 2024-04-04 13:44 | PC.NURSE ---
pt converted back again on her own to Sinus rhythm w/ a heart of upper 60s .
--- NOTE | 2024-04-04 15:48 | PC.NURSE ---
off unit to MRI for MRI head orbits. ushered via wheelchair.
--- NOTE | 2024-04-04 17:03 | CTR_ITS ---
PROCEDURE INFORMATION: Exam: CT Orbits Without and With Contrast Exam date and time: 04/04/2024 8:51 PM Age: 64 years old Clinical indication: Patient HX: Concern for optic neuritis noted on CT of neck. ; Additional info: Optic neuritis, as noted on CT neck TECHNIQUE: Imaging protocol: Computed tomography of the orbits without and with contrast. Radiation optimization: All CT scans at this facility use at least one of these dose optimization techniques: automated exposure control; mA and/or kV adjustment per patient size (includes targeted exams where dose is matched to clinical indication); or iterative reconstruction. Contrast material: OMNI 350; Contrast volume: 80 ml; Contrast route: INTRAVENOUS (IV); COMPARISON: MR orbit face neck wo/w* [id number] 10/22/2020 3:17 PM RADIATION DOSE METRICS: Total DLP (mGy-cm): 579.28 FINDINGS: Paranasal sinuses: Normal. No air-fluid levels. Orbital cavities: The globes are normal in size, configuration, and position. The optic nerves appear symmetric. No definite abnormal enhancement is demonstrated. The extra-ocular muscles are normal in size and are unremarkable. Bones/joints: No acute fracture. Soft tissues: Unremarkable. Vasculature: There is atherosclerotic calcification of the cavernous and supraclinoid internal carotid arteries bilaterally, left worse than right. The petrous portion of the left intracranial ICA is small in caliber. Occlusion of the left cervical internal carotid artery with reconstitution of the distal intracranial portion is noted on the prior CT neck. CT/CT orbit BI wo/w con [id number] IMPRESSION: 1. Atherosclerotic calcification of the intracranial internal carotid arteries, left worse than right. Occlusion of the cervical left ICA was noted on the prior CT neck with reconstitution of the distal intracranial ICA, similar in appearance compared to the recent CT neck. 2. No compelling CT evidence for optic neuritis. If there is persistent clinical concern, MRI with and without intravenous contrast may be helpful for further evaluation.
--- NOTE | 2024-04-04 17:20 | P.PN_ITS ---
Subjective 2 Subjective: Patient's family was able to bring in the remote for her spinal stimulator and today she was planned to undergo MRI of the orbits with the stimulator in MRI mode. However it appears eventually this was unable to be achieved at our center. Instead CT of the orbits has been ordered as recommended by ophthalmology from [facility]. Patient in A-fib RVR this morning with heart rate 150s. Received 10 mg metoprolol IV push. Facial swelling is overall unchanged, though color changes over the right side of her face appeared to be better today. Medications: Reviewed: Yes Vitals/I&O/Wt Last Vital Signs Temp 98.4 F 04/03/24 16:00 Pulse 72 04/03/24 16:00 Resp 17 04/03/24 16:00 BP 112/60 04/03/24 16:00 Pulse Ox 97 04/03/24 16:00 O2 Del Method Room Air 04/03/24 16:00 O2 Flow Rate 6 04/03/24 08:31 FiO2 21 04/03/24 08:31 04/03/24 04/03/24 04/03/24 06:59 14:59 22:59 Intake Total 2500 / 2500 882 / 882 Output Total 0 / 0 Balance 2500 / 2500 882 / 882 Weight last 48 hrs Weight 81.647 kg Weight 81.647 kg Weight 81.647 kg Physical Exam 2 Narrative: General: No acute distress, AO x3 HEENT: PERRLA, pupils bilaterally equal and reactive, pallors not present, uncuffed trach in place, overall unchanged. Chest: Normal vesicular breath sounds, no added sounds, equal good air entry bilaterally CVS: S1-S2 regular, no murmurs, no tachycardia, no gallops, no rubs Abdomen: Soft, nontender, no organomegaly, bowel sounds present Neuro: No focal deficits, no facial deformity, AO x3, power 5/5 in all limbs Data 04/04/24 02:13 04/04/24 02:13 Micro: Microbiology 04/03/24 02:37 Gram Stain - Final Sputum - Endotracheal Wash A&P Assessment and plan (1) Atrial fibrillation with RVR: (2) Cellulitis of neck: Plan #R. eye and neck Cellulitis: - s/p Vanc/Meropenem in the ED. Continue. F/u BCx. #Recurrent Supraglottic Laryngeal cancer dx'ed in 11/2022 s/p laryngectomy & radiation and tracheostomy in place complicated by postradiation hypoparathyroidism - f/u tracheal aspirate. Duonebs ordered for her wheezing. #Afib w/ RVR #Paroxysmal Afib on Apixaban - Continue Telemetry. Resumed her home dose of Amiodarone 200mg BID and d/c'ed Amiodarone drip. Lovenox while hospitalized. #postradiation hypoparathyroidism # hypothyroidism #HTN #HLD #GERD - Resumed home meds. #Tobacco use d/o - Nicotine patch DVT ppx: Full dose Lovenox GI ppx: PPI April 04, 2024 Patient's facial swelling is about the same today. Color changes over right side of her face up to appear to be improving. Continue IV antibiotics for treatment of cellulitis, supraglottic swelling which is thought to be likely infectious in nature. Attempted to obtain MRI of the orbits today, however this was unsuccessful. CT of the orbits has been ordered as an alternative. Awaiting the study to discuss the case further with ophthalmology at [facility]. Patient remains on a waiting list. A-fib continues intermittently. Patient is currently on amiodarone 200 mg p.o. twice daily and metoprolol 25 mg p.o. twice daily. Will consult cardiology given recurrence of the problem. Unable to use calcium channel blockers, from previous experience in February 2024, patient does not respond to calcium channel blockers. Persistently has hypocalcemia as a result of her hypoparathyroidism. Blood pressure this morning between 90-100 systolic, increase dose of beta-blockers may not be well-tolerated. ? Add digoxin versus switch to sotalol. Attestations 2 Medical Necessity Statement*: Continued need for IV antibiotics, CT of the orbits planned today. MRI unable to be obtained. Coding Level of Care Code Acute Code for [facility] Fwd High MDM includes number and complexity of problems actively addressed during encounter, amount and/or complexity of data reviewed/ordered and described risk of complication, morbidity or mortality of management as documented Diagnoses Atrial fibrillation with RVR I48.91 Cellulitis of neck L03.221
[2024-04-04 19:02] LABS: Vancomycin Trough 13.4 ug/mL (10-15)
[2024-04-04] MEDS: metoprolol tartrate 25 mg Tablet 37.5 MG PO (20:26)
[2024-04-04] MEDS: iohexol 350 mg/mL 500 mL Btl (per mL) IV (20:54)
[2024-04-04] MEDS: HYDROcodone-acetaminophen 10-325 mg Tablet 1 TAB PO (22:56)
[2024-04-05] VITALS: BP 111/90; PULSE 118; RESP 16; TEMP 36.5; O2SAT 98
[2024-04-05] MEDS: meropenem 1,000 mg SDV 1000 MG IVP (02:44)
[2024-04-05 03:06] LABS: Basophils % 0.5 %; Eosinophils # 0.1 10^3/uL (0.0-0.8); Eosinophils % 0.9 %; Hematocrit 33.4 % (36-47); Lymphocytes # 0.8 10^3/uL (0.8-4.8); Lymphocytes % 12.5 %; Mean Corpuscular HGB Conc 30.5 g/dL (30-55); Mean Corpuscular Hemoglobin 25.8 pg (27-33); Mean Corpuscular Volume 84.3 fl (85-98); Mean Platelet Volume 11.8 fL (7.4-10.4); Monocytes # 1.1 10^3/uL (0.2-0.9); Monocytes % 16.9 %; Neutrophils # 4.56 10^3/uL (1.8-7.7); Neutrophils % 68.9 %; Nucleated Red Blood Cells % 0 %; Platelet Count 248 10^3/cmm (157-399); Red Blood Count 3.96 10^6/uL (3.85-5.65); Red Cell Distribution Width 17.9 % (12.1-15.1); White Blood Count 6.62 10^3/uL (3.29-11.43)
[2024-04-05 03:28] LABS: Alanine Aminotransferase 16 U/L (0-33); Albumin Level 3.3 g/dL (3.5-5.2); Alkaline Phosphatase 86 U/L (35-105); Anion Gap 19.4 (5-19); Aspartate Amino Transferase 21 U/L (0-32); Blood Urea Nitrogen 10 mg/dL (8-23); Calcium 8.3 mg/dL (8.5-10.5); Carbon Dioxide 22 mmol/L (22-29); Chloride 97 mmol/L (98-107); Globulin 3.5 g/dL (1.3-4.6); Glomerular Filtration Rate 45.4 mL/min (90-130); Glucose 108 mg/dL (65-115); Magnesium 1.8 mg/dL (1.7-2.3); Osmolality Calculated 280 mOsm/kg (285-295); Phosphorus 3.2 mg/dL (2.5-4.5); Potassium 3.4 mmol/L (3.5-5.1); Sodium 135 mmol/L (136-145); Total Bilirubin 0.2 mg/dL (0.15-1.2); Total Protein 6.8 g/dL (6.6-8.7)
[2024-04-05 04:00] VITALS: BP 155/65; PULSE 76; RESP 16; TEMP 37.1; O2SAT 96
[2024-04-05] MEDS: levalbuterol 0.63 mg/3 mL Neb INHALATION (04:49)
[2024-04-05 04:50] VITALS: PULSE 71; RESP 18; O2SAT 93
[2024-04-05] MEDS: hyDROXYzine 25 mg Capsule PO (05:11)
[2024-04-05] MEDS: buPROPion XL (24 HR) 150 mg Tablet PO (05:11)
[2024-04-05 05:23] VITALS: PULSE 71
[2024-04-05] MEDS: pantoprazole DR 40 mg Tablet PO (06:22)
[2024-04-05] MEDS: vancomycin 500 MG in sodium chloride 0.9% (plus) 100 ML 200 MG IV (06:22)
[2024-04-05 08:00] VITALS: BP 163/66; PULSE 50; RESP 18; TEMP 36.9; O2SAT 95
--- NOTE | 2024-04-05 08:53 | PC.NURSE ---
Patient transported to [facility] via [facility] crew at 0834 am. Report called to JATINDER Williamson at [facility].
--- NOTE | 2024-04-05 10:40 | PM.TDS ---
Transfer Summary Providers Date of Admission: 04/02/24 20:07 Date of Discharge/Transfer: 04/05/24 Attending Provider at Admission: Mary Elizalde MD Attending Provider at Transfer: Jennifer Colon MD Primary Care Provider: Rianna Ruiz MD Transfer Plans: Anticipated date of transfer: 06/20/24. Receiving Facility: [facility]. Diagnoses at Discharge Discharge Diagnosis (1) Atrial fibrillation with RVR: Status: Acute (2) Cellulitis of neck: Status: Acute (3) Optic neuritis: Status: Acute Reason for Visit [facility] Hospital Course 64 year old lady with A fib RVR, Recurrent Supraglottic Laryngeal cancer dx'ed in 11/2022 s/p laryngectomy & radiation and tracheostomy in place complicated by hypoparathyroidism and hypothyroidism who was brought to the ED on 04/02/2024 by her son after her friend noticed that her neck and her R. eye were erythematous and swollen. Patient did have an NG tube in place for an extended perios Of time which she had herself removed at home recently. there was Concern that with prolonged NG staying in place she could potentially have maxillary sinus disease extending into the orbits. Her extraocular movements were intact. No gross swelling of the globe. With these concerns CT of the neck was discussed with radiology again. No obvious maxillary sinus disease was noted. No extension into the bony orbit. However incidentally noted to have a right optic nerve swelling concerning for optic neuritis. Patient denies any visual complaints. No blurring. She is able to read posters on the wall, able to look at the clock, able to communicate via writing without any issues currently. She did however have reduced red color perception. Case was discussed with ophthalmology on-call recommended an MRI of the orbit to visualize the optic nerve. Ophthalmoscopic exam would only be able to visualize the anterior part of the nerve and will be insufficient to either rule in or rule out the diagnosis of optic neuritis. Patient has a spinal stimulator in place and we were informed that our MRI machine is not compatible with a spinal stimulator. Patient was able to bring in her remote for the stimaulator but even after review, MRI setting was unable to be found. Call was placed to [facility] to discuss the case with ophthalmology service and attempt to transfer for MRI of the orbits. Patient will need ophthalmology and neurology consult after MRI is obtained in case tumor invasion is suspected. Cardiology service was consulted due to recurrent A fib and concern for potential amiodarone toxicity as being cause of optic neuritis. Beta blockers were recommended. Her facial cellulitis was improving with iv abx at the time of discharge Physical Exam Narrative: General: No acute distress, AO x3 HEENT: PERRLA, pupils bilaterally equal and reactive, pallors not present, facial cellulitis is improving. Chest: Normal vesicular breath sounds, no added sounds, equal good air entry bilaterally CVS: S1-S2 regular, no murmurs, no tachycardia, no gallops, no rubs Abdomen: Soft, nontender, no organomegaly, bowel sounds present Neuro: No focal deficits, no facial deformity, AO x3, power 5/5 in all limbs TS Data Studies Completed and Pending Completed Studies During Hospitalization Category Date Time Status CT neck w con* [id number] Stat Cat Scan 04/02/24 16:[address] orbit BI wo/w con [id number] Routine Cat Scan 04/04/24 17:03 Completed XR chest 1V portable [id number] Stat Exams 04/02/24 16:13 Completed Laboratory Last Values WBC 6.62 10^3/uL (3.29-11.43) 04/05/24 02:37 RBC 3.96 10^6/uL (3.85-5.65) 04/05/24 02:37 Hgb 10.20 g/dL (11.27-16.99) L 04/05/24 02:37 Hct 33.4 % (36-47) L 04/05/24 02:37 MCV 84.3 fl (85-98) L 04/05/24 02:37 MCH 25.8 pg (27-33) L 04/05/24 02:37 MCHC 30.5 g/dL (30-55) 04/05/24 02:37 RDW 17.9 % (12.1-15.1) H 04/05/24 02:37 Plt Count 248 10^3/cmm (157-399) 04/05/24 02:37 MPV 11.8 fL (7.4-10.4) H 04/05/24 02:37 Neut % (Auto) 68.9 % 04/05/24 02:37 Lymph % (Auto) 12.5 % 04/05/24 02:37 [place] % (Auto) 16.9 % 04/05/24 02:37 Eos % (Auto) 0.9 % 04/05/24 02:37 Baso % (Auto) 0.5 % 04/05/24 02:37 Neut # (Auto) 4.56 10^3/uL (1.8-7.7) 04/05/24 02:37 Lymph # (Auto) 0.8 10^3/uL (0.8-4.8) 04/05/24 02:37 [place] # (Auto) 1.1 10^3/uL (0.2-0.9) H 04/05/24 02:37 Eos # (Auto) 0.1 10^3/uL (0.0-0.8) 04/05/24 02:37 Baso # (Auto) 0.0 10^3/uL (0.0-0.1) 04/05/24 02:37 Nucleated RBC % (auto) 0 % 04/05/24 02:37 Nucleated RBCs # 0.0 /100WBC 04/05/24 02:37 PT 19.40 SECONDS (12.1-14.9) H 04/03/24 03:14 INR 1.53 (0.8-1.2) H 04/03/24 03:14 APTT 51.6 SECONDS (23.9-36.7) H 04/03/24 03:14 Sodium 135 mmol/L (136-145) L 04/05/24 02:37 Potassium 3.4 mmol/L (3.5-5.1) L 04/05/24 02:37 Chloride 97 mmol/L (98-107) L 04/05/24 02:37 Carbon Dioxide 22 mmol/L (22-29) 04/05/24 02:37 Anion Gap 19.4 (5-19) H 04/05/24 02:37 BUN 10 mg/dL (8-23) 04/05/24 02:37 Creatinine 1.2 mg/dL (0.5-0.9) H 04/05/24 02:37 GFR Calculation 45.4 mL/min (90-130) L 04/05/24 02:37 Glucose 108 mg/dL (65-115) 04/05/24 02:37 Calculated Osmolality 280 mOsm/kg (285-295) L 04/05/24 02:37 Lactic Acid 1.4 mmol/L (0.5-2.2) 04/02/24 17:45 Calcium 8.3 mg/dL (8.5-10.5) L 04/05/24 02:37 Ionized Calcium Disha 1.0 mmol/L (1.1-1.4) L 04/04/24 02:35 Phosphorus 3.2 mg/dL (2.5-4.5) 04/05/24 02:37 Magnesium 1.8 mg/dL (1.7-2.3) 04/05/24 02:37 Total Bilirubin 0.2 mg/dL (0.15-1.2) 04/05/24 02:37 AST 21 U/L (0-32) 04/05/24 02:37 ALT 16 U/L (0-33) 04/05/24 02:37 Alkaline Phosphatase 86 U/L (35-105) 04/05/24 02:37 Total Protein 6.8 g/dL (6.6-8.7) 04/05/24 02:37 Albumin 3.3 g/dL (3.5-5.2) L 04/05/24 02:37 Globulin 3.5 g/dL (1.3-4.6) 04/05/24 02:37 TSH 2.40 uIU/mL (0.27-4.20) 04/02/24 21:05 Vancomycin Trough 13.4 ug/mL (10-15) 04/04/24 18:30 Radiology Impressions Chest X-Ray 04/02/24 16:13 IMPRESSION: 1. There is a tracheostomy tube with its tip difficult to visualized due to rotation of the patient at the time of imaging. A repeat study is recommended. 2. There is moderate elevation of the left hemidiaphragm which is new since the previous study. Neck CT 04/02/24 16:18 IMPRESSION: Status post laryngectomy postoperative changes with placement of the tracheostomy. There is diffuse soft tissue thickening of the aerodigestive tract with marked retropharyngeal edema with effaced supraglottic airway. There is no drainable collection or focal abscess seen. Differential diagnosis is postoperative changes, infection, or possibly residual/recurrent tumor. A PET-CT may be beneficial for follow up in addition to correlation with direct inspection. Continued follow-up also recommended. ADDENDUM: 04/02/241727 Findings were discussed with CARTER Cho at 04/02/2024 5:25 PM [employer]. Given history of remote surgery infection is favored for this appearance. Continued attention on follow-up recommended. Orbit CT 04/04/24 17:03 IMPRESSION: 1. Atherosclerotic calcification of the intracranial internal carotid arteries, left worse than right. Occlusion of the cervical left ICA was noted on the prior CT neck with reconstitution of the distal intracranial ICA, similar in appearance compared to the recent CT neck. 2. No compelling CT evidence for optic neuritis. If there is persistent clinical concern, MRI with and without intravenous contrast may be helpful for further evaluation. Recent Clincial Data Last Vital Signs Temp 98.4 F 04/05/24 08:00 Pulse 50 L 04/05/24 08:00 Resp 18 04/05/24 08:00 BP 163/66 04/05/24 08:00 Pulse Ox 95 04/05/24 08:00 O2 Del Method Room Air 04/05/24 08:00 O2 Flow Rate 6 04/03/24 08:31 FiO2 21 04/03/24 08:31 Vitals Last Vital Signs Temp 98.4 F 04/05/24 08:00 Pulse 50 L 04/05/24 08:00 Resp 18 04/05/24 08:00 BP 163/66 04/05/24 08:00 Pulse Ox 95 04/05/24 08:00 O2 Del Method Room Air 04/05/24 08:00 O2 Flow Rate 6 04/03/24 08:31 FiO2 21 04/03/24 08:31 TS Medications Medications Discontinued Medications Acetaminophen (Acetaminophen 325 Mg Tablet) 650 mg PO Q6H PRN PRN Reason: Mild/Mod Pain Or Temp >/= 101 Hydrocodone Bitart/Acetaminophen (Hydrocodone-Acetaminophen 5-325 Mg Tablet) 1 tab PO Q4H PRN PRN Reason: MODERATE PAIN Hydrocodone Bitart/Acetaminophen (Hydrocodone-Acetaminophen 10-325 Mg Tablet) 1 tab PO TID PRN PRN Reason: pain Last Admin: 04/04/24 22:56 Dose: 1 tab Albuterol/Ipratropium (Ipratropium-Albuterol 3 Ml Neb) 3 ml INHALATION Q6H PRN PRN Reason: SHORTNESS OF BREATH Albuterol/Ipratropium (Ipratropium-Albuterol 3 Ml Neb) 3 ml INHALATION Q6H.RESP [facility] Last Admin: 04/04/24 14:10 Dose: 3 ml Amiodarone HCl (Amiodarone 50 Mg/Ml Sdv 3 Ml) 150 mg IVP ONCE ONE Stop: 04/02/24 23:04 Last Admin: 04/03/24 00:03 Dose: 150 mg Amiodarone HCl (Amiodarone 200 Mg Tablet) 200 mg PO ONCE ONE Stop: 04/03/24 00:46 Last Admin: 04/03/24 01:00 Dose: 200 mg Amiodarone HCl (Amiodarone 200 Mg Tablet) 200 mg PO BID [facility] Last Admin: 04/04/24 18:26 Dose: 200 mg Atorvastatin Calcium (Atorvastatin 40 Mg Tablet) 80 mg PO DAILY [facility] Last Admin: 04/04/24 08:41 Dose: 80 mg Bupropion HCl (Bupropion Xl (24 Hr) 150 Mg Tablet) 150 mg PO QAM [facility] Last Admin: 04/05/24 05:11 Dose: 150 mg Calcitriol (Calcitriol 0.25 Mcg Capsule) 0.5 mcg PO BID [facility] Last Admin: 04/04/24 18:26 Dose: 0.5 mcg Calcium Carbonate (Calcium Carbonate 500 Mg Chew Tablet) 500 mg PO BID [facility] Last Admin: 04/04/24 18:26 Dose: 500 mg Diltiazem HCl (Diltiazem 5 Mg/Ml Sdv 5 Ml) 15 mg IVP ONCE ONE Stop: 04/04/24 03:37 Last Admin: 04/04/24 03:55 Dose: 15 mg Enoxaparin Sodium (Enoxaparin 80 Mg/0.8 Ml Syringe) 80 mg SUBCUT Q12H [facility] Last Admin: 04/04/24 20:27 Dose: 80 mg Hydroxyzine Pamoate (Hydroxyzine 25 Mg Capsule) 25 mg PO Q8H PRN PRN Reason: Anxiety Last Admin: 04/05/24 05:11 Dose: 25 mg Vancomycin HCl 1,000 mg/ (Sodium Chloride) 250 mls @ 250 mls/hr IV ONCE ONE; Protocol Stop: 04/02/24 17:20 Last Infusion: 04/03/24 00:20 Dose: Infused Sodium Chloride (Sodium Chloride 0.9%) 1,000 mls @ 999 mls/hr IV .Q1H1M ONE Stop: 04/02/24 19:57 Last Infusion: 04/02/24 23:14 Dose: Infused Sodium Chloride (Sodium Chloride 0.9%) 1,000 mls @ 999 mls/hr IV .Q1H1M ONE Stop: 04/02/24 21:12 Last Infusion: 04/03/24 00:20 Dose: Infused Amiodarone HCl/Dextrose (Nexterone) 360 mg in 200 mls @ 0 mls/hr IV .Q0M JONY; Protocol Vancomycin HCl 500 mg/ Sodium (Chloride) 100 mls @ 200 mls/hr IV Q12H JONY Last Infusion: 04/05/24 07:50 Dose: Infused Amiodarone HCl/Dextrose (Nexterone) 360 mg in 200 mls @ 0 mls/hr IV .Q0M JONY; Protocol Last Admin: 04/05/24 03:58 Dose: 0.5 mg/min, 16.67 mls/hr Iohexol (Iohexol 350 Mg/Ml 500 Ml Btl (Per Ml)) 0 ml IV ONCE ONE Stop: 04/02/24 16:37 Last Admin: 04/02/24 16:36 Dose: 100 ml Iohexol (Iohexol 350 Mg/Ml 500 Ml Btl (Per Ml)) 0 ml IV ONCE ONE Stop: 04/04/24 20:54 Last Admin: 04/04/24 20:54 Dose: 80 ml Levalbuterol HCl (Levalbuterol 0.63 Mg/3 Ml Neb) 0.63 mg INHALATION Q6H.RESP PRN PRN Reason: wheezing Last Admin: 04/05/24 04:49 Dose: 0.63 mg Levothyroxine Sodium (Levothyroxine 112 Mcg Tablet) 112 mcg PO MoTuWeThFrSa JONY Levothyroxine Sodium (Levothyroxine 112 Mcg Tablet) 56 mcg PO WEEKLY JONY Meropenem (Meropenem 500 Mg Sdv) 500 mg IVP ONCE ONE; Protocol Stop: 04/02/24 18:33 Last Admin: 04/02/24 19:00 Dose: 500 mg Meropenem (Meropenem 500 Mg Sdv) 500 mg IVP ONCE ONE; Protocol Stop: 04/02/24 21:42 Last Admin: 04/02/24 23:13 Dose: 500 mg Meropenem (Meropenem 1,000 Mg Sdv) 1,000 mg IVP Q8H [facility]; Protocol Last Admin: 04/03/24 03:24 Dose: 1,000 mg Meropenem (Meropenem 1,000 Mg Sdv) 1,000 mg IVP Q12H [facility]; Protocol Last Admin: 04/05/24 02:44 Dose: 1,000 mg Metoprolol Tartrate (Metoprolol Tartrate 25 Mg Tablet) 25 mg PO BID@0900,2100 [facility] Last Admin: 04/04/24 08:41 Dose: 25 mg Metoprolol Tartrate (Metoprolol Tartrate 1 Mg/1 Ml Sdv 5 Ml) 10 mg IVP ONCE ONE Stop: 04/04/24 06:01 Last Admin: 04/04/24 06:22 Dose: 10 mg Metoprolol Tartrate (Metoprolol Tartrate 1 Mg/1 Ml Sdv 5 Ml) 5 mg IVP ONCE ONE Stop: 04/04/24 09:55 Last Admin: 04/04/24 10:32 Dose: 5 mg Metoprolol Tartrate (Metoprolol Tartrate 25 Mg Tablet) 37.5 mg PO BID@0900,2100 [facility] Last Admin: 04/04/24 20:26 Dose: 37.5 mg Naloxone HCl (Naloxone 0.4 Mg/Ml Sdv) 0.1 mg IVP Q2M PRN PRN Reason: OPIATERV Ondansetron HCl (Ondansetron 2 Mg/Ml Sdv 2 Ml) 4 mg IVP Q6H PRN PRN Reason: vomiting, or N/V if npo Ondansetron HCl (Ondansetron 4 Mg Tablet) 4 mg PO Q6H PRN PRN Reason: NAUSEA Pantoprazole Sodium (Pantoprazole Dr 40 Mg Tablet) 40 mg PO ACBREAKFAST [facility] Last Admin: 04/05/24 06:22 Dose: 40 mg Pantoprazole Sodium (Pantoprazole Dr 40 Mg Tablet) 40 mg PO ACBREAKFAST [facility] Pharmacy Profile Note (Formulary Statin) each PO DAILY [facility] Senna (Sennosides 8.6 Mg Tablet) 17.2 mg PO DAILY [facility] Last Admin: 04/04/24 08:46 Dose: Not Given Allergies sulfamethoxazole (From Bactrim) Allergy (Verified 03/13/24 17:06) abdominal pain trimethoprim (From Bactrim) Allergy (Verified 03/13/24 17:06) abdominal pain Sulfa (Sulfonamide Antibiotics) Adverse Reaction (Mild, Verified 03/13/24 17:06) rash and itch tiagabine (From Gabitril) Adverse Reaction (Mild, Verified 03/13/24 17:06) headache, upset GI Home Medications hydrocodone 10 mg-acetaminophen 325 mg tablet 1 tab PO TID PRN pain 30 days #90 tabs 03/31/21 [Rx Confirmed 04/02/24] bupropion HCl 150 mg 24 hr tablet, extended release (Wellbutrin XL) 150 mg PO QAM 06/07/21 [History Confirmed 04/02/24] apixaban 5 mg tablet (Eliquis) 5 mg PO BID 07/13/22 [History Confirmed 04/02/24] rosuvastatin 20 mg tablet 20 mg PO DAILY 03/07/23 [History Confirmed 04/02/24] hydroxyzine HCl 25 mg tablet 25 mg PO Q8H PRN Anxiety 02/09/24 [History Confirmed 04/02/24] potassium chloride 10 mEq tablet,extended release 10 meq PO DAILY 02/17/24 [History Confirmed 04/02/24] calcitriol 0.5 mcg capsule 0.5 mcg PO BID #60 caps 03/21/24 [Rx Confirmed 04/02/24] pantoprazole 40 mg tablet,delayed release 40 mg PO DAILY 04/02/24 [History Confirmed 04/02/24] levothyroxine 112 mcg tablet See Rx Instructions .Route .COMPLEX #60 tabs 05/16/24 [Rx] Discharge Plan Discharge Patient Disposition: Xfer Other Condition: Stable Prescriptions: No Action hydrocodone-acetaminophen 10-325 mg tablet 1 tab PO TID PRN (Reason: pain) 30 Days Qty: 90 0RF bupropion HCl [Wellbutrin XL] 150 mg tablet extended release 24 hr 150 mg PO QAM Eliquis 5 mg tablet 5 mg PO BID calcitriol 0.5 mcg capsule 0.5 mcg PO BID Qty: 60 2RF levothyroxine 112 mcg tablet See Rx Instructions .ROUTE .COMPLEX Qty: 60 1RF Dose Instruction: TAKE 1 TABLET BY MOUTH EVERY DAY ON sunday-sunday and ONE-HALF tab ON sunday Rx Instructions: TAKE 1 TABLET BY MOUTH EVERY DAY ON sunday-sunday and ONE-HALF tab ON sunday rosuvastatin 20 mg tablet 20 mg PO DAILY hydroxyzine HCl 25 mg tablet 25 mg PO Q8H PRN (Reason: Anxiety) potassium chloride 10 mEq tablet extended release 10 meq PO DAILY pantoprazole 40 mg tablet,delayed release (DR/EC) 40 mg PO DAILY Referrals: In Home Service Set Up [Other] (You can call this number to see if you qualify for S. ) Rianna Ruiz MD [Primary Care Provider] - Transfer Attestations Time Spent in Transfer Care: greater than 30 min Status at Transfer: Cognitive status at transfer: cognitively intact; Behavioral status at transfer: cooperative; Quality Metrics Clinical Quality Measures [ No reported AMI, CVA or VTE this stay] Coding Level of Care Code Acute Code for Chg Fwd Diagnoses Atrial fibrillation with RVR I48.91 Cellulitis of neck L03.221 Optic neuritis H46.9
== END 2024-04-05 08:34 | disposition short-term general hospital (02) | DRG 603 ==
LOC: ER 22:20 → CSU 23:18
PROVIDERS: Emergency Medicine; Family Medicine; Admitting Provider Internal Medicine; Emergency Provider Emergency Medicine; PCP Internal Medicine; Visit Provider Student in an Organized Health Care Education/Training Program
DX: L03.221 Cellulitis of neck (principal); H05.011 Cellulitis of right orbit; H46.9 Unspecified optic neuritis; I48.0 Paroxysmal atrial fibrillation; Z85.21 Personal history of malignant neoplasm of larynx; Z90.02 Acquired absence of larynx; Z92.3 Personal history of irradiation; Z93.0 Tracheostomy status; E89.2 Postprocedural hypoparathyroidism; Z96.82 Presence of neurostimulator; Z88.2 Allergy status to sulfonamides; Z79.891 Long term (current) use of opiate analgesic; Z79.01 Long term (current) use of anticoagulants; K21.9 Gastro-esophageal reflux disease without esophagitis; Z86.16 Personal history of COVID-19; F17.210 Nicotine dependence, cigarettes, uncomplicated; I10 Essential (primary) hypertension; M81.0 Age-related osteoporosis without current pathological fracture; M17.0 Bilateral primary osteoarthritis of knee; E78.00 Pure hypercholesterolemia, unspecified
CPT/HCPCS: 36415; 70482; 70491; 71045; 80053; 80202; 82330; 83605; 83735; 84100; 84443; 85025; 85610; 85730; 87040; 87070; 87205; 93005; 94640; 94799; 96365; 96367; 96372; 96375; 96376; 97161; 99285; A4222; J0282; J0283; J1650; J2185; J3370; J3490; J7030; J7050; J7614; J9999

== ENCOUNTER 2024-06-25 16:08 | Inpatient (IN) | payer MEDICARE, MEDICAID, SELFPAY ==
[2024-06-25] VITALS (17 sets, daily range): BP systolic 95–161; BP diastolic 65–114; PULSE 105–137; RESP 16–20; TEMP 36.3; O2SAT 92–100; BMI 28.8
--- NOTE | 2024-06-25 16:17 | ECG_ITS ---
[facility] [employer] Test Date: 2024-06-25 Pat Name: Rosario Villalba Department: Room: Gender: Female [employer] Cadence Analyst: : 1960 Requested By: Ramona Hutchinson Order Number: [id number] Leora MD: Wilbert Tam M.D. Measurements Intervals [place] Rate: 125 P: 0 NJ: 0 QRS: 36 QRSD: 123 T: 30 QT: 415 QTc: 599 Interpretive Statements ATRIAL FLUTTER/TACHYCARDIA WITH RAPID VENTRICULAR RESPONSE POSSIBLE RIGHT VENTRICULAR CONDUCTION DELAY [RSR (QR) IN V1/V2] MARKED ST ELEVATION, CONSIDER INFERIOR INJURY [MARKED ST ELEVATION W/O NORMALLY INFLECTED T-WAVE IN II/aVF] ACUTE NH INTERPRETATION BASED ON A DEFAULT AGE OF 40 YEARS Compared to ECG 04/04/2024 03:45:43 Myocardial infarct finding now present ST (T wave) deviation still present Electronically Signed On 06-25-2024 21:15:46 CDT by Wilbert Tam M.D. [email or web address] [id number]
--- NOTE | 2024-06-25 16:28 | XRR_ITS ---
PROCEDURE INFORMATION: Exam: XR Chest Exam date and time: 06/25/2024 4:53 PM Age: 64 years old Clinical indication: Other: Weakness TECHNIQUE: Imaging protocol: Radiologic exam of the chest. Views: 1 view. COMPARISON: CR (CHEST, ) 04/02/2024 4:50 PM FINDINGS: Tubes, catheters and devices: Stable position of the tracheostomy tube. Surgical clips are identified at the neck basis. Spinal stimulator device. Lungs: No lobar consolidation. Pleural spaces: No sizable pleural effusion or pneumothorax. Heart/Mediastinum: No cardiomegaly. Bones/joints: Unremarkable. XR/XR chest 1V portable [id number] IMPRESSION: As above.
--- NOTE | 2024-06-25 16:35 | W.ED.ARRPALP ---
HPI - Arrhythmia/Palpitations General: Chief Complaint: Arrhythmia/Palpitations Stated Complaint: afib Time Seen by Provider: 06/25/24 16:27 History of Present Illness: 64-year-old female with a history of carotid stenosis, chronic anticoagulation on Eliquis, atrial fibrillation, head neck cancer status post ENT now in remission and with a chronic tracheostomy, chronic pain syndrome on chronic opiate analgesic use, hypertension and hyperlipidemia who presents to the emergency room with generalized weakness, palpitations and tachycardia. She says it has been going on for a few days. No fevers. No chest pain. No abdominal pain. Some exertional dyspnea. No altered mental status. No focal motor deficits. Related Data Home Medications ?Medication ?Instructions ?Recorded ?Confirmed bupropion HCl 150 mg 24 hr tablet, 150 mg PO QAM 06/07/21 06/25/24 extended release (Wellbutrin XL) apixaban 5 mg tablet (Eliquis) 5 mg PO BID 07/13/22 06/25/24 rosuvastatin 20 mg tablet 20 mg PO DAILY 03/07/23 06/25/24 hydroxyzine HCl 25 mg tablet 25 mg PO Q8H PRN Anxiety 02/09/24 06/25/24 potassium chloride 10 mEq 10 meq PO DAILY 02/17/24 06/25/24 tablet,extended release pantoprazole 40 mg tablet,delayed 40 mg PO DAILY 04/02/24 06/25/24 release amiodarone 200 mg tablet 200 mg PO DAILY 06/25/24 06/25/24 atorvastatin 40 mg tablet 40 mg PO DAILY 06/25/24 06/25/24 ipratropium bromide 0.02 % 1 ml continuous nebulization TID 06/25/24 06/25/24 solution for inhalation levothyroxine 137 mcg tablet 137 mcg PO DAILY 06/25/24 06/25/24 metoprolol tartrate 50 mg tablet 50 mg PO BID 06/25/24 06/25/24 Previous Rx's ?Medication ?Instructions ?Recorded hydrocodone 10 mg-acetaminophen 1 tab PO TID PRN pain 30 days #90 03/31/21 325 mg tablet tabs calcitriol 0.5 mcg capsule 0.5 mcg PO BID #60 caps 03/21/24 Allergies Allergy/AdvReac Type Severity Reaction Status Date / Time sulfamethoxazole (From Allergy abdominal Verified 06/25/24 16:22 Bactrim) pain trimethoprim (From Bactrim) Allergy abdominal Verified 06/25/24 16:22 pain Sulfa (Sulfonamide AdvReac Mild rash and Verified 06/25/24 16:22 Antibiotics) itch tiagabine (From Gabitril) AdvReac Mild headache, Verified 06/25/24 16:22 upset GI Review of Systems Narrative: General: Alert, no acute distress. Skin: Warm, dry. Head: Normocephalic, atraumatic. Neck: Supple, trachea midline. Eye: Extraocular movements are intact. Ears, nose, mouth and throat: mucosa moist. Cardiovascular: Regular, Normal peripheral perfusion. Respiratory: Lungs are clear to auscultation, respirations are non-labored, breath sounds are equal, Symmetrical chest wall expansion. Gastrointestinal: Soft, Nontender, Non distended Musculoskeletal: Normal ROM, no deformity. Neurological: Alert and oriented, No focal neurological deficit observed. Psychiatric: Cooperative, appropriate mood & affect. 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 GERD (gastroesophageal reflux disease) Odynophagia COVID-19 Atrial fibrillation, currently in sinus rhythm Immunization counseling Smoker unmotivated to quit Encounter for long-term (current) use of NSAIDs Encounter for long-term opiate analgesic use High risk medication use Opioid contract exists Degenerative joint disease (DJD) of lumbar spine Cervical disc disease HTN (hypertension) Hypercholesterolemia Osteoarthritis of both knees Age related osteoporosis Surgical History History of tracheostomy 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 History of colonoscopy History of esophagogastroduodenoscopy (EGD) History of back surgery H/O: hysterectomy Family History Sister Cancer breast Diabetes Stroke Brother Cancer lung Diabetes Stroke CAD (coronary artery disease) Brother has AICD Mother Diabetes Father Heart disease Heart attack CAD (coronary artery disease) Father at age 51 secondary to heart attack Social History Smoking and tobacco/nicotine status: current some day tobacco/nicotine user cigarettes Packs smoked per day: 0.75 Years cigarettes smoked: 50 Quit status (tobacco/nicotine): has tried quititng Second hand smoke exposure: No Alcohol intake: never Substance/Drug Use: former Date of last use: 2014 Marital status: Physical Exam Narrative: EXAM NARRATIVE: General: Alert, no acute distress. Skin: Warm, dry. Head: Normocephalic, atraumatic. Neck: Supple. Tracheostomy in place Eye: Extraocular movements are intact. Ears, nose, mouth and throat: mucosa moist. Cardiovascular: Irregularly irregular, tachycardic, Normal peripheral perfusion. Respiratory: Lungs are clear to auscultation, respirations are non-labored, breath sounds are equal, Symmetrical chest wall expansion. Gastrointestinal: Soft, Nontender, Non distended Musculoskeletal: Normal ROM, no deformity. Neurological: Alert and oriented, No focal neurological deficit observed. Psychiatric: Cooperative, appropriate mood & affect. Course Vital Signs: Vital signs: Vital Signs Temperature 97.4 F L 06/25/24 16:12 Pulse Rate 108 H 06/25/24 19:45 Respiratory Rate 16 06/25/24 17:30 Blood Pressure 151/96 06/25/24 19:45 Pulse Oximetry 98 06/25/24 19:45 Oxygen Delivery Me thod Room Air 06/25/24 19:45 MDM - Arrhythmia/Palpitations Medical Decision Making Medical decision making: Differential diagnosis for patient presenting with generalized weakness including but not limited to and based on the above HPI, review of systems and physical exam: Sepsis. Dehydration. Renal failure. Electrolyte abnormalities. Anemia. Congestive heart failure. Hypotension. Coronary syndrome. Hepatitis. Cirrhosis. Infections such as pneumonia, urinary tract infection, [place] illness, Cellulitis, Viral infections including influenza and Covid-19. Workup: labwork and lab/exam driven imaging ordered to evaluate, rule in and rule out above pathologies. Chest x-ray: No acute process. No infiltrate. No pneumothorax. This was reviewed and interpreted by myself the emergency room physician. I also reviewed the radiology report. EKG: Time 1617. Rate 125. Atrial fibrillation with rapid ventricular response, No ST-T changes, no ectopy, This was reviewed and interpreted by myself the ER physician at 1620. Lab Review: Laboratory results were reviewed and interpreted by myself the emergency room physician. No leukocytosis. No anemia. Worsening renal insufficiency with a BUN/creatinine of 35 and 2.5 her baseline is usually around 1.5. CT of the chest abdomen pelvis out contrast: No acute process. See read below. This was reviewed and interpreted by myself the emergency room physician. I also reviewed the radiology report. I reviewed the patient's medical record. Reexamination: Patient remained stable. No increased work of breathing. No altered mental status. No focal motor deficits. Heart rate has dropped down into the 60s. Patient remained stable otherwise. Blood pressures improved with improvement in her heart rate. Consultation: I spoke with Dr. Salgado is on-call for the hospital service who agrees to admission. Assessment and plan: A-fib with RVR Urinary tract infection Acute on chronic renal insufficiency Dehydration ?Amiodarone bolus and drip. 2 L normal saline bolus. Cefepime. -I discussed the patient with the hospitalist on-call who is admitting the patient. - Discussed findings and plan with patient. Answered any questions. - All laboratory values were reviewed and interpreted personally by myself, the ER physician - All imaging was reviewed and interpreted personally by myself, the ER physician. - Evaluation and treatment of this problem were appropriate in the emergency setting Lab Data 06/25/24 17:35 06/25/24 17:35 Radiology Impressions Chest X-Ray 06/25/24 16:28 IMPRESSION: As above. Abdomen/Pelvis CT 06/25/24 18:32 IMPRESSION: 1. Negative for acute inflammatory process in the abdomen or pelvis. 2. Right lower lobe atelectasis. 3. Coronary artery atherosclerotic calcifications. 4. Extensive aortic atherosclerotic calcifications. 5. Moderate to severe constipation. 6. Spinal stimulator. 7. Right femur demonstrates sequelae of removed orthopedic vicki. 8. Small hiatal hernia. Laboratory Results WBC 10.55 10^3/uL (3.29-11.43) 06/25/24 17:35 RBC 4.53 10^6/uL (3.85-5.65) 06/25/24 17:35 Hgb 11.10 g/dL (11.27-16.99) L 06/25/24 17:35 Hct 36.3 % (36-47) 06/25/24 17:35 MCV 80.1 fl (85-98) L 06/25/24 17:35 MCH 24.5 pg (27-33) L 06/25/24 17:35 MCHC 30.6 g/dL (30-55) 06/25/24 17:35 RDW 17.0 % (12.1-15.1) H 06/25/24 17:35 Plt Count 293 10^3/cmm (157-399) 06/25/24 17:35 MPV 11.1 fL (7.4-10.4) H 06/25/24 17:35 Neut % (Auto) 79.0 % 06/25/24 17:35 Lymph % (Auto) 11.9 % 06/25/24 17:35 [place] % (Auto) 7.1 % 06/25/24 17:35 Eos % (Auto) 0.9 % 06/25/24 17:35 Baso % (Auto) 0.8 % 06/25/24 17:35 Neut # (Auto) 8.33 10^3/uL (1.8-7.7) H 06/25/24 17:35 Lymph # (Auto) 1.3 10^3/uL (0.8-4.8) 06/25/24 17:35 [place] # (Auto) 0.8 10^3/uL (0.2-0.9) 06/25/24 17:35 Eos # (Auto) 0.1 10^3/uL (0.0-0.8) 06/25/24 17:35 Baso # (Auto) 0.1 10^3/uL (0.0-0.1) 06/25/24 17:35 Nucleated RBC % (auto) 0 % 06/25/24 17:35 Nucleated RBCs # 0.0 /100WBC 06/25/24 17:35 Sodium 140 mmol/L (136-145) 06/25/24 17:35 Potassium 4.1 mmol/L (3.5-5.1) 06/25/24 17:35 Chloride 101 mmol/L (98-107) 06/25/24 17:35 Carbon Dioxide 24 mmol/L (22-29) 06/25/24 17:35 Anion Gap 19.1 (5-19) H 06/25/24 17:35 BUN 35 mg/dL (8-23) H 06/25/24 17:35 Creatinine 2.5 mg/dL (0.5-0.9) H 06/25/24 17:35 GFR Calculation 19.5 mL/min (90-130) L 06/25/24 17:35 Glucose 136 mg/dL (65-115) H 06/25/24 17:35 Calculated Osmolality 300 mOsm/kg (285-295) H 06/25/24 17:35 Lactic Acid 2.3 mmol/L (0.5-2.2) H 06/25/24 17:35 Calcium 13.2 mg/dL (8.5-10.5) H 06/25/24 17:35 Total Bilirubin 0.6 mg/dL (0.15-1.2) 06/25/24 17:35 AST 23 U/L (0-32) 06/25/24 17:35 ALT 20 U/L (0-33) 06/25/24 17:35 Alkaline Phosphatase 80 U/L (35-105) 06/25/24 17:35 Troponin T Baseline 24 ng/L (0-10) H 06/25/24 17:35 NT-Pro-B Natriuret Pep 5012 pg/mL (0-125) H 06/25/24 17:35 Total Protein 6.5 g/dL (6.6-8.7) L 06/25/24 17:35 Albumin 4.0 g/dL (3.5-5.2) 06/25/24 17:35 Globulin 2.5 g/dL (1.3-4.6) 06/25/24 17:35 TSH 21.88 uIU/mL (0.27-4.20) H 06/25/24 17:35 Urine Color Yellow (Yellow) 06/25/24 18: Urine Appearance Slightly cloudy (CLEAR) 06/25/24 18: Urine pH 5.5 (5-7) 06/25/24 18: Ur Specific [place] 1.015 (1.005-1.030) 06/25/24 18: Urine Protein Neg (Negative) 06/25/24 18: Urine Glucose (UA) Norm (Normal) 06/25/24 18:29 Urine Ketones Negative (Negative) 06/25/24 18: Urine Blood Neg (Negative) 06/25/24 18: Urine Nitrate Negative (Negative) 06/25/24 18:29 Urine Bilirubin Neg (Negative) 06/25/24 18:29 Urine Urobilinogen 0.2 mg/dL (Negative) 06/25/24 18:29 Ur Leukocyte Esterase 2+ (Negative) A 06/25/24 18:29 Urine RBC 0-2 /hpf (0-2) 06/25/24 18:29 Urine WBC 11-20 /hpf (0-5) H 06/25/24 18:29 Ur Squamous Epith Cells 6-10 /hpf (0-5) 06/25/24 18:29 Amorphous Sediment Not Reportable 06/25/24 18:29 Urine Bacteria None seen /hpf (NONE) 06/25/24 18:29 Hyaline Casts 7.42 /lpf 06/25/24 18:29 Monoscreen Negative (Negative) 06/25/24 17:35 Influenza A (PCR) Negative (Negative) 06/25/24 18:29 Influenza Type B (PCR) Negative (Negative) 06/25/24 18:29 RSV (PCR) Negative (Negative) 06/25/24 18:29 SARS-CoV-2 (PCR) Negative (Negative) 06/25/24 18:29 All radiology interpretation(s) finalized by discharge Discharge Plan Discharge Patient Disposition: Placed in Observation Clinical Impression: Atrial fibrillation with rapid ventricular response, Acute on chronic renal insufficiency, Dehydration, Urinary tract infection Coding Level of Care Code ED Stain Sprayer for Gina Morales
[2024-06-25] MEDS: amiodarone 150 MG/100 ML PREMIX 400 MG IV (17:08)
[2024-06-25] MEDS: sodium chloride 0.9% 1,000 ML 999 ML IV ×2 (17:10→18:41)
[2024-06-25 17:46] LABS: Basophils # 0.1 10^3/uL (0.0-0.1); Basophils % 0.8 %; Eosinophils # 0.1 10^3/uL (0.0-0.8); Eosinophils % 0.9 %; Hematocrit 36.3 % (36-47); Lymphocytes # 1.3 10^3/uL (0.8-4.8); Lymphocytes % 11.9 %; Mean Corpuscular HGB Conc 30.6 g/dL (30-55); Mean Corpuscular Hemoglobin 24.5 pg (27-33); Mean Corpuscular Volume 80.1 fl (85-98); Mean Platelet Volume 11.1 fL (7.4-10.4); Monocytes # 0.8 10^3/uL (0.2-0.9); Monocytes % 7.1 %; Neutrophils # 8.33 10^3/uL (1.8-7.7); Nucleated Red Blood Cells % 0 %; Platelet Count 293 10^3/cmm (157-399); Red Blood Count 4.53 10^6/uL (3.85-5.65); White Blood Count 10.55 10^3/uL (3.29-11.43)
[2024-06-25 18:11] LABS: Lactic Sepsis W/Reflex 2.3 mmol/L (0.5-2.2)
[2024-06-25 18:19] LABS: Troponin(5th) Baseline 24 ng/L (0-10)
[2024-06-25 18:28] LABS: Alanine Aminotransferase 20 U/L (0-33); Alkaline Phosphatase 80 U/L (35-105); Anion Gap 19.1 (5-19); Aspartate Amino Transferase 23 U/L (0-32); Blood Urea Nitrogen 35 mg/dL (8-23); Calcium 13.2 mg/dL (8.5-10.5); Carbon Dioxide 24 mmol/L (22-29); Chloride 101 mmol/L (98-107); Globulin 2.5 g/dL (1.3-4.6); Glomerular Filtration Rate 19.5 mL/min (90-130); Glucose 136 mg/dL (65-115); NT Pro B Type Natriuretic Pept 5012 pg/mL (0-125); Osmolality Calculated 300 mOsm/kg (285-295); Potassium 4.1 mmol/L (3.5-5.1); Sodium 140 mmol/L (136-145); Thyroid Stimulating Hormone 21.88 uIU/mL (0.27-4.20); Total Bilirubin 0.6 mg/dL (0.15-1.2); Total Protein 6.5 g/dL (6.6-8.7)
--- NOTE | 2024-06-25 18:30 | ECG_ITS ---
[facility] Test Date: 2024-06-25 Pat Name: Rosario Villalba Department: Room: Gender: Female Expenditure Requisition Clerk: : [id number] Requested By: Ramona Hutchinson Order Number: [id number] Leora MD: Wilbert Tam M.D. Measurements Intervals [place] Rate: 117 P: 0 [place]: 0 QRS: 186 QRSD: 113 T: 158 QT: 366 QTc: 511 Interpretive Statements ATRIAL FLUTTER/TACHYCARDIA WITH RAPID VENTRICULAR RESPONSE INCOMPLETE RIGHT BUNDLE BRANCH BLOCK [90+ ms QRS DURATION, TERMINAL R IN V1/V2, 40+ ms S IN I/aVL/V4/V5/V6] POSSIBLE RIGHT VENTRICULAR HYPERTROPHY [SOME/ALL OF: PROMINENT R IN V1, LATE TRANSITION, RAD, ZORAIDA, SSS] INFERIOR MYOCARDIAL INFARCTION , PROBABLY RECENT [40+ ms Q WAVE AND/OR ST/T ABNORMALITY IN II/aVF] ACUTE AR Compared to ECG 06/25/2024 16:17:32 Incomplete right bundle-branch block now present ST (T wave) deviation no longer present Myocardial infarct finding still present Electronically Signed On 06-25-2024 21:39:47 CDT by Wilbert Tam M.D. [email or web address]
--- NOTE | 2024-06-25 18:32 | CTR_ITS ---
PROCEDURE INFORMATION: Exam: CT Abdomen And Pelvis Without Contrast Exam date and time: 06/25/2024 6:44 PM Age: 64 years old Clinical indication: Other: Weakness; Renal failure; Additional info: Weakness, renal failure TECHNIQUE: Imaging protocol: Computed tomography of the abdomen and pelvis without contrast. Radiation optimization: All CT scans at this facility use at least one of these dose optimization techniques: automated exposure control; mA and/or kV adjustment per patient size (includes targeted exams where dose is matched to clinical indication); or iterative reconstruction. COMPARISON: PT PET skull to thigh SUBS [id number] 11/06/2023 10:02 AM RADIATION DOSE METRICS: Total DLP (mGy-cm): 750.37 FINDINGS: Tubes, catheters and devices: Spinal stimulator. Lungs: Right lower lobe atelectasis. Coronary arteries: Coronary artery atherosclerotic calcifications. Liver: Normal. No mass. Gallbladder and biliary ducts: Normal. No calcified stones. No ductal dilation. Pancreas: Normal. No ductal dilation. Spleen: Normal. No splenomegaly. Adrenal glands: Normal. No mass. Kidneys and ureters: Normal. No hydronephrosis. Stomach and bowel: Moderate to severe constipation. Small hiatal hernia. Appendix: No evidence of appendicitis. Intraperitoneal space: Unremarkable. No free air. No significant fluid collection. Vasculature: Extensive aortic atherosclerotic calcifications. Lymph nodes: Unremarkable. No enlarged lymph nodes. Urinary bladder: Unremarkable as visualized. Reproductive: Unremarkable as visualized. Bones/joints: Right femur demonstrates sequelae of removed orthopedic vicki. Soft tissues: Unremarkable. CT/CT abdomen pelvis wo con [id number] IMPRESSION: 1. Negative for acute inflammatory process in the abdomen or pelvis. 2. Right lower lobe atelectasis. 3. Coronary artery atherosclerotic calcifications. 4. Extensive aortic atherosclerotic calcifications. 5. Moderate to severe constipation. 6. Spinal stimulator. 7. Right femur demonstrates sequelae of removed orthopedic vicki. 8. Small hiatal hernia.
[2024-06-25 18:58] LABS: Monoscreen Negative (Negative)
[2024-06-25 19:06] LABS: Bacteria Urine None Seen /hpf; Hyaline Casts Urine 7.42 /lpf; RBC Urine 0-2 /hpf (0-2)
[2024-06-25 19:29] LABS: Reflex Lactate Order REFLEX LACTIC ORDERD
[2024-06-25 19:31] LABS: Add Urine Culture? No; Bilirubin Urine Neg (Negative); Blood Urine Neg (Negative); Glucose Urine UA Norm (Normal); Ketones Urine Negative (Negative); Leukocyte Esterase Urine 2+ (Negative); Nitrate Urine Negative (Negative); Protein Urine Neg (Negative); Specific Gravity, Urine 1.015 (1.005-1.030); UA Slide Review UA Slide Review Perf; Urine Appearance Slightly Cloudy (CLEAR); Urine Color Yellow (Yellow); Urobilinogen Urine 0.2 mg/dL (Negative); pH Urine 5.5 (5-7)
[2024-06-25 19:45] LABS: Influenza A NEGATIVE (Negative); Influenza B NEGATIVE (Negative); Respiratory Syncytial Virus Ce NEGATIVE (Negative); SARS-CoV-2 PCR NEGATIVE (Negative)
[2024-06-25 20:08] LABS: Troponin 5 2HR 19.53 ng/L (0-10)
[2024-06-25 20:09] LABS: Troponin 5 2HR Delta -4.47 ABS# (0-10)
--- NOTE | 2024-06-25 20:31 | PM.HP ---
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, tracheostomy, complicated by hypoparathyroidism, hypothyroidism, history of atrial fibrillation on Eliquis, carotid artery stenosis, hypertension, hyperlipidemia, recently transferred to [facility] for concerns for optic neuritis, she tells me that when she got there there was no significant interventions, but she is unsure of the details, she presents to the emergency room due to generalized weakness, palpitations, tachycardia, does report wheezing, shortness of breath, she has a chronic cough, no abdominal pain, no diarrhea, no dysuria, hematuria, no lightheadedness, no dizziness, she lives at home by herself, Review of Systems Const: Denies: fever(s) Card: Denies: chest pain Resp: Denies: dyspnea GI: Denies: abdominal pain Medications/Allergies Home Medications ?Medication ?Instructions ?Recorded ?Confirmed ?Last Taken ?Type hydrocodone 10 mg-acetaminophen 1 tab PO TID PRN pain 30 days #90 03/31/21 06/25/24 06/25/24 Rx 325 mg tablet tabs bupropion HCl 150 mg 24 hr tablet, 150 mg PO QAM 06/07/21 06/25/24 06/25/24 History extended release (Wellbutrin XL) apixaban 5 mg tablet (Eliquis) 5 mg PO BID 07/13/22 06/25/24 06/25/24 History rosuvastatin 20 mg tablet 20 mg PO DAILY 03/07/23 06/25/24 04/01/24 History hydroxyzine HCl 25 mg tablet 25 mg PO Q8H PRN Anxiety 02/09/24 06/25/24 02/22/24 History potassium chloride 10 mEq 10 meq PO DAILY 02/17/24 06/25/24 04/02/24 History tablet,extended release calcitriol 0.5 mcg capsule 0.5 mcg PO BID #60 caps 03/21/24 06/25/24 06/25/24 Rx pantoprazole 40 mg tablet,delayed 40 mg PO DAILY 04/02/24 06/25/24 04/02/24 History release amiodarone 200 mg tablet 200 mg PO DAILY 06/25/24 06/25/24 Unknown History atorvastatin 40 mg tablet 40 mg PO DAILY 06/25/24 06/25/24 Unknown History ipratropium bromide 0.02 % 1 ml continuous nebulization TID 06/25/24 06/25/24 Unknown History solution for inhalation levothyroxine 137 mcg tablet 137 mcg PO DAILY 06/25/24 06/25/24 Unknown History metoprolol tartrate 50 mg tablet 50 mg PO BID 06/25/24 06/25/24 Unknown History Allergies Allergy/AdvReac Type Severity Reaction Status Date / Time sulfamethoxazole (From Allergy abdominal Verified 06/25/24 16:22 Bactrim) pain trimethoprim (From Bactrim) Allergy abdominal Verified 06/25/24 16:22 pain Sulfa (Sulfonamide AdvReac Mild rash and Verified 06/25/24 16:22 Antibiotics) itch tiagabine (From Gabitril) AdvReac Mild headache, Verified 06/25/24 16:22 upset GI PFSH Acute PFSH: Medical History Carotid stenosis 100% left carotid stenosis Chronic anticoagulation 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 GERD (gastroesophageal reflux disease) Odynophagia COVID-19 Atrial fibrillation, currently in sinus rhythm Immunization counseling Smoker unmotivated to quit Encounter for long-term (current) use of NSAIDs Encounter for long-term opiate analgesic use High risk medication use Opioid contract exists Degenerative joint disease (DJD) of lumbar spine Cervical disc disease HTN (hypertension) Hypercholesterolemia Osteoarthritis of both knees Age related osteoporosis Surgical History History of tracheostomy 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 History of colonoscopy History of esophagogastroduodenoscopy (EGD) History of back surgery H/O: hysterectomy Family History Sister Cancer breast Diabetes Stroke Brother Cancer lung Diabetes Stroke CAD (coronary artery disease) Brother has AICD Mother Diabetes Father Heart disease Heart attack CAD (coronary artery disease) Father at age 51 secondary to heart attack Social History Smoking and tobacco/nicotine status: current some day tobacco/nicotine user cigarettes Packs smoked per day: 0.75 Years cigarettes smoked: 50 Quit status (tobacco/nicotine): has tried quititng Second hand smoke exposure: No Alcohol intake: never Substance/Drug Use: former Date of last use: 2014 Marital status: Vitals/I&O/Wt Last Vital Signs Temp 97.4 F L 06/25/24 16:12 Pulse 108 H 06/25/24 19:45 Resp 16 06/25/24 17:30 BP 151/96 06/25/24 19:45 Pulse Ox 98 06/25/24 19:45 O2 Del Method Room Air 06/25/24 19:45 06/25/24 06/25/24 06/25/24 06:59 14:59 22:59 Intake Total 2099 Balance 2099 Weight last 48 hrs Weight 83.461 kg Physical Exam Const: COMMON NORMALS: no acute distress and patient oriented x3 Neck/C-Spine: OTHER: Tracheostomy in place Resp: COMMON NORMALS: normal respiratory effort, No retractions, No use of accessory muscles and clear to auscultation bilaterally AUSCULTATION: crackles and wheezes Cardio: COMMON NORMALS: no JVD, regular rate, regular rhythm, S1 normal heart sound present and S2 normal heart sound present RATE: tachycardic RHYTHM: abnormal rhythm irregularly irregular HEART SOUNDS: S1 normal heart sound present and S2 normal heart sound present GI: COMMON NORMALS: Normal to inspection, nondistended, normoactive bowel sounds present, Soft to palpation and non-tender Extremity: COMMON NORMALS: no pedal edema Neuro: COMMON NORMALS: patient oriented x3, CN's II-XII intact bilaterally and moves all extremities Psych: COMMON NORMALS: mental status grossly normal Data 06/25/24 17:35 06/25/24 17:35 Micro: Microbiology 06/25/24 17:14 Blood Culture - Preliminary Blood SPECIMEN COLLECTED 06/25/24 17:17 Blood Culture - Preliminary Blood SPECIMEN COLLECTED A&P Assessment and plan (1) Atrial fibrillation with RVR: (2) Urinary tract infection: (3) Acute on chronic renal insufficiency: (4) Hypercalcemia: Plan Atrial fibrillation with rapid reticular response - Amiodarone drip - Continue Eliquis Elevated TSH - Check T3, T4 - On levothyroxine 137 mcg daily Hypercalcemia - History of hypoparathyroidism - Albumin within normal limits - Is on calcitriol, will hold - Monitor calcium levels, IV fluids Fatigue, malaise - Potentially from hypercalcemia - Potentially from UTI - Potentially from LORENA Acute kidney injury - CPK - Does not appear to be fluid overloaded although elevated BNP - Gentle IV hydration Urinary tract infection, continue cefepime Wheezing on examination CT chest, Pro-Mina, CRP, sputum cultures History of supraglottic laryngeal cancer status post laryngectomy and radiation, tracheostomy - Trach site looks clean and dry - Consulted respiratory therapy - Does have wheezing, [place] PDMP PDMP Reviewed: Not Reviewed Attestations Medical Necessity Statement*: Patient requires hospitalization, inpatient, greater than 2 midnights for A-fib with RVR, hypercalcemia, elevated TSH, LORENA, fatigue, malaise, UTI Diagnoses Atrial fibrillation with RVR I48.91 Urinary tract infection N39.0 Acute on chronic renal insufficiency N28.9; N18.9 Hypercalcemia E83.52
--- NOTE | 2024-06-25 20:49 | CTR_ITS ---
PROCEDURE INFORMATION: Exam: CT Chest Without Contrast; Diagnostic Exam date and time: 06/25/2024 9:03 PM Age: 64 years old Clinical indication: Shortness of breath and wheezing; Prior surgery; Surgery date: 6+ months; Surgery type: Trach; Additional info: Wheezing, SOB TECHNIQUE: Imaging protocol: Diagnostic computed tomography of the chest without contrast. Radiation optimization: All CT scans at this facility use at least one of these dose optimization techniques: automated exposure control; mA and/or kV adjustment per patient size (includes targeted exams where dose is matched to clinical indication); or iterative reconstruction. COMPARISON: CT chest con [id number] 02/28/2024 9:38 AM RADIATION DOSE METRICS: Total DLP (mGy-cm): 458.87 FINDINGS: Tubes, catheters and devices: Spinal stimulator. Endotracheal tube tip in place. Lungs: Emphysematous changes. Right lower lobe atelectasis. Pleural spaces: Unremarkable. No pneumothorax. No pleural effusion. Heart: Unremarkable. No cardiomegaly. No pericardial effusion. Lymph nodes: Unremarkable. No enlarged lymph nodes. Vasculature: Coronary artery and aortic atherosclerotic calcifications. Aortic atherosclerotic calcifications. Bones/joints: Unremarkable. No acute fracture. Soft tissues: Unremarkable. CT/CT chest con [id number] IMPRESSION: 1. Coronary artery and aortic atherosclerotic calcifications. 2. Spinal stimulator. 3. Aortic atherosclerotic calcifications. 4. Emphysematous changes. 5. Right lower lobe atelectasis. 6. Endotracheal tube tip in place. COMMENTS: The presence of pulmonary emphysema on CT is an independent risk factor for lung cancer. In the absence of a history or active diagnosis of lung cancer, it is recommended that this patient with emphysema be evaluated for enrollment in a low dose CT lung cancer screening program.
[2024-06-25 20:53] LABS: Lactic Acid level (Lactate) 1.7 mmol/L (0.5-2.2)
[2024-06-25 21:09] LABS: Erythrocyte Sedimentation Rate 19 mm/hr (0-15)
[2024-06-25] MEDS: sodium chloride 0.9% 1,000 ML 50 ML IV (21:16)
[2024-06-25] MEDS: pantoprazole 40 mg SDV IVP (21:17)
[2024-06-25] MEDS: cefepime 2,000 mg SDV 2000 MG IVP (21:19)
[2024-06-25] MEDS: apixaban 5 mg Tablet PO (21:22)
[2024-06-25 21:35] LABS: Free T4 Free Thyroxine 1.69 ng/dL (0.82-1.77); Procalcitonin 0.08 ng/mL (0-0.5); T3 Free 1.2 PG/ML (2.0-4.4)
[2024-06-25 21:45] LABS: Creatine Phosphokinase 65 U/L (26-192)
--- NOTE | 2024-06-25 22:29 | ECG_ITS ---
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 Measurements Intervals [place] Rate: 105 P: 0 MT: 0 QRS: 84 QRSD: 112 T: -7 QT: 373 QTc: 493 Interpretive Statements ATRIAL FLUTTER/TACHYCARDIA WITH RAPID VENTRICULAR RESPONSE LOW QRS VOLTAGE [QRS DEFLECTION < 0.5/1.0 mV IN LIMB/CHEST LEADS] INCOMPLETE RIGHT BUNDLE BRANCH BLOCK [90+ ms QRS DURATION, TERMINAL R IN V1/V2, 40+ ms S IN I/aVL/V4/V5/V6] MODERATE ST DEPRESSION [0.05+ mV ST DEPRESSION] ABNORMAL QRS-T ANGLE [QRS-T AXIS DIFFERENCE > 60] Compared to ECG 06/25/2024 18:30:30 Low QRS voltage now present ST (T wave) deviation now present Myocardial infarct finding no longer present Electronically Signed On 06-27-2024 09:08:26 CDT by Wilbert Tam M.D. [email or web address]
[2024-06-25] MEDS: HYDROcodone-acetaminophen 10-325 mg Tablet 1 TAB PO (22:50)
[2024-06-25 23:38] LABS: Ionized Calcium 1.5 mmol/L (1.1-1.4)
[2024-06-25 23:59] LABS: Troponin 5 6HR 21.59 ng/L (0-10)
[2024-06-26] VITALS (38 sets, daily range): BP systolic 100–200; BP diastolic 80–136; PULSE 100–122; RESP 12–29; TEMP 36.9–37; O2SAT 94–100
[2024-06-26 00:02] LABS: Troponin 5 6HR Delta -2.41 ng/L (0-12)
[2024-06-26 00:05] LABS: Calcium 13.1 mg/dL (8.5-10.5)
[2024-06-26] MEDS: ipratropium-albuterol 3 mL Neb INHALATION ×5 (00:29→15:27)
[2024-06-26 03:36] LABS: Basophils # 0.1 10^3/uL (0.0-0.1); Basophils % 0.6 %; Eosinophils # 0.1 10^3/uL (0.0-0.8); Eosinophils % 1.1 %; Hematocrit 30.5 % (36-47); Lymphocytes # 1.1 10^3/uL (0.8-4.8); Lymphocytes % 12.1 %; Mean Corpuscular HGB Conc 30.8 g/dL (30-55); Mean Corpuscular Hemoglobin 24.7 pg (27-33); Mean Corpuscular Volume 80.1 fl (85-98); Mean Platelet Volume 11.2 fL (7.4-10.4); Monocytes # 0.8 10^3/uL (0.2-0.9); Monocytes % 9.2 %; Neutrophils # 6.87 10^3/uL (1.8-7.7); Neutrophils % 76.6 %; Nucleated Red Blood Cells % 0 %; Platelet Count 196 10^3/cmm (157-399); Red Blood Count 3.81 10^6/uL (3.85-5.65); Red Cell Distribution Width 17.1 % (12.1-15.1); White Blood Count 8.96 10^3/uL (3.29-11.43)
[2024-06-26 03:51] LABS: Alanine Aminotransferase 16 U/L (0-33); Albumin Level 3.5 g/dL (3.5-5.2); Alkaline Phosphatase 74 U/L (35-105); Anion Gap 16.8 (5-19); Aspartate Amino Transferase 20 U/L (0-32); Blood Urea Nitrogen 33 mg/dL (8-23); Calcium 11.8 mg/dL (8.5-10.5); Carbon Dioxide 23 mmol/L (22-29); Chloride 104 mmol/L (98-107); Creatinine Clr Calc Pharmacy 26.6438; Globulin 2.8 g/dL (1.3-4.6); Glomerular Filtration Rate 20.4 mL/min (90-130); Glucose 107 mg/dL (65-115); Osmolality Calculated 298 mOsm/kg (285-295); Potassium 3.8 mmol/L (3.5-5.1); Sodium 140 mmol/L (136-145); Total Bilirubin 0.2 mg/dL (0.15-1.2); Total Protein 6.3 g/dL (6.6-8.7)
[2024-06-26 04:08] LABS: NT Pro B Type Natriuretic Pept 3789 pg/mL (0-125)
--- NOTE | 2024-06-26 05:09 | PC.NURSE ---
Pt requested this nurse contacts his sister, Elisabeth Mcdonald. This nurse called and had no answer.
[2024-06-26] MEDS: buPROPion XL (24 HR) 150 mg Tablet PO (05:57)
--- OUTSIDE RECORDS SUMMARY | 2024-06-26 06:09 | XMS_ITS ---
Author Organization [facility] Address [address] [place] [address] Care Team Providers Care Pressure Control Supervisor Name Role Phone Sara GONZALEZ, Rianna Primary Care Provider Unavailab Keyona Ruiz Unavailable [phone] Allergies Allergen (clinical drug ingredient) Drug/Non Drug Allergy documented on EMR Reaction Allergy Type Onset Date Status Sulfamethoxazole Abdominal Pain Drug Allergy Active trimethoprim Trimethoprim Arthralgia Drug Allergy Active Substance with sulfonamide structure and antibacterial mechanism of action (substance) Sulfa Antibiotics Rash Drug Allergy Active tiagabine Tiagabine Headache, Upset Stomach Drug Allergy Active Results Component Value Reference Range Notes Urine Confirmation Panel (in strument) - [id number] Reviewed date:06/17/2024 02:46:06 PM Interpretation: Performing Lab: Notes/Report: 6-Acetylmorphine 0 <6 ng/mL This test w as developed and its performance characteristics determined by [facility]. It has not been cleared or approved by the U.S. Food and Drug Administration. 7-Aminoclonazepam 0 <60 ng/mL This test was developed and its performance characteristics determined by [facility]. It has not been cleared or approved by the U.S. Food and Drug Administration. Alprazolam 0 <60 ng/mL This test was d eveloped and its performance characteristics determined by [facility]. It has not been cleared or approved by the U.S. Food and Drug Administration. Amphetamine 0 <75 ng/mL This test was d eveloped and its performance characteristics determined by [facility]. It has not been cleared or approved by the U.S. Food and Drug Administration. aOH-Alprazolam 0 <60 ng/mL This test was developed and its performance characteristics determined by [facility]. It has not been cleared or approved by the U.S. Food and Drug Administration. Buprenorphine 0.0 <7.5 ng/mL This test was developed and its performance characteristics determined by [facility]. It has not been cleared or approved by the U.S. Food and Drug Administration. Norbuprenorphine 0.0 <37.5 ng/mL This test w as developed and its performance characteristics determined by [facility]. It has not been cleared or approved by the U.S. Food and Drug Administration. Carisoprodol 0 <75 ng/mL This test was d eveloped and its performance characteristics determined by [facility]. It has not been cleared or approved by the U.S. Food and Drug Administration. Codeine 0 <75 ng/mL This test was d eveloped and its performance characteristics determined by [facility]. It has not been cleared or approved by the U.S. Food and Drug Administration. EDDP 0 <75 ng/mL This test was d eveloped and its performance characteristics determined by [facility]. It has not been cleared or approved by the U.S. Food and Drug Administration. Fentanyl 0 <6 ng/mL This test was d eveloped and its performance characteristics determined by [facility]. It has not been cleared or approved by the U.S. Food and Drug Administration. Hydrocodone 2375 <75 ng/mL This test was d eveloped and its performance characteristics determined by [facility]. It has not been cleared or approved by the U.S. Food and Drug Administration. Hydromorphone 41 <75 ng/mL This test was developed and its performance characteristics determined by [facility]. It has not been cleared or approved by the U.S. Food and Drug Administration. Lorazepam 0 <60 ng/mL This test was d eveloped and its performance characteristics determined by [facility]. It has not been cleared or approved by the U.S. Food and Drug Administration. MDMA 1 <75 ng/mL This test was d eveloped and its performance characteristics determined by [facility]. It has not been cleared or approved by the U.S. Food and Drug Administration. Meperidine 0.0 <37.5 ng/mL This test was d eveloped and its performance characteristics determined by [facility]. It has not been cleared or approved by the U.S. Food and Drug Administration. Meprobamate 0 <75 ng/mL This test was d eveloped and its performance characteristics determined by [facility]. It has not been cleared or approved by the U.S. Food and Drug Administration. Methamphetamine 0 <75 ng/mL This test wa s developed and its performance characteristics determined by [facility]. It has not been cleared or approved by the U.S. Food and Drug Administration. Methadone 0 <75 ng/mL This test was d eveloped and its performance characteristics determined by [facility]. It has not been cleared or approved by the U.S. Food and Drug Administration. Morphine 0 <75 ng/mL This test was d eveloped and its performance characteristics determined by [facility]. It has not been cleared or approved by the U.S. Food and Drug Administration. Nordiazepam 0 <60 ng/mL This test was d eveloped and its performance characteristics determined by [facility]. It has not been cleared or approved by the U.S. Food and Drug Administration. Norfentanyl 1 <6 ng/mL This test was d eveloped and its performance characteristics determined by [facility]. It has not been cleared or approved by the U.S. Food and Drug Administration. Normeperidine 0.0 <37.5 ng/mL This test was developed and its performance characteristics determined by [facility]. It has not been cleared or approved by the U.S. Food and Drug Administration. O-desmethyltramadol 0 <75 ng/mL This andrea t was developed and its performance characteristics determined by [facility]. It has not been cleared or approved by the U.S. Food and Drug Administration. Oxazepam 0 <60 ng/mL This test was d eveloped and its performance characteristics determined by [facility]. It has not been cleared or approved by the U.S. Food and Drug Administration. Oxycodone 0.0 <37.5 ng/mL This test was d eveloped and its performance characteristics determined by [facility]. It has not been cleared or approved by the U.S. Food and Drug Administration. Oxymorphone 0 <75 ng/mL This test was d eveloped and its performance characteristics determined by [facility]. It has not been cleared or approved by the U.S. Food and Drug Administration. Phencyclidine 0.0 <7.5 ng/mL This test was developed and its performance characteristics determined by [facility]. It has not been cleared or approved by the U.S. Food and Drug Administration. Tapentadol 9.6 <37.5 ng/mL This test was d eveloped and its performance characteristics determined by [facility]. It has not been cleared or approved by the U.S. Food and Drug Administration. Temazepam 0 <60 ng/mL This test was d eveloped and its performance characteristics determined by [facility]. It has not been cleared or approved by the U.S. Food and Drug Administration. Tramadol 0 <75 ng/mL This test was d eveloped and its performance characteristics determined by [facility]. It has not been cleared or approved by the U.S. Food and Drug Administration. Norhydrocodone 1827 <75 ng/mL This test was developed and its performance characteristics determined by [facility]. It has not been cleared or approved by the U.S. Food and Drug Administration. Noroxycodone 0 <38 ng/mL This test was d eveloped and its performance characteristics determined by [facility]. It has not been cleared or approved by the U.S. Food and Drug Administration. Pregabalin 0 <225 ng/mL This test was d eveloped and its performance characteristics determined by [facility]. It has not been cleared or approved by the U.S. Food and Drug Administration. Gabapentin 0 <225 ng/mL This test was d eveloped and its performance characteristics determined by [facility]. It has not been cleared or approved by the U.S. Food and Drug Administration. Benzoylecgonine 0.0 <37.5 ng/mL This test wa s developed and its performance characteristics determined by [facility]. It has not been cleared or approved by the U.S. Food and Drug Administration. 4-Hydroxy Xylazine 0 <25 ng/mL This test was developed and its performance characteristics determined by [facility]. It has not been cleared or approved by the U.S. Food and Drug Administration. Urine Drug Screen (cup read) - [id number] Reviewed date:06/12/2024 03:16:51 PM Interpretation: Performing Lab: Notes/Report: OPI + OXY + Medications Medication SIG (Take, Route, Frequency, Duration) Notes Start Date End Date Status Biotin *Pick strength-f orm from [employer] for eRX* Unknown Eliquis *Pick strength-f orm from [employer] for eRX* Unknown HYDROcodone-Acetamin ophen Active Aspirin *Pick strength-f orm from [employer] for eRX* Unknown Fluticasone Propionate *Pick strength-form from [facility] for eRX* Unknown Wellbutrin XL *Pick strength-f orm from [employer] for eRX* Unknown Rosuvastatin *Reorder from [facility] for eRx and Interaction Alerts* Unknown Vitamin D3 *Pick strength-f orm from [employer] for eRX* Unknown potassium sulfate (bulk) *Reorder from [employer] for eRx and Interaction Alerts* Unknown Protonix *Pick strength-f orm from [facility] for eRX* Unknown hydrOXYzine HCl *Pick strength-f orm from [employer] for eRX* Unknown Metoprolol Succinate *Pick stren gth-form from [employer] for eRX* Unknown Social History Tobacco Use: Social History Observation Description Date Details (start date - stop date) Never Smoker NA - NA Tobacco Control (Standard) Question Answer Notes Tobacco use: Nonsmoker Section Notes: Patient is on disability Problems Problem Type SNOMED Code ICD Code Onset Dates Problem Status W/U Status Risk Notes Problem Malignant tumor of larynx (293599205) Malignant neoplasm of larynx, unspecified (C32.9) 08/15/19 24 Active confirmed Problem Obesity (868807345) Obesity, unspecified (E66.9) 08/15/19 24 Active confirmed Problem Degeneration of lumbar intervertebral disc (49047523) Other intervertebral disc degeneration, lumbar region (M51.36) 08/15/19 24 Active confirmed Problem Abnormal gait (20316566) Unspecified abnormalities of gait and mobility (R26.9) 08/15/19 24 Active confirmed Vital Signs Height 66 in 06/12/2024 Weight 175 lbs 06/12/2024 BMI 28.24 kg/m2 06/12/2024 Height-cm 167.64 cm 06/12/2024 Weight-kg 79.38 kg 06/12/2024 Encounters Encounter Location Date Provider Diagnosis [facility] [place] [address] [place] [address] 06/12/2024 Keyona Adams Chronic pain due to trauma G89.21 ; Laryngeal cancer C32.9 ; Degeneration of intervertebral disc of lumbar region with discogenic back pain and lower extremity pain M51.362 ; Radiculopathy, lumbosacral region M54.17 ; Presence of neurostimulator Z96.82 ; Obesity, unspecified E66.9 ; Chronic pain syndrome G89.4 ; Unspecified abnormalities of gait and mobility R26.9 ; Tobacco use Z72.0 ; 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 That she has been having a lot of increased lower back pain as well as radicular symptoms. Is been a few years since we have had any updated advanced imaging. After discussion she would like to try some in-home physical therapy and then we will look at getting some updated advanced imaging thereafter. She also has not had her spinal cord stimulator reprogrammed in quite some time so we will try to help get this set up for her. She continues to have trouble with communication and has to use a white board. She is doing reasonably well on her current medication regimen so she will continue that at present level. She denies any other changes in her health since we last seen her any untoward side effects of the medication. She will return to clinic in 2 months to monitor for treatment effectiveness and compliance as well as for biannual appointment with Dr. Campos. The patient continues with chronic pain requiring treatment to help restore function and improve quality of life. Risks of opioid therapy as well as interaction of opioids with alcohol, illicit drugs, muscle relaxers, and other sedative medications are reviewed briefly with patient again today. The patient has trialed all other reasonable treatment options and uses the medication to alleviate pain in order to remain active and rest with less pain. No clinically relevant medication side effects are noted. Last UDS and [place] RN HEMO DIALYSIS reviewed today. Patient is advised that best long-term goals include increased activity, core strengthening, proper weight management, coping strategies, avoidance of painful triggers, and targeted interventional therapy. We will see the patient for routine follow up in accordance with all clinic policies. We did remind patient today of current guidelines to decrease opioid when possible. We will continue to stress nonopioid treatment. RECOMMEND URINE TESTING TODAY Urine drug screening will be performed today to monitor compliance with opioid therapy or to serve as a baseline screen for a patient who may be a candidate for opioid therapy in the future, pending UDS results. We will monitor with in-office testing (rapid testing) today and review the results prior to dispensing prescription. All positive results will be sent for quantitative analysis to ensure accuracy and quantify amounts. Any expected positive results that return negative will also be sent for quantitative analysis. Any questionable read or any medication we cannot test for in the office confidently will be sent for quantitative analysis, as well. Patient has been made aware of this policy and agrees to abide by our urine testing policy. 06/12/2024 Laryngeal cancer (ICD-10 - C32.9) 06/12/2024 Degeneration of intervertebral disc of lumbar region with discogenic back pain and lower extremity pain (ICD-10 - M51.362) 06/12/2024 Radiculopathy, lumbosacral region (ICD-10 - M54.17) 06/12/2024 Presence of neurostimulator (ICD-10 - Z96.82) 06/12/2024 Obesity, unspecified (ICD-10 - E66.9) 06/12/2024 Chronic pain syndrome (ICD-10 - G89.4) 06/12/2024 Unspecified abnormalities of gait and mobility (ICD-10 - R26.9) 06/12/2024 Tobacco use (ICD-10 - Z72.0) 06/12/2024 intermediate (current) use of opiate analgesic (ICD-10 - Z79.891) 06/12/2024 Malignant neoplasm of larynx, 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) 06/12/2024 Other intervertebral disc degeneration, lumbar region (ICD-10 - M51.36) Plan Of Treatment Treatment Notes Assessment Notes Chronic pain due to trauma He statesI had a nice discussion with the patient today regarding her chronic pain complaints. That she has been having a lot of increased lower back pain as well as radicular symptoms. Is been a few years since we have had any updated advanced imaging. After discussion she would like to try some in-home physical therapy and then we will look at getting some updated advanced imaging thereafter. She also has not had her spinal cord stimulator reprogrammed in quite some time so we will try to help get this set up for her. She continues to have trouble with communication and has to use a white board. She is doing reasonably well on her current medication regimen so she will continue that at present level. She denies any other changes in her health since we last seen her any untoward side effects of the medication. She will return to clinic in 2 months to monitor for treatment effectiveness and compliance as well as for biannual appointment with Dr. Campos. The patient continues with chronic pain requiring treatment to help restore function and improve quality of life. Risks of opioid therapy as well as interaction of opioids with alcohol, illicit drugs, muscle relaxers, and other sedative medications are reviewed briefly with patient again today. The patient has trialed all other reasonable treatment options and uses the medication to alleviate pain in order to remain active and rest with less pain. No clinically relevant medication side effects are noted. Last UDS and [place] RN HEMO DIALYSIS reviewed today. Patient is advised that best long-term goals include increased activity, core strengthening, proper weight management, coping strategies, avoidance of painful triggers, and targeted interventional therapy. We will see the patient for routine follow up in accordance with all clinic policies. We did remind patient today of current guidelines to decrease opioid when possible. We will continue to stress nonopioid treatment. RECOMMEND URINE TESTING TODAY Urine drug screening will be performed today to monitor compliance with opioid therapy or to serve as a baseline screen for a patient who may be a candidate for opioid therapy in the future, pending UDS results. We will monitor with in-office testing (rapid testing) today and review the results prior to dispensing prescription. All positive results will be sent for quantitative analysis to ensure accuracy and quantify amounts. Any expected positive results that return negative will also be sent for quantitative analysis. Any questionable read or any medication we cannot test for in the office confidently will be sent for quantitative analysis, as well. Patient has been made aware of this policy and agrees to abide by our urine testing policy. Next Appt Details Provider Name:Sylvester Campos, 08/06/2024 01:40:00 PM, [address] [place], [address], Progress Notes * Rosario VILLALBA ADOB:1960 (64 yo F)Acc No.[id number]:06/12/2024 Progress Notes Patient:?Rosario VILLALBA Provider:?CHANTAL Shelby :1960???Age:64 Y???Sex:Female D ate:06/12/2024 Address:[address] [place], [place] [id number] Pcp:Rianna Ruiz MD Subjective: * Chief Complaints: * ??? * HPI: ???Pain Details:?Pain Location?Neck, Mid-back, Lower back, Left shoulder, Right Leg, Left Leg.?Quality?Aching, Dull, Sharp, Stabbing, Burning, Throbbing, Tingling, Numbness.?Severity of pain at its worst?12/19.?Severity of pain at its best?05/19.?Severity of pain on medication?06/19.?Severity of average pain?, 06/19.?Severity of pain right now?07/19.?When did you last take your pain medicine? 8:30AM.?Medication Details:?Do you have a lock box or safe place for medication away from minors and/or others??Yes.?Do you have any leftover pain medication building up at your house??No.?Do you understand that pain medication can be addicting and can cause overdose??Yes.?Do you feel you can REDUCE the amount of medication you take today??No.?Opioid Assessment Tools:?COMM (Current Opioid Misuse Measure)?Less than 9 : indicates low risk of abuse behaviors.?Pill Count?out, Essentially consistent pill count at today's visit (within 1 to 2 days of expected).?Last Urine Drug Screen?03/26 - confirmation - ok.?Today's Rapid Urine Drug Screen?-.?[place] Prescription Monitoring Program?[place] #15/5 days (Jennifer Darlene) filled 03/11/24.?Treatment History:?Past medication you have taken?[place] #75 filled 12/28/23.?Treatments you have had?06/29/22 SCS Implant.?Provider Note:? The patient presents today for 2-month follow-up.? She reports she has been having a lot of increased lower back pain as well as radicular symptoms.? She is currently prescribed hydrocodone 12/12 2575/month which is working reasonably well.? Last UDS is consistent.? UDS was collected today and will be sent to lab for reference. We will review results with patient at next visit.? She is out of her medication today which is consistent with fill date. PDMP was reviewed and found to be compliant with care. * ROS:?General - Multi System:?Constitutional?Denies, fever, recent weight gain, recent weight loss, ,Reports, fatigue.?Respiratory?Denies, cough,?snoring,Reports, wheezing,, shortness of breath.?Gastrointestinal?Denies, nausea, vomiting, constipation, abdominal pain.?Psychiatric?Denies, suicidal thoughts,Reports, anxiety, depression, panic attacks.? * Medical History:?Constipatio n, , D epression, , H igh blood pressure, , S tomach ulcer,. * Family History:?Migrated Fam angela History: : Cancer, c hronic pain, D iabetes, f ibromyalgia, H eart disease, S troke.? * Social History:?Tobacco Use:?Tobacco Control (Standard)?Tobacco use:?Nonsmoker ???Drugs/Alcohol:?Do you drink alcohol?: No. ???Migrated Social History:?Migrated Social History: Alcoholic beverages? - No, C [...] day smoker, W orking currently? - No. ???Patient is on disability. * Medications:?Taking HYDROcod one-Acetaminophen , Unknown Aspirin , Notes to Pharmacist: *Pick strength-form from [employer] for eRX*, Unknown Biotin , Notes to Pharmacist: *Pick strength-form from [employer] for eRX*, Unknown Eliquis , Notes to Pharmacist: *Pick strength-form from [employer] for eRX*, Unknown Fluticasone Propionate , Notes to Pharmacist: *Pick strength-form from [employer] for eRX*, Unknown hydrOXYzine HCl , Notes to Pharmacist: *Pick strength-form from [employer] for eRX*, Unknown Metoprolol Succinate , Notes to Pharmacist: *Pick strength-form from [employer] for eRX*, Unknown potassium sulfate (bulk) , Notes to Pharmacist: *Reorder from [employer] for eRx and Interaction Alerts*, Unknown Protonix , Notes to Pharmacist: *Pick strength-form from [employer] for eRX*, Unknown Rosuvastatin , Notes to Pharmacist: *Reorder from [employer] for eRx and Interaction Alerts*, Unknown Vitamin D3 , Notes to Pharmacist: *Pick strength-form from [employer] for eRX*, Unknown Wellbutrin XL , Notes to Pharmacist: *Pick strength-form from [employer] for eRX*, Medication List reviewed and reconciled with the patient * Allergies:?Trimethoprim: Art hralgia - Allergy, Sulfamethoxazole: Abdominal Pain - Allergy, Tiagabine: Headache, Upset Stomach - Allergy, Sulfa Antibiotics: Rash - Allergy. Objective: * Vitals:?Ht: 66 in, Wt:175lbs , Wt-k.38 kg, BMI:28.24Index, Ht-cm: 167.64 cm. * ???Past Orders: ???Lab:andrewUrine Drug Screen (confirmation by instrument) - [id number] (Order Date - 03/26/2024) (Collection Date & Time - 03/26/2024) * Examination: ???General Examination: ?General?patient is well developed, well-nourished, alert and oriented, has good hygiene.?Lumbar Spine: ?Palpation of Lumbar Spine?reveals hyperextension of lumbar spine and bilateral palpitation of lumbar facets reproduces back pain.?Palpation of Lumbar Intervertebral Space (Discs)?there is no pain noted.?Bilateral Palpation of Sacroiliac Joint?reveals no pain.?Palpation of Greater Trochanteric Bursa?reveals no tenderness on both sides.?Neurological: ?Mental Status?awake, oriented to person, oriented to place, oriented to time, memory intact, mood and affect are normal.?Motor Strength?Left UE strength - Flexors?5/5 ?Right UE strength - Flexors?5/5 ?Left UE strength - Extensors?5/5 ?Right UE strength - Extensors?5/5 ?Left UE Tone?normal ?Right UE Tone?normal ?Left LE strength - Flexors?4/5 ?Right LE strength - Flexors?4/5 ?Left LE strength - Extensors?4/5 ?Right LE strength - Extensors?4/5 ?Left LE Tone?normal ?Right LE Tone?normal? 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 Plan: * Treatment: 2.?intermediate (current) use o f opiate analgesic?LAB: Urine Drug Screen (cup read) - 05235 (Collection Date & Time - 06/12/2024) ? Value Reference Range ?OPI + * ?OXY + ?LAB: Urine Confirmation Panel (instrument) - 31679 (Collection Date & Time - 06/12/2024) * Procedure Codes:?34450 DRUG TEST PRSMV DIR OPT OBS IH, Modifiers: QW Forms: * Billing Information: * Visit Code:? 47422 Office Visit, Est Pt., Level 4. * Procedure Codes:? 10906 DRUG TEST PRSMV DIR OPT OBS IH. Modifiers: QW Care Plan Details* * Sign off status: Completed true * Provider:?CHANTAL Shelby Date:? Generated for Jeremiah lamb/Roberto/eTransmitting on:?06/26/2024 06:09 AM CDT History and Physical Notes * HPI (History of Present Illness) Category Sub-Category Detail Notes Category Not es Pain Details Pain Location Neck, Mid-back, Lower back, Left shoulder, Right Leg, Left Leg Duration Onset Frequency of Pain Quality Aching, Dull, Sharp, Stabbing, Burning, Throbbing, Tingling, Numbness Radiation Severity of pain at its worst 10/10 Severity of pain at its best 3/10 Severity of average pain , 4/10 Severity of pain right now 5/10 Worsening factors Relieving factors Associated symptoms Severity of pain on medication 06/19 When did you last take your pain medicin e 8:30AM Medication Details Do you have a lock [...] today? No Opioid Assessment Tools Pill Count out, Ess entially consistent pill count at today's visit (within 1 to 2 days of expected) Last Urine Drug Screen 03/26 - confirmati on - ok Today's Rapid Urine Drug Screen - [place] Prescription Monitoring Program Be[place]ah 10/325 #15/5 days (Jennifer Kathuria) filled 03/11/24 COMM (Current Opioid Misuse Measure) Les s than 9 : indicates low risk of abuse behaviors Treatment History Past medication you have taken Beulah 10/325 #75 filled 12/28/23 Treatments you have had 06/29/22 SCS Impl ant Examination Category Sub-Category Detail Notes Category Not es General Examination General patient is w ell developed, well-nourished, alert and oriented, has good hygiene Lumbar Spine Palpation of Lumbar Spine reveals hyperextension of lumbar spine and bilateral palpitation of lumbar facets reproduces back pain Palpation of Lumbar Intervertebral Space (Discs) there is no pain noted Bilateral Palpation of Sacroiliac Joint reveals no pain Palpation of Greater Trochanteric Bursa reveals no tenderness on both sides Neurological Mental Status awake, oriented to person, oriented to place, oriented to time, memory intact, mood and affect are normal Motor Strength Left UE strength - Flexors: 5/5 Right UE strength - Flexors: 5/5 Left UE strength - Extensors: 5/5 Right UE strength - Extensors: 5/5 Left UE Tone: normal Right UE Tone: normal Left LE strength - Flexors: 4/5 Right LE strength - Flexors: 4/5 Left LE strength - Extensors: 4/5 Right LE strength - Extensors: 4/5 Left LE Tone: normal Right LE Tone: normal
--- OUTSIDE RECORDS SUMMARY | 2024-06-26 06:09 | XMS_ITS ---
Author Organization [facility] Address [address] [place] [address] Care Team Providers Care Phytopathologist Name Role Phone Sara GONZALEZ, Rianna Primary Care Provider Keyona Blackman Unavailable [phone] Sylvester Campos Unavailable [phone] REASON FOR VISIT refill- WP Medications Medication SIG (Take, Route, Frequency, Duration) Notes Start Date End Date Status HYDROcodone-Acetamino phen 10-325 MG 1 tablet as needed Orally every 8 hrs for 30 days As needed Do not exceed 3 per day or 75 per month Fill on 06-12-24 06/12/2024 07/12/2024 Active HYDROcodone-Acetamino phen 10-325 MG 1 tablet as needed Orally every 8 hrs for 30 days As needed Do not exceed 3 per day or 75 per month Fill on 07-12-24 06/12/2024 08/11/2024 Active Encounters Encounter Location Date Provider Diagnosis [facility] [place] [address] [place] [address] 06/12/2024 Sylvester Campos Plan Of Treatment Medication Medication Name Sig Start Date Stop Date Notes HYDROcodone-Acetaminophen 10-325 MG 1 tablet as needed Orally every 8 hrs for 30 days 06/12/2024 07/12/2024 Fill on 06-12-24 HYDROcodone-Acetaminophen 10-325 MG 1 tablet as needed Orally every 8 hrs for 30 days 06/12/2024 08/11/2024 Fill on 07-12-24 Next Appt Details Provider Name:Sylvester Campos, 08/06/2024 01:40:00 PM, [address] [place], [address], Progress Notes * Rosario VILLALBA ADOB:1960 (64 yo F)Acc No.[id number]:06/12/2024 Patient:?Rosario VILLALBA :1960???Age:64 Y???Sex:Female Address:[address] [place] [address], [address] * Refills? Continue HYDROcodone-Acetaminophen Tablet, 10-325 MG, Orally, 75 Tablet, 1 tablet as needed, every 8 hrs, 30 days, Refills=0 Continue HYDROcodone-Acetaminophen Tablet, 10-325 MG, Orally, 75 Tablet, 1 tablet as needed, every 8 hrs, 30 days, Refills=0 * true * Date:? Generated for Jeremiah lamb/Roberto/Timsmitting on:?06/26/2024 06:09 AM CDT
--- OUTSIDE RECORDS SUMMARY | 2024-06-26 06:10 | XMS_ITS ---
Author Organization [facility] Address [address] [place] [address] Care Team Providers Care Medical Program Specialist Name Role Phone Sara GONZALEZ, Rianna Primary Care Provider Keyona Blackman [phone] REASON FOR VISIT 2 month f/u Social History Tobacco Use: Social History Observation Description Date Details (start date - stop date) Never Smoker NA - NA Tobacco Control (Standard) Question Answer Notes Tobacco use: Nonsmoker Section Notes: Patient is on disability Encounters Encounter Location Date Provider Diagnosis [facility] [place] [address] [place] [address] 05/22/2024 Keyona Adams Laryngeal cancer C32 .9 ; Chronic pain due to trauma G89.21 ; Degeneration of intervertebral disc of lumbar region with discogenic back pain and lower extremity pain M51.362 ; Radiculopathy, lumbosacral region M54.17 ; Presence of neurostimulator Z96.82 and retirement (current) use of opiate analgesic Z79.891 Assessments [...] Presence of neurostimulator (ICD-10 - Z96.82) 05/22/2024 retirement (current) use of opiate analgesic (ICD-10 - Z79.891) Plan Of Treatment Next Appt Details Provider Name:Sylvester Campos, 08/06/2024 01:40:00 PM, [address] [place], [address], Progress Notes * Rosario VILLALBA ADOB:1960 (64 yo F)Acc No.[id number]:05/22/2024 Progress Notes Patient:?Rosario VILLALBA Provider:?CHANTAL Shelby :1960???Age:64 Y???Sex:Female D ate:05/22/2024 Address:[address] [place], [place] [id number] Pcp:Rianna Ruiz MD Subjective: * Chief Complaints: * ???1. 2 month f/u. * HPI: ???Provider Note:? Notes:?I had a nice visit with the patient [...] see her back in about 2 months. ???Pain Details:?Pain Location?___.?Quality?___.?Severity of pain at its worst?___.?Severity of pain at its best?___.?Severity of pain on medication?___.?Severity of average pain?___.?Severity of pain right now?___.?When did you last take your pain medicine?___.?Medication Details:?Do you have a lock box or safe place for medication away from minors and/or others??Yes.?Do you have any leftover pain medication building up at your house??No.?Do you understand that pain medication can be addicting and can cause overdose??Yes.?Do you feel you can REDUCE the amount of medication you take today??No.?Opioid Assessment Tools:?Pill Count?___.?Last Urine Drug Screen?___.?Today's Rapid Urine Drug Screen?___.?[place] Prescription Monitoring Program?___.?Treatment History:?Test undergone in the past?___.?Past medication you have taken?___.?Treatments you have had?___.? * ROS:?General - Multi System:?Constitutional?Denies,?fever, recent weight gain, recent weight loss, fatigue.?Respiratory?Denies, wheezing, shortness of breath, cough, snoring.?Gastrointestinal?Denies, nausea, vomiting, constipation, abdominal pain.?Psychiatric?Denies, , anxiety, depression, panic attacks, suicidal thoughts.? * Medical History:?Constipatio n, , D epression, , H igh blood pressure, , S tomach ulcer,. * Hospitalization/Major Diagno stic Procedure:?Afib RVR, electrolyte imbalance 03/04. * Family History:?Migrated Fam angela History: : [...] currently? - No. ???Patient is on disability. Objective: * Vitals:? Assessment: * Assessment: 1.?Chronic pain due to traum a - G89.21 (Primary)???2.?Laryngeal cancer - C32.9???3.?Degeneration of intervertebral disc of lumbar region with discogenic back pain and lower extremity pain - M51.362???4.?Radiculopathy, lumbosacral region - M54.17???5.?Presence of neurostimulator - Z96.82???6.?retirement (current) use of opiate analgesic - Z79.891??? Plan: * Treatment: Forms: * Billing Information: * Visit Code:? * Procedure Codes:? Care Plan Details* * Electronic signature of Caitlin Adams APRN on 06/26/2024 at 06:09 AM CDT Sign off status: Pending * Provider:?CHANTAL Shelby Date:? Generated for Jeremiah [...] ___ Today's Rapid Urine Drug Screen ___ [place] Prescription Monitoring Program ___ Treatment History Test undergone in the past ___ Past medication you have taken ___ Treatments you have had ___
--- OUTSIDE RECORDS SUMMARY | 2024-06-26 06:10 | XMS_ITS | Patient Health Record ---
Author Organization [facility] Address [address] [place] [address] Care Team Providers Care Utility Division Project Manager Name Role Phone Rianna Ruiz MD Primary Care Provider Unavailab Keyona Ruiz Unavailable [phone] Migration, Provider Unavailable Unavailable Sylvester Campos Unavailable [phone] Allergies Allergen (clinical drug ingredient) Drug/Non Drug Allergy documented on EMR Reaction Allergy Type Onset Date Status Sulfamethoxazole Abdominal Pain Drug Allergy Active trimethoprim Trimethoprim Arthralgia Drug Allergy Active Substance with sulfonamide structure and antibacterial mechanism of action (substance) Sulfa Antibiotics Rash Drug Allergy Active tiagabine Tiagabine Headache, Upset Stomach Drug Allergy Active Results Component Value Reference Range Notes Urine Drug Screen (cup read) - 64581 Reviewed date:06/12/2024 03:16:51 PM Interpretation: Performing Lab: Notes/Report: OPI + OXY + zzzUrine Drug Screen (confir mation by instrument) - 42961 Reviewed date:04/02/2024 03:52:36 PM Interpretation: Performing Lab: Notes/Report: Urine Confirmation Panel (in strument) - [id number] Reviewed date:06/17/2024 02:46:06 PM Interpretation: Performing Lab: [...] by the U.S. Food and Drug Administration. Tox Results Reviewed date:06/17/2024 03:35:24 PM Interpretation: Performing Lab: Notes/Report: Reason For Referral No Information Medications Medication SIG (Take, Route, Frequency, Duration) Notes Start Date End Date Status HYDROcodone-Acetamin ophen 10-325 MG 1 tablet as needed Orally every 8 hrs for 30 days As needed Do not exceed 3 per day or 75 per month Fill on 06-12-24 06/12/2024 07/12/2024 Active HYDROcodone-Acetamin ophen 10-325 MG 1 tablet as needed Orally every 8 hrs for 30 days As needed Do not exceed 3 per day or 75 per month Fill on 07-12-24 06/12/2024 08/11/2024 Active Fluticasone Propionate *Pick strength-form from [employer] for eRX* Unknown Biotin *Pick strength-form from [employer] for eRX* Unknown Eliquis *Pick strength-form from [employer] for eRX* Unknown HYDROcodone-Acetamin ophen Active Wellbutrin XL *Pick strength-form from [employer] for eRX* Unknown Aspirin *Pick strength-form from [employer] for eRX* Unknown Rosuvastatin *Reorder from [employer] for eRx and Interaction Alerts* Unknown Vitamin D3 *Pick strength-form from [employer] for eRX* Unknown potassium sulfate (bulk) *Reorder from [employer] for eRx and Interaction Alerts* Unknown Protonix *Pick strength-form from [employer] for eRX* Unknown hydrOXYzine HCl *Pick strength-form from [employer] for eRX* Unknown Metoprolol Succinate *Pick strength-form from [employer] for eRX* Unknown Social History Tobacco Use: Social History Observation Description Date Details (start date - stop date) Never Smoker NA - NA Tobacco Control (Standard) Question Answer Notes Tobacco use: Nonsmoker Section Notes: Patient is on disability Patient is on disability Patient is on disability Problems Problem Type SNOMED Code ICD Code Onset Dates Problem Status W/U Status Risk Notes Problem Malignant tumor of larynx (912550113) Malignant neoplasm of larynx, unspecified (C32.9) 08/15/19 Active confirmed Problem 827799329 Other obesity du e to excess calories (E66.09) Active confirmed Problem Obesity (128844170) Obesity, unspecified (E66.9) 08/15/19 Active confirmed Problem 813650820 Chronic pain due to trauma (G89.21) Active confirmed Problem 913764159 Chronic pain syndrome (G89.4) 08/15/19 Active confirmed Problem Degeneration of lumbar intervertebral disc (62779597) Other intervertebral disc degeneration, lumbar region (M51.36) 08/15/19 Active confirmed Problem 0700822 Radiculopathy, lumbosacral region (M54.17) Active confirmed Problem Abnormal gait (61943939) Unspecified abnormalities of gait and mobility (R26.9) 08/15/19 Active confirmed Problem 883511489 Presence of neurostimulator (Z96.82) Active confirmed Problem 322488634 Laryngeal cancer (C32.9) Active confirmed Problem 64831731 Abnormality of gait and mobility (R26.9) Active confirmed Problem 526826882 Body mass index [BMI] 31.0-31.9, adult (Z68.31) Active confirmed Vital Signs Height-cm 167.64 cm 06/12/2024 Weight-kg 79.38 kg 06/12/2024 Height 66 in 06/12/2024 Weight 175 lbs 06/12/2024 BMI 28.24 kg/m2 06/12/2024 Encounters Encounter Location Date Provider Diagnosis [facility] [place] [address] [place] [address] 06/12/2024 Sylvester Campos [facility] 0 0 01/05/2024 Provider Migration [facility] 0 0 01/06/2024 Provider Migration [facility] [place] [address] [place] [address] 10/18/2023 Keyona Adams [facility] [place] [address] [place] [address] 12/20/2023 Keyona Adams [facility] 0 0 08/15/2023 Provider Migration Malignant neoplasm of larynx, unspecified C32.9 ; Obesity, unspecified E66.9 ; Chronic pain due to trauma G89.21 ; Chronic pain syndrome G89.4 ; Other intervertebral disc degeneration, lumbar region M51.36 ; Radiculopathy, lumbosacral region M54.17 ; Unspecified abnormalities of gait and mobility R26.9 ; Tobacco use Z72.0 ; residential (current) use of opiate analgesic Z79.891 and Presence of neurostimulator Z96.82 [facility] [address] [address] 03/26/2024 Sylvester Campos Laryngeal cancer C32 .9 ; Chronic pain due to trauma G89.21 ; Degeneration of intervertebral disc of lumbar region with discogenic back pain and lower extremity pain M51.362 ; Radiculopathy, lumbosacral region M54.17 ; Presence of neurostimulator Z96.82 and 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 Z79.891 [facility] [address] [address] 06/12/2024 Keyona Bryan Chronic pain due to trauma G89.21 ; Laryngeal cancer C32.9 ; Degeneration of intervertebral disc of lumbar region with discogenic back pain and lower extremity pain M51.362 ; Radiculopathy, lumbosacral region M54.17 ; Presence of neurostimulator Z96.82 ; Obesity, unspecified E66.9 ; Chronic pain syndrome G89.4 ; Unspecified abnormalities of gait and mobility R26.9 ; Tobacco use Z72.0 ; residential (current) use of opiate analgesic Z79.891 ; Malignant neoplasm of larynx, unspecified C32.9 and Other intervertebral disc degeneration, lumbar region M51.36 Assessments Encounter Date Diagnosis (ICD Code) Assessment Notes Treatment Notes Treatment Clinical Notes Section Notes 08/15/2023 Malignant neoplasm of larynx, 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) 08/15/2023 Obesity, unspecified (ICD-10 - E66.9) 08/15/2023 Chronic pain due to trauma (ICD-10 - G89.21) 08/15/2023 Chronic pain syndrome (ICD-10 - G89.4) 08/15/2023 Other intervertebral disc degeneration, lumbar region (ICD-10 - M51.36) 08/15/2023 Radiculopathy, lumbosacral region (ICD-10 - M54.17) 08/15/2023 Unspecified abnormalities of gait and mobility (ICD-10 - R26.9) 08/15/2023 Tobacco use (ICD-10 - Z72.0) 08/15/2023 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 Last UDS and [employer] MARKETING ACCOUNT MANAGER reviewed today. Patient is advised that best [...] and lower extremity pain (ICD-10 - M51.362) 03/26/2024 Degeneration of intervertebral disc of lumbar region with discogenic back pain and lower extremity pain (ICD-10 - M51.362) 03/26/2024 Radiculopathy, lumbosacral region (ICD-10 - M54.17) 06/12/2024 Radiculopathy, lumbosacral region (ICD-10 - M54.17) 03/26/2024 Presence of neurostimulator (ICD-10 - Z96.82) 06/12/2024 Presence of neurostimulator (ICD-10 - Z96.82) 03/26/2024 residential (current) use of opiate analgesic (ICD-10 - Z79.891) 06/12/2024 Obesity, unspecified (ICD-10 - E66.9) 06/12/2024 Chronic pain syndrome (ICD-10 - G89.4) 06/12/2024 Unspecified abnormalities of gait and mobility (ICD-10 - R26.9) 06/12/2024 Tobacco use (ICD-10 - Z72.0) 06/12/2024 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 I, Dewayne Jiménez, am scribing for Dr. Sylvester Campos. I, Dr. Sylvester Campos, personally performed the services described in this documentation , as scribed by Dewayne Jiménez, and it is both accurate and complete. Plan Of Treatment Next Appt Details Provider Name:Sylvester Campos, 08/06/2024 01:40:00 PM, [address] [place], [address], Insurance Providers Payer Name Payer Address Payer Phone Subscriber Number Group Number Insured Name Patient Relationship to Insured Coverage Start Date Coverage End Date [facility] Dual Complete [address] [place] [address] [id number] Rosario Villalba Self - patient is the insured [place] Medicaid [address] [place] [address] [id number] Deejay Rosario Self - patient is the insured Medical (General) History Hospitalization History Reason Date(Month/Year) Afib RVR, electrolyte imbalance 03/04
--- NOTE | 2024-06-26 06:33 | PC.NURSE ---
Patient asked this nurse this AM for her home med Hydroxyzine HCl due to patient complaint of anxiety. This nurse contacted MD who stated to Hold for now.
[2024-06-26] MEDS: apixaban 5 mg Tablet PO ×2 (09:31→16:40)
[2024-06-26] MEDS: atorvastatin 40 mg Tablet PO (09:31)
[2024-06-26] MEDS: levothyroxine 137 mcg Tablet PO (09:31)
[2024-06-26] MEDS: metoprolol tartrate 50 mg Tablet PO ×2 (09:31→16:40)
[2024-06-26] MEDS: HYDROcodone-acetaminophen 10-325 mg Tablet 1 TAB PO ×2 (09:38→20:52)
[2024-06-26] MEDS: sodium chloride 0.9% 1,000 ML 50 ML IV (15:29)
--- NOTE | 2024-06-26 17:49 | P.PN_ITS ---
Subjective 2 Subjective: Overnight labs and H&P reviewed. Patient continues to be in A-fib, currently on amiodarone infusion and has been receiving 50 mg twice daily metoprolol. Medications: Reviewed: Yes Vitals/I&O/Wt Last Vital Signs Temp 98.6 F 06/26/24 12:00 Pulse 116 H 06/26/24 15:36 Resp 24 H 06/26/24 15:30 BP 159/118 06/26/24 12:00 Pulse Ox 94 06/26/24 15:30 O2 Del Method Room Air 06/26/24 15:30 FiO2 21 06/26/24 00:30 06/26/24 06/26/24 06/26/24 06:59 14:59 22:59 Intake Total 192.203 / 2512.203 680 / 680 1000 / 1680 Balance 192.203 / 2512.203 680 / 680 1000 / 1680 Weight last 48 hrs Weight 88.269 kg Weight 83.461 kg Physical Exam 2 Narrative: General: No acute distress, AO x3 HEENT: Trach in place Chest: Normal vesicular breath sounds, no added sounds, equal good air entry bilaterally CVS: S1-S2 regular, no murmurs, no tachycardia, no gallops, no rubs Abdomen: Soft, nontender, no organomegaly, bowel sounds present Neuro: No focal deficits, no facial deformity, AO x3, power 5/5 in all limbs Data 06/26/24 03:30 06/26/24 03:30 Micro: Microbiology 06/25/24 17:14 Blood Culture - Preliminary Blood NEGATIVE TO DATE 06/25/24 17:17 Blood Culture - Preliminary Blood NEGATIVE TO DATE A&P Assessment and plan (1) Atrial fibrillation with RVR: (2) Urinary tract infection: (3) Acute on chronic renal insufficiency: (4) Hypercalcemia: Plan Atrial fibrillation with rapid reticular response - Amiodarone drip - Continue Eliquis Elevated TSH - Check T3, T4 - On levothyroxine 137 mcg daily Hypercalcemia - History of hypoparathyroidism - Albumin within normal limits - Is on calcitriol, will hold - Monitor calcium levels, IV fluids Fatigue, malaise - Potentially from hypercalcemia - Potentially from UTI - Potentially from LORENA Acute kidney injury - CPK - Does not appear to be fluid overloaded although elevated BNP - Gentle IV hydration Urinary tract infection, continue cefepime Wheezing on examination CT chest, Pro-Imna, CRP, sputum cultures 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 Currently on amiodarone 0.5 and received metoprolol 50 mg twice daily. Will use digoxin 250 mcg IV x 1 followed by 125 mcg 6 hours and 12 hours later. Lower doses of digoxin being utilized due to LORENA on CKD. No nephrotoxic medications noted on MAY. Last echocardiogram from February 2024 is with normal LV systolic function of 55 to 60%, mild mitral regurgitation, mild pulmonary hypertension. CT of the abdomen and pelvis is negative for any obstructive hydronephrosis. There is a spinal stimulator in place. CT of the chest with emphysematous changes and right lower lobe atelectasis. Otherwise unremarkable. Urine analysis with UTI. CT of the abdomen and pelvis is negative for any obstructive, urine culture pending. Ceftriaxone 1 g IV 24 hours empirically. TSH elevated, low free T4, consistent with hypothyroidism. Patient is currently on 137 mcg p.o. daily. Her dose was recently increased from 112 to 137 mcg daily, she has not yet picked up her new prescription. Will utilize the increased dose here. Calcitriol on hold due to hypercalcemia. Recheck with a.m. labs. PDMP PDMP Reviewed: Not Reviewed Attestations 2 Medical Necessity Statement*: Continued admission for control of A-fib with RVR. Coding Level of Care Code Acute Code for Chg Fwd Diagnoses Atrial fibrillation with RVR I48.91 Urinary tract infection N39.0 Acute on chronic renal insufficiency N28.9; N18.9 Hypercalcemia E83.52
[2024-06-26] MEDS: digoxin 250 mcg/ml INJ 2 mL IVP (18:08)
[2024-06-26] MEDS: pantoprazole 40 mg SDV IVP (20:52)
[2024-06-26] MEDS: amlodipine 10 mg Tablet PO (20:52)
[2024-06-26] MEDS: hyDROXYzine 25 mg Capsule PO (23:34)
[2024-06-27] VITALS (34 sets, daily range): BP systolic 97–204; BP diastolic 48–132; PULSE 60–178; RESP 10–23; TEMP 36.4–36.7; O2SAT 91–97
[2024-06-27] MEDS: hyDRALAzine 10 mg Tablet PO ×3 (01:35→12:44)
--- NOTE | 2024-06-27 05:45 | PC.NURSE ---
Patient BP elevated throughout shift. Dr Cassidy notified and new medication orders were placed.
[2024-06-27 05:49] LABS: Basophils # 0.1 10^3/uL (0.0-0.1); Basophils % 0.7 %; Eosinophils # 0.1 10^3/uL (0.0-0.8); Eosinophils % 1.9 %; Hematocrit 31.1 % (36-47); Lymphocytes # 1.2 10^3/uL (0.8-4.8); Lymphocytes % 15.5 %; Mean Corpuscular HGB Conc 31.2 g/dL (30-55); Mean Corpuscular Hemoglobin 24.9 pg (27-33); Mean Corpuscular Volume 79.9 fl (85-98); Mean Platelet Volume 11.1 fL (7.4-10.4); Monocytes # 0.9 10^3/uL (0.2-0.9); Monocytes % 11.5 %; Neutrophils # 5.26 10^3/uL (1.8-7.7); Neutrophils % 70.1 %; Nucleated Red Blood Cells % 0 %; Platelet Count 205 10^3/cmm (157-399); Red Blood Count 3.89 10^6/uL (3.85-5.65); Red Cell Distribution Width 17.3 % (12.1-15.1); White Blood Count 7.49 10^3/uL (3.29-11.43)
[2024-06-27] MEDS: digoxin 250 mcg/ml INJ 2 mL 125 MCG IVP ×2 (06:00)
[2024-06-27] MEDS: buPROPion XL (24 HR) 150 mg Tablet PO (06:01)
[2024-06-27] MEDS: HYDROcodone-acetaminophen 10-325 mg Tablet 1 TAB PO ×2 (06:01→21:00)
[2024-06-27 06:16] LABS: Alanine Aminotransferase 14 U/L (0-33); Albumin Level 3.8 g/dL (3.5-5.2); Alkaline Phosphatase 76 U/L (35-105); Anion Gap 15.4 (5-19); Aspartate Amino Transferase 17 U/L (0-32); Blood Urea Nitrogen 33 mg/dL (8-23); Calcium 10.8 mg/dL (8.5-10.5); Carbon Dioxide 24 mmol/L (22-29); Chloride 106 mmol/L (98-107); Creatinine Clr Calc Pharmacy 32.7312; Globulin 2.6 g/dL (1.3-4.6); Glomerular Filtration Rate 25.2 mL/min (90-130); Glucose 89 mg/dL (65-115); Osmolality Calculated 301 mOsm/kg (285-295); Potassium 3.4 mmol/L (3.5-5.1); Sodium 142 mmol/L (136-145); Total Bilirubin 0.2 mg/dL (0.15-1.2); Total Protein 6.4 g/dL (6.6-8.7)
[2024-06-27] MEDS: metoprolol tartrate 50 mg Tablet PO (07:22)
[2024-06-27] MEDS: atorvastatin 40 mg Tablet PO (07:23)
[2024-06-27] MEDS: apixaban 5 mg Tablet PO ×2 (07:23→17:08)
[2024-06-27] MEDS: levothyroxine 137 mcg Tablet PO (07:23)
[2024-06-27] MEDS: amlodipine 10 mg Tablet PO (07:23)
--- NOTE | 2024-06-27 07:31 | PC.NURSE ---
Performed physical assessment. Telemetry indicates afib/flutter 120s however upon ausculation heart noted to be around 80s. Will continue to monitor.
--- NOTE | 2024-06-27 09:59 | PC.NURSE ---
Informed Dr Colon of decrease in HR to 60 afib. Received instruction to stop amiodarone drip and to hole next dose of metoprolol.
--- NOTE | 2024-06-27 13:24 | PC.NURSE ---
Patient is sleeping. Heart rate dropping to 30s. Last BP is 97/57. This is after her 10mg of hydralazine that is TID. No distress observed.. Informed Dr Colon.
--- NOTE | 2024-06-27 14:03 | P.PN_ITS ---
Subjective 2 Subjective: Heart rate is better controlled today with initiation of digoxin. Currently patient's heart rate is ranging between 56 to 80 bpm. She continues to be in persistent a flutter. Medications: Reviewed: Yes Vitals/I&O/Wt Last Vital Signs Temp 97.5 F L 06/27/24 11:48 Pulse 85 06/27/24 13:00 Resp 20 H 06/27/24 13:00 BP 97/57 06/27/24 13:00 Pulse Ox 95 06/27/24 08:00 O2 Del Method Room Air 06/27/24 11:20 FiO2 21 06/26/24 00:30 06/26/24 06/27/24 06/27/24 22:59 06:59 14:59 Intake Total 1245.833 / 1925.833 295.873 / 2221.706 513.368 / 513.368 Output Total 600 / 600 300 / 900 450 / 450 Balance 645.833 / 1325.833 -4.127 / 1321.706 63.368 / 63.368 Weight last 48 hrs Weight 87.634 kg Weight 88.269 kg Weight 83.461 kg Physical Exam 2 Narrative: General: No acute distress, AO x3 HEENT: Trach in place Chest: Normal vesicular breath sounds, no added sounds, equal good air entry bilaterally CVS: S1-S2 regular, no murmurs, no tachycardia, no gallops, no rubs Abdomen: Soft, nontender, no organomegaly, bowel sounds present Neuro: No focal deficits, no facial deformity, AO x3, power 5/5 in all limbs Data 06/27/24 05:25 06/27/24 05:25 Micro: Microbiology 06/25/24 17:14 Blood Culture - Preliminary Blood NEGATIVE TO DATE 06/25/24 17:17 Blood Culture - Preliminary Blood NEGATIVE TO DATE A&P Assessment and plan (1) Atrial fibrillation with RVR: (2) Urinary tract infection: (3) Acute on chronic renal insufficiency: (4) Hypercalcemia: Plan Atrial fibrillation with rapid reticular response - Amiodarone drip - Continue Eliquis Elevated TSH - Check T3, T4 - On levothyroxine 137 mcg daily Hypercalcemia - History of hypoparathyroidism - Albumin within normal limits - Is on calcitriol, will hold - Monitor calcium levels, IV fluids Fatigue, malaise - Potentially from hypercalcemia - Potentially from UTI - Potentially from LORENA Acute kidney injury - CPK - Does not appear to be fluid overloaded although elevated BNP - Gentle IV hydration Urinary tract infection, continue cefepime Wheezing on examination CT chest, Pro-Mina, CRP, sputum cultures 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 Currently on amiodarone 0.5 and received metoprolol 50 mg twice daily. Will use digoxin 250 mcg IV x 1 followed by 125 mcg 6 hours and 12 hours later. Lower doses of digoxin being utilized due to LORENA on CKD. No nephrotoxic medications noted on MAY. Last echocardiogram from February 2024 is with normal LV systolic function of 55 to 60%, mild mitral regurgitation, mild pulmonary hypertension. CT of the abdomen and pelvis is negative for any obstructive hydronephrosis. There is a spinal stimulator in place. CT of the chest with emphysematous changes and right lower lobe atelectasis. Otherwise unremarkable. Urine analysis with UTI. CT of the abdomen and pelvis is negative for any obstructive, urine culture pending. Ceftriaxone 1 g IV 24 hours empirically. TSH elevated, low free T4, consistent with hypothyroidism. Patient is currently on 137 mcg p.o. daily. Her dose was recently increased from 112 to 137 mcg daily, she has not yet picked up her new prescription. Will utilize the increased dose here. Calcitriol on hold due to hypercalcemia. Recheck with a.m. labs. June 27, 2024 Patient continues to have a flutter. Heart rate is better today after receiving digoxin load last evening. Currently ranging between 56 to 80 bpm. Amiodarone infusion has been discontinued. Cardiology service has been consulted for persistent a flutter. For now recommended to continue metoprolol. Check digoxin level in a.m. and further doses to be decided based on the digoxin level. Calcium level 10.8 today, improving. Will check ionized calcium with a.m. labs. Continue Eliquis 5 mg twice daily. PDMP PDMP Reviewed: Not Reviewed Attestations 2 Medical Necessity Statement*: Continues to be in persistent a flutter. Cardiology service consulted. Coding Level of Care Code Acute Code for g Fwd Diagnoses Atrial fibrillation with RVR I48.91 Urinary tract infection N39.0 Acute on chronic renal insufficiency N28.9; N18.9 Hypercalcemia E83.52
[2024-06-27] MEDS: metoprolol tartrate 50 mg Tablet 25 MG PO (17:08)
--- NOTE | 2024-06-27 17:57 | PM.CONSULT ---
Providers/Reason For Consult Consulting Physician/Specialty*: Internal medicine Reason for Consult*: Atrial fibrillation Attending Physician: Jennifer Colon MD Primary Care Provider: Rianna Ruiz MD History of Present Illness History of Present Illness Rosario Villalba is a 64 year old female with a known history of atrial fibrillation, for rate control management and has been on Eliquis for long-term anticoagulation presented with A-fib with rapid ventricular rate. Patient has significant comorbidities including long-term tracheostomy secondary to laryngeal CA. Currently patient is resting comfortably and asymptomatic. Atrial fibrillation rate is very well-controlled with a heart rate in the 60s atrial fibrillation. Currently no ischemia or any active heart failure symptoms. However patient does complain of shortness of air on minimal activity as well as shortness of air while lying flat on her bed. Patient remains in atrial fibrillation with a heart rate between 50s to 70s. Review of Systems Narrative: Detailed 10 point systemic review unremarkable except for as mentioned above in the history of present illness. Medications/Allergies Home Medications ?Medication ?Instructions ?Recorded ?Confirmed ?Last Taken ?Type hydrocodone 10 mg-acetaminophen 1 tab PO TID PRN pain 30 days #90 03/31/21 06/25/24 06/25/24 Rx 325 mg tablet tabs bupropion HCl 150 mg 24 hr tablet, 150 mg PO QAM 06/07/21 06/25/24 06/25/24 History extended release (Wellbutrin XL) apixaban 5 mg tablet (Eliquis) 5 mg PO BID 07/13/22 06/25/24 06/25/24 History rosuvastatin 20 mg tablet 20 mg PO DAILY 03/07/23 06/25/24 04/01/24 History hydroxyzine HCl 25 mg tablet 25 mg PO Q8H PRN Anxiety 02/09/24 06/25/24 02/22/24 History potassium chloride 10 mEq 10 meq PO DAILY 02/17/24 06/25/24 04/02/24 History tablet,extended release calcitriol 0.5 mcg capsule 0.5 mcg PO BID #60 caps 03/21/24 06/25/24 06/25/24 Rx pantoprazole 40 mg tablet,delayed 40 mg PO DAILY 04/02/24 06/25/24 04/02/24 History release amiodarone 200 mg tablet 200 mg PO DAILY 06/25/24 06/25/24 Unknown History atorvastatin 40 mg tablet 40 mg PO DAILY 06/25/24 06/25/24 Unknown History ipratropium bromide 0.02 % 1 ml continuous nebulization TID 06/25/24 06/25/24 Unknown History solution for inhalation levothyroxine 137 mcg tablet 137 mcg PO DAILY 06/25/24 06/25/24 Unknown History metoprolol tartrate 50 mg tablet 50 mg PO BID 06/25/24 06/25/24 Unknown History Allergies Allergy/AdvReac Type Severity Reaction Status Date / Time sulfamethoxazole (From Allergy abdominal Verified 06/25/24 16:22 Bactrim) pain trimethoprim (From Bactrim) Allergy abdominal Verified 06/25/24 16:22 pain Sulfa (Sulfonamide AdvReac Mild rash and Verified 06/25/24 16:22 Antibiotics) itch tiagabine (From Gabitril) AdvReac Mild headache, Verified 06/25/24 16:22 upset GI Current Medications Generic Name Dose Route Start Last Admin Trade Name Freq PRN Reason Stop Dose Admin Hydrocodone Bitart/Acetaminophen 1 tab 06/25/24 20:49 06/27/24 06:01 Hydrocodone-Acetaminophen 10-325 Mg Tablet PO 1 tab TID PRN Administration pain Albuterol/Ipratropium 3 ml 06/26/24 00:00 06/27/24 16:15 Ipratropium-Albuterol 3 Ml Neb INHALATION Not Given Q4H.RESPIRATORY JONY Amlodipine Besylate 10 mg 06/26/24 20:40 06/27/24 07:23 Amlodipine 10 Mg Tablet PO 10 mg DAILY JONY Administration Apixaban 5 mg 06/25/24 20:49 06/27/24 17:08 Apixaban 5 Mg Tablet PO 5 mg BID JONY Administration Atorvastatin Calcium 40 mg 06/26/24 09:00 06/27/24 07:23 Atorvastatin 40 Mg Tablet PO 40 mg DAILY JONY Administration Bupropion HCl 150 mg 06/26/24 06:00 06/27/24 06:01 Bupropion Xl (24 Hr) 150 Mg Tablet PO 150 mg QAM JONY Administration Digoxin 125 mcg 06/26/24 23:59 06/27/24 00:00 Digoxin 250 Mcg/Ml Inj 2 Ml IVP 125 mcg ONCE JONY Administration Digoxin 125 mcg 06/27/24 06:00 06/27/24 06:00 Digoxin 250 Mcg/Ml Inj 2 Ml IVP 125 mcg ONCE JONY Administration Hydroxyzine Pamoate 25 mg 06/26/24 22:50 06/26/24 23:34 Hydroxyzine 25 Mg Capsule PO 25 mg TID PRN Administration ANXIETY Levothyroxine Sodium 137 mcg 06/26/24 09:00 06/27/24 07:23 Levothyroxine 137 Mcg Tablet PO 137 mcg DAILY OJNY Administration Metoprolol Tartrate 25 mg 06/27/24 18:00 06/27/24 17:08 Metoprolol Tartrate 50 Mg Tablet PO 25 mg BID JONY Administration Pantoprazole Sodium 40 mg 06/25/24 20:49 06/26/24 20:52 Pantoprazole 40 Mg Sdv IVP 40 mg Q24H JONY Administration PFSH Acute PFSH: Medical History Carotid stenosis 100% left carotid stenosis Chronic anticoagulation 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 GERD (gastroesophageal reflux disease) Odynophagia COVID-19 Atrial fibrillation, currently in sinus rhythm Immunization counseling Smoker unmotivated to quit Encounter for long-term (current) use of NSAIDs Encounter for long-term opiate analgesic use High risk medication use Opioid contract exists Degenerative joint disease (DJD) of lumbar spine Cervical disc disease HTN (hypertension) Hypercholesterolemia Osteoarthritis of both knees Age related osteoporosis Surgical History History of tracheostomy 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 History of colonoscopy History of esophagogastroduodenoscopy (EGD) History of back surgery H/O: hysterectomy Family History Sister Cancer breast Diabetes Stroke Brother Cancer lung Diabetes Stroke CAD (coronary artery disease) Brother has AICD Mother Diabetes Father Heart disease Heart attack CAD (coronary artery disease) Father at age 51 secondary to heart attack Social History Smoking and tobacco/nicotine status: current some day tobacco/nicotine user cigarettes Packs smoked per day: 0.75 Years cigarettes smoked: 50 Quit status (tobacco/nicotine): has tried quititng Second hand smoke exposure: No Alcohol intake: never Substance/Drug Use: former Date of last use: 2014 Marital status: Vitals/I&O/Wt Last Vital Signs Temp 97.7 F 06/27/24 16:00 Pulse 78 06/27/24 16:00 Resp 18 06/27/24 16:00 BP 156/96 06/27/24 16:00 Pulse Ox 95 06/27/24 08:00 O2 Del Method Room Air 06/27/24 16:00 FiO2 21 06/26/24 00:30 06/27/24 06/27/24 06/27/24 06:59 14:59 22:59 Intake Total 295.873 / 2221.706 513.368 / 513.368 Output Total 300 / 900 450 / 450 Balance -4.127 / 1321.706 63.368 / 63.368 Weight last 48 hrs Weight 193 lb 3.2 oz Weight 194 lb 9.6 oz Physical Exam Narrative: Patient laying comfortably on the bed. Not in any respiratory distress. Const: COMMON NORMALS: no acute distress, average body habitus and well nourished Neck/C-Spine: OTHER: Patient has a tracheostomy tube present in place. Resp: OTHER: Chest auscultation reveals good air entry bilaterally. There are few scattered expiratory wheezes. Cardio: OTHER: Irregularly irregular pulse, atrial fibrillation rate controlled. Current heart rate is between 50 and 70. No peripheral edema. No JVD. GI: OTHER: Soft and nontender abdomen. Bowel sounds audible. Extremity: OTHER: Normal muscle bilateral lower extremities. No edema. Neuro: OTHER: Grossly intact and nonfocal. Skin: OTHER: Warm and dry. Data 06/27/24 05:25 06/27/24 05:25 Micro: Microbiology 06/25/24 17:14 Blood Culture - Preliminary Blood NEGATIVE TO DATE 06/25/24 17:17 Blood Culture - Preliminary Blood NEGATIVE TO DATE A&P Assessment and plan (1) Atrial fibrillation with rapid ventricular response: (2) Urinary tract infection: (3) Hypercalcemia: Plan This is a 64-year-old female patient with history of atrial fibrillation/atrial flutter, managed medically and has been on anticoagulation, admitted with atrial fibrillation with rapid ventricular rate. Overnight patient was managed with the IV amiodarone and beta-pearl. Heart rate has been slowed however patient remains in chronic atrial fibrillation. Currently patient is asymptomatic. No acute respiratory distress. Vitals are stable. A-fib heart rate has been between 50 and 70. Blood pressure is normal. Recommendation: Considering overall comorbidities especially the malignancy involving epiglottis and upper airways, we recommend rate control strategy with beta-blockers and digoxin. And to continue Eliquis which she has been on before. PDMP PDMP Reviewed: Not Reviewed Coding Level of Care Code 38037 Diagnoses Atrial fibrillation with rapid ventricular response I48.91 Urinary tract infection N39.0 Hypercalcemia E83.52 Time Spent (min) 35
[2024-06-27] MEDS: hyDROXYzine 25 mg Capsule PO (21:00)
--- NOTE | 2024-06-27 21:37 | PC.NURSE ---
patient has bryant, maciejisritued speech and communication board
--- NOTE | 2024-06-27 21:39 | PC.NURSE ---
Patient uses whispered speech and communication board
--- NOTE | 2024-06-27 21:40 | PC.NURSE ---
patient uses whispered speech and a communication board.
[2024-06-27] MEDS: pantoprazole 40 mg SDV IVP (22:10)
[2024-06-28] VITALS (9 sets, daily range): BP systolic 127–176; BP diastolic 67–89; PULSE 67–126; RESP 13–28; TEMP 36.6–37.1; O2SAT 96–100; BMI 29.9
--- NOTE | 2024-06-28 00:38 | PC.NURSE ---
Patient communicates with mayo and a communication board
[2024-06-28 03:11] LABS: Basophils % 0.5 %; Eosinophils # 0.2 10^3/uL (0.0-0.8); Eosinophils % 1.8 %; Hematocrit 31.2 % (36-47); Lymphocytes # 1.2 10^3/uL (0.8-4.8); Lymphocytes % 14.9 %; Mean Corpuscular HGB Conc 30.4 g/dL (30-55); Mean Corpuscular Hemoglobin 24.9 pg (27-33); Mean Corpuscular Volume 81.7 fl (85-98); Mean Platelet Volume 11.4 fL (7.4-10.4); Monocytes % 11.9 %; Neutrophils # 5.85 10^3/uL (1.8-7.7); Neutrophils % 70.4 %; Nucleated Red Blood Cells % 0 %; Platelet Count 204 10^3/cmm (157-399); Red Blood Count 3.82 10^6/uL (3.85-5.65); Red Cell Distribution Width 17.4 % (12.1-15.1); White Blood Count 8.31 10^3/uL (3.29-11.43)
[2024-06-28 03:33] LABS: Alanine Aminotransferase 13 U/L (0-33); Albumin Level 3.8 g/dL (3.5-5.2); Alkaline Phosphatase 80 U/L (35-105); Anion Gap 16.6 (5-19); Aspartate Amino Transferase 18 U/L (0-32); Blood Urea Nitrogen 32 mg/dL (8-23); Calcium 10.5 mg/dL (8.5-10.5); Carbon Dioxide 23 mmol/L (22-29); Chloride 105 mmol/L (98-107); Creatinine Clr Calc Pharmacy 31.1726; Globulin 2.5 g/dL (1.3-4.6); Glomerular Filtration Rate 23.8 mL/min (90-130); Glucose 99 mg/dL (65-115); Osmolality Calculated 299 mOsm/kg (285-295); Potassium 3.6 mmol/L (3.5-5.1); Sodium 141 mmol/L (136-145); Total Bilirubin 0.2 mg/dL (0.15-1.2); Total Protein 6.3 g/dL (6.6-8.7)
[2024-06-28 03:34] LABS: Digoxin 0.9 ng/mL (0.6-1.2)
--- NOTE | 2024-06-28 04:23 | PC.NURSE ---
Patient communicates with whispered speech and a communication board.
[2024-06-28] MEDS: buPROPion XL (24 HR) 150 mg Tablet PO (05:43)
[2024-06-28] MEDS: HYDROcodone-acetaminophen 10-325 mg Tablet 1 TAB PO ×2 (06:12→21:05)
[2024-06-28] MEDS: atorvastatin 40 mg Tablet PO (09:17)
[2024-06-28] MEDS: levothyroxine 137 mcg Tablet PO (09:17)
[2024-06-28] MEDS: metoprolol tartrate 50 mg Tablet 25 MG PO (09:17)
[2024-06-28] MEDS: apixaban 5 mg Tablet PO ×2 (09:18→17:54)
[2024-06-28] MEDS: amlodipine 10 mg Tablet PO (09:18)
--- NOTE | 2024-06-28 11:33 | P.PN_ITS ---
Subjective 2 Subjective: I saw patient this morning, reviewed her telemetry overnight. Clinically patient is stable, asymptomatic. She remains in atrial flutter/A-fib. With a reasonable controlled ventricular rate on metoprolol 25 mg twice a day and low- dose of digoxin. Clinically no heart failure or any anginal symptoms. Overnight she did have some runs of ventricular rate up to 80 to 90s with underlying rhythm of atrial flutter. I noted she was on amiodarone at home and she was started on IV amiodarone on admission to control the rate. Medications: Medication Review Details: Medication reviewed and adjusted as per clinical status. Vitals/I&O/Wt Last Vital Signs Temp 98.4 F 06/28/24 08:00 Pulse 67 06/28/24 08:00 Resp 28 H 06/28/24 08:00 BP 137/67 06/28/24 08:00 Pulse Ox 98 06/28/24 08:00 O2 Del Method Room Air 06/28/24 08:00 FiO2 21 06/26/24 00:30 06/27/24 06/28/24 06/28/24 22:59 06:59 14:59 Intake Total 240 / 753.368 Output Total 600 / 1050 650 / 1700 Balance -360 / -296.632 -650 / -946.632 Weight last 48 hrs Weight 191 lb 5 oz Weight 193 lb 3.2 oz Physical Exam 2 Const: OTHER: Comfortable. Not in any respiratory distress. HENMT: OTHER: Normal at baseline Resp: OTHER: Good air entry bilaterally. Patient has a tracheostomy Cardio: OTHER: Irregular pulse with atrial flutter/A-fib. Normal 1st and 2nd heart sounds. GI: OTHER: Soft abdomen nontender. Bowel sounds audible. Extremity: OTHER: Warm and dry. Trace pedal edema bilaterally. Skin: OTHER: Skin warm and dry. Data 06/28/24 02:41 06/28/24 02:41 Micro: Microbiology 06/27/24 16:18 Gram Stain - Final Sputum - Endotracheal Wash A&P Assessment and plan (1) Atrial fibrillation with rapid ventricular response: (2) Acute on chronic renal insufficiency: Plan 64-year-old female patient bedbound, with long-term tracheostomy, and chronic atrial fibrillation/atrial flutter. Ventricular rate is much better with the beta-pearl and low-dose of digoxin. Clinically no heart failure. Plan: Adjusted the dose of metoprolol to 50 mg twice a day. And continue the digoxin 0.125 mg once a day. She is already on anticoagulation with Eliquis. Patient is stable enough from cardiac point of view to be discharged home. PDMP PDMP Reviewed: Not Reviewed Attestations 2 Medical Necessity Statement*: Atrial fibrillation, renal failure Coding Level of Care Code 65848 Diagnoses Atrial fibrillation with rapid ventricular response I48.91 Acute on chronic renal insufficiency N28.9; N18.9 Time Spent (min) 25
--- NOTE | 2024-06-28 12:47 | P.PN_ITS ---
Subjective 2 Subjective: SHe states that his breathing is getting better, less labored. She remains in a flutter. Medications: Reviewed: Yes Medication Review Details: Medication reviewed and adjusted as per clinical status. Vitals/I&O/Wt Last Vital Signs Temp 98.4 F 06/28/24 08:00 Pulse 67 06/28/24 08:00 Resp 28 H 06/28/24 08:00 BP 137/67 06/28/24 08:00 Pulse Ox 98 06/28/24 08:00 O2 Del Method Room Air 06/28/24 08:00 FiO2 21 06/26/24 00:30 06/27/24 06/28/24 06/28/24 22:59 06:59 14:59 Intake Total 240 / 753.368 Output Total 600 / 1050 650 / 1700 Balance -360 / -296.632 -650 / -946.632 Weight last 48 hrs Weight 86.778 kg Weight 87.634 kg Physical Exam 2 Narrative: General: No acute distress, AO x3 HEENT: Trach in place Chest: Normal vesicular breath sounds, no added sounds, equal good air entry bilaterally CVS: S1-S2 regular, no murmurs, no tachycardia, no gallops, no rubs Abdomen: Soft, nontender, no organomegaly, bowel sounds present Neuro: No focal deficits, no facial deformity, AO x3, power 5/5 in all limbs Data 06/28/24 02:41 06/28/24 02:41 Micro: Microbiology 06/27/24 16:18 Gram Stain - Final Sputum - Endotracheal Wash A&P Assessment and plan (1) Atrial fibrillation with RVR: (2) Urinary tract infection: (3) Acute on chronic renal insufficiency: (4) Hypercalcemia: Plan Atrial fibrillation with rapid reticular response - Amiodarone drip - Continue Eliquis Elevated TSH - Check T3, T4 - On levothyroxine 137 mcg daily Hypercalcemia - History of hypoparathyroidism - Albumin within normal limits - Is on calcitriol, will hold - Monitor calcium levels, IV fluids Fatigue, malaise - Potentially from hypercalcemia - Potentially from UTI - Potentially from LOERNA Acute kidney injury - CPK - Does not appear to be fluid overloaded although elevated BNP - Gentle IV hydration Urinary tract infection, continue cefepime Wheezing on examination CT chest, Pro-Mina, CRP, sputum cultures 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 Currently on amiodarone 0.5 and received metoprolol 50 mg twice daily. Will use digoxin 250 mcg IV x 1 followed by 125 mcg 6 hours and 12 hours later. Lower doses of digoxin being utilized due to LORENA on CKD. No nephrotoxic medications noted on MAY. Last echocardiogram from February 2024 is with normal LV systolic function of 55 to 60%, mild mitral regurgitation, mild pulmonary hypertension. CT of the abdomen and pelvis is negative for any obstructive hydronephrosis. There is a spinal stimulator in place. CT of the chest with emphysematous changes and right lower lobe atelectasis. Otherwise unremarkable. Urine analysis with UTI. CT of the abdomen and pelvis is negative for any obstructive, urine culture pending. Ceftriaxone 1 g IV 24 hours empirically. TSH elevated, low free T4, consistent with hypothyroidism. Patient is currently on 137 mcg p.o. daily. Her dose was recently increased from 112 to 137 mcg daily, she has not yet picked up her new prescription. Will utilize the increased dose here. Calcitriol on hold due to hypercalcemia. Recheck with a.m. labs. June 27, 2024 Patient continues to have a flutter. Heart rate is better today after receiving digoxin load last evening. Currently ranging between 56 to 80 bpm. Amiodarone infusion has been discontinued. Cardiology service has been consulted for persistent a flutter. For now recommended to continue metoprolol. Check digoxin level in a.m. and further doses to be decided based on the digoxin level. Calcium level 10.8 today, improving. Will check ionized calcium with a.m. labs. Continue Eliquis 5 mg twice daily. June 28, 2024 Continues to be in a flutter. Ventricular rate ranging between 60-90. Dose adjust metoprolol to 50 mg p.o. twice daily. Continue digoxin 125 mcg once a day.Creatinine at 2.1, stable. Urine output 1200 cc last 24 hours. Monitor next 24 hours with addition of daily standing digoxin dose, discharge home if stable with these changes. PDMP PDMP Reviewed: Not Reviewed Attestations 2 Medical Necessity Statement*: Add digoxin 125ncg po stabnding dose today Coding Level of Care Code Acute Code for Chg Fwd Diagnoses Atrial fibrillation with RVR I48.91 Urinary tract infection N39.0 Acute on chronic renal insufficiency N28.9; N18.9 Hypercalcemia E83.52
[2024-06-28] MEDS: digoxin 125 mcg Tablet PO (13:27)
[2024-06-28] MEDS: metoprolol tartrate 50 mg Tablet PO (21:05)
[2024-06-28] MEDS: pantoprazole 40 mg SDV IVP (21:05)
[2024-06-29 00:24] VITALS: BP 140/92; PULSE 90; RESP 13
[2024-06-29 04:58] VITALS: BP 140/92; PULSE 90; RESP 13
[2024-06-29 05:06] VITALS: BP 128/79; PULSE 86; RESP 24; TEMP 36.8; O2SAT 97
[2024-06-29] MEDS: HYDROcodone-acetaminophen 10-325 mg Tablet 1 TAB PO (05:14)
[2024-06-29] MEDS: buPROPion XL (24 HR) 150 mg Tablet PO (05:15)
[2024-06-29 08:00] VITALS: BP 138/105; PULSE 86; RESP 16; TEMP 532.1; TEMP 989.7; O2SAT 97
[2024-06-29] MEDS: apixaban 5 mg Tablet PO (08:03)
[2024-06-29] MEDS: digoxin 125 mcg Tablet PO (08:03)
[2024-06-29] MEDS: amlodipine 10 mg Tablet PO (08:03)
[2024-06-29] MEDS: atorvastatin 40 mg Tablet PO (08:04)
[2024-06-29] MEDS: levothyroxine 137 mcg Tablet PO (08:04)
[2024-06-29] MEDS: metoprolol tartrate 50 mg Tablet PO (08:04)
[2024-06-29 08:05] VITALS: PULSE 86; RESP 20; O2SAT 97
--- NOTE | 2024-06-29 12:27 | PC.NURSE ---
Patient discharged to home. Instruction provided regarding follow up needs, new medications with changes. Patient and friend asked and answered questions appropriately and verbalized complete understanding. Items received from security prior to discharge. New Rx transmitted to OSMANY Raines. Patient has been administered her daily doses prior to discharge. Patient taken by wheelchair to private vehicle. Patient denies pain or needs. No distress observed.
[2024-06-29 12:29] VITALS: BP 138/105; PULSE 76; RESP 20; O2SAT 98
--- NOTE | 2024-06-29 13:38 | P.DS_ITS ---
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 She was found to have A fib with RVR. She was started initially on amiodarone infusion without any significant change or improvement in her A-fib RVR. Metoprolol was continued at 50 mg twice daily. Thereafter digoxin was added to her regimen. With the combination of metoprolol and digoxin her ventricular rate improved. Currently ventricular rate is been between 76 to 90 bpm. She continues to be in a flutter. Cardiology service was consulted due to persistent a flutter. Unfortunately patient is not a good candidate for NATALIA cardioversion because of her history of laryngeal cancer which makes this anatomically difficult. She states that when she was at [facility] on her most recent admission she was told she may be a candidate for electrophysiology studies and possible ablation. Will defer the latter assessment to her primary rabbit dresser. Recommended to follow-up with cardiology in the next 7 to 10 days to discuss further options. She was transiently noted to be in CHF related to her fast heart rate. She did require 2 doses of Lasix during course of her admission. Thereafter has been euvolemic and diuretics have been discontinued at discharge. At the time of discharge amiodarone has been discontinued. Metoprolol 50 twice daily and digoxin are continued. She will need a digoxin level check in 1 week on her follow-up with cardiology. Additionally on the current admission she was noted to have hypercalcemia. Patient reports she had been taking Tums tablets in addition to the prescribed calcitriol. For now asked to hold Tums. She has a follow-up appointment with Dr. Ruiz tomorrow for further adjustments. Other abnormalities this admission included an LORENA with creatinine up to 2.4, trending down to 2.1 at the time of discharge.She was making between 900 to 1200 cc of urine every day. Physical Exam Narrative: General: No acute distress, AO x3 HEENT: PERRLA, pupils bilaterally equal and reactive, pallors not present Chest: Normal vesicular breath sounds, no added sounds, equal good air entry bilaterally CVS: S1-S2 regular, no murmurs, no tachycardia, no gallops, no rubs Abdomen: Soft, nontender, no organomegaly, bowel sounds present Neuro: No focal deficits, no facial deformity, AO x3, power 5/5 in all limbs Discharge Data Studies Completed and Pending Completed Studies During Hospitalization Category Date Time Status CT abdomen pelvis wo con [id number] Stat Cat Scan 06/25/24 18:[address] chest wo con [id number] Routine Cat Scan 06/25/24 20:49 Completed XR chest 1V portable [id number] Stat Exams 06/25/24 16:28 Completed Pending at discharge Category Date Time Status Blood Culture Stat Lab 06/25/24 17:14 Results CMP [Comprehensive Metabolic Panel] AM LABS Lab 06/29/24 04:00 Ordered Complete Blood Count w/Auto AM LABS Lab 06/29/24 04:00 Ordered Ionized Calcium AM LABS Lab 06/29/24 04:00 Ordered Radiology Impressions Chest X-Ray 06/25/24 16:28 IMPRESSION: As above. Abdomen/Pelvis CT 06/25/24 18:32 IMPRESSION: 1. Negative for acute inflammatory process in the abdomen or pelvis. 2. Right lower lobe atelectasis. 3. Coronary artery atherosclerotic calcifications. 4. Extensive aortic atherosclerotic calcifications. 5. Moderate to severe constipation. 6. Spinal stimulator. 7. Right femur demonstrates sequelae of removed orthopedic vicki. 8. Small hiatal hernia. Chest CT 06/25/24 20:49 IMPRESSION: 1. Coronary artery and aortic atherosclerotic calcifications. 2. Spinal stimulator. 3. Aortic atherosclerotic calcifications. 4. Emphysematous changes. 5. Right lower lobe atelectasis. 6. Endotracheal tube tip in place. COMMENTS: The presence of pulmonary emphysema on CT is an independent risk factor for lung cancer. In the absence of a history or active diagnosis of lung cancer, it is recommended that this patient with emphysema be evaluated for enrollment in a low dose CT lung cancer screening program. Laboratory Results WBC 8.31 10^3/uL (3.29-11.43) 06/28/24 02:41 RBC 3.82 10^6/uL (3.85-5.65) L 06/28/24 02:41 Hgb 9.50 g/dL (11.27-16.99) L 06/28/24 02:41 Hct 31.2 % (36-47) L 06/28/24 02:41 MCV 81.7 fl (85-98) L 06/28/24 02:41 MCH 24.9 pg (27-33) L 06/28/24 02:41 MCHC 30.4 g/dL (30-55) 06/28/24 02:41 RDW 17.4 % (12.1-15.1) H 06/28/24 02:41 Plt Count 204 10^3/cmm (157-399) 06/28/24 02:41 MPV 11.4 fL (7.4-10.4) H 06/28/24 02:41 Neut % (Auto) 70.4 % 06/28/24 02:41 Lymph % (Auto) 14.9 % 06/28/24 02:41 [place] % (Auto) 11.9 % 06/28/24 02:41 Eos % (Auto) 1.8 % 06/28/24 02:41 Baso % (Auto) 0.5 % 06/28/24 02:41 Neut # (Auto) 5.85 10^3/uL (1.8-7.7) 06/28/24 02:41 Lymph # (Auto) 1.2 10^3/uL (0.8-4.8) 06/28/24 02:41 [place] # (Auto) 1.0 10^3/uL (0.2-0.9) H 06/28/24 02:41 Eos # (Auto) 0.2 10^3/uL (0.0-0.8) 06/28/24 02:41 Baso # (Auto) 0.0 10^3/uL (0.0-0.1) 06/28/24 02:41 Nucleated RBC % (auto) 0 % 06/28/24 02:41 Nucleated RBCs # 0.0 /100WBC 06/28/24 02:41 ESR 19 mm/hr (0-15) H 06/25/24 17:35 Sodium 141 mmol/L (136-145) 06/28/24 02:41 Potassium 3.6 mmol/L (3.5-5.1) 06/28/24 02:41 Chloride 105 mmol/L (98-107) 06/28/24 02:41 Carbon Dioxide 23 mmol/L (22-29) 06/28/24 02:41 Anion Gap 16.6 (5-19) 06/28/24 02:41 BUN 32 mg/dL (8-23) H 06/28/24 02:41 Creatinine 2.1 mg/dL (0.5-0.9) H 06/28/24 02:41 GFR Calculation 23.8 mL/min (90-130) L 06/28/24 02:41 Glucose 99 mg/dL (65-115) 06/28/24 02:41 Calculated Osmolality 299 mOsm/kg (285-295) H 06/28/24 02:41 Lactic Acid 2.3 mmol/L (0.5-2.2) H 06/25/24 17:35 Lactic Acid (Sepsis) 1.7 mmol/L (0.5-2.2) 06/25/24 20:07 Calcium 10.5 mg/dL (8.5-10.5) 06/28/24 02:41 Ionized Calcium Disha 1.5 mmol/L (1.1-1.4) H 06/25/24 23:25 Total Bilirubin 0.2 mg/dL (0.15-1.2) 06/28/24 02:41 AST 18 U/L (0-32) 06/28/24 02:41 ALT 13 U/L (0-33) 06/28/24 02:41 Alkaline Phosphatase 80 U/L (35-105) 06/28/24 02:41 Creatine Kinase 65 U/L (26-192) 06/25/24 17:35 Troponin T Baseline 24 ng/L (0-10) H 06/25/24 17:35 Troponin T 120 Minute 19.53 ng/L (0-10) H 06/25/24 19:37 Delta Troponin T -4.47 ABS# (0-10) L 06/25/24 19:37 Troponin T Hi Sens 6Hr 21.59 ng/L (0-10) H 06/25/24 23:35 Troponin T Hi Sens 6Hr Delta -2.41 ng/L (0-12) L 06/25/24 23:35 C-Reactive Protein 3.0 mg/L (0.0-4.9) 06/25/24 17:35 NT-Pro-B Natriuret Pep 3789 pg/mL (0-125) H 06/26/24 03:30 Total Protein 6.3 g/dL (6.6-8.7) L 06/28/24 02:41 Albumin 3.8 g/dL (3.5-5.2) 06/28/24 02:41 Globulin 2.5 g/dL (1.3-4.6) 06/28/24 02:41 Procalcitonin 0.08 ng/mL (0-0.5) 06/25/24 17:35 TSH 21.88 uIU/mL (0.27-4.20) H 06/25/24 17:35 Free T4 1.69 ng/dL (0.82-1.77) 06/25/24 17:35 Free T3 1.2 PG/ML (2.0-4.4) L 06/25/24 17:35 PTH Intact 6.0 pg/mL (15-65) L 06/25/24 17:35 Calcium (PTH Intact) 13.1 mg/dL (8.5-10.5) H 06/25/24 17:35 Urine Color Yellow (Yellow) 06/25/24 18: Urine Appearance Slightly cloudy (CLEAR) 06/25/24 18: Urine pH 5.5 (5-7) 06/25/24 18: Ur Specific [place] 1.015 (1.005-1.030) 06/25/24 18: Urine Protein Neg (Negative) 06/25/24 18: Urine Glucose (UA) Norm (Normal) 06/25/24 18: Urine Ketones Negative (Negative) 06/25/24 18: Urine Blood Neg (Negative) 06/25/24 18: Urine Nitrate Negative (Negative) 06/25/24 18: Urine Bilirubin Neg (Negative) 06/25/24 18:29 Urine Urobilinogen 0.2 mg/dL (Negative) 06/25/24 18:29 Ur Leukocyte Esterase 2+ (Negative) A 06/25/24 18:29 Urine RBC 0-2 /hpf (0-2) 06/25/24 18:29 Urine WBC 11-20 /hpf (0-5) H 06/25/24 18:29 Ur Squamous Epith Cells 6-10 /hpf (0-5) 06/25/24 18:29 Amorphous Sediment Not Reportable 06/25/24 18:29 Urine Bacteria None seen /hpf (NONE) 06/25/24 18:29 Hyaline Casts 7.42 /lpf 06/25/24 18:29 Digoxin 0.9 ng/mL (0.6-1.2) 06/28/24 02:41 Monoscreen Negative (Negative) 06/25/24 17:35 Influenza A (PCR) Negative (Negative) 06/25/24 18:29 Influenza Type B (PCR) Negative (Negative) 06/25/24 18:29 RSV (PCR) Negative (Negative) 06/25/24 18:29 SARS-CoV-2 (PCR) Negative (Negative) 06/25/24 18:29 Vitals Last Vital Signs Temp 989.7 F H 06/29/24 08:00 Pulse 76 06/29/24 12:29 Resp 20 H 06/29/24 12:29 BP 138/105 06/29/24 12:29 Pulse Ox 98 06/29/24 12:29 O2 Del Method Room Air 06/29/24 08:05 FiO2 21 06/28/24 20:29 Discharge Plan Discharge Patient Disposition: Home Condition: Stable Prescriptions: New amlodipine 10 mg Tablet 10 mg PO DAILY 30 Days Qty: 30 0RF digoxin 125 mcg (0.125 mg) Tablet 125 mcg PO DAILY 30 Days Qty: 30 0RF Continued hydrocodone-acetaminophen 10-325 mg tablet 1 tab PO TID PRN (Reason: pain) 30 Days Qty: 90 0RF bupropion HCl [Wellbutrin XL] 150 mg tablet extended release 24 hr 150 mg PO QAM Eliquis 5 mg tablet 5 mg PO BID calcitriol 0.5 mcg capsule 0.5 mcg PO BID Qty: 60 2RF rosuvastatin 20 mg tablet 20 mg PO DAILY hydroxyzine HCl 25 mg tablet 25 mg PO Q8H PRN (Reason: Anxiety) potassium chloride 10 mEq tablet extended release 10 meq PO DAILY pantoprazole 40 mg tablet,delayed release (DR/EC) 40 mg PO DAILY atorvastatin 40 mg tablet 40 mg PO DAILY levothyroxine 137 mcg tablet 137 mcg PO DAILY metoprolol tartrate 50 mg tablet 50 mg PO BID ipratropium bromide 0.02 % solution 1 ml continuous nebulization TID Discontinued amiodarone 200 mg tablet 200 mg PO DAILY Discharge Orders: Discharge Order (Routine); Ordered 06/29/24 Ordered By: Jennifer Colon Other Ambulatory Orders: Digoxin (Routine) Timeframe: 1 Week Facility: [facility] - Location: Lab - Main Lab Ordered By: Jennifer Colon Referrals: Rianna Ruiz MD [Primary Care Provider] - 06/30/24 (patient has scheduled appt tomorrow ) Ernesto Grant MD [Physician] - 7-10 days (patient missed appt with Dr. Grant as she was admitted, needs discharge follow up appt in 7-10 days. Persistent A flutter, recurrent admission for this, meds changed ) Kailee Pozo FNP [Nurse Practitioner] - 1 week (patient needs to follow up in one week, please book with Ms. Pozo if unable to book with Dr. Grant. ) Discharge Diet: Cardiac Discharge Activity: Increase activity as tolerated Patient Instructions: Digoxin (By mouth), Amlodipine (By mouth), Atrial Flutter (DC), Urinary Tract Infection in Women (DC), Chronic Kidney Disease (DC), Opioid Safety Discharge Attestations Time Spent in Discharge Care*: greater than 30 min Status at Discharge: Cognitive status at discharge: cognitively intact , Behavioral status at discharge: cooperative , Quality Metrics Clinical Quality Measures [ No reported AMI, CVA or VTE this stay] Coding Level of Care Code Acute Code for Chg Fwd Diagnoses Atrial fibrillation with RVR I48.91 Urinary tract infection N39.0 Acute on chronic renal insufficiency N28.9; N18.9 Hypercalcemia E83.52
== END 2024-06-29 12:31 | disposition home or self-care (01) | DRG 309 ==
LOC: ER 20:03 → ER IP 23:50 → CSU 06-26 10:41
PROVIDERS: Admitting Provider Family Medicine; Emergency Provider Emergency Medicine; PCP Internal Medicine; Visit Provider Student in an Organized Health Care Education/Training Program
DX: I48.91 Unspecified atrial fibrillation (principal); I13.0 Hypertensive heart and chronic kidney disease with heart failure and stage 1 through stage 4 chronic kidney disease, or unspecified chronic kidney disease; N17.9 Acute kidney failure, unspecified; N39.0 Urinary tract infection, site not specified; I65.29 Occlusion and stenosis of unspecified carotid artery; I48.92 Unspecified atrial flutter; Z79.01 Long term (current) use of anticoagulants; Z93.0 Tracheostomy status; Z85.89 Personal history of malignant neoplasm of other organs and systems; Z79.899 Other long term (current) drug therapy; Z79.890 Hormone replacement therapy; Z88.2 Allergy status to sulfonamides; Z88.1 Allergy status to other antibiotic agents; Z88.8 Allergy status to other drugs, medicaments and biological substances; F17.210 Nicotine dependence, cigarettes, uncomplicated; E86.0 Dehydration; E20.9 Hypoparathyroidism, unspecified; E03.9 Hypothyroidism, unspecified; E78.5 Hyperlipidemia, unspecified; N18.9 Chronic kidney disease, unspecified; I50.9 Heart failure, unspecified; I27.20 Pulmonary hypertension, unspecified
CPT/HCPCS: 36415; 71045; 71250; 74176; 80053; 80162; 81001; 82310; 82330; 82550; 83605; 83880; 83970; 84145; 84439; 84443; 84481; 84484; 85025; 85651; 86140; 86308; 87040; 87070; 87205; 87637; 93005; 94640; 94664; 94799; 96365; 96366; 96375; 96376; 99291; A4222; J0283; J0692; J1160; J2470; J7030; J9999

== ENCOUNTER → 2024-07-28 08:51 | Outpatient (BNVA) | payer MEDICARE, MEDICAID, SELFPAY | PROVIDERS: PCP Internal Medicine; Visit Provider Nurse Practitioner Family | DX: I48.0 Paroxysmal atrial fibrillation (principal); Z79.01 Long term (current) use of anticoagulants; I10 Essential (primary) hypertension; Z09 Encounter for follow-up examination after completed treatment for conditions other than malignant neoplasm; Z87.891 Personal history of nicotine dependence; I65.23 Occlusion and stenosis of bilateral carotid arteries; R06.02 Shortness of breath | CPT/HCPCS: 36415; 80048; 80162; 85025; 93005; 99214 ==

== ENCOUNTER → 2024-08-06 09:54 | Outpatient (BNVA) | payer MEDICARE, MEDICAID, SELFPAY | PROVIDERS: PCP Internal Medicine; Visit Provider Nurse Practitioner Family | DX: I48.0 Paroxysmal atrial fibrillation (principal); Z79.01 Long term (current) use of anticoagulants; I10 Essential (primary) hypertension; Z09 Encounter for follow-up examination after completed treatment for conditions other than malignant neoplasm; Z87.891 Personal history of nicotine dependence; I48.91 Unspecified atrial fibrillation; Z79.891 Long term (current) use of opiate analgesic | CPT/HCPCS: 93005; 99214 ==

== ENCOUNTER 2024-12-12 13:19 | Emergency (ER) | payer OTHER, MEDICAID, SELFPAY ==
--- OUTSIDE RECORDS SUMMARY | 2024-05-22 08:45 | XMS_ITS ---
Author Organization [facility] Address [address] [place] [address] Care Team Providers Care Patent Legal Assistant Name Role Phone DR. Rianna Ruiz Primary Care Provider Keyona Chavez [phone] REASON FOR VISIT 2 month f/u Social History Tobacco Use: Social History Observation Description Date Details (start date - stop date) Never Smoker NA - NA Social History Tobacco Use: Social Info Question Answer Notes Tobacco Control (Standard) Tobacco use: Nonsmoker Additional Details Category Social Info Options Details Drugs/Alcohol: Do you drink alcohol? No Migrated Social History Migrated Social History Alcoholic beverages? - No, Currently on disability? - Yes, Drug or substance abuse? - No, exposure to toxins/poisonous substances at work - No, Involved in any legal proceedings or lawsuits? - No, Marital Status - , Nonprescription drug use? - No, Participation in detoxification or rehabilitation - No, Smoking - 1/2 PPD, Smoking status (MU) - Current every day smoker, Working currently? - No Section Notes: Patient is on disability Encounters Encounter Location Date Provider Diagnosis [facility] [place] [address] [place] [address] 05/22/2024 Keyona Adams Laryngeal cancer C32 .9 ; Chronic pain due to trauma G89.21 ; Degeneration of intervertebral disc of lumbar region with discogenic back pain and lower extremity pain M51.362 ; Radiculopathy, lumbosacral region M54.17 ; Presence of neurostimulator Z96.82 and terminal worker (current) use of opiate analgesic Z79.891 Assessments Encounter Date Diagnosis (ICD Code) Assessment Notes Treatment Notes Treatment Clinical Notes Section Notes 05/22/2024 Laryngeal cancer (ICD-10 - C32.9) 05/22/2024 Chronic pain due to trauma (ICD-10 - G89.21) 05/22/2024 Degeneration of intervertebral disc of lumbar region with discogenic back pain and lower extremity pain (ICD-10 - M51.362) 05/22/2024 Radiculopathy, lumbosacral region (ICD-10 - M54.17) 05/22/2024 Presence of neurostimulator (ICD-10 - Z96.82) 05/22/2024 terminal worker (current) use of opiate analgesic (ICD-10 - Z79.891) Plan Of Treatment Next Appt Details Provider Name:Keyona yip, 01/15/2025 04:00:00 PM, [address] [place], [address], History and Physical Notes * HPI (History of Present Illness) Category Sub-Category Detail Notes Category Not es Pain Details Pain Location ___ Quality ___ Severity of pain at its worst ___ Severity of pain at its best ___ Severity of average pain ___ Severity of pain right now ___ Severity of pain on medication ___ When did you last take your pain medicin e ___ Medication Details Do you have a lock b ox or safe place for medication away from minors and/or others? Yes Do you have any leftover pain medication building up at your house? No Do you understand that pain medication c an be addicting and can cause overdose? Yes Do you feel you can REDUCE the amount of medication you take today? No Opioid Assessment Tools Pill Count ___ Last Urine Drug Screen ___ Today's Rapid Urine Drug Screen ___ [place] Prescription Monitoring Program ___ Treatment History Test undergone in the past ___ Past medication you have taken ___ Treatments you have had ___ Progress Notes * Rosario VILLALBA ADOB:1960 (64 yo F)Acc No.[id number]:05/22/2024 Progress Notes Patient: Rosario Askew Provider: CHANTAL Rodríguez :1960 A ge:64 Y S ex:Female Date:05/22/2024 [facility] [id number] Pcp:DR. Rianna Ruiz Subjective: * Chief Complaints: * 2 month f/u * HPI: Jose Eduardo silva Note: Notes: I had a nice visit with the patient today regarding her chronic pain issues. She has been away for a few months as she had another surgery for her recurrent epiglottal cancer. She has an NG tube in place as well as a trach and communicates via whiteboard. She does alright with the hydrocodone but apparently has one script waiting for her at the pharmacy, so I will provide 1 more and we will plan to see her back in about 2 months. Jose Eduardo bui Details: Pain Location _ __. Quality _ __. Severity of pain at its worst _ __. Severity of pain at its best _ __. Severity of pain on medication _ __. Severity of average pain _ __. Severity of pain right now _ __. When did you last take your pain medicine _ __. M edication Details: Do you have a lock box or safe place for medication away from minors and/or others? Y es. Do you have any leftover pain medication building up at your house? N o. Do you understand that pain medication can be addicting and can cause overdose? Y es. Do you feel you can REDUCE the amount of medication you take today? N o. O pioid Assessment Tools: Pill Count _ __. Last Urine Drug Screen _ __. Today's Rapid Urine Drug Screen _ __. [place] Prescription Monitoring Program _ __. T reatment History: Test undergone in the past _ __. Past medication you have taken _ __. Treatments you have had _ __. * ROS: G eneral - Multi System: Constitutional D enies, f ever, recent weight gain, recent weight loss, fatigue. R espiratory D enies, wheezing, shortness of breath, cough, snoring. G astrointestinal D enies, nausea, vomiting, constipation, abdominal pain. P sychiatric D enies, , anxiety, depression, panic attacks, suicidal thoughts. * Medical History: Constipation, D epression, H igh blood pressure, S tomach ulcer, * Hospitalization/Major Diagno stic Procedure: Afib RVR, electrolyte imbalance 03/04 * Family History: M igrated Family History: : Cancer, c hronic pain, D iabetes, f ibromyalgia, H eart disease, S troke. * Social History: T obacco Use: T obacco Control (Standard) T obacco use: N onsmoker D rugs/Alcohol: D o you drink alcohol?: No. M igrated Social History: M igrated Social History: Alcoholic beverages? - No, C urrently on disability? - Yes, D rug or substance abuse? - No, e xposure to toxins/poisonous substances at work - No, I nvolved in any legal proceedings or lawsuits? - No, M arital Status - , N onprescription drug use? - No, P articipation in detoxification or rehabilitation - No, S moking - 1/2 PPD, S moking status (MU) - Current every day smoker, W orking currently? - No. P atient is on disability. Assessment: * Assessment: 1. C hronic pain due to trauma - G89.21 (Primary) 2 . L aryngeal cancer - C32.9 3 . D egeneration of intervertebral disc of lumbar region with discogenic back pain and lower extremity pain - M51.362 4 . R adiculopathy, lumbosacral region - M54.17 5 . P resence of neurostimulator - Z96.82 6 . L karla term (current) use of opiate analgesic - Z79.891 Billing Information: * Procedure Codes: Care Plan Details* * Electronic signature of Caitlin Adams APRN on 12/12/2024 at 01:22 PM CDT Sign off status: Pending * Provider: CHANTAL Rodríguez Date: 0 05/22/2024 Generated for Jeremiah lamb/Roberto/eTrodney on: 1 01:22 PM CDT
[2024-12-12 13:22] VITALS: BP 169/97; PULSE 68; RESP 17; TEMP 36.6; O2SAT 98
--- OUTSIDE RECORDS SUMMARY | 2024-12-12 13:22 | XMS_ITS | Encounter Summary ---
Author Organization [facility] [employer] [facility] Address [address] [place] [address] Phone Care Team Providers Care Security System Analyst Name Role Phone Rianna Ruiz MD Primary Care Provider [phone] Encounter Details Date Type Department Care Team (Late st Contact Info) Description 06/13/2024 Orders Only [facility] [address] [facility] [address] [place] [address] Chronic kidney disease, stage 4 (severe) (HCC) Social History Tobacco Use Types Packs/Day Years Used Date Smoking Tobacco: Never Assessed Comments Unknown Sex and Gender Information Value Date Recorded Sex Assigned at Not on file Legal Sex Female 11:34 AM EDT Gender Identity Not on file Sexual Orientation Not on file documented as of this encounter Plan of Treatment Upcoming Encounters Date Type Department Care Team (Late st Contact Info) Description 02/11/2025 1:40 PM PLATING DEPARTMENT HELPER Office Visit [place] [facility], [facility] [address] [place] [address] Lexie Correa MD [address] [facility] [address] [place] [address] documented as of this encounter Visit Diagnoses Diagnosis Chronic kidney disease, stage 4 (severe) (HCC) documented in this encounter Care Teams Security System Analyst Relationship Specialty Start Date End Date Rianna Ruiz MD [address] [facility] [place], [place] [address] PCP - General Internal Medicine 06/12/24 documented as of this encounter
--- OUTSIDE RECORDS SUMMARY | 2024-12-12 13:22 | XMS_ITS | Clinical Summary ---
Author Organization [facility] Address [address] [place] [address] Care Team Providers Care Metal Finish Inspector Name Role Phone Rianna Ruiz MD Primary Care Provider [phone] Social History Tobacco Use Types Packs/Day Years Used Date Smoking Tobacco: Never Assessed Comments Unknown Sex and Gender Information Value Date Recorded Sex Assigned at Not on file Legal Sex Female 11:34 AM EDT Gender Identity Not on file Sexual Orientation Not on file Plan of Treatment Upcoming Encounters Date Type Department Care Team (Late st Contact Info) Description 02/11/2025 1:40 PM CAR TESTER Office Visit [facility] [address] [place] [address] Lexie Correa MD [address] [facility] [address] [place] [address] Health Maintenance Due Date Last Done Comments Breast Cancer Screening 1961 Pneumococcal Vaccine: 50+ Ye ars (1 of 2 - PCV) 1980 Colorectal Cancer Screening: Annual FOBT 2010 Colorectal Cancer Screening: Colonoscopy 2010 Colorectal Cancer Screening: Sigmoidoscopy 2010 Influenza Vaccine (#1) 2024 Hepatitis B Vaccine Aged Out No longe r eligible based on patient's age to complete this topic Insurance Medicaid [place] ([id number]) Dual Complete Choice [place] Care Teams Metal Finish Inspector Relationship Specialty Start Date End Date Rianna Ruiz MD [address] [address] PCP - General Internal Medicine 06/12/24
--- OUTSIDE RECORDS SUMMARY | 2024-12-12 13:22 | XMS_ITS | Patient Health Record ---
Author Organization [facility] Address [address] [place] [address] Care Team Providers Care Political Worker Name Role Phone DR. Rianna Ruiz Primary Care Provider Unavaila Keyona Hutchinson Unavailable [phone] Migration, Provider Unavailable Unavailable Sylvester Campos Unavailable [phone] Lu Cadet Unavailable Allergies Allergen (clinical drug ingredient) Drug/Non Drug Allergy documented on EMR Reaction Allergy Type Onset Date Status Sulfamethoxazole Abdominal Pain Drug Allergy Active trimethoprim Trimethoprim Arthralgia Drug Allergy Active Substance with sulfonamide structure and antibacterial mechanism of action (substance) Sulfa Antibiotics Rash Drug Allergy Active tiagabine Tiagabine Headache, Upset Stomach Drug Allergy Active Results Component Value Reference Range Flag Notes Urine Drug Screen (cup read) - [id number] Reviewed date:06/12/2024 03:16:51 PM Interpretation: Performing Lab: Notes/Report: OPI + OXY + Urine Confirmation Panel (in strument) - [id number] Reviewed date:06/17/2024 02:46:06 PM Interpretation: Performing Lab: Notes/Report: 6-Acetylmorphine 0 <6 ng/mL N This andrea t was developed and its performance characteristics determined by [facility]. It has not been cleared or approved by the U.S. Food and Drug Administration. 7-Aminoclonazepam 0 <60 ng/mL N This te st was developed and its performance characteristics determined by [facility]. It has not been cleared or approved by the U.S. Food and Drug Administration. Alprazolam 0 <60 ng/mL N This test was developed and its performance characteristics determined by [facility]. It has not been cleared or approved by the U.S. Food and Drug Administration. Amphetamine 0 <75 ng/mL N This test was developed and its performance characteristics determined by [facility]. It has not been cleared or approved by the U.S. Food and Drug Administration. aOH-Alprazolam 0 <60 ng/mL N This test was developed and its performance characteristics determined by [facility]. It has not been cleared or approved by the U.S. Food and Drug Administration. Buprenorphine 0.0 <7.5 ng/mL N This test w as developed and its performance characteristics determined by [facility]. It has not been cleared or approved by the U.S. Food and Drug Administration. Norbuprenorphine 0.0 <37.5 ng/mL N This te st was developed and its performance characteristics determined by [facility]. It has not been cleared or approved by the U.S. Food and Drug Administration. Carisoprodol 0 <75 ng/mL N This test wa s developed and its performance characteristics determined by [facility]. It has not been cleared or approved by the U.S. Food and Drug Administration. Codeine 0 <75 ng/mL N This test was developed and its performance characteristics determined by [facility]. It has not been cleared or approved by the U.S. Food and Drug Administration. EDDP 0 <75 ng/mL N This test was developed and its performance characteristics determined by [facility]. It has not been cleared or approved by the U.S. Food and Drug Administration. Fentanyl 0 <6 ng/mL N This test was developed and its performance characteristics determined by [facility]. It has not been cleared or approved by the U.S. Food and Drug Administration. Hydrocodone 2375 <75 ng/mL H This test was developed and its performance characteristics determined by [facility]. It has not been cleared or approved by the U.S. Food and Drug Administration. Hydromorphone 41 <75 ng/mL N This test w as developed and its performance characteristics determined by [facility]. It has not been cleared or approved by the U.S. Food and Drug Administration. Lorazepam 0 <60 ng/mL N This test was developed and its performance characteristics determined by [facility]. It has not been cleared or approved by the U.S. Food and Drug Administration. MDMA 1 <75 ng/mL N This test was developed and its performance characteristics determined by [facility]. It has not been cleared or approved by the U.S. Food and Drug Administration. Meperidine 0.0 <37.5 ng/mL N This test was developed and its performance characteristics determined by [facility]. It has not been cleared or approved by the U.S. Food and Drug Administration. Meprobamate 0 <75 ng/mL N This test was developed and its performance characteristics determined by [facility]. It has not been cleared or approved by the U.S. Food and Drug Administration. Methamphetamine 0 <75 ng/mL N This test was developed and its performance characteristics determined by [facility]. It has not been cleared or approved by the U.S. Food and Drug Administration. Methadone 0 <75 ng/mL N This test was developed and its performance characteristics determined by [facility]. It has not been cleared or approved by the U.S. Food and Drug Administration. Morphine 0 <75 ng/mL N This test was developed and its performance characteristics determined by [facility]. It has not been cleared or approved by the U.S. Food and Drug Administration. Nordiazepam 0 <60 ng/mL N This test was developed and its performance characteristics determined by [facility]. It has not been cleared or approved by the U.S. Food and Drug Administration. Norfentanyl 1 <6 ng/mL N This test was developed and its performance characteristics determined by [facility]. It has not been cleared or approved by the U.S. Food and Drug Administration. Normeperidine 0.0 <37.5 ng/mL N This test was developed and its performance characteristics determined by [facility]. It has not been cleared or approved by the U.S. Food and Drug Administration. O-desmethyltramadol 0 <75 ng/mL N This test was developed and its performance characteristics determined by [facility]. It has not been cleared or approved by the U.S. Food and Drug Administration. Oxazepam 0 <60 ng/mL N This test was developed and its performance characteristics determined by [facility]. It has not been cleared or approved by the U.S. Food and Drug Administration. Oxycodone 0.0 <37.5 ng/mL N This test was developed and its performance characteristics determined by [facility]. It has not been cleared or approved by the U.S. Food and Drug Administration. Oxymorphone 0 <75 ng/mL N This test was developed and its performance characteristics determined by [facility]. It has not been cleared or approved by the U.S. Food and Drug Administration. Phencyclidine 0.0 <7.5 ng/mL N This test w as developed and its performance characteristics determined by [facility]. It has not been cleared or approved by the U.S. Food and Drug Administration. Tapentadol 9.6 <37.5 ng/mL N This test was developed and its performance characteristics determined by [facility]. It has not been cleared or approved by the U.S. Food and Drug Administration. Temazepam 0 <60 ng/mL N This test was developed and its performance characteristics determined by [facility]. It has not been cleared or approved by the U.S. Food and Drug Administration. Tramadol 0 <75 ng/mL N This test was developed and its performance characteristics determined by [facility]. It has not been cleared or approved by the U.S. Food and Drug Administration. Norhydrocodone 1827 <75 ng/mL H This test was developed and its performance characteristics determined by [facility]. It has not been cleared or approved by the U.S. Food and Drug Administration. Noroxycodone 0 <38 ng/mL N This test wa s developed and its performance characteristics determined by [facility]. It has not been cleared or approved by the U.S. Food and Drug Administration. Pregabalin 0 <225 ng/mL N This test was developed and its performance characteristics determined by [facility]. It has not been cleared or approved by the U.S. Food and Drug Administration. Gabapentin 0 <225 ng/mL N This test was developed and its performance characteristics determined by [facility]. It has not been cleared or approved by the U.S. Food and Drug Administration. Benzoylecgonine 0.0 <37.5 ng/mL N This andrea t was developed and its performance characteristics determined by [facility]. It has not been cleared or approved by the U.S. Food and Drug Administration. 4-Hydroxy Xylazine 0 <25 ng/mL N This t est was developed and its performance characteristics determined by [facility]. It has not been cleared or approved by the U.S. Food and Drug Administration. Urine Drug Screen (cup read) - [id number] Reviewed date:11/28/2024 10:02:54 AM Interpretation: Performing Lab: Notes/Report: OXY + Urine Confirmation Panel (in strument) - [id number] Reviewed date:12/02/2024 01:09:45 PM Interpretation: Performing Lab: Notes/Report: 6-Acetylmorphine 0 <6 ng/mL N This andrea t was developed and its performance characteristics determined by [facility]. It has not been cleared or approved by the U.S. Food and Drug Administration. 7-Aminoclonazepam 0 <60 ng/mL N This te st was developed and its performance characteristics determined by [facility]. It has not been cleared or approved by the U.S. Food and Drug Administration. Alprazolam 0 <60 ng/mL N This test was developed and its performance characteristics determined by [facility]. It has not been cleared or approved by the U.S. Food and Drug Administration. Amphetamine 0 <75 ng/mL N This test was developed and its performance characteristics determined by [facility]. It has not been cleared or approved by the U.S. Food and Drug Administration. aOH-Alprazolam 0 <60 ng/mL N This test was developed and its performance characteristics determined by [facility]. It has not been cleared or approved by the U.S. Food and Drug Administration. Buprenorphine 0.0 <7.5 ng/mL N This test w as developed and its performance characteristics determined by [facility]. It has not been cleared or approved by the U.S. Food and Drug Administration. Norbuprenorphine 0.0 <37.5 ng/mL N This te st was developed and its performance characteristics determined by [facility]. It has not been cleared or approved by the U.S. Food and Drug Administration. Carisoprodol 0 <75 ng/mL N This test wa s developed and its performance characteristics determined by [facility]. It has not been cleared or approved by the U.S. Food and Drug Administration. Codeine 0 <75 ng/mL N This test was developed and its performance characteristics determined by [facility]. It has not been cleared or approved by the U.S. Food and Drug Administration. EDDP 0 <75 ng/mL N This test was developed and its performance characteristics determined by [facility]. It has not been cleared or approved by the U.S. Food and Drug Administration. Fentanyl 0 <6 ng/mL N This test was developed and its performance characteristics determined by [facility]. It has not been cleared or approved by the U.S. Food and Drug Administration. Hydrocodone 0 <75 ng/mL N This test was developed and its performance characteristics determined by [facility]. It has not been cleared or approved by the U.S. Food and Drug Administration. Hydromorphone 0 <75 ng/mL N This test w as developed and its performance characteristics determined by [facility]. It has not been cleared or approved by the U.S. Food and Drug Administration. Lorazepam 0 <60 ng/mL N This test was developed and its performance characteristics determined by [facility]. It has not been cleared or approved by the U.S. Food and Drug Administration. MDMA 0 <75 ng/mL N This test was developed and its performance characteristics determined by [facility]. It has not been cleared or approved by the U.S. Food and Drug Administration. Meperidine 0.0 <37.5 ng/mL N This test was developed and its performance characteristics determined by [facility]. It has not been cleared or approved by the U.S. Food and Drug Administration. Meprobamate 0 <75 ng/mL N This test was developed and its performance characteristics determined by [facility]. It has not been cleared or approved by the U.S. Food and Drug Administration. Methamphetamine 0 <75 ng/mL N This test was developed and its performance characteristics determined by [facility]. It has not been cleared or approved by the U.S. Food and Drug Administration. Methadone 0 <75 ng/mL N This test was developed and its performance characteristics determined by [facility]. It has not been cleared or approved by the U.S. Food and Drug Administration. Morphine 0 <75 ng/mL N This test was developed and its performance characteristics determined by [facility]. It has not been cleared or approved by the U.S. Food and Drug Administration. Nordiazepam 0 <60 ng/mL N This test was developed and its performance characteristics determined by [facility]. It has not been cleared or approved by the U.S. Food and Drug Administration. Norfentanyl 0 <6 ng/mL N This test was developed and its performance characteristics determined by [facility]. It has not been cleared or approved by the U.S. Food and Drug Administration. Normeperidine 0.0 <37.5 ng/mL N This test was developed and its performance characteristics determined by [facility]. It has not been cleared or approved by the U.S. Food and Drug Administration. O-desmethyltramadol 0 <75 ng/mL N This test was developed and its performance characteristics determined by [facility]. It has not been cleared or approved by the U.S. Food and Drug Administration. Oxazepam 0 <60 ng/mL N This test was developed and its performance characteristics determined by [facility]. It has not been cleared or approved by the U.S. Food and Drug Administration. Oxycodone 676.9 <37.5 ng/mL H This test was developed and its performance characteristics determined by [facility]. It has not been cleared or approved by the U.S. Food and Drug Administration. Oxymorphone 103 <75 ng/mL H This test was developed and its performance characteristics determined by [facility]. It has not been cleared or approved by the U.S. Food and Drug Administration. Phencyclidine 0.0 <7.5 ng/mL N This test w as developed and its performance characteristics determined by [facility]. It has not been cleared or approved by the U.S. Food and Drug Administration. Tapentadol 0.0 <37.5 ng/mL N This test was developed and its performance characteristics determined by [facility]. It has not been cleared or approved by the U.S. Food and Drug Administration. Temazepam 0 <60 ng/mL N This test was developed and its performance characteristics determined by [facility]. It has not been cleared or approved by the U.S. Food and Drug Administration. Tramadol 0 <75 ng/mL N This test was developed and its performance characteristics determined by [facility]. It has not been cleared or approved by the U.S. Food and Drug Administration. Norhydrocodone 0 <75 ng/mL N This test was developed and its performance characteristics determined by [facility]. It has not been cleared or approved by the U.S. Food and Drug Administration. Noroxycodone 699 <38 ng/mL H This test wa s developed and its performance characteristics determined by [facility]. It has not been cleared or approved by the U.S. Food and Drug Administration. Pregabalin 0 <225 ng/mL N This test was developed and its performance characteristics determined by [facility]. It has not been cleared or approved by the U.S. Food and Drug Administration. Gabapentin 0 <225 ng/mL N This test was developed and its performance characteristics determined by [facility]. It has not been cleared or approved by the U.S. Food and Drug Administration. Benzoylecgonine 0.0 <37.5 ng/mL N This andrea t was developed and its performance characteristics determined by [facility]. It has not been cleared or approved by the U.S. Food and Drug Administration. 4-Hydroxy Xylazine 0 <25 ng/mL N This t est was developed and its performance characteristics determined by [facility]. It has not been cleared or approved by the U.S. Food and Drug Administration. Tox Results Reviewed date:12/02/2024 01:25:11 PM Interpretation: Performing Lab: Notes/Report: Tox Results Reviewed date:06/17/2024 03:35:24 PM Interpretation: Performing Lab: Notes/Report: [facility] Drug Screen ([employer] by instrument) - [id number] Reviewed date:04/02/2024 03:52:36 PM Interpretation: Performing Lab: Notes/Report: Reason For Referral No Information Medications Medication SIG (Take, Route, Frequency, Duration) Notes Start Date End Date Status Metoprolol Succinate *Pick strength-form from [employer] for eRX* Unknown potassium sulfate (bulk) *Reorder from [employer] for eRx and Interaction Alerts* Unknown HYDROcodone-Acetamin ophen 10-325 MG Tablet 1 tablet Orally every 8 hrs; Duration: 30 days As needed Do not exceed 3 per day Fill on 12/28/2024 11/28/2024 01/27/2025 Active hydrOXYzine HCl *Pick strength-form from [facility] for eRX* Unknown Vitamin D3 *Pick strength-form from [facility] for eRX* Unknown HYDROcodone-Acetamin ophen Active Wellbutrin XL *Pick strength-form from [facility] for eRX* Unknown Protonix *Pick strength-form from [facility] for eRX* Unknown Rosuvastatin *Reorder from [facility] for eRx and Interaction Alerts* Unknown HYDROcodone-Acetamin ophen 10-325 MG Tablet 1 tablet Orally every 8 hrs; Duration: 30 days As needed Do not exceed 3 per day Fill on 11/28/2024 11/28/2024 12/28/2024 Active Eliquis *Pick strength-form from [facility] for eRX* Unknown Fluticasone Propionate [...] No Section Notes: Patient is on disability Patient is on disability Patient is on disability Patient is on disability Patient is on disability Patient is on disability Problems Problem Type SNOMED Code ICD Code Onset Dates Problem Status W/U Status Risk Notes Problem Malignant tumor of larynx (857798236) Malignant neoplasm of larynx, unspecified (C32.9) 08/15/19 24 Active confirmed Problem Obesity due to excess calories (660300272) Other obesity due to excess calories (E66.09) Active confirmed Problem Obesity (938397297) Obesity, unspecified (E66.9) 08/15/19 24 Active confirmed Problem Chronic pain due to injury (264456108) Chronic pain due to trauma (G89.21) Active confirmed Problem Chronic pain syndrome (729548791) Chronic pain syndrome (G89.4) 08/15/19 24 Active confirmed Problem 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) Other intervertebral disc degeneration, lumbar region (M51.36) 08/15/19 24 Active confirmed Problem Lumbosacral radiculopathy (3868511) Radiculopathy, lumbosacral region (M54.17) Active confirmed Problem Abnormal gait (35766029) Unspecified abnormalities of gait and mobility (R26.9) 08/15/19 24 Active confirmed Problem High risk drug monitoring status (596690923) [facility] (current) use of opiate analgesic (Z79.891) Active confirmed Problem Neurostimulator device in situ (finding) (396118902) Presence of neurostimulator (Z96.82) Active confirmed Problem Laryngeal cancer (720927293) Laryngeal cancer (C32.9) Active confirmed Problem Abnormal gait (27223030) Abnormality of gait and mobility (R26.9) Active confirmed Problem Body mass index 30.00 to 34.99 (746536646836592) Body mass index [BMI] 31.0-31.9, adult (Z68.31) Active confirmed Vital Signs Height-cm 167.64 cm 11/28/2024 Weight-kg 76.66 kg 11/28/2024 Height 66 in 11/28/2024 Weight 169 lbs 11/28/2024 BMI 27.27 kg/m2 11/28/2024 Encounters Encounter Location Date Provider Diagnosis [facility] [address] [phone] 12/20/2023 Keyona Adams [facility] [address] [address] 03/26/2024 Sylvester Campos Laryngeal cancer C32 .9 ; Chronic pain due to trauma G89.21 ; Degeneration of intervertebral disc of lumbar region with discogenic back pain and lower extremity pain M51.362 ; Radiculopathy, lumbosacral region M54.17 ; Presence of neurostimulator Z96.82 and [facility] (current) use of opiate analgesic Z79.891 [facility] [place] [address] [place] [phone] 06/12/2024 Keyona Adasm Chronic pain due to trauma G89.21 ; Laryngeal cancer C32.9 ; Degeneration of intervertebral disc of lumbar region with discogenic back pain and lower extremity pain M51.362 ; Radiculopathy, lumbosacral region M54.17 ; Presence of neurostimulator Z96.82 ; Obesity, unspecified E66.9 ; Chronic pain syndrome G89.4 ; Unspecified abnormalities of gait and mobility R26.9 ; Tobacco use Z72.0 ; 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 Z79.891 ; Malignant neoplasm of larynx, unspecified C32.9 and Other intervertebral disc degeneration, lumbar region M51.36 [facility] [address] [address] 08/06/2024 Sylvester Campos Chronic pain due to trauma G89.21 ; Laryngeal cancer C32.9 ; Degeneration of intervertebral disc of lumbar region with discogenic back pain and lower extremity pain M51.362 ; Radiculopathy, lumbosacral region M54.17 ; Unspecified abnormalities of gait and mobility R26.9 ; Malignant neoplasm of larynx, unspecified C32.9 ; Obesity, unspecified E66.9 ; Presence of neurostimulator Z96.82 ; [facility] (current) use of opiate analgesic Z79.891 ; Tobacco use Z72.0 ; Chronic pain syndrome G89.4 and Degeneration of intervertebral disc of lumbar region with discogenic back pain M51.360 [facility] [address] [address] 11/28/2024 Keyona Bryan Chronic pain due to trauma G89.21 ; Laryngeal cancer C32.9 ; Degeneration of intervertebral disc of lumbar region with discogenic back pain and lower extremity pain M51.362 ; Radiculopathy, lumbosacral region M54.17 ; Unspecified abnormalities of gait and mobility R26.9 ; Malignant neoplasm of larynx, unspecified C32.9 ; Obesity, unspecified E66.9 ; Presence of neurostimulator Z96.82 ; [facility] (current) use of opiate analgesic Z79.891 ; Tobacco use Z72.0 and Chronic pain syndrome G89.4 [facility] 0 0 01/05/2024 Provider Migration [facility] 0 01/06/2024 Provider Migration [facility] [address] [address] 06/12/2024 Sylvester Campos [facility] [address] [place] [address] [facility] Degeneration of intervertebral disc of lumbar region with discogenic back pain and lower extremity pain M51.362 Assessments Encounter Date Diagnosis (ICD Code) Assessment Notes Treatment Notes Treatment Clinical Notes Section Notes 08/06/2024 Chronic pain due to trauma (ICD-10 - G89.21) I had a nice visit with the patient today regarding her chronic pain issues. She says she's never heard anything about physical therapy, but she really is unsure she can do that right now, so we will hold off reordering that for right now. She is having a problem with her [employer] remote, so we will put the financial foundations representative from [employer] in touch with her, and hopefully they can get that squared away. She also notes that she does better on days when she has the 3 available, so we will increase the quantity up to 3 per day and how she does. We continue that for the next couple of months, and see her back thereafter. 08/06/2024 Laryngeal cancer (ICD-10 - C32.9) 11/28/2024 Degeneration of intervertebral disc of lumbar region with discogenic back pain and lower extremity pain (ICD-10 - M51.362) 11/28/2024 Chronic pain due to trauma (ICD-10 - G89.21) I had a nice discussion with the patient today regarding her chronic pain complaints. She continues with lower back pain as well as radicular symptoms. She missed her last appointment and had to reschedule for a later date due to having a conflicting appointment seeing her Oncology Dr. In [place]. Therefore, she has been out of her medication and has been hurting more for a couple of days. She denies any other changes since we last seen her and states her medication does typically work well for her when she has it. I did discuss lifestyle modifications as well as a bowel regimen. She denies any changes in her health since we last seen her any untoward side effects of the medication. She will continue her medication at present level and return to clinic in 2 months to monitor for treatment effectiveness and compliance. The patient continues with chronic pain requiring [...] effects are noted. Last UDS and AR RODENT EXTERMINATOR reviewed today. Patient is advised that best [...] to abide by our urine testing policy. 11/28/2024 Laryngeal cancer (ICD-10 - C32.9) 06/12/2024 Chronic [...] effects are noted. Last UDS and AR RODENT EXTERMINATOR reviewed today. Patient is advised that best [...] policy. 06/12/2024 Laryngeal cancer (ICD-10 - C32.9) 03/26/2024 Chronic pain due to trauma (ICD-10 - G89.21) 03/26/2024 Laryngeal cancer (ICD-10 - C32.9) 03/26/2024 Degeneration of intervertebral disc of lumbar region with discogenic back pain and lower extremity pain (ICD-10 - M51.362) 06/12/2024 Degeneration of intervertebral disc of lumbar region with discogenic back pain and lower extremity pain (ICD-10 - M51.362) 11/28/2024 Degeneration of intervertebral disc of lumbar region with discogenic back pain and lower extremity pain (ICD-10 - M51.362) 08/06/2024 Degeneration of intervertebral disc of lumbar region with discogenic back pain and lower extremity pain (ICD-10 - M51.362) 08/06/2024 Radiculopathy, lumbosacral region (ICD-10 - M54.17) 11/28/2024 Radiculopathy, lumbosacral region (ICD-10 - M54.17) 06/12/2024 Radiculopathy, lumbosacral region (ICD-10 - M54.17) 03/26/2024 Radiculopathy, lumbosacral region (ICD-10 - M54.17) 03/26/2024 Presence of neurostimulator (ICD-10 - Z96.82) 06/12/2024 Presence of neurostimulator (ICD-10 - Z96.82) 11/28/2024 Unspecified abnormalities of gait and mobility (ICD-10 - R26.9) 08/06/2024 Unspecified abnormalities of gait and mobility (ICD-10 - R26.9) 08/06/2024 Malignant neoplasm of larynx, 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) 11/28/2024 Malignant neoplasm of larynx, 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) 06/12/2024 Obesity, unspecified (ICD-10 - E66.9) 03/26/2024 [facility] (current) use of opiate analgesic (ICD-10 - Z79.891) 06/12/2024 Chronic pain syndrome (ICD-10 - G89.4) 11/28/2024 Obesity, unspecified (ICD-10 - E66.9) 08/06/2024 Obesity, unspecified (ICD-10 - E66.9) 08/06/2024 Presence of neurostimulator (ICD-10 - Z96.82) 11/28/2024 Presence of neurostimulator (ICD-10 - Z96.82) 06/12/2024 Unspecified abnormalities of gait and mobility (ICD-10 - R26.9) 06/12/2024 Tobacco use (ICD-10 - Z72.0) 11/28/2024 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 (ICD-10 - Z79.891) 08/06/2024 [facility] (current) use of opiate analgesic (ICD-10 - Z79.891) 08/06/2024 Tobacco use (ICD-10 - Z72.0) 11/28/2024 Tobacco use (ICD-10 - Z72.0) 06/12/2024 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 08/06/2024 Other I, CLAIRE Pickett, am scribing for Dr. Sylvester Campos. I, Dr. Sylvester Campos, personally performed the services described in this documentation, as scribed by CLAIRE Pickett , and it is both accurate and complete. Plan Of Treatment Next Appt Details Provider Name:Keyona yip, 01/15/2025 04:00:00 PM, [address] [place], [address], Insurance Providers Payer Name Payer Address Payer Phone Subscriber Number Group Number Insured Name Patient Relationship to Insured Coverage Start Date Coverage End Date [facility] Complete [address] [place] [address] [id number] Deejay Nathana Self - patient is the insured [place] Medicaid [address] [place] [address] [id number] Nathan Villalbaa Self - patient is the insured Medical (General) History Hospitalization History Reason Date(Month/Year) Afib RVR, electrolyte imbalance 03/04
--- NOTE | 2024-12-12 13:25 | W.ED.NAVMDI ---
HPI - Nausea/Vomiting/Diarrhea General: Chief complaint: Nausea/Vomiting/Diarrhea Stated complaint: n/v Source: patient and EMS Mode of arrival: EMS Limitations: no limitations History of Present Illness: 64-year-old female states that she has been having nausea vomiting over the last 2 days. States she has had general malaise does not feeling well. She denies any fever she denies any chest pain or abdominal pain denies any worse or improving factors. Associated nausea: Yes Associated symtoms: Reports nausea Related Data Home Medications ?Medication ?Instructions ?Recorded ?Confirmed bupropion HCl 150 mg 24 hr tablet, 150 mg PO QAM 06/07/21 08/06/24 extended release (Wellbutrin XL) apixaban 5 mg tablet (Eliquis) 5 mg PO BID 07/13/22 08/06/24 rosuvastatin 20 mg tablet 20 mg PO DAILY 03/07/23 08/06/24 hydroxyzine HCl 25 mg tablet 25 mg PO Q8H PRN Anxiety 02/09/24 08/06/24 potassium chloride 10 mEq 10 meq PO DAILY 02/17/24 08/06/24 tablet,extended release ipratropium bromide 0.02 % 1 ml continuous nebulization TID 06/25/24 08/06/24 solution for inhalation levothyroxine 137 mcg tablet 137 mcg PO DAILY 06/25/24 08/06/24 Previous Rx's ?Medication ?Instructions ?Recorded hydrocodone 10 mg-acetaminophen 1 tab PO TID PRN pain 30 days #90 03/31/21 325 mg tablet tabs calcitriol 0.5 mcg capsule See Rx Instructions .Route 07/03/24 .COMPLEX #60 caps metoprolol tartrate 50 mg tablet 50 mg PO BID #90 tabs 08/06/24 amiodarone 200 mg tablet 200 mg PO DAILY #90 tabs 11/12/24 digoxin 125 mcg (0.125 mg) tablet See Rx Instructions .Route 12/08/24 .COMPLEX #30 tabs ondansetron 4 mg disintegrating 4 mg PO Q6H PRN nausea and 12/12/24 tablet vomiting #14 tabs Allergies Allergy/AdvReac Type Severity Reaction Status Date / Time sulfamethoxazole (From Allergy abdominal Verified 08/06/24 09:23 Bactrim) pain trimethoprim (From Bactrim) Allergy abdominal Verified 08/06/24 09:23 pain Sulfa (Sulfonamide AdvReac Mild rash and Verified 08/06/24 09:23 Antibiotics) itch tiagabine (From Gabitril) AdvReac Mild headache, Verified 08/06/24 09:23 upset GI Review of Systems GI: Reports: nausea and vomiting PFSH ED PFSH: Medical History Carotid stenosis 100% left carotid stenosis Chronic anticoagulation 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 GERD (gastroesophageal reflux disease) Odynophagia COVID-19 Atrial fibrillation, currently in sinus rhythm Immunization counseling Smoker unmotivated to quit Encounter for long-term (current) use of NSAIDs Encounter for long-term opiate analgesic use High risk medication use Opioid contract exists Degenerative joint disease (DJD) of lumbar spine Cervical disc disease HTN (hypertension) Hypercholesterolemia Osteoarthritis of both knees Age related osteoporosis Surgical History History of tracheostomy 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 History of colonoscopy History of esophagogastroduodenoscopy (EGD) History of back surgery H/O: hysterectomy Family History Sister Cancer breast Diabetes Stroke Brother Cancer lung Diabetes Stroke CAD (coronary artery disease) Brother has AICD Mother Diabetes Father Heart disease Heart attack CAD (coronary artery disease) Father at age 51 secondary to heart attack Social History Smoking and tobacco/nicotine status: former use of tobacco/nicotine Quit status (tobacco/nicotine): has tried quititng Second hand smoke exposure: No Alcohol intake: never Substance/Drug Use: former Date of last use: 2014 Marital status: Physical Exam Const: COMMON NORMALS: no acute distress, patient oriented x3 and healthy appearing HENMT: COMMON NORMALS: normocephalic and atraumatic HEAD & SCALP: normocephalic and atraumatic Neck/C-Spine: COMMON NORMALS: full ROM and supple Chest: COMMONS NORMALS: normal inspection of the chest and normal palpation of entire chest wall Resp: COMMON NORMALS: normal respiratory effort, No retractions, No use of accessory muscles and clear to auscultation bilaterally AUSCULTATION: clear to auscultation bilaterally Cardio: COMMON NORMALS: regular rate, regular rhythm and No murmurs present (Cardio) RATE: regular rate RHYTHM: regular rhythm GI: COMMON NORMALS: Normal to inspection, nondistended, normoactive bowel sounds present, Soft to palpation, non-tender and no masses PALPATION: Yes Soft to palpation Extremity: COMMON NORMALS: normal to inspection and full ROM Neuro: COMMON NORMALS: patient oriented x3, moves all extremities and no focal motor deficits Psych: COMMON NORMALS: mental status grossly normal, Normal thought process present and cooperative THOUGHT PROCESS: Normal thought process present Skin: COMMON NORMALS: no rashes or lesions noted and no wounds GENERAL SKIN EXAM: no rashes or lesions noted Course Vital Signs: Vital signs: Vital Signs Temperature 97.9 F 12/12/24 13:22 Pulse Rate 68 12/12/24 13:22 Respiratory Rate 17 12/12/24 13:22 Blood Pressure 169/97 12/12/24 13:22 Pulse Oximetry 98 12/12/24 13:22 Oxygen Delivery Me thod Room Air 12/12/24 13:22 MDM - Nausea/Vomiting/Diarrhea Medical Decision Making Patient presents with nausea and vomiting differential includes gastroenteritis Food poisoning small bowel obstruction. She has no signs of a small bowel obstruction her abdominal exam is benign with good bowel sounds blood work here is normal including normal white count no signs of severe dehydration she feels much improved here after Zofran and IV fluids able to tolerate p.o. Has likely gastroenteritis will prescribe her Zofran I did go over her lab work and informed her she is to push liquids we will start her on Zofran ODT she is to follow-up with her PCP and return if worsening she understands agrees to plan. Medical Records I reviewed the patient's medical records. Lab Data I reviewed the patient's lab results. 12/12/24 13:36 12/12/24 13:36 Laboratory Results WBC 9.06 10^3/uL (3.29-11.43) 12/12/24 13:36 RBC 4.82 10^6/uL (3.85-5.65) 12/12/24 13:36 Hgb 12.10 g/dL (11.27-16.99) 12/12/24 13:36 Hct 38.8 % (36-47) 12/12/24 13:36 MCV 80.5 fl (85-98) L 12/12/24 13:36 MCH 25.1 pg (27-33) L 12/12/24 13:36 MCHC 31.2 g/dL (30-55) 12/12/24 13:36 RDW 20.8 % (12.1-15.1) H 12/12/24 13:36 Plt Count 250 10^3/cmm (157-399) 12/12/24 13:36 MPV 10.7 fL (7.4-10.4) H 12/12/24 13:36 Neut % (Auto) 81.6 % 12/12/24 13:36 Lymph % (Auto) 9.1 % 12/12/24 13:36 [place] % (Auto) 7.5 % 12/12/24 13:36 Eos % (Auto) 1.1 % 12/12/24 13:36 Baso % (Auto) 0.4 % 12/12/24 13:36 Neut # (Auto) 7.39 10^3/uL (1.8-7.7) 12/12/24 13:36 Lymph # (Auto) 0.8 10^3/uL (0.8-4.8) 12/12/24 13:36 [place] # (Auto) 0.7 10^3/uL (0.2-0.9) 12/12/24 13:36 Eos # (Auto) 0.1 10^3/uL (0.0-0.8) 12/12/24 13:36 Baso # (Auto) 0.0 10^3/uL (0.0-0.1) 12/12/24 13:36 Nucleated RBC % (auto) 0 % 12/12/24 13:36 Nucleated RBCs # 0.0 /100WBC 12/12/24 13:36 Sodium 140 mmol/L (136-145) 12/12/24 13:36 Potassium 4.2 mmol/L (3.5-5.1) 12/12/24 13:36 Chloride 101 mmol/L (98-107) 12/12/24 13:36 Carbon Dioxide 25 mmol/L (22-29) 12/12/24 13:36 Anion Gap 18.2 (5-19) 12/12/24 13:36 BUN 17 mg/dL (8-23) 12/12/24 13:36 Creatinine 1.8 mg/dL (0.5-0.9) H 12/12/24 13:36 GFR Calculation 28.4 mL/min (90-130) L 12/12/24 13:36 Glucose 118 mg/dL (65-115) H 12/12/24 13:36 Calculated Osmolality 293 mOsm/kg (285-295) 12/12/24 13:36 Calcium 9.0 mg/dL (8.5-10.5) 12/12/24 13:36 Total Bilirubin 0.4 mg/dL (0.15-1.2) 12/12/24 13:36 AST 66 U/L (0-32) H 12/12/24 13:36 ALT 50 U/L (0-33) H 12/12/24 13:36 Alkaline Phosphatase 245 U/L (35-105) H 12/12/24 13:36 Total Protein 7.1 g/dL (6.6-8.7) 12/12/24 13:36 Albumin 3.9 g/dL (3.5-5.2) 12/12/24 13:36 Globulin 3.2 g/dL (1.3-4.6) 12/12/24 13:36 Lipase 24 U/L (13-60) 12/12/24 13:36 No radiology studies performed this visit Discharge Plan Discharge Patient Disposition: Home Clinical Impression: Vomiting Condition: Stable Prescriptions: New ondansetron 4 mg tablet,disintegrating 4 mg PO Q6H PRN (Reason: nausea and vomiting) Qty: 14 0RF No Action hydrocodone-acetaminophen 10-325 mg tablet 1 tab PO TID PRN (Reason: pain) 30 Days Qty: 90 0RF bupropion HCl [Wellbutrin XL] 150 mg tablet extended release 24 hr 150 mg PO QAM Eliquis 5 mg tablet 5 mg PO BID metoprolol tartrate 50 mg tablet 50 mg PO BID Qty: 90 0RF Rx Instructions: Hold dose if heart rate less than 60 or blood pressure less than 110/60 calcitriol 0.5 mcg capsule See Rx Instructions .ROUTE .COMPLEX Qty: 60 2RF Dose Instruction: take 1 capsule BY MOUTH TWICE DAILY Rx Instructions: take 1 capsule BY MOUTH TWICE DAILY amiodarone 200 mg tablet 200 mg PO DAILY Qty: 90 0RF digoxin 125 mcg (0.125 mg) tablet See Rx Instructions .ROUTE .COMPLEX Qty: 30 1RF Dose Instruction: TAKE 1 TABLET BY MOUTH EVERY DAY Rx Instructions: TAKE 1 TABLET BY MOUTH EVERY DAY rosuvastatin 20 mg tablet 20 mg PO DAILY hydroxyzine HCl 25 mg tablet 25 mg PO Q8H PRN (Reason: Anxiety) potassium chloride 10 mEq tablet extended release 10 meq PO DAILY levothyroxine 137 mcg tablet 137 mcg PO DAILY ipratropium bromide 0.02 % solution 1 ml continuous nebulization TID Discharge Orders: Discharge ED (Routine); Ordered 12/12/24 Ordered By: Michael Yates Referrals: Rianna Ruiz MD [Primary Care Provider, Internal Medicine] - 4-7 days Discharge Diet: Advance as tolerated Discharge Activity: Resume usual activity Patient Instructions: Acute Nausea and Vomiting (ED) Print Language: Martiniquais Coding Level of Care Code ED Survival Specialist for Gina Morales
[2024-12-12] MEDS: ondansetron 2 mg/ML SDV 2 mL 4 MG IVP (13:39)
[2024-12-12 13:45] LABS: Hematocrit 38.8 % (36-47); Hemoglobin 12.10 g/dL (11.27-16.99); Mean Corpuscular HGB Conc 31.2 g/dL (30-55); Mean Corpuscular Hemoglobin 25.1 pg (27-33); Mean Corpuscular Volume 80.5 fl (85-98); Nucleated Red Blood Cells % 0 %; Platelet Count 250 10^3/cmm (157-399); Red Blood Count 4.82 10^6/uL (3.85-5.65); White Blood Count 9.06 10^3/uL (3.29-11.43)
[2024-12-12 14:02] LABS: Alanine Aminotransferase 50 U/L (0-33); Albumin Level 3.9 g/dL (3.5-5.2); Alkaline Phosphatase 245 U/L (35-105); Anion Gap 18.2 (5-19); Aspartate Amino Transferase 66 U/L (0-32); Blood Urea Nitrogen 17 mg/dL (8-23); Calcium 9.0 mg/dL (8.5-10.5); Carbon Dioxide 25 mmol/L (22-29); Chloride 101 mmol/L (98-107); Creatinine Clr Calc Pharmacy 34.0990; Globulin 3.2 g/dL (1.3-4.6); Glucose 118 mg/dL (65-115); Lipase 24 U/L (13-60); Osmolality Calculated 293 mOsm/kg (285-295); Potassium 4.2 mmol/L (3.5-5.1); Sodium 140 mmol/L (136-145); Total Protein 7.1 g/dL (6.6-8.7)
[2024-12-12 14:54] VITALS: BP 155/83; PULSE 67; O2SAT 97
[2024-12-12 15:03] VITALS: BP 155/83; PULSE 68; O2SAT 99
== END 2024-12-12 15:03 | disposition home or self-care (01) ==
PROVIDERS: Emergency Provider Emergency Medicine; PCP Internal Medicine
DX: R11.10 Vomiting, unspecified (principal); Z79.01 Long term (current) use of anticoagulants; Z87.891 Personal history of nicotine dependence; I10 Essential (primary) hypertension; Z85.89 Personal history of malignant neoplasm of other organs and systems
CPT/HCPCS: 80053; 83690; 85025; 96361; 96374; 99284; J2405; J7030